=== PATIENT | female | born 1965 | race Caucasian/White ===

== ENCOUNTER → 2016-09-14 | Day surgery (SDC) | payer OTHER, MEDICAID ==
[~2016-09-14] MED LIST: IOPAMIDOL (ISOVUE-300) 100 ML BTL IV ONE
--- NOTE | 2016-09-14 23:42 | DX ---
Left Nephrostomy Tube Change INDICATION: Routine change. Informed Consent: Obtained from the patient. Risks and benefits were discussed. Cross Cutting Measure: Patient's current list of medications including all known prescriptions, over -the-counters, herbals, and vitamin/mineral/dietary supplements are reviewed. Medications' name, dos age, frequency, and route of administration are confirmed. Patient is a non-smoker. Prophylactic Antibiotic: Cefazolin was not ordered and administered for antimicrobial prophylaxis be cause it was not medically necessary. VTE Prophylaxis: There is not an order for VTE prophylaxis to be given within 24 hours of the proced ure end time. VTE prophylaxis was not given because it was not medically necessary. Technique: Patient is placed in prone position. A "timeout" procedure was performed to identify the correct patient and the correct procedure. 1% Xylocaine was used for local anesthetic. All elemen ts of maximal sterile barrier technique, including cap, mask, sterile gown, sterile gloves, large ella rile sheet, hand hygiene, and 2% chlorhexidine for cutaneous antisepsis, followed. Existing tube is cut and removed over an Amplatz wire. New nephrostomy tube is advanced and pigtaile d in the pelvis. The patient tolerated the procedure well. Fluoroscopy: 0.2 minutes, two images. Impression: Routine left percutaneous nephrostomy tube change, as above.
== END | disposition home or self-care (01) ==
LOC: FIMAGING 14:24
PROVIDERS: ATTEND Radiology Diagnostic Radiology
PROC: [UNRECOGNIZED PROCEDURE] (principal; 2016-09-14)
DX: Z43.6 Encounter for attention to other artificial openings of urinary tract (principal)
CPT/HCPCS: 50435; 76000; C1729; C1769; J1644; Q9967

== ENCOUNTER → 2016-11-02 | Day surgery (SDC) | payer OTHER, MEDICAID | END | disposition home or self-care (01) | LOC: FIMAGING 08:29 | PROVIDERS: ATTEND Urology | PROC: [UNRECOGNIZED PROCEDURE] (principal; 2016-11-02) | DX: Z43.6 Encounter for attention to other artificial openings of urinary tract (principal) | CPT/HCPCS: 50435; 75984; C1729; C1769; Q9967 ==

== ENCOUNTER → 2016-12-09 | Day surgery (SDC) | payer OTHER, MEDICAID | END | disposition home or self-care (01) | LOC: FIMAGING 08:51 | PROVIDERS: ATTEND Urology | PROC: 0T25X0Z Change Drainage Device in Kidney, External Approach (ICD-10-PCS; principal; 2016-12-09) | DX: Z43.6 Encounter for attention to other artificial openings of urinary tract (principal); R10.9 Unspecified abdominal pain | CPT/HCPCS: 50435; 75984; C1729; C1769; Q9967 ==

== ENCOUNTER → 2016-12-16 | Outpatient (CLI) | payer OTHER, MEDICAID | LOC: FIMAGING 09:50 | PROVIDERS: ATTEND Nurse Practitioner | DX: N20.0 Calculus of kidney (principal); N28.89 Other specified disorders of kidney and ureter; M41.86 Other forms of scoliosis, lumbar region; M12.88 Other specific arthropathies, not elsewhere classified, other specified site; Z93.6 Other artificial openings of urinary tract status ==

== ENCOUNTER → 2017-02-15 | Day surgery (SDC) | payer OTHER, MEDICAID | END | disposition home or self-care (01) | LOC: FIMAGING 14:55 | PROVIDERS: ATTEND Radiology Diagnostic Radiology | PROC: 0T25X0Z Change Drainage Device in Kidney, External Approach (ICD-10-PCS; principal; 2017-02-15) | DX: T83.092A Other mechanical complication of nephrostomy catheter, initial encounter (principal) | CPT/HCPCS: 50435; 75984; C1729; C1769 ==

== ENCOUNTER 2017-02-16 12:45 | Emergency (ER) | payer OTHER, MEDICAID ==
[2017-02-16 12:58] VITALS: RESP 20
[2017-02-16] MEDS ORDERED: ACETAMINOPHEN 325 MG TAB PO ONE (13:23)
--- NOTE | 2017-02-16 13:25 | EDPHY ---
H & P Time Seen by Provider: 02/16/17 13:16 HPI/ROS: CHIEF COMPLAINT: Fever HISTORY OF PRESENT ILLNESS: 51-year-old female HIV positive, with ESRD on dialysis presents with a fever of 102. She has a history of multiple episodes of pyelonephritis, related to kidney stones and nephrostomy tube. She took the Zyvox for the past 2 days because of low-grade fever. Yesterday she had her nephrostomy replaced and subsequently developed hematuria. In dialysis today, her fever was 102, she states she felt slightly nauseous, but otherwise fine. She is followed by the [facility]. REVIEW OF SYSTEMS: Constitutional: Fever, no chills Eyes: No visual changes ENT: No sore throat Respiratory: No cough, no shortness of breath Cardiac: No chest pain Gastrointestinal: Nausea, no vomiting, no abdominal pain Genitourinary: Hematuria yesterday, no dysuria Musculoskeletal: No leg pain or swelling Skin: No rash Neurological: No headache, no numbness, no weakness Psychiatric: No depression Past Medical/Surgical History: ESRD with dialysis, Neurogenic bladder, Jillian Dumont, HIV+, Hydronephrosis, Nephrostomy tube, Uterine ablation. Social History: Single. Lives in [place]. Smoking Status: Never smoked Physical Exam: General Appearance: Alert, pleasant Eyes: Pupils equal and round, no conjunctival pallor or injection ENT, Mouth: Mucous membranes moist Neck: Normal inspection Respiratory: Lungs are clear to auscultation Cardiovascular: Regular rate and rhythm Gastrointestinal: Abdomen is soft and non-tender, left nephrostomy tube Neurological: A&O, nonfocal, normal gait Skin: Warm and dry, no rash Extremities: Nontender, no pedal edema Psychiatric: Mood and affect normal Constitutional: Initial Vital Signs Temperature (C) 38 C 02/16/17 12:45 Heart Rate 110 H 02/16/17 12:45 Respiratory Rate 20 02/16/17 12:45 Blood Pressure 95/61 L 02/16/17 12:45 O2 Sat (%) 90 L 02/16/17 12:45 O2 Delivery Mode Room Air Allergies/Adverse Reactions: cephalexin monohydrate [From Keflex] Allergy (Intermediate, Verified 02/16/17 12 :55) Swelling/neck,face,throat ertapenem sodium [From Invanz] Allergy (Intermediate, Verified 02/16/17 12:55) Rash, neck and throat swelling Penicillins Allergy (Intermediate, Verified 02/16/17 12:55) Swelling/neck,face,throat Sulfa (Sulfonamide Antibiotics) Allergy (Intermediate, Verified 02/16/17 12:55) Swelling/neck,face,throat vancomycin [Vancomycin] Allergy (Intermediate, Verified 02/16/17 12:55) Swelling/neck,face,throat doxycycline Allergy (Verified 02/16/17 12:55) hydroxyzine HCl [From Atarax] Allergy (Verified 02/16/17 12:55) keflin Allergy (Uncoded 02/16/17 12:55) keftab Allergy (Uncoded 02/16/17 12:55) FLU SHOTS Adverse Reaction (Uncoded 02/16/17 12:55) RT POOR KIDNEY FUNCTION AVOIDS Home Medications: Medication Instructions Recorded Abacavir Sulfate [Ziagen] 600 mg PO DAILY 02/23/13 Darunavir Ethanolate [PREZISTA] 800 mg PO DAILY 02/23/13 Escitalopram Oxalate [Lexapro] 20 mg PO DAILY 07/29/15 Ritonavir [Norvir] 100 mg PO DAILY 07/29/15 Sevelamer Carbonate [Renvela] 800 mg PO TIDMEAL 07/30/15 Dolutegravir Sodium [Tivicay] 50 mg PO DAILY 04/28/16 Herbals/Supplements -Info Only 1 tab PO DAILY 05/17/16 Scopolamine Hydrobromide 1.5 mg TD Q72H 06/17/16 [Transderm-Scop] Levothyroxine [Synthroid 88 mcg 88 mcg PO DAILY06 02/16/17 (*)] Linezolid [Zyvox 600 mg (*)] 600 mg PO DAILY PRN 02/16/17 levOFLOXACIN [Levaquin] 250 mg PO EVERY OTHER DAY #0 tablet 02/17/17 Medical Decision Making ED Course/Re-evaluation: The patient does not want to be admitted at this time. She is electing to skip dialysis today so she can see her family tomorrow. Plan to check UA and lab work. Potassium 6.2. I discussed this result with the patient and she continues to refuse admission and to refuse dialysis today. She is capable of making this decision and clearly understands the risk of elevated potassium, including dysrhythmia or . She accepts the risks and still wishes to go home. UA is positive for leukocyte esterase. Patient received 1 time dose of Rocephin. She will take Levaquin and Zyvox for UTI. Urine cx sent. Differential Diagnosis: Differential diagnosis includes pyelonephritis, cholecystitis, influenza, cellulitis, pneumonia, abscess, meningitis. - Data Points Laboratory Results: Laboratory Results 02/16/17 12:50 02/16/17 12:50 Microbiology Results: MICROBIOLOGY 02/16/17 13:48 Urine,Clean Catch Urine Culture - Preliminary Gram Neg Fly Nonlactose Ferm. Gram Neg Fly Lactose [employer] Consultant Medications Given: Discontinued Medications Acetaminophen (Tylenol) 650 mg PO EDNOW ONE Stop: 02/16/17 13:24 Last Admin: 02/16/17 13:55 Dose: 650 mg Levofloxacin (Levaquin) 750 mg PO EDNOW ONE PRN Reason: Protocol Stop: 02/16/17 14:57 Last Admin: 02/16/17 15:15 Dose: 750 mg Departure - Departure Disposition: Home, Routine, Self-Care Clinical Impression: Hyperkalemia UTI (urinary tract infection) Qualifiers: Urinary tract infection type: catheter-associated UTI Indwelling urinary catheter type: nephrostomy catheter Encounter type: initial encounter Qualified Code(s): T83.512A - Infection and inflammatory reaction due to nephrostomy catheter, initial encounter; N39.0 - Urinary tract infection, site not specified Condition: Fair Instructions: Fever in Adults (ED) Additional Instructions: I think you should be admitted to the hospital today to receive dialysis. Please call your [facility] today to arrange prompt dialysis for tomorrow. Continue taking Zyvox and Levaquin as prescribed. Referrals: Brandon Ho MD [Medical Doctor] - As per Instructions Report Scribed for: Dilia Zuniga Report Scribed by: Shruti Diaz Date of Report: 02/16/17 Time of Report: 14:56 Physician Review and Approval Statement: 02/16/17 14:56 Portions of this note were transcribed by a senior medical writer. I personally performed the history, physical exam, and medical decision-making; and confirmed the accuracy of the information in the transcribed note.
[2017-02-16 13:37] LABS: % IMMATURE GRANULYOCYTES 0.3 % (0.0-1.1); ABSOLUTE IMMATURE GRANULOCYTES 0.02 10^3/uL (0.00-0.10); ADD DIFF? NO; ADD MORPH? NO; ADD SCAN? NO; ATYPICAL LYMPHOCYTE FLAG 0 (0-99); FRAGMENT RBC FLAG 0 (0-99); HEMOGLOBIN 11.6 g/dL (12.6-16.3); LEFT SHIFT FLG 20 (0-99); LIPEMIA HEMOLYSIS FLAG 80 (0-99); MEAN CELL HEMOGLOBIN 29.9 pg (27.9-34.1); MEAN CELL HEMOGLOBIN CONCENTR. 31.4 g/dL (32.4-36.7); MEAN CELL VOLUME 95.4 fL (81.5-99.8); MEAN PLATELET VOLUME 9.7 fL (8.7-11.7); PLATELET CLUMPS FLAG 0 (0-99); PLATELET COUNT 146 10^3/uL (150-400); RED BLOOD CELL COUNT 3.88 10^6/uL (4.18-5.33); RED CELL DISTRIBUTION WIDTH 15.3 % (11.5-15.2)
[2017-02-16 13:42] LABS: ANION GAP 15 mEq/L (8-16); BILIRUBIN,TOTAL 0.8 mg/dL (0.1-1.4); CALCIUM 10.3 mg/dL (8.5-10.4); CARBON DIOXIDE 20 mEq/l (22-31); CHLORIDE 100 mEq/L (97-110); CREATININE 5.8 mg/dL (0.6-1.0); GLOMERULAR FILTRATION RATE 8; GLUCOSE 101 mg/dL (70-100); POTASSIUM 6.2 mEq/L (3.5-5.2); SODIUM 135 mEq/L (134-144)
[2017-02-16 13:49] LABS: INR 1.11 (0.83-1.16); PROTIME(PATIENT) 14.2 SEC (12.0-15.0)
[2017-02-16 13:50] LABS: APTT 30.9 SEC (23.0-38.0)
[2017-02-16 14:48] LABS: COLOR YELLOW; LEUKOCYTE ESTERASE,URINE 3+ (NEGATIVE); NITRITE,URINE NEGATIVE (NEGATIVE)
[2017-02-16 14:53] LABS: BACTERIA TRACE /hpf (NONE SEEN); MUCUS TRACE /lpf (NONE-1+); RBC,URINE 50-182 /hpf (0-3); WBC,URINE 50-182 /hpf (0-3)
[2017-02-16 15:20] VITALS: BP 93/64; PULSE 106; TEMP 99.1; O2SAT 95
== END 2017-02-16 17:11 | disposition home or self-care (01) ==
LOC: EDUNIT#
DX: T83.512A Infection and inflammatory reaction due to nephrostomy catheter, initial encounter (principal); E87.5 Hyperkalemia; B96.5 Pseudomonas (aeruginosa) (mallei) (pseudomallei) as the cause of diseases classified elsewhere; Y73.2 Prosthetic and other implants, materials and accessory gastroenterology and urology devices associated with adverse incidents

== ENCOUNTER 2017-02-16 19:18 | Inpatient (IN) | payer OTHER, MEDICAID ==
--- NOTE | 2017-02-16 19:58 | EDPHY ---
H & P Stated Complaint: fever, nausea; seen earlier today Time Seen by Provider: 02/16/17 19:32 HPI/ROS: Chief Complaint: Fever, nausea HPI: 51-year-old woman with past medical history of end-stage renal disease, HIV positive, nephrostomy who had a recent nephrostomy tube changed yesterday. Patient was seen earlier today and noted to have urinary tract infection. Patient also was hyperkalemic and needed dialysis. Patient did not want to stay in the hospital she has family coming to visit and left the hospital AMA. Her caregiver noted that the patient was feeling increasingly unwell with nausea and rigors. They called Dr. Burton, infectious Disease who recommended return to the hospital for admission and dialysis and further care. The patient was given Levaquin in the emergency department earlier today. No chest pain or shortness of breath. No abdominal pain. Has not had any pain at the nephrostomy tube site ROS: 10 point Review of Systems is negative except as noted in the HPI. PMH: End-stage renal disease on dialysis, neurogenic bladder, HIV-positive, Guillain-Bancroft, hydronephrosis, nephrostomy tube, uterine ablation Social History: No smoking, no alcohol, no recreational drug use Family History: non-contributory Physical Exam: Gen: Awake, Alert, uncomfortable appearing, frail HEENT: Nose: no rhinorrhea Eyes: PERRLA, EOMI Mouth: Moist mucosa Neck: Supple, no JVD Chest: nontender, lungs clear to auscultation Heart: S1, S2 normal, no murmur Abd: Soft, non-tender, no guarding Back: no CVA tenderness, no midline tenderness some dried serosanguineous discharge at the nephrostomy tube site. No purulence. No erythema Ext: no edema, non-tender Skin: no rash Neuro: CN II-XII intact, Sensation grossly intact, Strength 5/5 in bilateral upper and lower extremities - Personal History LMP (Females 10-55): Over 28 Days Ago Tetanus Vaccine Date: 2010 - Medical/Surgical History Hx Asthma: No Hx Chronic Respiratory Disease: No Hx Diabetes: No Hx Cardiac Disease: No Hx Renal Disease: Yes Hx Cirrhosis: No Hx Alcoholism: No Hx HIV/AIDS: Yes Hx Splenectomy or Spleen Trauma: No Other PMH: pmh- neurogenic bladder, Guillian Bancroft, anemia, ESRD w/ dialysis, hyperparathyroidism, HIV+, sacral decub 08/05 until 06/06., hydronephrosis, L nephrostomy tube. psh- tonsillectomy, teeth pulled, cholecystectomy, LFA fistula, left hip replacement; uterine ablation - Social History Smoking Status: Never smoked Constitutional: Initial Vital Signs Temperature (C) 39.5 C H 02/16/17 19:20 Heart Rate 127 H 02/16/17 19:20 Respiratory Rate 17 02/16/17 19:20 Blood Pressure 92/56 L 02/16/17 19:20 O2 Sat (%) 90 L 02/16/17 19:20 O2 Delivery Mode Room Air Allergies/Adverse Reactions: cephalexin monohydrate [From Keflex] Allergy (Intermediate, Verified 02/16/17 12 :55) Swelling/neck,face,throat ertapenem sodium [From Invanz] Allergy (Intermediate, Verified 02/16/17 12:55) Rash, neck and throat swelling Penicillins Allergy (Intermediate, Verified 02/16/17 12:55) Swelling/neck,face,throat Sulfa (Sulfonamide Antibiotics) Allergy (Intermediate, Verified 02/16/17 12:55) Swelling/neck,face,throat vancomycin [Vancomycin] Allergy (Intermediate, Verified 02/16/17 12:55) Swelling/neck,face,throat doxycycline Allergy (Verified 02/16/17 12:55) hydroxyzine HCl [From Atarax] Allergy (Verified 02/16/17 12:55) keflin Allergy (Uncoded 02/16/17 12:55) keftab Allergy (Uncoded 02/16/17 12:55) FLU SHOTS Adverse Reaction (Uncoded 02/16/17 12:55) RT POOR KIDNEY FUNCTION AVOIDS Home Medications: Medication Instructions Recorded Abacavir Sulfate [Ziagen] 600 mg PO DAILY@1800 02/23/13 Darunavir Ethanolate [PREZISTA] 800 mg PO DAILY@1800 02/23/13 Escitalopram Oxalate [Lexapro] 20 mg PO DAILY 07/29/15 Levothyroxine [Synthroid 75 mcg 75 mcg PO DAILY06 07/29/15 (*)] Ritonavir [Norvir] 100 mg PO DAILY@1800 07/29/15 Sevelamer Carbonate [Renvela] 800 mg PO TIDMEAL 07/30/15 Midodrine HCl [Proamatine/Midodrin] 10 mg PO MWF@1000 10/02/15 Dolutegravir Sodium [Tivicay] 50 mg PO DAILY@1800 04/28/16 Herbals/Supplements -Info Only 1 tab PO DAILY 05/17/16 Multivitamins [Multivitamin (*)] 1 tab PO DAILY 05/17/16 Omeprazole [Prilosec 20 mg] 20 mg PO BID 06/17/16 Scopolamine Hydrobromide 1.5 mg TD Q72H 06/17/16 [Transderm-Scop] Medical Decision Making ED Course/Re-evaluation: I have reviewed the patient's emergency department your visit from earlier today. It is noted that time that her potassium was 6.2, creatinine 5.8. She had a white count of 6.03. Lactate was 1.3. She had 3+ leuk esterase in her urine. She was given Levaquin p.o.. Patient has noted now to be febrile. She is nontoxic appearing. I have discussed with Dr. Kartik Burger, hospitalist. He will admit to his service for further care. Departure - Departure Disposition: [facility] Inpatient Acute Clinical Impression: Fever, UTI (urinary tract infection), End stage renal disease, Hyperkalemia Condition: Fair Referrals: Adam Villalobos MD [Primary Care Provider] - As per Instructions
[2017-02-16] MEDS ORDERED: ACETAMINOPHEN 325 MG TAB PO PRN (21:34)
[2017-02-16] MEDS ORDERED: LINEZOLID 600 MG TAB PO PRN (21:37)
[2017-02-16] MEDS ORDERED: SCOPOLAMINE HYDROBROMIDE 1.5 MG PATCH TD SCH (21:45)
--- NOTE | 2017-02-16 21:56 | CPEKG ---
Heart Rate: 103 RR Interval: 583 P-R Interval: 144 QRSD Interval: 70 QT Interval: 324 QTC Interval: 424 P [place]: 67 QRS [place]: -53 T Wave [place]: 53 EKG Severity - ABNORMAL ECG - EKG Impression: SINUS TACHYCARDIA EKG Impression: PROBABLE LEFT ATRIAL ABNORMALITY EKG Impression: PROBABLE INFERIOR INFARCT, OLD EKG Impression: LATERAL INFARCT, OLD EKG Impression: CONSIDER ANTERIOR INFARCT EKG Impression: QUERY LEAD REVERSAL TO PRECORDIAL LEADS VERSUS NEW LATERAL INFARCT IN EKG Impression: COMPARISON TO PRIOR (17-JUN-16) Electronically Signed By: Gael Ellis 17-Feb-2017 09:43:17
[2017-02-16] MEDS: HEPARIN 5,000 UNIT/0.5 ML SYR SC SCH (22:25)
[2017-02-16] MEDS: ONDANSETRON 4 MG/2 ML VIAL IVP PRN (22:28)
--- NOTE | 2017-02-16 22:57 | GHP ---
[f rep st] HISTORY AND PHYSICAL DATE OF ADMISSION: 02/16/2017 HISTORY OF PRESENT ILLNESS: The patient is a 51-year-old female with history of endstage renal dise ase, HIV, and recurrent UTI. She presented to the emergency department earlier today with fever of 102. At that point in time, she was diagnosed with a UTI on the basis of a UA showing 50-180 red ce lls, 50-180 white cells, and 3+ leukocyte esterase. This is not an uncommon finding since she has a nephrostomy tube and history of nephrolithiasis and pyelonephritis. She received a dose of ceftria xone and admission was recommended on the basis of a potassium of 6.2. She declined and was dischar ged home. It sounds like she went to dialysis and did not look particularly well and was therefore sent back in here. The patient is somewhat unclear about whether or not she has urinary symptoms, s tating that she has a UTI. A lot of her urine drains out through a leg bag from a nephrostomy. She has a sore neck secondary to degenerative disk disease, but no bob myalgias. She is allergic to flu shots. I suspect she did not get a flu shot this year. She has no cough, shortness of breath, abdominal pain or diarrhea. Her fistula looks good. She has no other indwelling access. She is wheelchair-bound secondary to unsteady gait. REVIEW OF SYSTEMS: Complete 10-point review of systems conducted and negative except as noted in th e HPI. PAST MEDICAL HISTORY: 1. HIV without AIDS. 2. 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 3. Nephrolithiasis. 4. Recurrent UTIs. Prior cultures were Acinetobacter, Klebsiella, Enterobacter, Enterococcus. 5. Pelvic fracture. 6. Neurogenic bladder. 7. Guillain-[place]. 8. Hypothyroidism. 9. Depression. 10. Hyperlipidemia. 11. Hyperparathyroidism. 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 13. Left nephrostomy tube. 14. Ureteral stenosis. 15. Left total hip arthroplasty. 16. Left knee surgery. 17. Cholecystectomy. 18. Bilateral feet surgery. 19. Hysterectomy. 20. Tonsillectomy. 21. Tubal ligation. SOCIAL HISTORY: Wheelchair-bound secondary to Guillain-[place]. Lives with mother in [place]. Mara issa is active in her care. No alcohol, no tobacco. FAMILY HISTORY: Negative for CAD. ALLERGIES: Keflex, ertapenem, penicillins, vancomycin, doxycycline, hydroxyzine, Ceftin, Keftab, fl u shots. MEDICATIONS: Herbals, p.r.n. Linezolid, sevelamer, levothyroxine, scopolamine, hydrobromide, ritona vir, escitalopram, darunavir, dolutegravir. PHYSICAL EXAMINATION: VITAL SIGNS: Temp 39.5, now 37.5, blood pressure 92/56, now 107/54. She was tachycardic at 127 when febrile, but now 99, pulse 70, breathing 17 times a minute, 90% on room air . GENERAL: No acute distress. Sclerae anicteric. Oropharynx clear. Mucous membranes moist. NEC K: Supple without lymphadenopathy or JVD. LUNGS: Clear to auscultation bilaterally. HEART: S1, S2. ABDOMEN: Soft, nontender, nondistended. There is clear urine in her leg bag. Her fistula is clean, dry, and intact. LABS: White count 6, hematocrit 37, platelets 146,000, all baseline. INR 1.1. Venous lactate 1.3. Sodium 135, potassium 6.2, chloride 100, bicarb 20, BUN 45, creatinine 5.8, glucose 101, calcium 1 0.3. UA is 50-180 white cells, 50-180 red cells, is commonly found for her although she sometimes h as less red cells. Chest x-ray earlier today, interpreted by me, shows no acute cardiopulmonary dis ease. I discussed the case with Dr. Ronnie Negro, Dr. Tom Burton, Dr. Dwaine Ford. ASSESSMENT/PLAN: Complex 51-year-old female, here with hyperkalemia and fever. 1. Fever. It maybe from a urinary tract infection, although her urinalysis and history are not enti rely convincing given that she always has a chronic urinalysis and is a challenging historian. I wi ll cover her with ceftriaxone, which she received earlier today, start again tomorrow, and check inf luenza. There are no other localizing symptoms we will follow. Blood cultures were drawn in the em ergency department earlier and urine culture were sent. 2. End-stage renal disease. EKG is pending. However, so far on telemetry this level of potassium for her at 5.8 is high, but did have higher values, as high as 9. She will get dialysis either toda y or tomorrow. Again, she is on telemetry. 3. Human immunodeficiency virus. Continue her medications. 4. Prophylaxis. Subcutaneous heparin t.i.d. DISPOSITION: Inpatient status. /[id number]/MODL
[2017-02-16] MEDS ORDERED: LINEZOLID 600 MG TAB PO ONE (23:45)
[2017-02-16] MEDS ORDERED: levOFLOXACIN 500 MG/DEXTROSE 100 ML IV ONE (23:48)
[2017-02-17] MEDS: ONDANSETRON DISINTEGRATING 4 MG TAB PO PRN ×2 (01:23→05:53)
[2017-02-17] MEDS: HEPARIN 5,000 UNIT/0.5 ML SYR SC SCH (05:53)
[2017-02-17] MEDS ORDERED: LEVOTHYROXINE 88 MCG TAB PO SCH (06:00)
[2017-02-17 06:45] LABS: HEMATOCRIT 37.6 % (38.0-47.0); HEMOGLOBIN 11.7 g/dL (12.6-16.3); MEAN CELL HEMOGLOBIN 29.8 pg (27.9-34.1); MEAN CELL HEMOGLOBIN CONCENTR. 31.1 g/dL (32.4-36.7); MEAN CELL VOLUME 95.7 fL (81.5-99.8); RED BLOOD CELL COUNT 3.93 10^6/uL (4.18-5.33); RED CELL DISTRIBUTION WIDTH 15.3 % (11.5-15.2)
[2017-02-17 07:04] LABS: ANION GAP 16 mEq/L (8-16); CALCIUM 10.3 mg/dL (8.5-10.4); CARBON DIOXIDE 19 mEq/l (22-31); CHLORIDE 98 mEq/L (97-110); CREATININE 6.9 mg/dL (0.6-1.0); GLOMERULAR FILTRATION RATE 6; GLUCOSE 95 mg/dL (70-100); POTASSIUM 6.1 mEq/L (3.5-5.2); SODIUM 133 mEq/L (134-144)
[2017-02-17] MEDS ORDERED: NON-FORMULARY NEW DRUG (Sevelamer Carbonate [Renvela] 800 MG) PO SCH (08:00)
[2017-02-17] MEDS ORDERED: NON-FORMULARY NEW DRUG (Escitalopram Oxalate [Lexapro] 20 MG) PO SCH (09:00)
[2017-02-17] MEDS ORDERED: Herbals/Supplements -Info Only PO SCH (09:00)
[2017-02-17] MEDS ORDERED: NON-FORMULARY NEW DRUG (Dolutegravir Sodium [Tivicay] 50 MG) PO SCH (09:00)
[2017-02-17] MEDS ORDERED: ABACAVIR SULFATE 600 MG PO SCH ×3 (09:00)
[2017-02-17] MEDS ORDERED: ESCITALOPRAM OXALATE 10 MG TAB PO SCH (09:00)
[2017-02-17] MEDS ORDERED: DARUNAVIR ETHANOLATE 800 MG PO SCH ×2 (09:00)
[2017-02-17] MEDS ORDERED: cefTRIAXone 1 GM in D5W 50 ML IV SCH (09:00)
[2017-02-17] MEDS ORDERED: RITONAVIR 100 MG PO SCH ×2 (09:00)
[2017-02-17] MEDS ORDERED: (Dolutegravir Sodium [Tivicay] 50 MG) PO SCH (09:00)
--- NOTE | 2017-02-17 09:40 | PDCONSULT ---
[facility] [employer] [facility] Note: Assessment/Plan: ESRD: on HD MWF, missed HD yesterday. - HD today. - HD again tomorrow per routine. Hyperkalemia: will modulate on HD. Metabolic acidosis: will modulate on HD. Anemia: Hgb at goal at 11.7, no need for epo, will monitor. Thank you for the interesting consult. Nephrology will continue to monitor, please call with any additional questions or concerns. H & P Stated Complaint: fever, nausea; seen earlier today Time Seen by Provider: 02/16/17 19:32 HPI/ROS: HPI: Ms. Castillo is a 51 yo F with ESRD on HD MWF at [facility] who was admitted yesterday for fever. Pt presented yesterday morning to ER, was noted to have a fever up to 102 and found to have a UTI, was given ceftriaxone. It was recommended she be admitted but she declined and left from ED. She went to dialysis unit but was still having fever, didn't look so great so was sent back to ED, was not dialyzed. Pt notes that overnight she has had no issues, no more fevers, feeling a bit better. She expresses no specific symptoms today. ROS: Positive per HPI, rest of 10-point ROS negative Source: Patient - Personal History LMP (Females 10-55): Over 28 Days Ago Tetanus Vaccine Date: 2010 - Medical/Surgical History Hx Asthma: No Hx Chronic Respiratory Disease: No Hx Diabetes: No Hx Cardiac Disease: No Hx Renal Disease: Yes Hx Cirrhosis: No Hx Alcoholism: No Hx HIV/AIDS: Yes Hx Splenectomy or Spleen Trauma: No Other PMH: pmh- neurogenic bladder, Guillian Umbarger, anemia, ESRD w/ dialysis, hyperparathyroidism, HIV+, sacral decub 08/05 until 06/06., hydronephrosis, L nephrostomy tube. psh- tonsillectomy, teeth pulled, cholecystectomy, LFA fistula, left hip replacement; uterine ablation - Family History Significant Family History: No pertinent family hx - Social History Smoking Status: Never smoked - Physical Exam Exam: General: alert and oriented, no acute distress Eyes; EOMI, PERRL OP: Clear, MMM Neck: supple, no thyromegaly CV: RRR, no peripheral edema Resp: CTA Bilat, nonlabored respirations Abd; Soft, NT/ND Neuro: CN II-XII grossly intact, no asterixis Psych: cooperative, appropriate mood and affect Access: LUE AVF cannulated Constitutional: Initial Vital Signs Temperature (C) 39.5 C H 02/16/17 19:20 Heart Rate 127 H 02/16/17 19:20 Respiratory Rate 17 02/16/17 19:20 Blood Pressure 92/56 L 02/16/17 19:20 O2 Sat (%) 90 L 02/16/17 19:20 O2 Delivery Mode Room Air Allergies/Adverse Reactions: cephalexin monohydrate [From Keflex] Allergy (Intermediate, Verified 02/16/17 12 :55) Swelling/neck,face,throat ertapenem sodium [From Invanz] Allergy (Intermediate, Verified 02/16/17 12:55) Rash, neck and throat swelling Penicillins Allergy (Intermediate, Verified 02/16/17 12:55) Swelling/neck,face,throat Sulfa (Sulfonamide Antibiotics) Allergy (Intermediate, Verified 02/16/17 12:55) Swelling/neck,face,throat vancomycin [Vancomycin] Allergy (Intermediate, Verified 02/16/17 12:55) Swelling/neck,face,throat doxycycline Allergy (Verified 02/16/17 12:55) hydroxyzine HCl [From Atarax] Allergy (Verified 02/16/17 12:55) keflin Allergy (Uncoded 02/16/17 12:55) keftab Allergy (Uncoded 02/16/17 12:55) FLU SHOTS Adverse Reaction (Uncoded 02/16/17 12:55) RT POOR KIDNEY FUNCTION AVOIDS Home Medications: Medication Instructions Recorded Abacavir Sulfate [Ziagen] 600 mg PO DAILY 02/23/13 Darunavir Ethanolate [PREZISTA] 800 mg PO DAILY 02/23/13 Escitalopram Oxalate [Lexapro] 20 mg PO DAILY 07/29/15 Ritonavir [Norvir] 100 mg PO DAILY 07/29/15 Sevelamer Carbonate [Renvela] 800 mg PO TIDMEAL 07/30/15 Dolutegravir Sodium [Tivicay] 50 mg PO DAILY 04/28/16 Herbals/Supplements -Info Only 1 tab PO DAILY 05/17/16 Scopolamine Hydrobromide 1.5 mg TD Q72H 06/17/16 [Transderm-Scop] Levothyroxine [Synthroid 88 mcg 88 mcg PO DAILY06 02/16/17 (*)] Linezolid [Zyvox 600 mg (*)] 600 mg PO DAILY PRN 02/16/17 Lab and Imaging 02/17/17 06:40 02/17/17 06:40 WBC 4.24 10^3/uL (3.80-9.50) 02/17/17 06:40 RBC 3.93 10^6/uL (4.18-5.33) L 02/17/17 06:40 Hgb 11.7 g/dL (12.6-16.3) L 02/17/17 06:40 Hct 37.6 % (38.0-47.0) L 02/17/17 06:40 MCV 95.7 fL (81.5-99.8) 02/17/17 06:40 MCH 29.8 pg (27.9-34.1) 02/17/17 06:40 MCHC 31.1 g/dL (32.4-36.7) L 02/17/17 06:40 RDW 15.3 % (11.5-15.2) H 02/17/17 06:40 Plt Count 133 10^3/uL (150-400) L 02/17/17 06:40 Sodium 133 mEq/L (134-144) L 02/17/17 06:40 Potassium 6.1 mEq/L (3.5-5.2) H 02/17/17 06:40 Chloride 98 mEq/L (97-110) 02/17/17 06:40 Carbon Dioxide 19 mEq/l (22-31) L 02/17/17 06:40 Anion Gap 16 mEq/L (8-16) 02/17/17 06:40 BUN 58 mg/dL (7-23) H 02/17/17 06:40 Creatinine 6.9 mg/dL (0.6-1.0) H 02/17/17 06:40 Estimated GFR 6 02/17/17 06:40 Glucose 95 mg/dL (70-100) 02/17/17 06:40 Calcium 10.3 mg/dL (8.5-10.4) 02/17/17 06:40 Influenza A & B (PCR) NEGATIVE FOR FLU (NEGATIVE) 02/16/17 22:00
[2017-02-17] MEDS ORDERED: LIDOCAINE 1% *Not for Epidural 20 ML MDV ONE (10:00)
[2017-02-17] MEDS: ONDANSETRON 4 MG/2 ML VIAL IVP PRN (10:55)
--- NOTE | 2017-02-17 11:15 | HOSPPROG ---
Hospitalist Progress Note Assessment/Plan: 51 yo female with ESRD, nephrostomy tubes, recurrent UTI, and HIV (no AIDS reported) admitted for fever of unclear etiology, possibly due to a UTI. She was initially seen on 02/17 a.m. and started on Levaquin and Zyvox. Admission was recommended but refused but was ultimately sent back by her HD team. It is unclear if a Urine culture was sent. A blood culture was not sent. No further fever today. -Fever of unclear etiology -Possibly Acute UTI in setting of nephrostomy tubes and recurrent UTI's -ESRD -Hyperkalemia, getting HD (extra treatment) today. chronically on M// schedule -HIV Plan: I will order both UCx and Bcx, but likely will not be informative she has a hx of polymicrobial UTI and I presume that this is the reason she was treated with both Levaquin and Zyvox. For now I will continue with Levaquin alone. If decompensates, may need to restart the Zyvox. HD today I will keep her overnight given her high risk status. Heparin TID for DVT proph Subjective: Feels better. Although still feels hot. Wants to go home. No CP or SOB. No cough. Objective: Vital Signs Temp Pulse Resp BP Pulse Ox 37.5 C 101 H 12 123/68 H 91 L 02/17/17 07:27 02/17/17 07:27 02/17/17 07:27 02/17/17 07:27 02/17/17 10:04 Laboratory Results 02/17/17 06:40 02/17/17 06:40 02/16/17 02/17/17 02/18/17 05:59 05:59 05:59 Intake Total 100 Output Total 200 Balance -100 - Time Spent With Patient Time Spent with Patient: greater than 35 minutes Time Spent with Patient: Greater than 35 minutes spent on this patients care, greater than 50% of time spent counseling, educating, and coordinating care regarding the above mentioned plan. - Physical Exam Constitutional: no apparent distress, appears nourished, not in pain, chronically ill appearing Eyes: PERRL, EOMI Ears, Nose, Mouth, Throat: moist mucous membranes Cardiovascular: regular rate and rhythym Respiratory: no respiratory distress Skin: warm Neurologic: AAOx3 Psychiatric: interacting appropriately, not anxious, not encephalopathic ICD10 Worksheet Patient Problems: Problems Problem Status Onset End stage renal disease Acute Fever Acute Hyperkalemia Acute UTI (urinary tract infection) Acute Chest pain Acute Generalized weakness Acute Hyperkalemia Acute Hypotension Acute Hypoxemia Acute MRSA (methicillin resistant Staphylococcus aureus) Acute 12/03/16 Pubic ramus fracture Acute UTI (urinary tract infection) Acute
[2017-02-17] MEDS: (Sevelamer Carbonate [Renvela] 800 MG) PO SCH ×2 (12:05→13:11)
--- NOTE | 2017-02-17 12:13 | PCMIDPN ---
Assessment/Plan: # Fever suspect urinary source as nephrostomy tube exchange preceded illness on 02/15. Will direct antibiotics based on past urinary isolates. Stenotrophomonas has never been covered therefore will leave coverage out of antibiotic cocktail. --Blood and Ucx ordered under different visit, do not need to repeat --levofloxacin 250mg qOD, next dose 02/19 --continue Zyvox 600mg BID, already has Rx --will follow up on cultures and adjust as an outpatient. --extensively reviewed the dangers of discharge from the hospital including . Patient and mother desire empiric antibiotic therapy in the form of Levaquin and Zyvox #Steno and MRSA colonization. In the past patient has never been treated for Stenotrophomonas # Multiple significant antibiotic allergies including significant rash to penicillins and cephalosporins, allergy to vancomycin and Bactrim ESRD: Levaquin 500 mg load then 250 every other day Microbiology 02/16 Urine,Clean Catch Urine Culture : Gram Neg Fly Nonlactose Ferm.; Gram Neg Fly Lactose Targeteer 02/16 blood cx (2) pending Meds levofloxacin 500mg IV qOD, s/p 2 doses 02/17, 02/16 Subjective: 51 year old woman well known to the ID service with HIV, end-stage renal disease , with chronic indwelling left-sided nephrostomy tube who underwent exchange on 02/15/2017. Prior to exchange she only took prophylactic Zyvox once daily. Typically urine culture is obtained and prophylactic antibiotics are directed towards urine culture to prevent febrile episodes. Initially patient presented to the emergency room yesterday with fever and refused admission but then returned later as the fever increased and patient had seizure-like activity. Today patient reports feeling well and strongly desires discharge due to family visiting. Reviewed past microbiology which included isolates such as MRSA, Stenotrophomonas, Enterobacter Objective: Vital Signs Temp Pulse Resp BP Pulse Ox 37.5 C 101 H 12 123/68 H 91 L 02/17/17 07:27 02/17/17 07:27 02/17/17 07:27 02/17/17 07:27 02/17/17 10:04 Laboratory Results 02/17/17 06:40 02/17/17 06:40 02/16/17 02/17/17 02/18/17 05:59 05:59 05:59 Intake Total 100 Output Total 200 Balance -100 - Physical Exam General Appearance: alert, no apparent distress EENT: No scleral icterus Respiratory: lungs clear Cardiac/Chest: regular rate, rhythm, systolic murmur Extremities: No pedal edema Abdomen: normal bowel sounds, non-tender, soft Pelvic Exam: other (Left-sided nephrostomy to with some brown drainage at insertion site (reportedly chronic), draining to Garcia bag with clear urine) Skin: No rash Neuro/Psych: alert, normal mood/affect, oriented x 3 - Time Spent With Patient Time Spent with Patient: greater than 35 minutes Time Spent with Patient: Greater than 35 minutes spent on this patients care, greater than 50% of time spent counseling, educating, and coordinating care regarding the above mentioned plan. ICD10 Worksheet Patient Problems: Problems Problem Status Onset End stage renal disease Acute Fever Acute Hyperkalemia Acute UTI (urinary tract infection) Acute Chest pain Acute Generalized weakness Acute Hyperkalemia Acute Hypotension Acute Hypoxemia Acute MRSA (methicillin resistant Staphylococcus aureus) Acute 12/03/16 Pubic ramus fracture Acute UTI (urinary tract infection) Acute
[2017-02-17 12:30] VITALS: PULSE 96; RESP 16; TEMP 98.7; O2SAT 96
[2017-02-17 12:48] VITALS: BP 119/96
--- NOTE | 2017-02-17 13:12 | PDDCSUM ---
Discharge Summary Discharge Summary: 51 yo female with ESRD, nephrostomy tubes, recurrent UTI, and HIV (no AIDS reported) admitted for fever of unclear etiology, possibly due to a UTI. She was initially seen on 02/17 a.m. and started on Levaquin and Zyvox. Admission was recommended but refused but was ultimately sent back by her HD team. On the day of discharge I saw her and felt that given her comorbidities and no clear follow up, that she was a too high of risk for discharge. She was then seen by Dr. Saez who is familiar with the patient and she has arranged follow up and recommends discharge as the patient has family in [facility]. The patient has Urine cultures and blood cultures that are pending. She will cont with Levaquin dosed 250mg every other day and Zyvox 600mg BID. The patient already has a prescription for Zyvox and Dr. Saez has sent the script for Levaquin. This case was also discussed with our pharmacy team. Discharge Diagnosis: -Fever of unclear etiology -Possibly Acute UTI in setting of nephrostomy tubes and recurrent UTI's -ESRD -Hyperkalemia, getting HD (extra treatment) today. chronically on M// schedule -HIV -Steno and MRSA colonization Microbiology 02/16 Urine,Clean Catch Urine Culture : Gram Neg Fly Nonlactose Ferm.; Gram Neg Fly Lactose Flat Breakdown Processor 02/16 blood cx (2) pending Discharge Exam: please see my previous progress note from today Discharge Med: other than abx above, no other changes Total time spent on discharge is 40 minutes.
[2017-02-18] MEDS ORDERED: levOFLOXACIN 500 MG/DEXTROSE 100 ML IV SCH (09:00)
[2017-02-18 12:33] LABS: HEPATITIS Bs Ab QUANT <5.0 mIU/mL
== END 2017-02-17 14:45 | disposition home or self-care (01) | DRG 698 ==
LOC: F2W 20:54
PROVIDERS: ADMIT Internal Medicine; ATTEND Family Medicine
PROC: 5A1D00Z (ICD-10-PCS; principal; 2017-02-17)
DX: T83.512A Infection and inflammatory reaction due to nephrostomy catheter, initial encounter (principal); N39.0 Urinary tract infection, site not specified; B96.89 Other specified bacterial agents as the cause of diseases classified elsewhere; B95.62 Methicillin resistant Staphylococcus aureus infection as the cause of diseases classified elsewhere; N18.6 End stage renal disease; E87.2 Acidosis; E87.5 Hyperkalemia; N31.9 Neuromuscular dysfunction of bladder, unspecified; E03.9 Hypothyroidism, unspecified; F32.9 Major depressive disorder, single episode, unspecified; E78.5 Hyperlipidemia, unspecified; E21.3 Hyperparathyroidism, unspecified; D64.9 Anemia, unspecified; R75 Inconclusive laboratory evidence of human immunodeficiency virus [HIV]; Z93.6 Other artificial openings of urinary tract status; Z99.2 Dependence on renal dialysis; Z87.442 Personal history of urinary calculi; Z99.3 Dependence on wheelchair; Z96.642 Presence of left artificial hip joint; Z88.0 Allergy status to penicillin; Z88.1 Allergy status to other antibiotic agents
CPT/HCPCS: 86704-90; C1729; C1769; J1956; J2405

== ENCOUNTER 2017-04-04 17:18 | Inpatient (IN) | payer OTHER, MEDICAID ==
--- NOTE | 2017-04-04 17:47 | EDPHY ---
H & P Time Seen by Provider: 04/04/17 17:28 HPI/ROS: CHIEF COMPLAINT: Swelling around nephrostomy tube site HISTORY OF PRESENT ILLNESS: 51-year-old female HIV positive, end-stage renal disease dialyzed today, and history of depression presents with swelling around her nephrostomy site. She had the nephrostomy changed 6 weeks ago. Onset of pain around the site immediately after the nephrostomy was changed. Gradually increasing pain since then. Now associated with 1 week history of swelling. 1 week ago she had an ultrasound of the nephrostomy site that was negative. For the past week the moderate pain and swelling around the site have increased. Today she had a repeat ultrasound which revealed an area of possible hematoma vs abnormal tissue formation. No evidence of abscess. She now feels ill and is now vomiting. Associated with excessive fatigue. Similar presentation to prior infections. She was sent to the emergency department for admission by Dr. Kearney. REVIEW OF SYSTEMS: Constitutional: No fever, no chills Eyes: No visual changes ENT: No sore throat Respiratory: No cough, no shortness of breath Cardiac: No chest pain Gastrointestinal: Nausea, vomiting. Genitourinary: No hematuria, no dysuria Musculoskeletal: No leg pain or swelling Skin: No rash Neurological: No headache, no numbness [Psychiatric: No depression Past Medical/Surgical History: HIV positive Depression End-stage renal disease Social History: Mother at bedside. Smoking Status: Never smoked Physical Exam: General Appearance: Alert, pale, appears fatigued Eyes: Pupils equal and round, no conjunctival pallor or injection ENT, Mouth: Mucous membranes moist Neck: Normal inspection Respiratory: Lungs are clear to auscultation Cardiovascular: Regular rate and rhythm Gastrointestinal: Abdomen is soft and non-tender Back: Tenderness and swelling around the left nephrostomy site. Neurological: A&O, nonfocal, normal gait Skin: Warm and dry, no rash Extremities: Nontender, no pedal edema Psychiatric: Mood and affect normal Constitutional: Initial Vital Signs Temperature (C) 36.5 C 04/04/17 17:40 Heart Rate 90 04/04/17 17:40 Respiratory Rate 18 04/04/17 17:40 Blood Pressure 154/95 H 04/04/17 17:40 O2 Sat (%) 94 04/04/17 17:40 O2 Delivery Mode Room Air Allergies/Adverse Reactions: ertapenem sodium [From Invanz] Allergy (Intermediate, Verified 04/04/17 17:39) Rash, neck and throat swelling vancomycin [Vancomycin] Allergy (Intermediate, Verified 04/04/17 17:39) Swelling/neck,face,throat doxycycline Allergy (Verified 04/04/17 17:39) hydroxyzine HCl [From Atarax] Allergy (Verified 04/04/17 17:39) keflin Allergy (Uncoded 02/16/17 12:55) FLU SHOTS Adverse Reaction (Uncoded 02/16/17 12:55) RT POOR KIDNEY FUNCTION AVOIDS Home Medications: Medication Instructions Recorded Abacavir Sulfate [Ziagen] 600 mg PO DAILY 02/23/13 Darunavir Ethanolate [PREZISTA] 800 mg PO DAILY 02/23/13 Escitalopram Oxalate [Lexapro] 20 mg PO DAILY 07/29/15 Ritonavir [Norvir] 100 mg PO DAILY 07/29/15 Sevelamer Carbonate [Renvela] 1,600 mg PO TIDMEAL 07/30/15 Dolutegravir Sodium [Tivicay] 50 mg PO DAILY 04/28/16 Herbals/Supplements -Info Only 1 tab PO DAILY 05/17/16 Scopolamine Hydrobromide 1.5 mg TD Q72H 06/17/16 [Transderm-Scop] Levothyroxine [Synthroid 88 mcg 88 mcg PO DAILY06 02/16/17 (*)] Medical Decision Making - Diagnostics EKG Interpretation: EKG interpreted by me reveals sinus rhythm. Right atrial abnormality. Prolonged QT interval. Interpretation: No change from EKG 02/16/17. Imaging Results: Imaging Impressions Abdomen Ultrasound 04/04/17 15:52 Impression: 1. A new area of palpable lump at 12 o'clock position over the drain since last tube exchange, correlating to area of tenderness on palpation. 2. This tissue corresponds to hyperemic, hypoechoic tissue on ultrasound that is solid. 3. There is no underlying abscess or fluid collection. 4. The above ultrasound finding is most consistent with hyperemic reactive tissue. Whether this tissue is infected is hard to say from ultrasound standpoint. Comment: The above are discussed with the patient and her mother. Patient also is having episodes of nausea and vomiting and does not feel very well. After extensive discussion with Dr. Soha Kearney, patient is sent to emergency room for possible hospital admission and workup at this time. Surgical consultation may be needed to render an opinion on what to do with this area of hyperemic tissue. If needed, the nephrostomy tube could potentially be moved to another site, although I suspect some anatomic challenge may need to be worked out. CT scan of the abdomen and pelvis with IV contrast may help to rule out any deep or underlying abnormalities. Total [id number] consultation with the patient and her mother today was 20 minutes. Crosscutting Measure: Patient's current list of medications including all known prescriptions, [id number], herbals, and vitamin/mineral/dietary supplements are reviewed. Medications' name, dosage, frequency, and route of administration are confirmed. Patient is a nonsmoker. Abdomen/Pelvis CT 04/04/17 17:27 Impression: 1. Left percutaneous nephrostomy pigtail catheter in good position, with mild hydroureter but no hydronephrosis noted. No ureterolithiasis. Hypodensities upper pole left kidney may represent focal atrophy or cystic necrosis, unchanged since the previous study. 2. Atrophic right kidney, without hydronephrosis or nephrolithiasis. 3. Left posterolateral nephrostomy site demonstrates deep muscular nonspecific soft tissue, measuring 4 x 2.5 cm, not involving the kidney but corresponding to the ultrasound findings possibly representing complex hematoma or phlegmon, without evidence of drainable abscess or drainable fluid collection. 4. Constipation. 5. Please see above findings. Attention: This CT examination is specifically designed to evaluate patients who are clinically suspected of having acute obstructive uropathy. This examination does not use radiographic contrast, and as such, provides only a limited evaluation of the abdomen, pelvis, and retroperitoneum. If there is further clinical suspicion for pathological conditions other than obstructive uropathy, a complete CT evaluation of the abdomen and pelvis utilizing intravenous, oral, and rectal contrast should be considered. Dr. Soha Kearney has been paged. Imaging: Discussed imaging studies w/ call person Radiologist ED Course/Re-evaluation: Lab work, cultures, and CT abdomen/pelvis ordered per request of Dr. Kearney. IV established, patient received 4mg Zofran and 1L normal saline. EKG shows no changes from previous 02/16/17. UA is positive, query colonization versus UTI. Urine culture sent. 1800: I spoke to the hospitalist, Dr. Burger, who accepts the patient for admission. 2020: Patient is complaining of worsening pain around her nephrostomy site. 6mg Morphine IV was ordered. d/w Dr. Yang, recheck chem7 at [place], if rising potassium, will plan for am dialysis. Differential Diagnosis: Differential diagnosis includes though is not limited to abscess, cellulitis, UTI, pyelonephritis. - Data Points Laboratory Results: 04/04/17 17:50 Urine Color YELLOW Urine Appearance MODERATELY TURBID Urine pH 8.0 H (5.0-7.5) Ur Specific [place] 1.009 (1.002-1.030) Urine Protein 3+ H (NEGATIVE) Urine Ketones 1+ H (NEGATIVE) Urine Blood 1+ H (NEGATIVE) Urine Nitrate NEGATIVE (NEGATIVE) Urine Bilirubin NEGATIVE (NEGATIVE) Urine Urobilinogen NEGATIVE EU EU (0.2-1.0) Ur Leukocyte Esterase 3+ H (NEGATIVE) Urine RBC 25-50 /hpf H /hpf (0-3) Urine WBC 25-50 /hpf H /hpf (0-3) Ur Epithelial Cells NONE SEEN /lpf /lpf (NONE-1+) Urine Bacteria 4+ /hpf H /hpf (NONE SEEN) Urine Glucose 2+ H (NEGATIVE) Medications Given: Discontinued Medications Sodium Chloride (Ns) 1,000 mls @ 0 mls/hr IV ONCE ONE PRN Reason: Wide Open Stop: 04/04/17 18:56 Last Admin: 04/04/17 18:56 Dose: 1,000 mls Morphine Sulfate (Morphine) 4 mg IVP EDNOW ONE Stop: 04/04/17 20:29 Last Admin: 04/04/17 20:33 Dose: Not Given Ondansetron HCl (Zofran) 4 mg IVP EDNOW ONE Stop: 04/04/17 18:55 Last Admin: 04/04/17 18:56 Dose: 4 mg Departure - Departure Disposition: [facility] Inpatient Acute Clinical Impression: Nephrostomy complication Condition: Fair Report Scribed for: Dilia Zuniga Report Scribed by: Shruti Diaz Date of Report: 04/04/17 Time of Report: 17:53 Physician Review and Approval Statement: 04/04/17 17:54 Portions of this note were transcribed by a medical biller coder. I personally performed the history, physical exam, and medical decision-making; and confirmed the accuracy of the information in the transcribed note.
[2017-04-04 18:15] LABS: COLOR YELLOW; LEUKOCYTE ESTERASE,URINE 3+ (NEGATIVE); NITRITE,URINE NEGATIVE (NEGATIVE)
[2017-04-04 18:21] LABS: BACTERIA 4+ /hpf (NONE SEEN); RBC,URINE 25-50 /hpf (0-3); WBC,URINE 25-50 /hpf (0-3)
[2017-04-04] MEDS ORDERED: ONDANSETRON 4 MG/2 ML VIAL IVP ONE (18:54)
[2017-04-04] MEDS ORDERED: NS 1,000 ML IV ONE (18:55)
--- NOTE | 2017-04-04 19:41 | CPEKG ---
Heart Rate: 81 RR Interval: 741 P-R Interval: 144 QRSD Interval: 74 QT Interval: 440 QTC Interval: 511 P [place]: 69 QRS [place]: 8 T Wave [place]: 51 EKG Severity - ABNORMAL ECG - EKG Impression: SINUS RHYTHM EKG Impression: RIGHT ATRIAL ABNORMALITY EKG Impression: CONSIDER ANTERIOR INFARCT EKG Impression: PROLONGED QT INTERVAL Electronically Signed By: Dilia Zuniga 04-Apr-2017 21:40:37
[2017-04-04 20:45] LABS: % IMMATURE GRANULYOCYTES 0.3 % (0.0-1.1); ABSOLUTE IMMATURE GRANULOCYTES 0.01 10^3/uL (0.00-0.10); ADD DIFF? NO; ADD MORPH? NO; ADD SCAN? NO; ATYPICAL LYMPHOCYTE FLAG 0 (0-99); FRAGMENT RBC FLAG 0 (0-99); HEMATOCRIT 41.1 % (38.0-47.0); HEMOGLOBIN 12.9 g/dL (12.6-16.3); LEFT SHIFT FLG 0 (0-99); LIPEMIA HEMOLYSIS FLAG 80 (0-99); MEAN CELL HEMOGLOBIN 29.7 pg (27.9-34.1); MEAN CELL HEMOGLOBIN CONCENTR. 31.4 g/dL (32.4-36.7); MEAN CELL VOLUME 94.7 fL (81.5-99.8); MEAN PLATELET VOLUME 9.4 fL (8.7-11.7); PLATELET CLUMPS FLAG 20 (0-99); PLATELET COUNT 185 10^3/uL (150-400); RED BLOOD CELL COUNT 4.34 10^6/uL (4.18-5.33); RED CELL DISTRIBUTION WIDTH 14.7 % (11.5-15.2)
[2017-04-04 20:51] LABS: ANION GAP 9 mEq/L (8-16); CALCIUM 9.3 mg/dL (8.5-10.4); CARBON DIOXIDE 27 mEq/l (22-31); CHLORIDE 94 mEq/L (97-110); CREATININE 2.7 mg/dL (0.6-1.0); GLOMERULAR FILTRATION RATE 18; GLUCOSE 96 mg/dL (70-100); SODIUM 130 mEq/L (134-144)
[2017-04-04 20:56] LABS: SPECIMEN HEMOLYSIS 222
[2017-04-04 20:59] LABS: POTASSIUM 6.5 mEq/L (3.5-5.2)
[2017-04-04] MEDS ORDERED: NS 300 ML IV ONE (21:05)
[2017-04-04] MEDS ORDERED: SODIUM POLY SULF 15 GM/60 ML BOTTLE PO ONE (21:05)
[2017-04-04] MEDS ORDERED: CALCIUM GLUC 10% 1 GM/10 ML VIAL IVP ONE (21:06)
[2017-04-04] MEDS ORDERED: INSULIN REGULAR HUMAN 100 UNIT/ML IVP ONE (21:06)
[2017-04-04] MEDS ORDERED: D50W 25 GM/50 ML SYR IVP ONE (21:07)
[2017-04-04] MEDS ORDERED: ACETAMINOPHEN 325 MG TAB PO PRN (21:16)
[2017-04-04] MEDS ORDERED: ONDANSETRON 4 MG/2 ML VIAL IVP PRN (21:16)
[2017-04-04] MEDS ORDERED: ONDANSETRON DISINTEGRATING 4 MG TAB PO PRN (21:16)
[2017-04-04] MEDS ORDERED: SCOPOLAMINE HYDROBROMIDE 1.5 MG PATCH TD SCH (21:30)
[2017-04-04] MEDS ORDERED: D10W 250 ML PRN HYPOGLYCEMIA IV (22:00)
--- NOTE | 2017-04-04 22:32 | GHP ---
[f rep st] HISTORY AND PHYSICAL DATE OF ADMISSION: 04/04/2017 CHIEF COMPLAINT: This is a 51-year-old female history of well-controlled HIV, end-stage renal disea se, nephrolithiasis and indwelling left nephrostomy tube, who presents with pain and nausea and vomi ting after dialysis. Her last nephrostomy tube placement was about 6 weeks ago. This is about how often they get changed. After dialysis, she felt nauseated and had some vomiting. These are common symptoms for her of having an infection or other infectious process. Upon presentation to the ER, she was noted to have a firm, soft tissue mass at about 12 o'clock over her nephrostomy tube. In speaking with her mother, the mother notes occasional brown purulent drainage coming out of this that has not increased. This has been going on for a long period of time. She has had increasing p ain over the last week. She also notes increased fatigue. Dr. Haddad was appraised of these symptoms and advised her to come to the ER. REVIEW OF SYSTEMS: A complete 10-point review of systems conducted and negative except as noted in the HPI. PAST MEDICAL HISTORY: 1. HIV without AIDS. 2. End-stage renal disease, secondary to reflux nephropathy. 3. Nephrolithiasis. 4. Recurring UTIs. 5. Prior cultures with Acinetobacter, Klebsiella, Enterobacter, Enterococcus. 6. Pelvic fracture. 7. Neurogenic bladder. 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 9. Hypothyroidism. 10. Depression. 11. Hyperlipidemia. 12. Hyperparathyroidism. 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 14. Left nephrostomy tube. 15. Ureteral stenosis. 16. Left total hip arthroplasty. 17. Left knee surgery. 18. Cholecystectomy. 19. Bilateral feet surgery. 20. Hysterectomy. 21. Tonsillectomy. 22. Tubal ligation. SOCIAL HISTORY: She is wheelchair bound, secondary to Guillain[place]. Lives with her mother in [facility]. Her mother is active in her care. No alcohol, no tobacco. FAMILY HISTORY: Negative for CAD. ALLERGIES: Keflex, ertapenem, penicillin, vancomycin, doxycycline, hydroxyzine, Ceftin, Keftab, flu shots. MEDICATIONS: Home medications are abacavir, darunavir, dolutegravir, escitalopram, levothyroxine, r itonavir, scopolamine patch, sevelamer. PHYSICAL EXAM: VITAL SIGNS: Presenting vitals: Temp 36.5, blood pressure 154/95, pulse 90, breath ing 18 times a minute, 94% on room air. GENERAL: In no acute distress. HEENT: Sclerae anicteric. Oropharynx clear. Mucous membranes are moist. NECK: Supple without lymphadenopathy or JVD. REANNA GS: Clear to auscultation bilaterally. HEART: S1, S2. ABDOMEN: Soft, nontender, nondistended. LOWER EXTREMITIES: Without edema. Calves are nontender. SKIN: Without rash on her back. : Claudia johnson has a nephrostomy tube that has no fluctuance. No erythema. There is a 4 x 2.5 cm rounded soft t issue mass at about 12 o'clock to her nephrostomy tube. It is not fluctuant. It is relatively nont helen when I press on it. There is no drainage or foul smell coming from her nephrostomy tube at th is point in time. LABORATORY DATA: White count 2.9, which is a little lower than her baseline. Hematocrit 41, platel ets are 185,000. Sodium 130, potassium 6.5, chloride 94, bicarb 27, BUN 23, creatinine 2.7, glucose 96. UA shows mildly turbid 25 to 50 red cells, 25 to 50 white cells. For comparison's sake, at the end of January, she had a UTI that was treated and she had 50 to 180 red cells and white cells. Last CD4 c ount was 166 on February 28. Abdominal pelvis CT shows left percutaneous nephrostomy tube and catheter in good positio n with mild hydroureter, but no hydronephrosis. She has a left posterior lateral nephrostomy site that demonstrates deep muscular nonspecific tissue measuring 4 x 2.5 cm, not involving the kidney but corresponding to ultrasound findings, without ev idence of abscess. It looks mostly like soft tissue. I have reviewed the images in depth with the radiologist, Dr. Munguia. The abdominal ultrasound showed a palpable lump that correlates to area on palpation. No abscess or fluid collection. EKG, interpreted by me, shows sinus at 81, with normal axis and intervals. No ST or T-wave changes. I discussed the case with Dr. Nikolai Munguia and Dr. Danielle Zuniga. ASSESSMENT/PLAN: A complex history of a 51-year-old female, here with pain, nausea and vomiting. 1. Pain: I think the patient has some scar tissue. It is not clearly infected. She may have colo nization of her tract which leads to the drainage, but imaging does not demonstrate evidence of absc ess and physical exam shows secondary evidence of infection, such as warmth or erythema. For now, izaiah johnson will hold antibiotics. Infectious Disease will see her in the morning. 2. Nephrostomy tube with a patient on dialysis. It is not clear to me that the ongoing utility of salvaging this kidney, if the patient is in fact already on dialysis, particularly when salvaging of this kidney is, in fact, leading to medical morbidities, such as admissions to the hospital. I thi nk it is worth a discussion between Nephrology and infectious Disease about possibly removing this n ephrostomy tube and allowing her to continue on dialysis. Notably, she is not on a transplant list. 3. HIV. Continue her medications. 4. Hyperkalemia. This is after dialysis. I will repeat it at midnight. The ER spoke with Misa perry, who will see her in the morning and dialyze, if it remains elevated. DISPOSITION: Observation status. PROPHYLAXIS: Subcutaneous heparin t.i.d. /[id number]/MODL
[2017-04-05 00:40] LABS: ANION GAP 14 mEq/L (8-16); CALCIUM 9.7 mg/dL (8.5-10.4); CARBON DIOXIDE 25 mEq/l (22-31); CHLORIDE 96 mEq/L (97-110); CREATININE 2.9 mg/dL (0.6-1.0); GLOMERULAR FILTRATION RATE 17; GLUCOSE 74 mg/dL (70-100); POTASSIUM 4.9 mEq/L (3.5-5.2); SODIUM 135 mEq/L (134-144)
[2017-04-05] MEDS: LEVOTHYROXINE 88 MCG TAB PO SCH (06:30)
[2017-04-05] MEDS ORDERED: SEVELAMER CARBONATE 1600 MG PO SCH (08:00)
[2017-04-05] MEDS ORDERED: Dolutegravir Sodium [Tivicay] 50 MG PO SCH (09:00)
[2017-04-05] MEDS ORDERED: Herbals/Supplements -Info Only PO SCH (09:00)
[2017-04-05] MEDS ORDERED: ABACAVIR SULFATE 600 MG PO SCH (09:00)
[2017-04-05] MEDS ORDERED: Ritonavir [Norvir] 100 MG PO SCH (09:00)
--- NOTE | 2017-04-05 09:13 | PCMIDPN ---
Assessment/Plan: 1. Nephrostomy tube dysfunction/ ? scar tissue formation in patient with end- stage renal disease on hemodialysis: The mass does not appear to be infectious, radiographically or clinically. Had long conversation with the patient's mother, as well as , the patient' s urologist and Dr. Ho, the patient's fiber glass worker. We all agree that the best option moving forward is to have the kidney removed either laparoscopically or via an open procedure. We feel that the patient should be evaluated at [facility] for this. The nephrostomy tube is no longer a viable option moving forward. The patient expressed understanding and would like to move forward with a surgical evaluation. Dr. Stanley Diaz will see the patient today from Nephrology, and [address] Larry's partners will see the patient as well. Had conversation with patient's mother on the telephone, who expressed understanding, but has multiple questions for the urologist. 2. HIV: Continue antiretrovirals. Viral load undetectable in February. Over 35 mins spent with pt and calling other MD's. 7 Subjective: Patient well known to me. I referred the patient to the emergency room last evening, after speaking with Dr. Richardson in Interventional Radiology, where the patient had an ultrasound performed. Patient had nausea and vomiting after dialysis; she was found to have hyperkalemia (? Pseudo hyperkalemia). She states she feels much better today. Had long conversation with her regarding possible nephrectomy moving forward, and the fact that a nephrostomy tube is likely no longer a viable option. Please see discussion below. Objective: Afebrile No antibiotics Vital Signs Temp Pulse Resp BP Pulse Ox 36.7 C 84 18 131/79 H 96 04/05/17 08:26 04/05/17 08:26 04/05/17 08:26 04/05/17 08:26 04/05/17 08:26 Laboratory Results 04/04/17 20:25 04/05/17 00:01 04/04/17 04/05/17 04/06/17 05:59 05:59 05:59 Intake Total 280 Balance 280 Urine culture pending - Physical Exam General Appearance: alert, no apparent distress EENT: No thrush Respiratory: lungs clear Cardiac/Chest: systolic murmur Abdomen: non-tender, soft Back: other (Nephrostomy tube in place on the left side, with clear urine in the bag. Superior to the tube insertion site, there is a palpable nodular mass that is slightly tender. No skin discoloration. At the tube insertion site itself, there is a brownish excrescence.) ICD10 Worksheet Patient Problems: Problems Problem Status Onset End stage renal disease Acute Nephrostomy complication Acute Chest pain Acute Fever Acute Generalized weakness Acute Hyperkalemia Acute Hyperkalemia Acute Hypotension Acute Hypoxemia Acute MRSA (methicillin resistant Staphylococcus aureus) Acute 12/03/16 Pubic ramus fracture Acute UTI (urinary tract infection) Acute UTI (urinary tract infection) Acute
[2017-04-05 09:42] LABS: ANION GAP 12 mEq/L (8-16); CALCIUM 9.9 mg/dL (8.5-10.4); CARBON DIOXIDE 25 mEq/l (22-31); CHLORIDE 97 mEq/L (97-110); CREATININE 3.6 mg/dL (0.6-1.0); GLOMERULAR FILTRATION RATE 13; GLUCOSE 86 mg/dL (70-100); POTASSIUM 5.4 mEq/L (3.5-5.2); SODIUM 134 mEq/L (134-144)
[2017-04-05] MEDS: ESCITALOPRAM OXALATE 10 MG TAB PO SCH (09:46)
[2017-04-05] MEDS: HEPARIN 5,000 UNIT/0.5 ML SYR SC SCH ×3 (09:46→22:22)
--- NOTE | 2017-04-05 10:06 | HOSPPROG ---
Hospitalist Progress Note Assessment/Plan: ESRD - Dialyzed yesterday, renal consulting. Hyperkalemia - Rebound K elevated after dialysis. Further HD per renal. HIV - Undetectable viral load in February. Cont outpt HAART regimen. Nephrolithiasis with left nephrostomy tube and associated soft tissue mass - No e/o infection. Reviewed with ID, nephrology and plan is to proceed with [facility] evaluation for nephrectomy as salvaging the kidney is leading to recurring hospitalizations and she is already on dialysis. No e/o infection at this time. -Urology to see today -If nephrectomy evaluation is planned as outpt at [facility], may need nephrostomy tube replaced as she is due for this Full code Dispo - cont inpt Subjective: Pt feels okay. No N/V/D. Taking po. No fevers/chills or flank pain. Objective: Vital Signs Temp Pulse Resp BP Pulse Ox 36.7 C 84 18 131/79 H 96 04/05/17 08:26 04/05/17 08:26 04/05/17 08:26 04/05/17 08:26 04/05/17 08:26 Laboratory Results 04/04/17 20:25 04/05/17 09:14 04/04/17 04/05/17 04/06/17 05:59 05:59 05:59 Intake Total 280 Balance 280 - Physical Exam Constitutional: no apparent distress Eyes: PERRL Ears, Nose, Mouth, Throat: moist mucous membranes Cardiovascular: regular rate and rhythym Respiratory: no respiratory distress, clear to auscultation Gastrointestinal: normoactive bowel sounds, soft, non-tender abdomen Genitourinary: other (sub-cutaneous tissue swelling adjacent to left nephrostomy tube, no erythema or warmth) Skin: warm Musculoskeletal: full muscle strength Neurologic: AAOx3 Psychiatric: interacting appropriately ICD10 Worksheet Patient Problems: Problems Problem Status Onset End stage renal disease Acute Nephrostomy complication Acute Chest pain Acute Fever Acute Generalized weakness Acute Hyperkalemia Acute Hyperkalemia Acute Hypotension Acute Hypoxemia Acute MRSA (methicillin resistant Staphylococcus aureus) Acute 12/03/16 Pubic ramus fracture Acute UTI (urinary tract infection) Acute UTI (urinary tract infection) Acute
--- NOTE | 2017-04-05 10:28 | GCON ---
[f rep st] CONSULTATION NEPHROLOGY CONSULTATION DATE OF CONSULTATION: 04/05/2017 REASON FOR ADMISSION: Pain and swelling at left nephrostomy site. REASON FOR CONSULTATION: 1. End-stage renal disease, in need of dialysis. 2. Hyperkalemia. ASSESSMENT: 1. End-stage renal disease. 2. Hyperkalemia, likely pseudohyperkalemia. 3. Pain and swelling at left nephrostomy site. PLAN: 1. Routine dialysis tomorrow. 2. Urology consult regarding possible role of nephrectomy to manage issues surrounding the patient' s left kidney. HISTORY: The patient is a 51-year-old female, I have been asked to consult on by luis manuel Merchant egarding her end-stage renal disease and hyperkalemia. She presented to the emergency room last nig ht, and was seen by Dr. Zuniga. The patient had pain and swelling around her left nephrostomy tube. Ultrasound reveals an area of hypoechoic, hyperemic tissue, that measured 3.4 x 3 x 2.3 cm. There is no underlying abscess or flu id collection. CT scan was performed to further characterize this area. That demonstrated a left p ercutaneous nephrostomy tube in place, with mild hydroureter, without hydronephrosis, and no uretero lithiasis. Her right kidney is atrophic, without hydronephrosis or nephrolithiasis. The area noted on ultrasound was felt to either represent complex hematoma or phlegmon, without evidence of draina ble abscess or fluid collection. Constipation was also noted. The patient was admitted for further evaluation and treatment. Incidentally, the patient was found to be hyperkalemic. Her initial potassium was elevated at 8.3. A repeat specimen was performed, wh ich was hemolyzed, which revealed a potassium of 6.5. The patient was treated with calcium, insulin and D50. She evidently declined use of Kayexalate. Repeat potassium this morning was 4.9. Glucos e and acid-base status noted on these exams were relatively unremarkable. The patient relates that she ran her full dialysis yesterday and has not been missing treatments. PAST MEDICAL HISTORY: Her past medical history is complex. She had Guillain-Marsland syndrome back in 1981. She has neurogenic bladder and is wheelchair bound. She was diagnosed with HIV in 1994, and has been on medication for that. She has end-stage renal disease, related to her atrophic right ki dney and recurrent obstruction with UTI. She has been on dialysis since January of 2015. She dialyzes Tuesday, Tuesday, Tuesday at the [facility] unit, under the care of Dr. Ho. Other past medical history includes hypertension, hyperlipidemia, hyperparathyroidism, anemia and th rombocytopenia. She has depression and migraines. Other medical problems include history of cholecystitis, nephrolithiasis, urinary tract infection, a nd urinary tract obstruction. She has had sacral decubiti in the past and a foot ulcer as well. She had a foot ulcer back in 1998 . She also has history of pancreatitis. SURGICAL HISTORY: Endometrial ablation, tonsillectomy, tracheostomy, tubal ligation, left arm AV fi stula, ankle surgery, left knee arthroscopy, cholecystectomy and left total hip replacement. ALLERGIES: Allergies are multiple and include: Ertapenem, vancomycin, doxycycline, hydroxyzine, __ , influenza vaccine. OUTPATIENT MEDICATIONS: Have included darunavir 800 mg daily, abacavir 600 mg daily, escitalopram 2 0 mg daily, ritonavir 100 mg daily, Renagel 800 mg taking 2 with each meal, dolutegravir 50 mg daily, herbal supplements, scopolamine 1.5 mg every 72 hours transdermal patch, a nd levothyroxine 88 mcg daily. FAMILY AND SOCIAL HISTORY: Noncontributory. REVIEW OF SYSTEMS: She has had headache, nausea, vomiting, flank pain. She denies fevers, chills, sweats. She denies chest pain, chest pressure. She denies any cough or shortness of breath. She h as had no problems with drainage from her nephrostomy. She has an old suprapubic catheter site that is essentially healed. She has had the GI symptoms as described. She denies edema. She denies an y problems with dietary indiscretion. LABS: Show a creatinine of 2.9, potassium 4.9, electrolytes otherwise are unremarkable. Blood coun t: Hematocrit 41, platelet count 185, white count of 2.93. PHYSICAL EXAMINATION: VITAL SIGNS: Temp 36.7, pulse 84, respirations 18, blood pressure 131/79, sa turating 96% on 2 L nasal cannula. APPEARANCE: No apparent distress. NEUROLOGICAL: Grossly intac t. HEENT: Unremarkable, nontraumatic, normocephalic. NECK: Unremarkable, without lymphadenopathy , thyromegaly or masses. HEART: Regular with a 2 to 3/6 systolic murmur. LUNGS: Clear to auscult ation of the bases. ABDOMINAL: Soft, nontender. No rebound or guarding. No obvious organomegaly or masses. Left flank with nephrostomy tube, with tenderness near the catheter site. EXTREMITIES: Free of edema. ASSESSMENT: End-stage renal disease, in need of dialysis. PLAN: Will need for her to have her regular dialysis tomorrow. Her volume status is okay. Her pot assium is normalized. I do not see any indications for emergency dialysis today. Her hyperkalemia has resolved. She had a potassium in the 6s. That specimen was hemolyzed. The pr ior sample was greater than 8. I suspect those 2 drugs all represent pseudohyperkalemia. Given phoebe t she is normalized simply with drugs that shift potassium and do not actually eliminate it, I think this is the most likely diagnosis for those readings. She has ongoing pain related to her nephrostomy, with her end-stage renal disease, maintaining the n ephrostomy simply provides an ongoing area of decreased resistance for infection. She has had renal stones with obstruction. I suspect the easiest way to manage her long-term would be simply for her to have kidney removed. It has been a source of infection in the past with drug resistant organism s. As her urine output decreases with more time on dialysis, it is likely to become more problemati c than it even is now. We will have urology see this patient, as she will likely need to have surgi delmis consultation through the [facility], I would imagine given her complex medical histor y. We will see what Dr. Morris feels about her urologic situation. Copy requested to: [facility] /[id number]/MODL
[2017-04-05] MEDS: ABACAVIR SULFATE 600 MG PO SCH (10:35)
[2017-04-05] MEDS: Ritonavir [Norvir] 100 MG PO SCH (10:35)
[2017-04-05] MEDS: Dolutegravir Sodium [Tivicay] 50 MG PO SCH (10:35)
[2017-04-05] MEDS: Darunavir Ethanolate [Prezista] 800 MG PO SCH (10:36)
[2017-04-05] MEDS: SEVELAMER CARBONATE 1600 MG PO SCH ×2 (12:20→18:37)
--- NOTE | 2017-04-05 14:59 | WOCRNPDOC ---
WOCRN Advanced Assessment Note - Skin Integrity Problem, Advanced Assess Lower Abdomen Exudate Amount: None Exudate Characteristic(s): None Integumentary Issue Intervention: Barrier Cream Applied (patient's own Desitin cream) Wound Bed Color: Red Site Odor: None Skin Integrity Problem Comment: Raw, denuded skin noted across lower abdomen. Patient reports that this has improved significantly in the past few days. She also reports that she believes she is having a skin reaction to the stock dimethicone cream supplied to her by the hospital. Her mother has brought in patient's own Desitin cream, which was applied to skin. Wound care does not need to follow this issue ongoing, and nursing should re-consult PRN. Generalized Buttock Dressing Type: Open to Air Exudate Amount: None Exudate Characteristic(s): None Integumentary Issue Intervention: Barrier Cream Applied (patient's own Desitin) Elizabeth Wound Tissue: Blanching, Intact, Scarred Elizabeth Wound Swelling: None Site Odor: None Skin Integrity Problem Comment: Wound care consulted r/t patient's history of a stage 4 pressure injury. Upon assessment, there is scar tissue noted to the R of patient's coccyx where previous injury was. That site is healed and blanching throughout. Surrounding skin is currently intact w/ no breakdown evident. Due to patient's history, pressure-relieving precautions have been implemented, including P500 low air loss bed, TAPS systems, and turns q2. Patient is using her own off-loading cushion from her WC in her recliner. electric arc furnace operatorARIEL Schuler present and assisting.
[2017-04-05] MEDS ORDERED: LIDOCAINE 1% *Not for Epidural 20 ML MDV ONE (20:21)
[2017-04-06] MEDS: LEVOTHYROXINE 88 MCG TAB PO SCH (04:43)
[2017-04-06 04:59] LABS: % IMMATURE GRANULYOCYTES 0.6 % (0.0-1.1); ABSOLUTE IMMATURE GRANULOCYTES 0.02 10^3/uL (0.00-0.10); ADD DIFF? NO; ADD MORPH? NO; ADD SCAN? NO; ATYPICAL LYMPHOCYTE FLAG 40 (0-99); FRAGMENT RBC FLAG 0 (0-99); HEMATOCRIT 36.6 % (38.0-47.0); HEMOGLOBIN 11.3 g/dL (12.6-16.3); LEFT SHIFT FLG 0 (0-99); LIPEMIA HEMOLYSIS FLAG 80 (0-99); MEAN CELL HEMOGLOBIN 29.5 pg (27.9-34.1); MEAN CELL HEMOGLOBIN CONCENTR. 30.9 g/dL (32.4-36.7); MEAN CELL VOLUME 95.6 fL (81.5-99.8); MEAN PLATELET VOLUME 9.4 fL (8.7-11.7); PLATELET CLUMPS FLAG 0 (0-99); PLATELET COUNT 194 10^3/uL (150-400); RED BLOOD CELL COUNT 3.83 10^6/uL (4.18-5.33); RED CELL DISTRIBUTION WIDTH 14.6 % (11.5-15.2)
[2017-04-06] MEDS: HEPARIN 5,000 UNIT/0.5 ML SYR SC SCH ×3 (05:00→22:13)
[2017-04-06 05:16] LABS: ALBUMIN 3.2 g/dL (3.5-5.0); ANION GAP 11 mEq/L (8-16); CALCIUM 10.1 mg/dL (8.5-10.4); CARBON DIOXIDE 29 mEq/l (22-31); CHLORIDE 95 mEq/L (97-110); CREATININE 3.6 mg/dL (0.6-1.0); GLOMERULAR FILTRATION RATE 13; GLUCOSE 80 mg/dL (70-100); POTASSIUM 4.8 mEq/L (3.5-5.2); SODIUM 135 mEq/L (134-144)
--- NOTE | 2017-04-06 08:37 | SOAPPROG ---
SOAP Progress Note Assessment/Plan: Assessment: Chronic indwelling left nephrostomy tube with tract site pain. Plan: After chart review and discussions w/ MYNOR Castillo recommendation would be to proceed with left nephrectomy at [facility] (due to patient's high complexity) . I will discuss at further length w/ pt. later today when she is in her room. 04/06/17 08:37 Subjective: Currently not in her room -- undergoing dialysis. Objective: Vital Signs Temp Pulse Resp BP Pulse Ox 37.1 C 74 17 123/70 H 98 04/06/17 04:00 04/06/17 04:00 04/06/17 04:00 04/06/17 04:00 04/06/17 04:00 Laboratory Results 04/06/17 04:14 04/06/17 04:14 04/05/17 04/06/17 04/07/17 05:59 05:59 05:59 Intake Total 280 1070 Output Total 750 Balance 280 320 ICD10 Worksheet Patient Problems: Problems Problem Status Onset End stage renal disease Acute Nephrostomy complication Acute Chest pain Acute Fever Acute Generalized weakness Acute Hyperkalemia Acute Hyperkalemia Acute Hypotension Acute Hypoxemia Acute MRSA (methicillin resistant Staphylococcus aureus) Acute 12/03/16 Pubic ramus fracture Acute UTI (urinary tract infection) Acute UTI (urinary tract infection) Acute
[2017-04-06] MEDS ORDERED: Dolutegravir Sodium [Tivicay] 50 MG PO SCH (09:00)
[2017-04-06] MEDS ORDERED: ABACAVIR SULFATE 600 MG PO SCH (09:00)
[2017-04-06] MEDS ORDERED: SCOPOLAMINE HYDROBROMIDE 1.5 MG PATCH TD SCH ×2 (09:00→15:45)
[2017-04-06] MEDS: ABACAVIR SULFATE 600 MG PO SCH (12:00)
[2017-04-06] MEDS: Dolutegravir Sodium [Tivicay] 50 MG PO SCH (12:00)
[2017-04-06] MEDS: Ritonavir [Norvir] 100 MG PO SCH (12:02)
[2017-04-06] MEDS: SEVELAMER CARBONATE 1600 MG PO SCH ×3 (12:02→18:07)
[2017-04-06] MEDS: Darunavir Ethanolate [Prezista] 800 MG PO SCH (12:02)
[2017-04-06] MEDS: ESCITALOPRAM OXALATE 10 MG TAB PO SCH (12:10)
--- NOTE | 2017-04-06 12:44 | SOAPPROG ---
SOGEORGE Progress Note Assessment/Plan: Assessment: 1. esrd: hd today on typical [facility] schedule. 2. pain/uti: possible txfer to [facility] for nephrectomy 3. hyperK: resolved with hd Plan: 04/06/17 12:44 Subjective: Uneventful hd earlier today. Pain unchanged. Objective: Vital Signs Temp Pulse Resp BP Pulse Ox 37.1 C 82 16 90/65 L 93 04/06/17 04:00 04/06/17 12:00 04/06/17 12:00 04/06/17 12:00 04/06/17 12:00 Laboratory Results 04/06/17 04:14 04/06/17 04:14 04/05/17 04/06/17 04/07/17 05:59 05:59 05:59 Intake Total 280 1070 Output Total 750 Balance 280 320 Physical Exam - Physical Exam General Appearance: no apparent distress Extremities: pedal edema (none), other (+patent LUE avf) ICD10 Worksheet Patient Problems: Problems Problem Status Onset End stage renal disease Acute Nephrostomy complication Acute Chest pain Acute Fever Acute Generalized weakness Acute Hyperkalemia Acute Hyperkalemia Acute Hypotension Acute Hypoxemia Acute MRSA (methicillin resistant Staphylococcus aureus) Acute 12/03/16 Pubic ramus fracture Acute UTI (urinary tract infection) Acute UTI (urinary tract infection) Acute
--- NOTE | 2017-04-06 14:11 | GDS ---
[f rep st] DISCHARGE SUMMARY DATE OF ADMISSION: 04/04/2017 DATE OF DISCHARGE: 04/06/2017 DISCHARGE DIAGNOSES: 1. 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 Ho. 2. Hyperkalemia resolved with dialysis. 3. Nephrolithiasis with left nephrostomy tube. 4. Recurrent pyelonephritis and urinary tract infections. Prior cultures with acinetobacter, klebsiella, enterobacter, enterococcus, Staphylococcus aureus and stenotrophomonas. 5. Human immunodeficiency virus with an undetectable viral load February 2017 on highly active anti-retroviral therapy. 6. Neurogenic bladder. 7. Hypothyroidism. CONSULTANTS: 1. Dr. Soha Kearney, infectious disease. 2. Dr. Stanley Diaz, nephrology. 3. Dr. Neeru Alicea, urology. IMAGING STUDIES: 1. Abdomen and pelvis CT performed April 04, 2017, showed left percutaneous nephrostomy pigtail catheter in good position with mild hydroureter but no hydronephrosis, no ureterolithiasis. Hypodensities in the upper pole of the left kidney possibly jewelry sales representative of focal atrophy or cystic necrosis which is unchanged from her prior study. Atrophic right kidney without hydronephrosis or nephrolithiasis. In addition, the left posterior lateral nephrostomy site demonstrates a deep muscular nonspecific soft tissue measuring 4 x 2.5 cm not involving the kidney but corresponding to the ultrasound findings , possibly representing a complex hematoma or phlegmon without evidence of an abscess or drainable fluid collection. 2. Retroperitoneal ultrasound showed a new area of palpable lump at the 12 o' clock position over the percutaneous nephrostomy drain, correlating to the area of tenderness on exam. The tissue corresponds to hyperemic hypoechoic tissue on ultrasound that is solid. No evidence of abscess or fluid collection. Possibly secondary to hyperemic reactive tissue. HISTORY: For details, please see dictated history and physical dated March. In brief, the patient is a 51-year-old female with history of HIV and end-stage renal disease secondary to reflux nephropathy who has a left percutaneous nephrostomy tube due to history of nephrolithiasis and recurrent UTIs who presents to the hospital with left flank pain. She was admitted to the hospital for further evaluation. HOSPITAL COURSE: Patient was admitted to the cardiac telemetry unit. She presented with a potassium of 8.3. Nephrology was consulted. She underwent hemodialysis and her potassium is normalized at the time of discharge. Her presenting complaint was left flank pain. She had no fevers. Her flank pain seemed to correlate with a palpable area of mass versus inflammation. Imaging was not consistent with an abscess or fluid collection. In addition, she had a normal white blood cell count. The case was reviewed with Infectious Disease, who consulted and felt this was not an infectious process radiographically or clinically. After further consultation with Urology, Dr. Alicea, nephrology, Dr. Diaz, and infectious disease, Dr. Kearney, the care team agrees that the best option for her moving forward is to undergo a left nephrectomy. There is really no point in trying to salvage her left kidney given that she is already on dialysis and she continues to have recurring problems related to her nephrostomy tube. It is thought that this palpable painful mass in her left flank near the nephrostomy tube may be secondary to reactive hyperemia versus scar tissue and inflammation. It is painful. Again there was no evidence of an infectious process. Antibiotics have not been started. Blood cultures are negative to date. Urine culture drawn from her nephrostomy bag grew Staph aureus and stenotrophomonas. I discussed this with Infectious Disease. Given that she has no symptoms or fevers, we have deferred antibiotics at this time. Her nephrostomy tube was last changed 02/15/2017 and has been changed q 6 weeks. If she is able to undergo nephrectomy within the next 7 days, we can defer changing the tube. However, if her surgery date is prolonged, she may need to undergo another nephrostomy tube exchange. Regarding armen-operative antibiotic management, ID recommendations are as follows: Due to multiple allergies, use Daptomycin/Levofloxacin. These antibiotics will cover her urinary pathogens with the exception of stenotrophomonas, which has not been targeted. Please feel free to call Dr. Kearney at [phone] or Anitra Solano NP, with any questions. Would strongly encourage ID consult. Her HIV is stable and she was continued on her anti-retroviral therapy. She had an undetectable viral load in February of 2017. The patient was dialyzed on April 06 in the morning. At the time of discharge, her potassium is 4.8, creatinine 3.6. Her vital signs are stable. The patient and her family are in agreement. They wish to pursue [facility]. DISPOSITION: Patient is transferred to the [facility] for further evaluation by the urology team for nephrectomy. DISCHARGE MEDICATIONS: Please see [facility] for complete updated outpatient medication list. Current medications on discharge include darunavir 800 mg p.o. daily, Abacavir 600 mg p.o. daily, escitalopram 20 mg p.o. daily, ritonavir 100 mg p.o. daily, Renvela 1600 mg p.o. t.i.d., dolutegravir 50 mg p.o. daily, multivitamin, scopolamine patch 1.5 mg transdermal q.72 hours, levothyroxine 88 mcg p.o. daily. FOLLOWUP: The patient will have appropriate followup as needed upon hospital discharge from the [facility] with: 1. Brandon Ho MD, nephrology. 2. Dr. Morris, urology. 3. oSha Kearney MD, infectious disease. 4. Dr. Adam Villalobos, primary care. /[id number]/MODL MTDD
--- NOTE | 2017-04-06 14:32 | PCMIDPN ---
Assessment/Plan: 1. Nephrostomy tube dysfunction/ ? scar tissue formation in patient with end- stage renal disease on hemodialysis: Sincerely appreciate [facility]'s willingness to accept patient for nephrectomy. Please note that this patient has multiple antibiotic allergies, and for armen-operative prophylaxis, would use Daptomycin/Levofloxacin, as these antibiotics will cover her urinary pathogens with the exception of Stenotrophomonas, which we have not been targeting. Please feel free to call me , Dr. Soha Kearney , or our nurse practitioner, Anitra Ulrich for any assistance regarding this complex patient. Would also strongly encourage INFECTIOUS DISEASE consult once patient is at your facility, so they can follow along. 2. HIV: She should continue antiretrovirals. Viral load undetectable in February. 04/06/17 14:33 Subjective: Pt to be transferred to [facility] later today. Objective: Vital Signs Temp Pulse Resp BP Pulse Ox 37.1 C 82 16 90/65 L 93 04/06/17 04:00 04/06/17 12:00 04/06/17 12:00 04/06/17 12:00 04/06/17 12:00 Laboratory Results 04/06/17 04:14 04/06/17 04:14 04/05/17 04/06/17 04/07/17 05:59 05:59 05:59 Intake Total 280 1070 Output Total 750 Balance 280 320 ICD10 Worksheet Patient Problems: Problems Problem Status Onset End stage renal disease Acute Nephrostomy complication Acute Chest pain Acute Fever Acute Generalized weakness Acute Hyperkalemia Acute Hyperkalemia Acute Hypotension Acute Hypoxemia Acute MRSA (methicillin resistant Staphylococcus aureus) Acute 12/03/16 Pubic ramus fracture Acute UTI (urinary tract infection) Acute UTI (urinary tract infection) Acute
[2017-04-06] MEDS ORDERED: LIDOCAINE 1% *Not for Epidural 20 ML MDV ONE (19:49)
[2017-04-06] MEDS ORDERED: HEPARIN 10,000 UNIT/10 ML MDV ONE (19:49)
[2017-04-07] MEDS: LEVOTHYROXINE 88 MCG TAB PO SCH (05:58)
[2017-04-07] MEDS: HEPARIN 5,000 UNIT/0.5 ML SYR SC SCH ×2 (05:58→14:49)
[2017-04-07] MEDS: ESCITALOPRAM OXALATE 10 MG TAB PO SCH (08:57)
[2017-04-07] MEDS: Darunavir Ethanolate [Prezista] 800 MG PO SCH (08:58)
[2017-04-07] MEDS: SEVELAMER CARBONATE 1600 MG PO SCH ×2 (08:59→11:52)
[2017-04-07] MEDS: ABACAVIR SULFATE 600 MG PO SCH (08:59)
[2017-04-07] MEDS: Dolutegravir Sodium [Tivicay] 50 MG PO SCH (08:59)
[2017-04-07] MEDS: Ritonavir [Norvir] 100 MG PO SCH (08:59)
--- NOTE | 2017-04-07 09:42 | SOAPPROG ---
KARLA Progress Note Assessment/Plan: Assessment/Plan: ESRD: Pt on HD MWF normally at [facility] under Dr. Ho. Pt is next due for HD on Tuesday per routine. Will not order an UF as she does not tolerate. Hyperkalemia: resolved with HD, will continue to modulate with HD. Anemia: Hgb 11.3, no need for epo, will continue to monitor. Subjective: No acute events overnight. Pt had HD yesterday, tried to remove fluid and her BP dropped, did not tolerate that too well. She feels fine today, is awaiting transfer to [facility]. Objective: Vital Signs Temp Pulse Resp BP Pulse Ox 37.1 C 108 H 19 113/65 96 04/07/17 08:52 04/07/17 08:52 04/07/17 08:52 04/07/17 08:52 04/07/17 08:52 Laboratory Results 04/06/17 04:14 04/06/17 04:14 04/06/17 04/07/17 04/08/17 05:59 05:59 05:59 Intake Total 1070 80 Output Total 750 480 300 Balance 320 -400 -300 General: alert and oriented, no acute distress Eyes; EOMI, PERRL OP: Clear CV: RRR Resp: nonlabored respirations Abd; SOft, ND Ext: no edema BLE Neuro: CN II-XII grossly intact, no asterixis ICD10 Worksheet Patient Problems: Problems Problem Status Onset End stage renal disease Acute Nephrostomy complication Acute Chest pain Acute Fever Acute Generalized weakness Acute Hyperkalemia Acute Hyperkalemia Acute Hypotension Acute Hypoxemia Acute MRSA (methicillin resistant Staphylococcus aureus) Acute 12/03/16 Pubic ramus fracture Acute UTI (urinary tract infection) Acute UTI (urinary tract infection) Acute
[2017-04-07 13:03] VITALS: BP 113/64; PULSE 112; RESP 17; TEMP 98.4; O2SAT 94
[2017-04-07 13:22] LABS: HEPATITIS Bs Ab QUANT <5.0 mIU/mL
--- NOTE | 2017-04-07 14:55 | PCMIDPN ---
Assessment/Plan: 51 yo woman well known to the ID service with well controlled HIV who I am asked to see this afternoon prior to transfer for evaluation of new tachycardia. She also has End-stage renal disease, with chronic left nephrostomy tube due to distal left ureteral stenosis with inability to place stent since 2011 now with L nephrostomy tube dysfunction that can only be resolved with nephrectomy. # possible left nephrostomy site cellulitis, would empirically start renally dosed levofloxacin and daptomycin. Antibiotic selection fairly limited due to multiple antibiotic allergies. --blood cx prior to antibiotics # HIV/AIDS: Abacavir/Darunavir/r/dolutegravir, VL suppressed, CD4 =166 # Past h/o cx positive MRSA, steno, FQ sensitive PsA Subjective: patient reports some pain around nephrostomy tube, possibly slight more than baseline Objective: Vital Signs Temp Pulse Resp BP Pulse Ox 36.9 C 112 H 17 113/64 94 04/07/17 13:00 04/07/17 13:00 04/07/17 13:00 04/07/17 13:00 04/07/17 13:00 Laboratory Results 04/06/17 04:14 04/06/17 04:14 04/06/17 04/07/17 04/08/17 05:59 05:59 05:59 Intake Total 1070 80 Output Total 750 480 450 Balance 320 -400 -450 - Physical Exam General Appearance: alert, no apparent distress Respiratory: No accessory muscle use Cardiac/Chest: tachycardia Extremities: No pedal edema Pelvic Exam: other (Left nephrostomy site with purulent discharge, induration and mild erythema from 4 to 9 oclock) ICD10 Worksheet Patient Problems: Problems Problem Status Onset Chest pain Acute End stage renal disease Acute Fever Acute Generalized weakness Acute Hyperkalemia Acute Hyperkalemia Acute Hypotension Acute Hypoxemia Acute MRSA (methicillin resistant Staphylococcus aureus) Acute 04/04/17 Nephrostomy complication Acute Pubic ramus fracture Acute UTI (urinary tract infection) Acute UTI (urinary tract infection) Acute
--- NOTE | 2017-04-07 14:58 | CPEKG ---
Heart Rate: 103 RR Interval: 583 P-R Interval: 132 QRSD Interval: 72 QT Interval: 344 QTC Interval: 451 P Dixon: 83 QRS Dixon: 22 T Wave Dixon: 43 EKG Severity - ABNORMAL ECG - EKG Impression: SINUS TACHYCARDIA EKG Impression: BIATRIAL ABNORMALITIES EKG Impression: CONSIDER ANTERIOR INFARCT Electronically Signed By: Gael Ellis 07-Apr-2017 22:59:37
[2017-04-07] MEDS ORDERED: DAPTOmycin 300 MG in NS 100 ML IV SCH (15:00)
[2017-04-07 15:49] LABS: % IMMATURE GRANULYOCYTES 0.4 % (0.0-1.1); ABSOLUTE IMMATURE GRANULOCYTES 0.02 10^3/uL (0.00-0.10); ADD DIFF? NO; ADD MORPH? NO; ADD SCAN? NO; ATYPICAL LYMPHOCYTE FLAG 0 (0-99); FRAGMENT RBC FLAG 0 (0-99); HEMATOCRIT 35.9 % (38.0-47.0); HEMOGLOBIN 11.5 g/dL (12.6-16.3); LEFT SHIFT FLG 0 (0-99); LIPEMIA HEMOLYSIS FLAG 80 (0-99); MEAN CELL HEMOGLOBIN 30.2 pg (27.9-34.1); MEAN CELL VOLUME 94.2 fL (81.5-99.8); MEAN PLATELET VOLUME 9.5 fL (8.7-11.7); PLATELET CLUMPS FLAG 0 (0-99); PLATELET COUNT 209 10^3/uL (150-400); RED BLOOD CELL COUNT 3.81 10^6/uL (4.18-5.33); RED CELL DISTRIBUTION WIDTH 14.4 % (11.5-15.2)
[2017-04-07 16:12] LABS: ALBUMIN 3.7 g/dL (3.5-5.0); ANION GAP 15 mEq/L (8-16); CALCIUM 10.2 mg/dL (8.5-10.4); CARBON DIOXIDE 28 mEq/l (22-31); CHLORIDE 92 mEq/L (97-110); CREATININE 3.8 mg/dL (0.6-1.0); GLOMERULAR FILTRATION RATE 12; GLUCOSE 84 mg/dL (70-100); POTASSIUM 4.3 mEq/L (3.5-5.2); SODIUM 135 mEq/L (134-144)
--- NOTE | 2017-04-07 21:34 | GDS ---
[f rep st] DISCHARGE SUMMARY Please see a complete dictated discharge summary with an addendum dated April 06, 2017. The patien margarita was transferred to the [facility], and was accepted for transfer on ; however, there was no bed available until April 07. As per my dictated addendum on e discharge summary from April 06, patient did have a change in her clinical condition since nelly gonsalez accepted for transfer while awaiting a bed. She developed mild tachycardia, and it is noted on ex am today that her skin around the left nephrostomy tube site has become more indurated, slightly jim thematous with some purulent drainage. Blood cultures were sent. A wound culture was also obtained . She was started on IV daptomycin and oral Levaquin just prior to transport. Labs were drawn and she continues to have a normal white blood cell count. Lactic acid was 1.02. H er chemistry panel showed normal potassium, slightly low serum chloride, with a creatinine of 3.8, i n this end-stage renal disease patient who is due for dialysis tomorrow. Again, a full comprehensive dictated discharge summary is on the chart, dated April 06. She has been accepted to [facility] and is transported via EMS this afternoon. /[id number]/MODL
== END 2017-04-07 15:55 | disposition short-term general hospital (02) | DRG 698 ==
LOC: F2W 23:20
PROVIDERS: ADMIT Internal Medicine; ATTEND Internal Medicine
PROC: 5A1D60Z (ICD-10-PCS; principal; 2017-04-05)
DX: N99.528 Other complication of incontinent external stoma of urinary tract (principal); N18.6 End stage renal disease; G61.0 Guillain-Barre syndrome; N13.729 Vesicoureteral-reflux with reflux nephropathy without hydroureter, unspecified; N20.0 Calculus of kidney; E87.5 Hyperkalemia; Z87.440 Personal history of urinary (tract) infections; Z21 Asymptomatic human immunodeficiency virus [HIV] infection status; N31.9 Neuromuscular dysfunction of bladder, unspecified; E03.9 Hypothyroidism, unspecified; E78.5 Hyperlipidemia, unspecified; E21.3 Hyperparathyroidism, unspecified; K59.00 Constipation, unspecified; Z99.2 Dependence on renal dialysis; Z87.442 Personal history of urinary calculi; Z99.3 Dependence on wheelchair; Z96.642 Presence of left artificial hip joint; Z88.0 Allergy status to penicillin
CPT/HCPCS: 82947-QW; 86704-90; J0610; J0878; J1644; J1815

== ENCOUNTER → 2017-04-29 | Outpatient (CLI) | payer OTHER, MEDICAID | LOC: FIMAGING 07:54 | PROVIDERS: ATTEND Urology | DX: N26.1 Atrophy of kidney (terminal) (principal); N32.89 Other specified disorders of bladder; Z90.89 Acquired absence of other organs; Z90.5 Acquired absence of kidney ==

== ENCOUNTER → 2017-05-03 | Outpatient (CLI) | payer OTHER, MEDICAID ==
[~2017-05-03] MED LIST changes: +IOPAMIDOL (ISOVUE 370) 100 ML BTL IV ONE; -IOPAMIDOL (ISOVUE-300) 100 ML BTL IV ONE
== END ==
LOC: FIMAGING 10:58
PROVIDERS: ATTEND Internal Medicine
DX: S69.91XA Unspecified injury of right wrist, hand and finger(s), initial encounter (principal)
CPT/HCPCS: Q9967

== ENCOUNTER 2017-05-06 09:27 | Inpatient (IN) | payer OTHER, MEDICAID ==
[2017-05-06 10:08] LABS: % IMMATURE GRANULYOCYTES 0.3 % (0.0-1.1); ABSOLUTE IMMATURE GRANULOCYTES 0.02 10^3/uL (0.00-0.10); ADD DIFF? NO; ADD MORPH? NO; ADD SCAN? NO; ATYPICAL LYMPHOCYTE FLAG 10 (0-99); FRAGMENT RBC FLAG 0 (0-99); HEMATOCRIT 33.2 % (38.0-47.0); HEMOGLOBIN 9.9 g/dL (12.6-16.3); LEFT SHIFT FLG 0 (0-99); LIPEMIA HEMOLYSIS FLAG 70 (0-99); MEAN CELL HEMOGLOBIN 29.4 pg (27.9-34.1); MEAN CELL HEMOGLOBIN CONCENTR. 29.8 g/dL (32.4-36.7); MEAN CELL VOLUME 98.5 fL (81.5-99.8); MEAN PLATELET VOLUME 8.9 fL (8.7-11.7); PLATELET CLUMPS FLAG 0 (0-99); PLATELET COUNT 270 10^3/uL (150-400); RED BLOOD CELL COUNT 3.37 10^6/uL (4.18-5.33)
--- NOTE | 2017-05-06 10:12 | EDPHY ---
H & P Time Seen by Provider: 05/06/17 09:47 HPI/ROS: CHIEF COMPLAINT: Fever and abdominal pain HISTORY OF PRESENT ILLNESS: This 51-year-old woman presents with fever and worsening left lower quadrant abdominal pain which has been increasing every day this week. Pain is worse, had a nephrectomy 3 weeks ago at [facility] in [place] on that side. Not associated with vomiting or diarrhea. Temperature to 100.7 at home. Symptoms moderate in nature. Does not radiate. REVIEW OF SYSTEMS: Eye: no change in vision ENT: no sore throat Cardiac: no chest pain or syncope Pulmonary: Cough today with no production or sputum Abdomen: HPI Musculoskeletal: no back pain Skin: Chronic abdominal rash from nephrostomy tube drainage which is unchanged. Neuro: no headache Constitutional: HPI : no urinary symptoms A comprehensive 10 point review of systems is otherwise negative aside from elements mentioned in the history of present illness. PAST MEDICAL HISTORY: History and physical dated 04/04/2017 personally reviewed. 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 Neurogenic bladder. Guillain Lanagan, wheelchair using. Hypothyroid, depression, hyperlipidemia, hyperparathyroidism. Left total hip arthroplasty and left knee surgery. Cholecystectomy. Hysterectomy. Tubal ligation. Currently on dialysis Tuesday. Social history: Here with her mother General Appearance: Alert and conversant, cooperative. Eyes: No scleral icterus. ENT, Mouth: Normal mucous membranes. Respiratory: Normal respiratory effort, breath sounds equal, lungs are clear to auscultation. No consolidation heard. Cardiovascular: Regular rate and rhythm. Gastrointestinal: No rebound or guarding. The patient has a firm mass in the left mid abdomen, mildly tender to palpation. Neurological: Alert and oriented x3. Normally conversant. Wheelchair-bound decreased lower extremity strength. Skin: Patient has red slightly scaling rash in her lower anterior abdomen area. Does not appear like cellulitis. Musculoskeletal: No peripheral edema and no joint swelling. Psychiatric: Not agitated. Emergency Department course/MDM: Oxygen saturation noted to be low 72%. Plan for CT chest abdomen and pelvis to evaluate for hypoxemia and left lower quadrant abdominal pain. IV contrast discussed and consented, patient is dialysis dependent Tuesday already. 1140: CT scans reviewed by Dr. Kearney with the radiologist. No pulmonary embolism, intra-abdominal fluid collection appears to be slightly bigger. 1157: Plan for admission per Dr. Kearney, who plans to treat the patient with IV daptomycin and levofloxacin. She will inform Nephrology, Dr. Vazquez will be aware and will get the patient dialyzed today. 1201: discussed CT with Jaswant, results as above. Unclear why patient has such low oxygen saturations by finger another, she is speaking full sentences on nasal cannula oxygen with numbers in the 90s, and does not actually feel that short of breath. Smoking Status: Never smoked Constitutional: Initial Vital Signs Temperature (C) 37.3 C 05/06/17 09:34 Heart Rate 113 H 05/06/17 09:34 Respiratory Rate 16 05/06/17 09:34 Blood Pressure 108/63 05/06/17 09:34 O2 Sat (%) 70 L 05/06/17 09:34 O2 Delivery Mode Nasal Cannula O2 (L/minute) 2 Allergies/Adverse Reactions: ertapenem sodium [From Invanz] Allergy (Intermediate, Verified 05/06/17 09:34) Rash, neck and throat swelling vancomycin [Vancomycin] Allergy (Intermediate, Verified 05/06/17 09:34) Swelling/neck,face,throat doxycycline Allergy (Verified 05/06/17 09:34) hydroxyzine HCl [From Atarax] Allergy (Verified 05/06/17 09:34) keflin Allergy (Uncoded 05/06/17 09:34) FLU SHOTS Adverse Reaction (Uncoded 05/06/17 09:34) RT POOR KIDNEY FUNCTION AVOIDS Home Medications: Medication Instructions Recorded Abacavir Sulfate [Ziagen] 600 mg PO DAILY 02/23/13 Darunavir Ethanolate [PREZISTA] 800 mg PO DAILY 02/23/13 Escitalopram Oxalate [Lexapro] 20 mg PO DAILY 07/29/15 Ritonavir [Norvir] 100 mg PO DAILY 07/29/15 Sevelamer Carbonate [Renvela] 1,600 mg PO TIDMEAL 07/30/15 Dolutegravir Sodium [Tivicay] 50 mg PO DAILY 04/28/16 Herbals/Supplements -Info Only 1 tab PO DAILY 05/17/16 Scopolamine Hydrobromide 1.5 mg TD Q72H PRN 06/17/16 [Transderm-Scop] Levothyroxine [Synthroid 88 mcg 88 mcg PO DAILY06 02/16/17 (*)] Medical Decision Making - Diagnostics Imaging Results: Imaging Impressions Abdomen CT 05/06/17 10:03 Impression: 1. Small left retroperitoneal fluid collection in the nephrectomy bed, which could represent a phlegmon, hematoma, seroma, or abscess. 2. Minimal increase in size of a simple-appearing fluid collection in the left retroperitoneum at the inferior aspect of the resection site, possibly representing seroma. 3. Slight increase in mild/moderate ascites. 4. No visible pulmonary embolus. 5. Indeterminate enhancing versus high attenuation material dependently in the pelvis, which could be related to blood products but is nonspecific. Attention is recommended on follow up. 6. Linear enhancement in the posterior left retroperitoneum, possibly related to postoperative inflammation. Attention is recommended on follow up. 7. Mild colonic thickening, which could be related to colitis, ascites, inflammation, or other etiology. 8. Additional findings as above. Findings discussed with Soha Kearney at the time of the study. Findings discussed with Manny Cornejo 05/06/2017 at 1201 hours. Chest/Thorax CTA 05/06/17 10:03 Impression: 1. Small left retroperitoneal fluid collection in the nephrectomy bed, which could represent a phlegmon, hematoma, seroma, or abscess. 2. Minimal increase in size of a simple-appearing fluid collection in the left retroperitoneum at the inferior aspect of the resection site, possibly representing seroma. 3. Slight increase in mild/moderate ascites. 4. No visible pulmonary embolus. 5. Indeterminate enhancing versus high attenuation material dependently in the pelvis, which could be related to blood products but is nonspecific. Attention is recommended on follow up. 6. Linear enhancement in the posterior left retroperitoneum, possibly related to postoperative inflammation. Attention is recommended on follow up. 7. Mild colonic thickening, which could be related to colitis, ascites, inflammation, or other etiology. 8. Additional findings as above. Findings discussed with Soha Kearney at the time of the study. Findings discussed with Manny Cornejo 05/06/2017 at 1201 hours. Differential Diagnosis: Differential for left abdominal pain considered include but not limited to intra -abdominal abscess, peritonitis or intestinal perforation, SBO, diverticulitis. Consult/Admit Bed Type: Caio in ED with pt 1035, Randi for Karan 1200 - Data Points Laboratory Results: Laboratory Results 05/06/17 09:53 05/06/17 09:53 05/06/17 05/06/17 05/06/17 10:53 09:53 09:53 WBC RBC Hgb POC Hgb Hct POC Hct MCV MCH MCHC RDW Plt Count MPV Neut % (Auto) Lymph % (Auto) Young % (Auto) Eos % (Auto) Baso % (Auto) Nucleat RBC Rel Count Absolute Neuts (auto) Absolute Lymphs (auto) Absolute Monos (auto) Absolute Eos (auto) Absolute Basos (auto) Absolute Nucleated RBC Immature Gran % Seg Neutrophils % Band Neutrophils % Lymphocytes % Monocytes % Eosinophils % Basophils % Immature Gran # Absolute Seg Neuts Absolute Band Neuts Absolute Lymphocytes Absolute Monocytes Absolute Eosinophils Absolute Basophils Platelet Estimate Polychromasia Hypochromasia Microcytic Cells PT INR APTT VBG Lactic Acid 0.9 mmol/L mmol/L (0.7-2.1) POC Sodium Sodium 140 mEq/L mEq/L (134-144) POC Potassium Potassium 5.5 mEq/L H mEq/L (3.5-5.2) POC Chloride Chloride 97 mEq/L mEq/L (97-110) Carbon Dioxide 28 mEq/l mEq/l (22-31) Anion Gap 15 mEq/L mEq/L (8-16) POC BUN BUN 42 mg/dL H mg/dL (7-23) Creatinine 6.0 mg/dL H mg/dL (0.6-1.0) POC Creatinine Estimated GFR 7 Glucose 94 mg/dL mg/dL (70-100) POC Glucose Calcium 10.2 mg/dL mg/dL (8.5-10.4) Total Bilirubin 0.6 mg/dL mg/dL (0.1-1.4) Conjugated Bilirubin 0.6 mg/dL H mg/dL (0.0-0.5) Unconjugated Bilirubin 0.0 mg/dL mg/dL (0.0-1.1) AST 17 IU/L IU/L (14-46) ALT 27 IU/L IU/L (9-52) Alkaline Phosphatase 223 IU/L H IU/L (38-126) Creatine Kinase 23 IU/L IU/L (0-156) Total Protein 6.8 g/dL g/dL (6.3-8.2) Albumin 3.4 g/dL L g/dL (3.5-5.0) Lipase 125 IU/L IU/L (23-300) 05/06/17 05/06/17 05/06/17 09:53 09:53 09:50 WBC 6.07 10^3/uL 10^3/uL (3.80-9.50) RBC 3.37 10^6/uL L 10^6/uL (4.18-5.33) Hgb 9.9 g/dL L g/dL (12.6-16.3) POC Hgb 11.6 gm/dL L gm/dL (12.6-16.3) Hct 33.2 % L % (38.0-47.0) POC Hct 34 % L % (38-47) MCV 98.5 fL fL (81.5-99.8) MCH 29.4 pg pg (27.9-34.1) MCHC 29.8 g/dL L g/dL (32.4-36.7) RDW 15.0 % % (11.5-15.2) Plt Count 270 10^3/uL 10^3/uL (150-400) MPV 8.9 fL fL (8.7-11.7) Neut % (Auto) 77.3 % H % (39.3-74.2) Lymph % (Auto) 12.5 % L % (15.0-45.0) Young % (Auto) 7.6 % % (4.5-13.0) Eos % (Auto) 1.8 % % (0.6-7.6) Baso % (Auto) 0.5 % % (0.3-1.7) Nucleat RBC Rel Count 0.0 % % (0.0-0.2) Absolute Neuts (auto) 4.69 10^3/uL 10^3/uL (1.70-6.50) Absolute Lymphs (auto) 0.76 10^3/uL L 10^3/uL (1.00-3.00) Absolute Monos (auto) 0.46 10^3/uL 10^3/uL (0.30-0.80) Absolute Eos (auto) 0.11 10^3/uL 10^3/uL (0.03-0.40) Absolute Basos (auto) 0.03 10^3/uL 10^3/uL (0.02-0.10) Absolute Nucleated RBC 0.00 10^3/uL 10^3/uL (0-0.01) Immature Gran % 0.3 % % (0.0-1.1) Seg Neutrophils % 69 % % Band Neutrophils % 9 % % Lymphocytes % 12 % % Monocytes % 7 % % Eosinophils % 2 % % Basophils % 1 % % Immature Gran # 0.02 10^3/uL 10^3/uL (0.00-0.10) Absolute Seg Neuts 4.19 10^/uL 10^/uL (1.70-6.50) Absolute Band Neuts 0.55 10^3/uL 10^3/uL (0.00-0.70) Absolute Lymphocytes 0.73 10^3/uL L 10^3/uL (1.00-3.00) Absolute Monocytes 0.42 10^3/uL 10^3/uL (0.30-0.80) Absolute Eosinophils 0.12 10^3/uL 10^3/uL (0.03-0.40) Absolute Basophils 0.06 10^3/uL 10^3/uL (0.02-0.10) Platelet Estimate ADEQUATE (ADEQ) Polychromasia 1+ H Hypochromasia 2+ H Microcytic Cells 1+ H PT 14.0 SEC SEC (12.0-15.0) INR 1.09 (0.83-1.16) APTT 30.5 SEC SEC (23.0-38.0) VBG Lactic Acid POC Sodium 139 mEq/L mEq/L (134-144) Sodium POC Potassium 5.2 mEq/L H mEq/L (3.3-5.0) Potassium POC Chloride 101 mEq/L mEq/L (97-110) Chloride Carbon Dioxide Anion Gap POC BUN 37 mg/dL H mg/dL (7-23) BUN Creatinine POC Creatinine 5.9 mg/dL H mg/dL (0.6-1.0) Estimated GFR Glucose POC Glucose 97 mg/dL mg/dL (70-100) Calcium Total Bilirubin Conjugated Bilirubin Unconjugated Bilirubin AST ALT Alkaline Phosphatase Creatine Kinase Total Protein Albumin Lipase Point of Care Test Results: 05/06/17 09:50 POC Sodium 139 POC Potassium 5.2 H POC Chloride 101 POC BUN 37 H POC Creatinine 5.9 H POC Glucose 97 Departure - Departure Disposition: [facility]patient Acute Clinical Impression: Hypoxia, End stage renal disease Abdominal pain Qualifiers: Abdominal location: left lower quadrant Qualified Code(s): R10.32 - Left lower quadrant pain Condition: Fair
[2017-05-06 10:18] LABS: INR 1.09 (0.83-1.16)
[2017-05-06 10:19] LABS: APTT 30.5 SEC (23.0-38.0)
[2017-05-06 10:22] LABS: ALANINE AMINOTRANSFERASE 27 IU/L (9-52); ALBUMIN 3.4 g/dL (3.5-5.0); ALKALINE PHOSPHATASE 223 IU/L (38-126); ANION GAP 15 mEq/L (8-16); ASPARTATE AMINOTRANSFERASE 17 IU/L (14-46); BILIRUBIN,TOTAL 0.6 mg/dL (0.1-1.4); BILIRUBIN-CONJUGATED 0.6 mg/dL (0.0-0.5); CALCIUM 10.2 mg/dL (8.5-10.4); CARBON DIOXIDE 28 mEq/l (22-31); CHLORIDE 97 mEq/L (97-110); GLOMERULAR FILTRATION RATE 7; GLUCOSE 94 mg/dL (70-100); POTASSIUM 5.5 mEq/L (3.5-5.2); SODIUM 140 mEq/L (134-144); TOTAL PROTEIN 6.8 g/dL (6.3-8.2)
[2017-05-06 11:59] LABS: HYPOCHROMIA 2+; MICROCYTES 1+; PLATELET ESTIMATE ADEQUATE (ADEQ); POLYCHROMASIA 1+
--- NOTE | 2017-05-06 12:26 | PCMIDPN ---
Assessment/Plan: 1. Possible postoperative abscess, along with postoperative seroma: I spoke with the patient's urologist, Dr. Loaiza at the [facility]. For now, our plan is to treat with intravenous daptomycin (300 mg 3 times per week after hemodialysis) and oral levofloxacin (750 mg p.o. after dialysis 3 times per week) for perhaps 2-3 weeks and repeat the CT scan of the abdomen and pelvis in 7-10 days. I spoke with Dr. Michaud, who felt that the small collection is too small to be accessed percutaneously, and strongly felt that the larger collection represented a seroma. The patient will be admitted presently for hemodialysis, and to sort out will logistics of antibiotics after hemodialysis. I spoke with Dr. Vazquez, the box coverer hand cardiology clinical consultant over the weekend , who will also try and help sort out the intravenous daptomycin at [facility] as well. The social workers have also been informed. She will need to stay in house until this is sorted out. Will order CK in the setting of daptomycin therapy. 2. Hypoxia: Etiology unclear. No obvious abnormality on CT scan. No new medications. Query secondary to hypoventilation from abdominal discomfort. Continue oxygen for now. 3. HIV: Continue antiretrovirals in the form of darunavir 800 mg daily, ritonavir 100 mg daily, abacavir 600 mg daily, and Dolutegravir 50 mg daily. 4. Intertriginous candidiasis: Will order topical Lotrimin, which will cover both Yani and dermatophytes. Over 2 hours was spent with this patient in the emergency room, reviewing CT scans, speaking with the patient, and coordinating care with her other doctors/ caregivers. Subjective: Patient well known to me. She is status post a laparoscopic left-sided nephrectomy at the [facility] by Dr.Shaundra Loaiza on 04/15/2017. The procedure was uncomplicated, and the patient left the hospital on postop day 3. She was treated with perioperative daptomycin and levofloxacin. Since the surgery, the patient has had "leaking", that she feels is coming from her bladder. This has been puzzling to both myself, her box coverer hand, Dr. Ho , and her local urologist, Dr. Morris. Because of this, a CT scan of the abdomen and pelvis without contrast was performed on April 29. This revealed fluid collection in the postoperative bed, that looked more consistent with fluid, such as a postoperative seroma. Patient has had ongoing left flank pain, and this morning had a temperature of a 100.7degrees. She was asked to come into the emergency room for further evaluation and treatment. Talking to the patient today, she states "I feel lousy. "Continues to have intermittent sharp discomfort in her left flank. She denies diarrhea or constipation, and has been had regular and normal bowel movements. She denies a fever that she was aware of, or shaking chills. No cough, shortness of breath or other. She does feel she has intermittent leaking when she sits down to urinate. Interestingly in the emergency room, the patient was found to be hypoxic with an oxygen saturation of 72%. This quickly went up to 96% with 2 L of oxygen. I asked that blood cultures be obtained, and CT scans of the chest abdomen and pelvis performed, but this time with contrast intravenously given that she is on hemodialysis. Chest CT was completely unremarkable without evidence of pulmonary embolus. CT of the abdomen and post revealed a small ring enhancing collection that was felt to be possibly an abscess or a bland collection. He was felt too small to be accessed by interventional Radiology. She had a larger collection inferiorly that was noted on the previous CT, and had grown in size by 1 cm in each direction in the past week. She also had evidence of new ascites (mild). Please see impression and plan. Objective: T-max 37.3degrees Vital Signs Temp Pulse Resp BP Pulse Ox 36.9 C 97 18 145/75 H 97 05/06/17 11:47 05/06/17 11:17 05/06/17 11:17 05/06/17 11:17 05/06/17 11:17 Blood cultures pending - Physical Exam General Appearance: other (Looks older than stated age, nontoxic appearing.) EENT: other (False teeth in place.), No thrush Respiratory: lungs clear Cardiac/Chest: regular rate, rhythm, No diastolic murmur, No systolic murmur Extremities: other (Patient has a fistula in her left forearm.) Abdomen: other (Patient has an anterior abdominal incision that has well healed. She does have some armen-incisional erythema but this appears mild. There is no drainage from the incision. She also had trocar incisions that are healed nicely. There is discomfort in the left lower abdomen. Please note I was unable to have the patient lie down for this exam. She was sitting in her wheelchair.) Back: other (Previous left-sided percutaneous nephrostomy tube has completely closed up.) Skin: other (Erythema beneath her left breast and erythema with skin maceration in satellite lesions consistent with intertriginous candidiasis in her inguinal region and suprapubic region.) ICD10 Worksheet Patient Problems: Problems Problem Status Onset Abdominal pain Acute End stage renal disease Acute Hypoxia Acute Chest pain Acute Fever Acute Generalized weakness Acute Hyperkalemia Acute Hyperkalemia Acute Hypotension Acute Hypoxemia Acute MRSA (methicillin resistant Staphylococcus aureus) Acute 04/04/17 Nephrostomy complication Acute Pubic ramus fracture Acute UTI (urinary tract infection) Acute UTI (urinary tract infection) Acute
--- NOTE | 2017-05-06 13:36 | SOAPPROG ---
SOAP Progress Note Assessment/Plan: Assessment: Retroperitoneal fluid collection Acute agree with ID plans of antibx and following. no surgical intervention at this time Plan: as per ID 05/06/17 13:34 Subjective: admitted per ID Objective: Vital Signs Temp Pulse Resp BP Pulse Ox 37.2 C 101 H 14 103/68 78 L 05/06/17 13:27 05/06/17 13:27 05/06/17 13:27 05/06/17 13:27 05/06/17 13:27 PT 14.0 SEC (12.0-15.0) 05/06/17 09:53 INR 1.09 (0.83-1.16) 05/06/17 09:53 reviewed CAT scan from 01/27 and 05/06 and not much interval change from the fluid collection post nephrectomy ICD10 Worksheet Patient Problems: Problems Problem Status Onset Retroperitoneal fluid collection Acute Hypoxia Acute Abdominal pain Acute UTI (urinary tract infection) Acute Hyperkalemia Acute Nephrostomy complication Acute Pubic ramus fracture Acute Hypoxemia Acute MRSA (methicillin resistant Staphylococcus aureus) Acute 04/04/17 Hypotension Acute Fever Acute Hyperkalemia Acute End stage renal disease Acute UTI (urinary tract infection) Acute Chest pain Acute Generalized weakness Acute
[2017-05-06] MEDS ORDERED: ONDANSETRON 4 MG/2 ML VIAL IVP PRN (13:42)
[2017-05-06] MEDS ORDERED: oxyCODONE IR 5 MG TAB PO PRN (13:42)
[2017-05-06] MEDS ORDERED: ONDANSETRON DISINTEGRATING 4 MG TAB PO PRN (13:42)
[2017-05-06] MEDS ORDERED: SCOPOLAMINE HYDROBROMIDE 1 MG/3 DAYS PATCH TD PRN (13:46)
--- NOTE | 2017-05-06 13:54 | ASMTCMCOM ---
CM Note CM Note Notes: Case Management: Prescription written per Dr. Cherry for Daptomycin 300 mg IV, 3 times per week after dialysys X 4 weeks upon D/C. Faxed to Echo at [facility] in [place] and confirmed . CM to send D/C summary to [facility] as well upon D/C Date Signed: 05/06/2017 01:53 PM Electronically Signed By:Diandra Lozano RN
--- NOTE | 2017-05-06 15:19 | PDGENHP ---
History and Physical - Chief Complaint Acute fever - History of Present Illness primary server engineer: Dr. Ho Primary urology surgery: Dr. Loaiza at [facility]: 51-year-old female presenting with acute fever characterized as a temperature of 100.7 F with associated chills, abdominal pain located in the left lower quadrant, characterized as moderate in severity. Onset of the abdominal pain was approximately 2 weeks ago and duration has been intermittent thereafter. Pain is exacerbated by certain positional changes. Patient reports that she was pain free for approximately 1 week after her nephrectomy, and then the after mentioned symptoms began. On the day of this presentation, the patient experienced acute fever and she sought medical attention. She otherwise denies any cough, diarrhea, skin changes at AV fistula site History Information - Allergies/Home Medication List Allergies/Adverse Reactions: ertapenem sodium [From Invanz] Allergy (Intermediate, Verified 05/06/17 09:34) Rash, neck and throat swelling vancomycin [Vancomycin] Allergy (Intermediate, Verified 05/06/17 09:34) Swelling/neck,face,throat doxycycline Allergy (Verified 05/06/17 09:34) hydroxyzine HCl [From Atarax] Allergy (Verified 05/06/17 09:34) keflin Allergy (Uncoded 05/06/17 09:34) FLU SHOTS Adverse Reaction (Uncoded 05/06/17 09:34) RT POOR KIDNEY FUNCTION AVOIDS Home Medications: Abacavir Sulfate [Ziagen] 600 mg PO DAILY 02/23/13 [Last Taken 05/05/17] Darunavir Ethanolate [PREZISTA] 800 mg PO DAILY 02/23/13 [Last Taken 05/05/17] Escitalopram Oxalate [Lexapro] 20 mg PO DAILY 07/29/15 [Last Taken 05/06/17] Ritonavir [Norvir] 100 mg PO DAILY 07/29/15 [Last Taken 05/05/17] Sevelamer Carbonate [Renvela] 1,600 mg PO TIDMEAL 07/30/15 [Last Taken 05/05/17 18:00] Dolutegravir Sodium [Tivicay] 50 mg PO DAILY 04/28/16 [Last Taken 05/05/17] Herbals/Supplements -Info Only 1 tab PO DAILY 05/17/16 [Last Taken 04/03/17] Scopolamine Hydrobromide [Transderm-Scop] 1.5 mg TD Q72H PRN 06/17/16 [Last Taken 04/03/17] Levothyroxine [Synthroid 88 mcg (*)] 88 mcg PO DAILY06 02/16/17 [Last Taken ] I have personally reviewed and updated: family history, medical history, social history, surgical history - Past Medical History Additional medical history: HIV on anti-retroviral therapy. Guillain-Memphis syndrome with neurogenic bladder. Hypothyroidism. Depression. Nephrolithiasis with frequent urinary tract infections. Stage II pressure injury on the sacrum. Anemia of chronic kidney disease. End-stage renal disease on Tuesday hemodialysis. Hypertension and hyperlipidemia - Surgical History Additional surgical history: left-sided nephrectomy 3 weeks ago. Cholecystectomy. Left hip surgery. Suprapubic catheter. Hysterectomy. Tubal ligation. Bilateral foot surgery. Left knee surgery. Left upper extremity AV fistula - Family History Additional family history: no coronary artery disease - Social History Smoking Status: Never smoked Alcohol Use: None Drug Use: None Additional social history: lives independently in an apartment in [place] Review of Systems Review of Systems: ROS: 10pt was reviewed & negative except for what was stated in HPI & below Constitutional: Reports: fever Gastrointestinal: Reports: abdominal pain Physical Exam Physical Exam: Temp Pulse Resp BP Pulse Ox 37.3 C 97 18 113/66 92 05/06/17 15:06 05/06/17 15:06 05/06/17 15:06 05/06/17 15:06 05/06/17 15:06 O2 (L/minute) 2 Constitutional: no apparent distress, not in pain, chronically ill appearing, No uncomfortable Eyes: PERRL, anicteric sclera, EOMI Ears, Nose, Mouth, Throat: moist mucous membranes, hearing normal, ears appear normal, no oral mucosal ulcers Cardiovascular: systolic murmur ( 1/6 at the sternum and apex), No irregularly irregular, No tachycardia, No edema Respiratory: no respiratory distress, no rales or rhonchi, clear to auscultation Gastrointestinal: normoactive bowel sounds, tenderness ( left CVA and left upper quadrant), No guarding, No distension Skin: other ( well healing nephrectomy site along left back, with very mild surrounding ecchymoses, no surrounding erythema) Neurologic: AAOx3, sensation intact bilaterally, No facial droop Psychiatric: interacting appropriately, not anxious, not encephalopathic, thought process linear Lab Data & Imaging Review 05/06/17 09:53 05/06/17 09:53 WBC 6.07 10^3/uL (3.80-9.50) 05/06/17 09:53 RBC 3.37 10^6/uL (4.18-5.33) L 05/06/17 09:53 Hgb 9.9 g/dL (12.6-16.3) L 05/06/17 09:53 POC Hgb 11.6 gm/dL (12.6-16.3) L 05/06/17 09:50 Hct 33.2 % (38.0-47.0) L 05/06/17 09:53 POC Hct 34 % (38-47) L 05/06/17 09:50 MCV 98.5 fL (81.5-99.8) 05/06/17 09:53 MCH 29.4 pg (27.9-34.1) 05/06/17 09:53 MCHC 29.8 g/dL (32.4-36.7) L 05/06/17 09:53 RDW 15.0 % (11.5-15.2) 05/06/17 09:53 Plt Count 270 10^3/uL (150-400) 05/06/17 09:53 MPV 8.9 fL (8.7-11.7) 05/06/17 09:53 Neut % (Auto) 77.3 % (39.3-74.2) H 05/06/17 09:53 Lymph % (Auto) 12.5 % (15.0-45.0) L 05/06/17 09:53 [place] % (Auto) 7.6 % (4.5-13.0) 05/06/17 09:53 Eos % (Auto) 1.8 % (0.6-7.6) 05/06/17 09:53 Baso % (Auto) 0.5 % (0.3-1.7) 05/06/17 09:53 Nucleat RBC Rel Count 0.0 % (0.0-0.2) 05/06/17 09:53 Absolute Neuts (auto) 4.69 10^3/uL (1.70-6.50) 05/06/17 09:53 Absolute Lymphs (auto) 0.76 10^3/uL (1.00-3.00) L 05/06/17 09:53 Absolute Monos (auto) 0.46 10^3/uL (0.30-0.80) 05/06/17 09:53 Absolute Eos (auto) 0.11 10^3/uL (0.03-0.40) 05/06/17 09:53 Absolute Basos (auto) 0.03 10^3/uL (0.02-0.10) 05/06/17 09:53 Absolute Nucleated RBC 0.00 10^3/uL (0-0.01) 05/06/17 09:53 Immature Gran % 0.3 % (0.0-1.1) 05/06/17 09:53 Seg Neutrophils % Cancelled 05/06/17 Unknown Band Neutrophils % Cancelled 05/06/17 Unknown Lymphocytes % Cancelled 05/06/17 Unknown Monocytes % Cancelled 05/06/17 Unknown Eosinophils % Cancelled 05/06/17 Unknown Basophils % Cancelled 05/06/17 Unknown Metamyelocytes % Cancelled 05/06/17 Unknown Myelocytes % Cancelled 05/06/17 Unknown Promyelocytes % Cancelled 05/06/17 Unknown Blast Cells % Cancelled 05/06/17 Unknown Megakaryocytes % Cancelled 05/06/17 Unknown Immature Gran # 0.02 10^3/uL (0.00-0.10) 05/06/17 09:53 Absolute Seg Neuts Cancelled 05/06/17 Unknown Absolute Band Neuts Cancelled 05/06/17 Unknown Absolute Lymphocytes Cancelled 05/06/17 Unknown Absolute Monocytes Cancelled 05/06/17 Unknown Absolute Eosinophils Cancelled 05/06/17 Unknown Absolute Basophils Cancelled 05/06/17 Unknown Absolute Metamyelocyte Cancelled 05/06/17 Unknown Absolute Myelocytes Cancelled 05/06/17 Unknown Absolute Promyelocytes Cancelled 05/06/17 Unknown Absolute Plasma Cells Cancelled 05/06/17 Unknown Nucleated RBCs Cancelled 05/06/17 Unknown Differential Comment Cancelled 05/06/17 Unknown RBC/WBC/PLT Morphology Cancelled 05/06/17 Unknown Hypersegmented Neuts Cancelled 05/06/17 Unknown Atypical Lymphocytes Cancelled 05/06/17 Unknown Absolute Blast Cells Cancelled 05/06/17 Unknown Plasma Cells % Cancelled 05/06/17 Unknown Smudge Cells Cancelled 05/06/17 Unknown Toxic Granulation Cancelled 05/06/17 Unknown Toxic Vacuolation Cancelled 05/06/17 Unknown Dohle Bodies Cancelled 05/06/17 Unknown Carlo Rods Cancelled 05/06/17 Unknown Platelet Estimate Cancelled 05/06/17 Unknown Clumped Platelets Cancelled 05/06/17 Unknown Large Platelets Cancelled 05/06/17 Unknown Giant Platelets Cancelled 05/06/17 Unknown Bizarre Platelets Cancelled 05/06/17 Unknown Polychromasia Cancelled 05/06/17 Unknown Hypochromasia Cancelled 05/06/17 Unknown Basophilic Stippling Cancelled 05/06/17 Unknown Microcytic Cells Cancelled 05/06/17 Unknown Spherocytes Cancelled 05/06/17 Unknown Pappenheimer Bodies Cancelled 05/06/17 Unknown Sickle Cells Cancelled 05/06/17 Unknown Target Cells Cancelled 05/06/17 Unknown Tear Drop Cells Cancelled 05/06/17 Unknown Oval Macrocytes Cancelled 05/06/17 Unknown Stomatocytes Cancelled 05/06/17 Unknown Holden-Falkner Bodies Cancelled 05/06/17 Unknown Echinocytes Cancelled 05/06/17 Unknown Elliptocytes Cancelled 05/06/17 Unknown Acanthocytes (Spur) Cancelled 05/06/17 Unknown Rouleaux Cancelled 05/06/17 Unknown Keratocytes Cancelled 05/06/17 Unknown Schistocytes Cancelled 05/06/17 Unknown PT 14.0 SEC (12.0-15.0) 05/06/17 09:53 INR 1.09 (0.83-1.16) 05/06/17 09:53 APTT 30.5 SEC (23.0-38.0) 05/06/17 09:53 VBG Lactic Acid 0.9 mmol/L (0.7-2.1) 05/06/17 09:53 POC Sodium 139 mEq/L (134-144) 05/06/17 09:50 Sodium 140 mEq/L (134-144) 05/06/17 09:53 POC Potassium 5.2 mEq/L (3.3-5.0) H 05/06/17 09:50 Potassium 5.5 mEq/L (3.5-5.2) H 05/06/17 09:53 POC Chloride 101 mEq/L (97-110) 05/06/17 09:50 Chloride 97 mEq/L (97-110) 05/06/17 09:53 Carbon Dioxide 28 mEq/l (22-31) 05/06/17 09:53 Anion Gap 15 mEq/L (8-16) 05/06/17 09:53 POC BUN 37 mg/dL (7-23) H 05/06/17 09:50 BUN 42 mg/dL (7-23) H 05/06/17 09:53 Creatinine 6.0 mg/dL (0.6-1.0) H 05/06/17 09:53 POC Creatinine 5.9 mg/dL (0.6-1.0) H 05/06/17 09:50 Estimated GFR 7 05/06/17 09:53 Glucose 94 mg/dL (70-100) 05/06/17 09:53 POC Glucose 97 mg/dL (70-100) 05/06/17 09:50 Calcium 10.2 mg/dL (8.5-10.4) 05/06/17 09:53 Total Bilirubin 0.6 mg/dL (0.1-1.4) 05/06/17 09:53 Conjugated Bilirubin 0.6 mg/dL (0.0-0.5) H 05/06/17 09:53 Unconjugated Bilirubin 0.0 mg/dL (0.0-1.1) 05/06/17 09:53 AST 17 IU/L (14-46) 05/06/17 09:53 ALT 27 IU/L (9-52) 05/06/17 09:53 Alkaline Phosphatase 223 IU/L (38-126) H 05/06/17 09:53 Creatine Kinase 23 IU/L (0-156) 05/06/17 10:53 Total Protein 6.8 g/dL (6.3-8.2) 05/06/17 09:53 Albumin 3.4 g/dL (3.5-5.0) L 05/06/17 09:53 Lipase 125 IU/L (23-300) 05/06/17 09:53 Cold Agglutinins Cancelled 05/06/17 Unknown Visualized and Interpreted imaging results: Yes Interpretation: CT of the chest demonstrating no focal airspace disease, no pulmonary embolism, left retroperitoneal small fluid collection, left-sided surgical site seroma, ascites Assessment & Plan Assessment: 51-year-old female presents with acute postsurgical abscess and seroma Plan: 1. Abscess. Acute, new problem this provider, further workup indicated. Located at the postsurgical site, there is too small to drain on imaging, most likely related to her most recent nephrectomy -patient is high risk for drug-resistant organisms as she has a history of MRSA as well as Pseudomonas -per Infectious Disease, consultation appreciated, patient should receive daptomycin 300 mg 3 times weekly following dialysis as well as levofloxacin 750 mg 3 times weekly following dialysis for 2-3 weeks, with surveillance CT of her abdomen in 7-10 days to ensure that the fluid collection is not further organizing and surgically drainable at that time -appreciate Neurology consultation -blood cultures have been sent, monitor results -repeat CBC in a.m. to monitor white blood cell count 2. Pressure injury. The patient has pressure injury over the sacrum, get wound care consultation, reviewed outside records including 04/20/[address] [facility], reporting stage II ulcer over the sacrum, SilvaSorb and Aleve and dressing recommended 3. End-stage renal disease. Per Nephrology, patient will be dialyzed later this afternoon monitor electrolytes 4. Acute hyperkalemia. Secondary to end-stage renal disease, repeat serum chemistry in a.m. following dialysis 5. HIV. Chronic, continue patient's antiretrovirals today on her home dosing schedule 6. Guillan-Memphis syndrome. Chronic, continue assistance with care 7. Seroma. Post-surgical, has experienced some acute blood loss anemia ( baseline hgb 11.5), now 9.9, possible seroma bleed -monitor H/H Diet. Regular, patient to choose renal options Prophylaxis. High risk patient, holding on pharm given possible bleed, SCDs Code. Full code Disposition. Anticipated discharge is 05/07, pending further workup and ability to arrange outpatient IV antibiotic therapy Discussed with Smiley Cool, hospitalist provider, she has signed this patient out to me for evaluation.
--- NOTE | 2017-05-06 15:33 | PDCONSULT ---
Agricultural Engineering Technicians Note: Assessment/Plan: ESRD: on HD MWF. - Will do HD today per routine. Hyperkalemia: will modulate on HD today. L flank abscess: pt is s/p nephrectomy done last month, now with large seroma and small abscess-appearing collection on CT. - I have discussed with ID, she will need daptomycin 300mg IV post dialysis 3x/ week for 3 weeks total. She will need to have this ordered and shipped to her home and bring it with her to dialysis. - I have already informed her dialysis unit about the antibiotics. Thank you for the interesting consult. Nephrology will continue to follow, please call if you have any additional questions or concerns. H & P Stated Complaint: Lower quad pain. Post- op kidney removal. Time Seen by Provider: 05/06/17 09:47 HPI/ROS: HPI: Ms. Castillo is a 51 yo F with h/o ESRD on HD MWF at [facility] under Dr. Ho. She recently had a L sided nephrectomy done in 03/2017 for infection and has been doing better since. However, she has had a few days of worsening L flank pain and can feel a fullness on that side. CT shows a small abscess that is too small to drain and a large seroma. ROS: Positive per HPI and for low grade temps, rest of 10-point ROS negative - Personal History LMP (Females 10-55): Unknown Current Tetanus/Diphtheria Vaccine: Unsure Current Tetanus Diphtheria and Acellular Pertussis (TDAP): Unsure Tetanus Vaccine Date: 2010 - Medical/Surgical History Hx Asthma: No Hx Chronic Respiratory Disease: No Hx Diabetes: No Hx Cardiac Disease: No Hx Renal Disease: Yes Hx Cirrhosis: No Hx Alcoholism: No Hx HIV/AIDS: Yes Hx Splenectomy or Spleen Trauma: No Other PMH: pmh- neurogenic bladder, Guillian [place], anemia, ESRD w/ dialysis, hyperparathyroidism, HIV+, sacral decub 08/05 until 06/06., hydronephrosis, L nephrostomy tube. psh- tonsillectomy, teeth pulled, cholecystectomy, LFA fistula, left hip replacement; uterine ablation, L nephrectomy 04/14/[address] [facility] [place] [place] - Family History Significant Family History: No pertinent family hx - Social History Smoking Status: Never smoked - Physical Exam Exam: General: alert and oriented, no acute distress Eyes: EOMI, PERRL OP: clear, MMM Neck: supple, no thyromegaly CV: RRR, +2/4 radial and dorsalis pedis pulses, no edema Resp: CTA bilat, nonlabored respirations Abd; Soft, TTP on L flank Neuro: CN II-XII grossly intact, no asterixis Psych: cooperative, appropriate mood and affect Access: LUE AVF with thrill and bruit appreciated Skin: C/D/I, no rash Constitutional: Initial Vital Signs Temperature (C) 37.3 C 05/06/17 09:34 Heart Rate 113 H 05/06/17 09:34 Respiratory Rate 16 05/06/17 09:34 Blood Pressure 108/63 05/06/17 09:34 O2 Sat (%) 70 L 05/06/17 09:34 O2 Delivery Mode Nasal Cannula O2 (L/minute) 2 Allergies/Adverse Reactions: ertapenem sodium [From Invanz] Allergy (Intermediate, Verified 05/06/17 09:34) Rash, neck and throat swelling vancomycin [Vancomycin] Allergy (Intermediate, Verified 05/06/17 09:34) Swelling/neck,face,throat doxycycline Allergy (Verified 05/06/17 09:34) hydroxyzine HCl [From Atarax] Allergy (Verified 05/06/17 09:34) keflin Allergy (Uncoded 05/06/17 09:34) FLU SHOTS Adverse Reaction (Uncoded 05/06/17 09:34) RT POOR KIDNEY FUNCTION AVOIDS Home Medications: Medication Instructions Recorded Abacavir Sulfate [Ziagen] 600 mg PO DAILY 02/23/13 Darunavir Ethanolate [PREZISTA] 800 mg PO DAILY 02/23/13 Escitalopram Oxalate [Lexapro] 20 mg PO DAILY 07/29/15 Ritonavir [Norvir] 100 mg PO DAILY 07/29/15 Sevelamer Carbonate [Renvela] 1,600 mg PO TIDMEAL 07/30/15 Dolutegravir Sodium [Tivicay] 50 mg PO DAILY 04/28/16 Herbals/Supplements -Info Only 1 tab PO DAILY 05/17/16 Scopolamine Hydrobromide 1.5 mg TD Q72H PRN 06/17/16 [Transderm-Scop] Levothyroxine [Synthroid 88 mcg 88 mcg PO DAILY06 02/16/17 (*)] Lab and Imaging 05/06/17 09:53 05/06/17 09:53 WBC 6.07 10^3/uL (3.80-9.50) 05/06/17 09:53 RBC 3.37 10^6/uL (4.18-5.33) L 05/06/17 09:53 Hgb 9.9 g/dL (12.6-16.3) L 05/06/17 09:53 POC Hgb 11.6 gm/dL (12.6-16.3) L 05/06/17 09:50 Hct 33.2 % (38.0-47.0) L 05/06/17 09:53 POC Hct 34 % (38-47) L 05/06/17 09:50 MCV 98.5 fL (81.5-99.8) 05/06/17 09:53 MCH 29.4 pg (27.9-34.1) 05/06/17 09:53 MCHC 29.8 g/dL (32.4-36.7) L 05/06/17 09:53 RDW 15.0 % (11.5-15.2) 05/06/17 09:53 Plt Count 270 10^3/uL (150-400) 05/06/17 09:53 MPV 8.9 fL (8.7-11.7) 05/06/17 09:53 Neut % (Auto) 77.3 % (39.3-74.2) H 05/06/17 09:53 Lymph % (Auto) 12.5 % (15.0-45.0) L 05/06/17 09:53 [place] % (Auto) 7.6 % (4.5-13.0) 05/06/17 09:53 Eos % (Auto) 1.8 % (0.6-7.6) 05/06/17 09:53 Baso % (Auto) 0.5 % (0.3-1.7) 05/06/17 09:53 Nucleat RBC Rel Count 0.0 % (0.0-0.2) 05/06/17 09:53 Absolute Neuts (auto) 4.69 10^3/uL (1.70-6.50) 05/06/17 09:53 Absolute Lymphs (auto) 0.76 10^3/uL (1.00-3.00) L 05/06/17 09:53 Absolute Monos (auto) 0.46 10^3/uL (0.30-0.80) 05/06/17 09:53 Absolute Eos (auto) 0.11 10^3/uL (0.03-0.40) 05/06/17 09:53 Absolute Basos (auto) 0.03 10^3/uL (0.02-0.10) 05/06/17 09:53 Absolute Nucleated RBC 0.00 10^3/uL (0-0.01) 05/06/17 09:53 Immature Gran % 0.3 % (0.0-1.1) 05/06/17 09:53 Seg Neutrophils % Cancelled 05/06/17 Unknown Band Neutrophils % Cancelled 05/06/17 Unknown Lymphocytes % Cancelled 05/06/17 Unknown Monocytes % Cancelled 05/06/17 Unknown Eosinophils % Cancelled 05/06/17 Unknown Basophils % Cancelled 05/06/17 Unknown Metamyelocytes % Cancelled 05/06/17 Unknown Myelocytes % Cancelled 05/06/17 Unknown Promyelocytes % Cancelled 05/06/17 Unknown Blast Cells % Cancelled 05/06/17 Unknown Megakaryocytes % Cancelled 05/06/17 Unknown Immature Gran # 0.02 10^3/uL (0.00-0.10) 05/06/17 09:53 Absolute Seg Neuts Cancelled 05/06/17 Unknown Absolute Band Neuts Cancelled 05/06/17 Unknown Absolute Lymphocytes Cancelled 05/06/17 Unknown Absolute Monocytes Cancelled 05/06/17 Unknown Absolute Eosinophils Cancelled 05/06/17 Unknown Absolute Basophils Cancelled 05/06/17 Unknown Absolute Metamyelocyte Cancelled 05/06/17 Unknown Absolute Myelocytes Cancelled 05/06/17 Unknown Absolute Promyelocytes Cancelled 05/06/17 Unknown Absolute Plasma Cells Cancelled 05/06/17 Unknown Nucleated RBCs Cancelled 05/06/17 Unknown Differential Comment Cancelled 05/06/17 Unknown RBC/WBC/PLT Morphology Cancelled 05/06/17 Unknown Hypersegmented Neuts Cancelled 05/06/17 Unknown Atypical Lymphocytes Cancelled 05/06/17 Unknown Absolute Blast Cells Cancelled 05/06/17 Unknown Plasma Cells % Cancelled 05/06/17 Unknown Smudge Cells Cancelled 05/06/17 Unknown Toxic Granulation Cancelled 05/06/17 Unknown Toxic Vacuolation Cancelled 05/06/17 Unknown Dohle Bodies Cancelled 05/06/17 Unknown Carlo Rods Cancelled 05/06/17 Unknown Platelet Estimate Cancelled 05/06/17 Unknown Clumped Platelets Cancelled 05/06/17 Unknown Large Platelets Cancelled 05/06/17 Unknown Giant Platelets Cancelled 05/06/17 Unknown Bizarre Platelets Cancelled 05/06/17 Unknown Polychromasia Cancelled 05/06/17 Unknown Hypochromasia Cancelled 05/06/17 Unknown Basophilic Stippling Cancelled 05/06/17 Unknown Microcytic Cells Cancelled 05/06/17 Unknown Spherocytes Cancelled 05/06/17 Unknown Pappenheimer Bodies Cancelled 05/06/17 Unknown Sickle Cells Cancelled 05/06/17 Unknown Target Cells Cancelled 05/06/17 Unknown Tear Drop Cells Cancelled 05/06/17 Unknown Oval Macrocytes Cancelled 05/06/17 Unknown Stomatocytes Cancelled 05/06/17 Unknown Holden-Hilger Bodies Cancelled 05/06/17 Unknown Echinocytes Cancelled 05/06/17 Unknown Elliptocytes Cancelled 05/06/17 Unknown Acanthocytes (Spur) Cancelled 05/06/17 Unknown Rouleaux Cancelled 05/06/17 Unknown Keratocytes Cancelled 05/06/17 Unknown Schistocytes Cancelled 05/06/17 Unknown PT 14.0 SEC (12.0-15.0) 05/06/17 09:53 INR 1.09 (0.83-1.16) 05/06/17 09:53 APTT 30.5 SEC (23.0-38.0) 05/06/17 09:53 VBG Lactic Acid 0.9 mmol/L (0.7-2.1) 05/06/17 09:53 POC Sodium 139 mEq/L (134-144) 05/06/17 09:50 Sodium 140 mEq/L (134-144) 05/06/17 09:53 POC Potassium 5.2 mEq/L (3.3-5.0) H 05/06/17 09:50 Potassium 5.5 mEq/L (3.5-5.2) H 05/06/17 09:53 POC Chloride 101 mEq/L (97-110) 05/06/17 09:50 Chloride 97 mEq/L (97-110) 05/06/17 09:53 Carbon Dioxide 28 mEq/l (22-31) 05/06/17 09:53 Anion Gap 15 mEq/L (8-16) 05/06/17 09:53 POC BUN 37 mg/dL (7-23) H 05/06/17 09:50 BUN 42 mg/dL (7-23) H 05/06/17 09:53 Creatinine 6.0 mg/dL (0.6-1.0) H 05/06/17 09:53 POC Creatinine 5.9 mg/dL (0.6-1.0) H 05/06/17 09:50 Estimated GFR 7 05/06/17 09:53 Glucose 94 mg/dL (70-100) 05/06/17 09:53 POC Glucose 97 mg/dL (70-100) 05/06/17 09:50 Calcium 10.2 mg/dL (8.5-10.4) 05/06/17 09:53 Total Bilirubin 0.6 mg/dL (0.1-1.4) 05/06/17 09:53 Conjugated Bilirubin 0.6 mg/dL (0.0-0.5) H 05/06/17 09:53 Unconjugated Bilirubin 0.0 mg/dL (0.0-1.1) 05/06/17 09:53 AST 17 IU/L (14-46) 05/06/17 09:53 ALT 27 IU/L (9-52) 05/06/17 09:53 Alkaline Phosphatase 223 IU/L (38-126) H 05/06/17 09:53 Creatine Kinase 23 IU/L (0-156) 05/06/17 10:53 Total Protein 6.8 g/dL (6.3-8.2) 05/06/17 09:53 Albumin 3.4 g/dL (3.5-5.0) L 05/06/17 09:53 Lipase 125 IU/L (23-300) 05/06/17 09:53 Cold Agglutinins Cancelled 05/06/17 Unknown
[2017-05-06] MEDS: ACETAMINOPHEN 325 MG TAB PO PRN ×2 (16:37→22:29)
--- NOTE | 2017-05-06 17:30 | ASMTCMCOM ---
CM Note CM Note Notes: 05/06/2017 Case Management note: Spoke izaiah/ Josey from [facility] requesting case management call [phone] for auth for Dapto. Submit preauth through [employer] [facility] ref # [id number]. Approval or denial to be faxed to [facility] [phone] in 24 hours. Case Management to follow. Date Signed: 05/06/2017 05:29 PM Electronically Signed By:Brittany Haynes RN
[2017-05-06] MEDS ORDERED: NON-FORMULARY NEW DRUG (Sevelamer Carbonate [Renvela] 1,600 MG) PO SCH (18:00)
[2017-05-06] MEDS: DAPTOmycin 300 MG in NS 100 ML IV SCH (19:54)
[2017-05-06] MEDS: Ritonavir [Norvir] 100 MG PO SCH (19:56)
[2017-05-06] MEDS: SEVELAMER CARBONATE 1600 MG PO SCH (19:56)
[2017-05-06] MEDS: Dolutegravir Sodium [Tivicay] 50 MG PO SCH (19:56)
[2017-05-06] MEDS: ABACAVIR SULFATE PO SCH (19:57)
[2017-05-06] MEDS: Darunavir Ethanolate [Prezista] 800 MG PO SCH (19:57)
[2017-05-06] MEDS: CLOTRIMAZOLE 1% 15 GM CRTUBE TP SCH ×2 (20:24)
[2017-05-06] MEDS ORDERED: LIDOCAINE 1% *Not for Epidural 20 ML MDV ONE (23:00)
[2017-05-07] MEDS: LEVOTHYROXINE 88 MCG TAB PO SCH (05:00)
[2017-05-07 06:09] LABS: % IMMATURE GRANULYOCYTES 0.2 % (0.0-1.1); ABSOLUTE IMMATURE GRANULOCYTES 0.01 10^3/uL (0.00-0.10); ADD DIFF? NO; ADD MORPH? NO; ADD SCAN? NO; ATYPICAL LYMPHOCYTE FLAG 20 (0-99); FRAGMENT RBC FLAG 0 (0-99); HEMATOCRIT 23.9 % (38.0-47.0); HEMOGLOBIN 7.2 g/dL (12.6-16.3); LEFT SHIFT FLG 10 (0-99); LIPEMIA HEMOLYSIS FLAG 80 (0-99); MEAN CELL HEMOGLOBIN 29.3 pg (27.9-34.1); MEAN CELL HEMOGLOBIN CONCENTR. 30.1 g/dL (32.4-36.7); MEAN CELL VOLUME 97.2 fL (81.5-99.8); MEAN PLATELET VOLUME 9.3 fL (8.7-11.7); PLATELET CLUMPS FLAG 0 (0-99); PLATELET COUNT 205 10^3/uL (150-400); RED BLOOD CELL COUNT 2.46 10^6/uL (4.18-5.33); RED CELL DISTRIBUTION WIDTH 15.3 % (11.5-15.2)
[2017-05-07] MEDS: ACETAMINOPHEN 325 MG TAB PO PRN (06:23)
[2017-05-07 06:33] LABS: ANION GAP 12 mEq/L (8-16); CARBON DIOXIDE 26 mEq/l (22-31); CHLORIDE 100 mEq/L (97-110); CREATININE 4.3 mg/dL (0.6-1.0); GLOMERULAR FILTRATION RATE 11; GLUCOSE 88 mg/dL (70-100); POTASSIUM 4.7 mEq/L (3.5-5.2); SODIUM 138 mEq/L (134-144)
[2017-05-07] MEDS: Dolutegravir Sodium [Tivicay] 50 MG PO SCH (07:59)
[2017-05-07] MEDS: ABACAVIR SULFATE PO SCH (08:01)
[2017-05-07] MEDS: Ritonavir [Norvir] 100 MG PO SCH (08:01)
[2017-05-07] MEDS: Darunavir Ethanolate [Prezista] 800 MG PO SCH (08:01)
[2017-05-07] MEDS: CLOTRIMAZOLE 1% 15 GM CRTUBE TP SCH (08:02)
[2017-05-07] MEDS: ESCITALOPRAM OXALATE 10 MG TAB PO SCH (08:02)
[2017-05-07] MEDS: SEVELAMER CARBONATE 1600 MG PO SCH ×3 (08:02→17:54)
[2017-05-07] MEDS ORDERED: DARUNAVIR ETHANOLATE 800 MG PO SCH (09:00)
[2017-05-07] MEDS ORDERED: Herbals/Supplements -Info Only PO SCH (09:00)
[2017-05-07] MEDS ORDERED: NON-FORMULARY NEW DRUG (Escitalopram Oxalate [Lexapro] 20 MG) PO SCH (09:00)
[2017-05-07] MEDS ORDERED: ABACAVIR SULFATE 600 MG PO SCH (09:00)
[2017-05-07] MEDS ORDERED: NON-FORMULARY NEW DRUG (Dolutegravir Sodium [Tivicay] 50 MG) PO SCH (09:00)
[2017-05-07] MEDS ORDERED: RITONAVIR 100 MG PO SCH (09:00)
[2017-05-07] MEDS ORDERED: traMADol 50 MG TAB PO PRN (11:08)
[2017-05-07] MEDS ORDERED: EPOETIN ALFA 10,000 UNIT/ML VIAL SC SCH (11:15)
--- NOTE | 2017-05-07 11:18 | SOAPPROG ---
SOAP Progress Note Assessment/Plan: Assessment: 1. ESRD Stable, but self shortened run yesterday. Next on Tuesday. 2. Anemia Start Epo. 3. LLQ pain Likely infected fluid collection. On antibx. Follow response, and determine need for aspiration. Plan: 05/07/17 11:16 Subjective: Doing better, still with pain though Objective: Vital Signs Temp Pulse Resp BP Pulse Ox 36.7 C 94 14 113/63 99 05/07/17 11:07 05/07/17 11:07 05/07/17 11:07 05/07/17 11:07 05/07/17 11:07 Laboratory Results 05/07/17 05:13 05/07/17 05:13 05/06/17 05/07/17 05/08/17 05:59 05:59 05:59 Intake Total 500 Output Total 125 Balance 375 PT 14.0 SEC (12.0-15.0) 05/06/17 09:53 INR 1.09 (0.83-1.16) 05/06/17 09:53 Physical Exam - Physical Exam General Appearance: no apparent distress Respiratory: lungs clear Cardiac/Chest: regular rate, rhythm Abdomen: other (LLQ pain on palpatioin) Extremities: pedal edema Neuro/Psych: oriented x 3 ICD10 Worksheet Patient Problems: Problems Problem Status Onset Abdominal pain Acute End stage renal disease Acute Hypoxia Acute Retroperitoneal fluid collection Acute Chest pain Acute Fever Acute Generalized weakness Acute Hyperkalemia Acute Hyperkalemia Acute Hypotension Acute Hypoxemia Acute MRSA (methicillin resistant Staphylococcus aureus) Acute 04/04/17 Nephrostomy complication Acute Pubic ramus fracture Acute UTI (urinary tract infection) Acute UTI (urinary tract infection) Acute
--- NOTE | 2017-05-07 13:51 | PCMIDPN ---
Assessment/Plan: # Possible post op infection following laparoscopic left-sided nephrectomy at the [facility] 04/15/2017, presented with left flank pain, and this morning had a temperature of a 100.7degrees, malaise. Feels better today. CT showed larger seroma and smaller, ring enhancing area 0.9x2.2cm that is not reachable by IR - but some concern this could reflect a small abscess in the surgical bed --empiric daptomycin, levofloxacin based on prior cultures: MRSA, steno, FQ sensitive PsA --plan 3-4 weeks of antibiotics, awaiting insurance clearance for daptomycin # Last Pneumovax 2009, may be due for booster dose, will clarify with primary care # HIV, since 1995: Abacavir/Darunavir/r/dolutegravir, VL suppressed, CD4 =166 # Past h/o cx positive MRSA, steno, FQ sensitive PsA # ESRD on HD Medications Generic Name Dose Route Start Last Admin Trade Name Freq PRN Reason Stop Dose Admin Levofloxacin 750 mg 05/06/17 18:00 05/06/17 19:54 Levaquin PO 06/05/17 17:59 750 mg MoWeFr@1800 DEYSI Daptomycin 300 mg/ Sodium 106 mls @ 212 mls/hr 05/06/17 18:00 05/06/17 19:54 Chloride IV 06/05/17 17:59 106 mls MoWeFr@1800 DEYSI Subjective: feeling better no specific c/o, L flank pain better Objective: Vital Signs Temp Pulse Resp BP Pulse Ox 36.7 C 94 14 113/63 99 05/07/17 11:07 05/07/17 11:07 05/07/17 11:07 05/07/17 11:07 05/07/17 11:07 Laboratory Results 05/07/17 05:13 05/07/17 05:13 05/06/17 05/07/17 05/08/17 05:59 05:59 05:59 Intake Total 500 Output Total 125 Balance 375 - Physical Exam General Appearance: alert, no apparent distress Respiratory: lungs clear, No accessory muscle use Neck: supple Cardiac/Chest: regular rate, rhythm, systolic murmur Extremities: No pedal edema Abdomen: non-tender, soft, other (incision sites healing well on anterior abdomen; left flank prior nephrotomy sites hyperpigmented but no inflammation or drainge) Skin: pallor, No rash Neuro/Psych: alert, normal mood/affect, oriented x 3 ICD10 Worksheet Patient Problems: Problems Problem Status Onset Abdominal pain Acute End stage renal disease Acute Hypoxia Acute Retroperitoneal fluid collection Acute Chest pain Acute Fever Acute Generalized weakness Acute Hyperkalemia Acute Hyperkalemia Acute Hypotension Acute Hypoxemia Acute MRSA (methicillin resistant Staphylococcus aureus) Acute 04/04/17 Nephrostomy complication Acute Pubic ramus fracture Acute UTI (urinary tract infection) Acute UTI (urinary tract infection) Acute
--- NOTE | 2017-05-07 14:00 | HOSPPROG ---
Hospitalist Progress Note Assessment/Plan: # abscess in surgical bed - not amenable to percutaneous access - plan dapto/levaquin per ID - unable to arrange as outpatient currently d/t insurance #seroma, post-operative # ESRD - received HD yesterday, next Tuesday # anemia of chronic kidney disease, post-op anemia - lower today, recheck tomorrow # HIV - on anti-virals # [place] # sacral pressure injury - wound care consult Subjective: no acute overnight events Objective: Vital Signs Temp Pulse Resp BP Pulse Ox 36.7 C 94 14 113/63 99 05/07/17 11:07 05/07/17 11:07 05/07/17 11:07 05/07/17 11:07 05/07/17 11:07 Laboratory Results 05/07/17 05:13 05/07/17 05:13 05/06/17 05/07/17 05/08/17 05:59 05:59 05:59 Intake Total 500 Output Total 125 Balance 375 PT 14.0 SEC (12.0-15.0) 05/06/17 09:53 INR 1.09 (0.83-1.16) 05/06/17 09:53 CT reviewed discussed with Dr Saez - Physical Exam Constitutional: no apparent distress Cardiovascular: regular rate and rhythym, no murmur, rub, or gallop Respiratory: no respiratory distress, no rales or rhonchi, clear to auscultation Gastrointestinal: normoactive bowel sounds, soft, non-tender abdomen, no palpable masses ICD10 Worksheet Patient Problems: Problems Problem Status Onset Retroperitoneal fluid collection Acute Hypoxia Acute Abdominal pain Acute UTI (urinary tract infection) Acute Hyperkalemia Acute Nephrostomy complication Acute Pubic ramus fracture Acute Hypoxemia Acute MRSA (methicillin resistant Staphylococcus aureus) Acute 04/04/17 Hypotension Acute Fever Acute Hyperkalemia Acute End stage renal disease Acute UTI (urinary tract infection) Acute Chest pain Acute Generalized weakness Acute
[2017-05-08] MEDS: CLOTRIMAZOLE 1% 15 GM CRTUBE TP SCH ×3 (00:01→21:36)
[2017-05-08 04:29] LABS: % IMMATURE GRANULYOCYTES 0.4 % (0.0-1.1); ABSOLUTE IMMATURE GRANULOCYTES 0.02 10^3/uL (0.00-0.10); ABSOLUTE NRBC COUNT 0.02 10^3/uL (0-0.01); ADD DIFF? NO; ADD MORPH? NO; ADD SCAN? NO; ATYPICAL LYMPHOCYTE FLAG 0 (0-99); FRAGMENT RBC FLAG 0 (0-99); HEMATOCRIT 25.5 % (38.0-47.0); HEMOGLOBIN 7.7 g/dL (12.6-16.3); LEFT SHIFT FLG 0 (0-99); LIPEMIA HEMOLYSIS FLAG 80 (0-99); MEAN CELL HEMOGLOBIN 29.1 pg (27.9-34.1); MEAN CELL HEMOGLOBIN CONCENTR. 30.2 g/dL (32.4-36.7); MEAN CELL VOLUME 96.2 fL (81.5-99.8); MEAN PLATELET VOLUME 9.4 fL (8.7-11.7); NRBC-AUTO% 0.4 % (0.0-0.2); PLATELET CLUMPS FLAG 0 (0-99); PLATELET COUNT 247 10^3/uL (150-400); RED BLOOD CELL COUNT 2.65 10^6/uL (4.18-5.33); RED CELL DISTRIBUTION WIDTH 15.3 % (11.5-15.2)
[2017-05-08 04:39] LABS: ALBUMIN 2.6 g/dL (3.5-5.0); ANION GAP 13 mEq/L (8-16); CALCIUM 9.4 mg/dL (8.5-10.4); CARBON DIOXIDE 27 mEq/l (22-31); CHLORIDE 100 mEq/L (97-110); CREATININE 5.7 mg/dL (0.6-1.0); GLOMERULAR FILTRATION RATE 8; GLUCOSE 85 mg/dL (70-100); POTASSIUM 4.9 mEq/L (3.5-5.2); SODIUM 140 mEq/L (134-144)
[2017-05-08] MEDS: LEVOTHYROXINE 88 MCG TAB PO SCH (06:13)
[2017-05-08] MEDS: SEVELAMER CARBONATE 1600 MG PO SCH ×3 (08:23→17:12)
[2017-05-08] MEDS: ESCITALOPRAM OXALATE 10 MG TAB PO SCH (08:51)
[2017-05-08] MEDS: Ritonavir [Norvir] 100 MG PO SCH ×3 (08:51→13:04)
[2017-05-08] MEDS: Dolutegravir Sodium [Tivicay] 50 MG PO SCH ×3 (08:52→13:04)
[2017-05-08] MEDS: ABACAVIR SULFATE PO SCH ×3 (08:54→13:03)
[2017-05-08] MEDS: Darunavir Ethanolate [Prezista] 800 MG PO SCH ×3 (08:55→13:03)
--- NOTE | 2017-05-08 09:00 | HOSPPROG ---
Hospitalist Progress Note Assessment/Plan: # abscess in surgical bed s/p recent nephrectomy at - not amenable to percutaneous access - plan dapto/levaquin per ID - unable to arrange as outpatient currently d/t insurance # seroma, post-operative # ESRD - received HD yesterday, next Tuesday # anemia of chronic kidney disease, post-op anemia - stable on recheck # HIV - on anti-virals, follows with Dr Kearney # Guillan-[place] - uses w/c and walker # sacral pressure injury - wound care consult # dispo - hopefully tomorrow if outpatient abx setup Subjective: no overnight events; slept well; eating breakfast Objective: Vital Signs Temp Pulse Resp BP Pulse Ox 37.3 C 104 H 14 145/80 H 96 05/08/17 07:35 05/08/17 07:35 05/08/17 07:35 05/08/17 07:35 05/08/17 07:35 Laboratory Results 05/08/17 03:25 05/08/17 03:25 05/07/17 05/08/17 05/09/17 05:59 05:59 05:59 Intake Total 950 Balance 950 PT 14.0 SEC (12.0-15.0) 05/06/17 09:53 INR 1.09 (0.83-1.16) 05/06/17 09:53 - Physical Exam Constitutional: no apparent distress, appears nourished Cardiovascular: regular rate and rhythym, systolic murmur, No irregularly irregular, No tachycardia, No bradycardia Respiratory: no respiratory distress, no rales or rhonchi, clear to auscultation Gastrointestinal: normoactive bowel sounds, other (soft, mild LLQ pain), No guarding, No rebound ICD10 Worksheet Patient Problems: Problems Problem Status Onset Retroperitoneal fluid collection Acute Hypoxia Acute Abdominal pain Acute UTI (urinary tract infection) Acute Hyperkalemia Acute Nephrostomy complication Acute Pubic ramus fracture Acute Hypoxemia Acute MRSA (methicillin resistant Staphylococcus aureus) Acute 04/04/17 Hypotension Acute Fever Acute Hyperkalemia Acute End stage renal disease Acute UTI (urinary tract infection) Acute Chest pain Acute Generalized weakness Acute
--- NOTE | 2017-05-08 10:30 | SOAPPROG ---
SOAP Progress Note Assessment/Plan: Assessment: 1. ESRD Next HD Tuesday 2. Anemia Start Epo. 3. LLQ pain Abscess in surgical bed to be treated medically. ID following. 4. Start nutritional supplements Subjective: Doing pretty well Objective: Vital Signs Temp Pulse Resp BP Pulse Ox 37.3 C 104 H 14 145/80 H 96 05/08/17 07:35 05/08/17 07:35 05/08/17 07:35 05/08/17 07:35 05/08/17 07:35 Laboratory Results 05/08/17 03:25 05/08/17 03:25 05/07/17 05/08/17 05/09/17 05:59 05:59 05:59 Intake Total 950 Balance 950 PT 14.0 SEC (12.0-15.0) 05/06/17 09:53 INR 1.09 (0.83-1.16) 05/06/17 09:53 Physical Exam - Physical Exam General Appearance: no apparent distress Respiratory: lungs clear Cardiac/Chest: regular rate, rhythm Extremities: normal inspection Neuro/Psych: oriented x 3 ICD10 Worksheet Patient Problems: Problems Problem Status Onset Abdominal pain Acute End stage renal disease Acute Hypoxia Acute Retroperitoneal fluid collection Acute Chest pain Acute Fever Acute Generalized weakness Acute Hyperkalemia Acute Hyperkalemia Acute Hypotension Acute Hypoxemia Acute MRSA (methicillin resistant Staphylococcus aureus) Acute 04/04/17 Nephrostomy complication Acute Pubic ramus fracture Acute UTI (urinary tract infection) Acute UTI (urinary tract infection) Acute
--- NOTE | 2017-05-08 14:49 | PCMIDPN ---
Assessment/Plan: # Possible post op infection following laparoscopic left-sided nephrectomy at the [facility] 04/15/2017, presented with left flank pain, and this morning had a temperature of a 100.7degrees, malaise. Feels better today. CT showed larger seroma and smaller, ring enhancing area 0.9x2.2cm that is not reachable by IR - but some concern this could reflect a small abscess in the surgical bed --empiric daptomycin, levofloxacin based on prior cultures: MRSA, steno, FQ sensitive PsA --plan 3-4 weeks of antibiotics, awaiting insurance clearance for daptomycin, hopeful will be sorted out Tuesday # Last Pneumovax 2009, may be due for booster dose, will clarify with primary care # HIV, since 1995: Abacavir/Darunavir/r/dolutegravir, VL suppressed, CD4 =166 # Past h/o cx positive MRSA, steno, FQ sensitive PsA # ESRD on HD: HD Tuesday at [facility] Medications Generic Name Dose Route Start Last Admin Trade Name Freq PRN Reason Stop Dose Admin Levofloxacin 750 mg 05/06/17 18:00 05/06/17 19:54 Levaquin PO 06/05/17 17:59 750 mg MoWeFr@1800 DEYSI Daptomycin 300 mg/ Sodium 106 mls @ 212 mls/hr 05/06/17 18:00 05/06/17 19:54 Chloride IV 06/05/17 17:59 106 mls MoWeFr@1800 DEYSI Subjective: feeling better; no new c/o Objective: Vital Signs Temp Pulse Resp BP Pulse Ox 37.2 C 90 16 124/68 H 100 05/08/17 11:51 05/08/17 11:51 05/08/17 11:51 05/08/17 11:51 05/08/17 11:51 Laboratory Results 05/08/17 03:25 05/08/17 03:25 05/07/17 05/08/17 05/09/17 05:59 05:59 05:59 Intake Total 950 Balance 950 - Physical Exam General Appearance: alert, no apparent distress Respiratory: No accessory muscle use Abdomen: non-tender, soft, other (no flank pain) - Line/s PIV Lines: other (R forearm), No drainage, No erythema ICD10 Worksheet Patient Problems: Problems Problem Status Onset Abdominal pain Acute End stage renal disease Acute Hypoxia Acute Retroperitoneal fluid collection Acute Chest pain Acute Fever Acute Generalized weakness Acute Hyperkalemia Acute Hyperkalemia Acute Hypotension Acute Hypoxemia Acute MRSA (methicillin resistant Staphylococcus aureus) Acute 04/04/17 Nephrostomy complication Acute Pubic ramus fracture Acute UTI (urinary tract infection) Acute UTI (urinary tract infection) Acute
[2017-05-09 04:03] LABS: % IMMATURE GRANULYOCYTES 0.6 % (0.0-1.1); ABSOLUTE IMMATURE GRANULOCYTES 0.03 10^3/uL (0.00-0.10); ABSOLUTE NRBC COUNT 0.02 10^3/uL (0-0.01); ADD DIFF? NO; ADD MORPH? NO; ADD SCAN? NO; ATYPICAL LYMPHOCYTE FLAG 0 (0-99); FRAGMENT RBC FLAG 0 (0-99); HEMATOCRIT 25.7 % (38.0-47.0); HEMOGLOBIN 7.7 g/dL (12.6-16.3); LEFT SHIFT FLG 0 (0-99); LIPEMIA HEMOLYSIS FLAG 80 (0-99); MEAN CELL HEMOGLOBIN 28.7 pg (27.9-34.1); MEAN CELL VOLUME 95.9 fL (81.5-99.8); MEAN PLATELET VOLUME 9.1 fL (8.7-11.7); NRBC-AUTO% 0.4 % (0.0-0.2); PLATELET CLUMPS FLAG 0 (0-99); PLATELET COUNT 297 10^3/uL (150-400); RED BLOOD CELL COUNT 2.68 10^6/uL (4.18-5.33); RED CELL DISTRIBUTION WIDTH 15.3 % (11.5-15.2)
[2017-05-09 04:21] LABS: ALBUMIN 2.6 g/dL (3.5-5.0); ANION GAP 15 mEq/L (8-16); CALCIUM 9.8 mg/dL (8.5-10.4); CARBON DIOXIDE 25 mEq/l (22-31); CHLORIDE 102 mEq/L (97-110); CREATININE 6.9 mg/dL (0.6-1.0); GLOMERULAR FILTRATION RATE 6; GLUCOSE 91 mg/dL (70-100); POTASSIUM 5.5 mEq/L (3.5-5.2); SODIUM 142 mEq/L (134-144)
[2017-05-09] MEDS: LEVOTHYROXINE 88 MCG TAB PO SCH (05:40)
[2017-05-09 07:35] VITALS: O2SAT 100
[2017-05-09] MEDS ORDERED: LIDO/EPI 1% **Not for Epidural 20 ML MDV ONE (08:00)
[2017-05-09] MEDS ORDERED: HEPARIN 10,000 UNIT/10 ML MDV ONE (08:00)
[2017-05-09] MEDS: CLOTRIMAZOLE 1% 15 GM CRTUBE TP SCH (09:07)
[2017-05-09] MEDS: SEVELAMER CARBONATE 1600 MG PO SCH ×2 (09:07→12:58)
[2017-05-09] MEDS: ESCITALOPRAM OXALATE 10 MG TAB PO SCH (09:14)
--- NOTE | 2017-05-09 09:41 | SOAPPROG ---
SOAP Progress Note Assessment/Plan: Assessment/Plan: ESRD: on HD MWF. - Will do HD today per routine. Anemia: pt on epo weekly. Hyperkalemia: K 5.5, will modulate on HD. L flank abscess: pt is s/p L nephrectomy done last month, now with large seroma and small abscess-appearing collection that is not amenable to drainage on L side. - Per ID, plan is for daptomycin 300mg post-dialysis three times weekly for three weeks total, started on 05/06/17. - Dialysis unit is already aware of order. - Appreciate assistance from ID in helping arrange home abx. Subjective: No acute events overnight. Pt states that she is feeling better, not having any abdominal pain today. She is hoping to go home after HD today. Objective: Vital Signs Temp Pulse Resp BP Pulse Ox 36.8 C 80 16 146/79 H 100 05/09/17 07:26 05/09/17 07:26 05/09/17 07:26 05/09/17 07:26 05/09/17 07:26 Laboratory Results 05/09/17 03:16 05/09/17 03:16 05/08/17 05/09/17 05/10/17 05:59 05:59 05:59 Intake Total 950 650 Balance 950 650 PT 14.0 SEC (12.0-15.0) 05/06/17 09:53 INR 1.09 (0.83-1.16) 05/06/17 09:53 General: alert and oriented, no acute distress Eyes; EOMI, PERRL OP: Clear CV: RRR Resp: nonlabored respirations, CTAB Abd: Soft, ND Ext: no edema BLE Neuro: CN II-XII grossly intact, no asterixis Psych: cooperative, appropriate mood and affect ICD10 Worksheet Patient Problems: Problems Problem Status Onset Abdominal pain Acute End stage renal disease Acute Hypoxia Acute Retroperitoneal fluid collection Acute Chest pain Acute Fever Acute Generalized weakness Acute Hyperkalemia Acute Hyperkalemia Acute Hypotension Acute Hypoxemia Acute MRSA (methicillin resistant Staphylococcus aureus) Acute 04/04/17 Nephrostomy complication Acute Pubic ramus fracture Acute UTI (urinary tract infection) Acute UTI (urinary tract infection) Acute
--- NOTE | 2017-05-09 11:34 | PDIAF ---
- Diagnosis Diagnosis: Postoperative intra-abdominal abscess Code Status: Full Code - Medication Management Discharge Medications: Medications to Continue on Transfer Abacavir Sulfate [Ziagen] 600 mg PO DAILY 02/23/13 [Last Taken 05/05/17] Darunavir Ethanolate [PREZISTA] 800 mg PO DAILY 02/23/13 [Last Taken 05/05/17] Escitalopram Oxalate [Lexapro] 20 mg PO DAILY 07/29/15 [Last Taken 05/06/17] Ritonavir [Norvir] 100 mg PO DAILY 07/29/15 [Last Taken 05/05/17] Sevelamer Carbonate [Renvela] 1,600 mg PO TIDMEAL 07/30/15 [Last Taken 05/05/17 18:00] Dolutegravir Sodium [Tivicay] 50 mg PO DAILY 04/28/16 [Last Taken 05/05/17] Herbals/Supplements -Info Only 1 tab PO DAILY 05/17/16 [Last Taken 04/03/17] Scopolamine Hydrobromide [Transderm-Scop] 1.5 mg TD Q72H PRN 06/17/16 [Last Taken 04/03/17] Levothyroxine [Synthroid 88 mcg (*)] 88 mcg PO DAILY06 02/16/17 [Last Taken ] State Tested Nursing Assistant Antibiotics: Daptomycin 300 mg intravenously qMonday Tuesday after dialysis Shelter Antibiotic Stop Date: 06/03/17 Discharge Medications: Refer to the Discharge Home Medication list for PRN reason. PICC Care - Routine: N/A - Labs/Radiology CPK Date: 05/13/17 (Weekly thereafter. Fax to Dr. Kearney [phone]) - Follow Up Care Current Providers and Referrals: Adam Villalobos MD [Primary Care Provider] - As per Instructions
--- NOTE | 2017-05-09 12:54 | PDDCSUM ---
Discharge Summary Discharge Summary: Dates of service 05/06-05/09/17 Discharge dx: # post operative abscess # s/p nephrectomy # anemia of ckd # HIV # ESRD # sacral pressure injury Consultations: ID, renal, urology Procedures performed: HD, abd ct, chest/thorax cta Hospital course by problem 51 yo F with hx of HIV, ESRD on chronic HD s/p recent nephrectomy presenting with post operative abscess # post op abscess: not amenable to drainage, ID consulted. Plan to treat based on prior culture data which showed MRSA, steno, FQ sensitive PsA--treating with daptomycin/levaquin through 06/03. # s/p nephrectomy: performed at [facility], evaluated by urology here who agreed that no surgical intervention indicated # anemia of ckd: followed by renal and epo with HD PRN # HIV: continued on antiretrovirals and will continue to follow with ID # ESRD: renal following, continued on her usual HD schedule # sacral pressure injury: present on admission and followed by wound care clinic , continue usual care Dispo: dc home with home health f/u with ID, renal, urology <35 minutes required for dc
[2017-05-09 14:12] VITALS: BP 115/70; PULSE 106; RESP 18; TEMP 97.9
[2017-05-09] MEDS: DAPTOmycin 300 MG in NS 100 ML IV SCH (15:53)
[2017-05-09] MEDS: ABACAVIR SULFATE PO SCH (16:25)
[2017-05-09] MEDS: Darunavir Ethanolate [Prezista] 800 MG PO SCH (16:26)
[2017-05-09] MEDS: Dolutegravir Sodium [Tivicay] 50 MG PO SCH (16:26)
[2017-05-09] MEDS: Ritonavir [Norvir] 100 MG PO SCH (16:27)
--- NOTE | 2017-05-09 17:06 | ASMTCMCOM ---
CM Note CM Note Notes: Pt ready for DC today. Pt will have dialysis at [facility] in [place] M//. Pt will recieve dapto when she gets dialysis. [employer] will supply to [facility]. Date Signed: 05/09/2017 05:06 PM Electronically Signed By:Dimple Vaughan LCSW
== END 2017-05-09 16:45 | disposition home health service (06) | DRG 862 ==
LOC: INTOOBSV 12:01 → OBSVTOIN 12:01 → F2W 13:00 → OBSVTOIN 05-07 13:52
PROVIDERS: ADMIT Internal Medicine; ATTEND Student in an Organized Health Care Education/Training Program
PROC: 5A1D00Z (ICD-10-PCS; principal; 2017-05-07)
DX: T81.4XXA Infection following a procedure, initial encounter (principal); I12.0 Hypertensive chronic kidney disease with stage 5 chronic kidney disease or end stage renal disease; N18.6 End stage renal disease; E87.5 Hyperkalemia; R09.02 Hypoxemia; L89.152 Pressure ulcer of sacral region, stage 2; G61.0 Guillain-Barre syndrome; N31.9 Neuromuscular dysfunction of bladder, unspecified; B37.2 Candidiasis of skin and nail; D63.1 Anemia in chronic kidney disease; Z21 Asymptomatic human immunodeficiency virus [HIV] infection status; E03.9 Hypothyroidism, unspecified; Z96.642 Presence of left artificial hip joint; Z90.5 Acquired absence of kidney; Z86.14 Personal history of Methicillin resistant Staphylococcus aureus infection; Z87.442 Personal history of urinary calculi; Z87.440 Personal history of urinary (tract) infections
CPT/HCPCS: 82947-QW; 97161-GP; G0378; G8978-GP-CI; G8979-GP-CI; G8980-GP-CI; J0878; J0885; J1644

== ENCOUNTER 2017-05-16 22:21 | Emergency (ER) | payer OTHER, MEDICAID ==
--- NOTE | 2017-05-16 23:13 | EDPHY ---
H & P Stated Complaint: fever and abd swelling; has abcess post kidney removal Time Seen by Provider: 05/16/17 22:58 HPI/ROS: Chief Complaint: Abdominal pain, altered mental status HPI: 51-year-old woman past medical history end-stage renal disease on dialysis , HIV, status post recent nephrectomy with a postop abscess. Patient was admitted to the hospital discharge a week ago on daptomycin and Levaquin. CT scan with contrast showed a non drainable fluid collection in the retroperitoneal space on the left. Patient had her usual dialysis today. Family called and spoke with her noted her to be confused. Patient is also complaining of worsening left lower quadrant abdominal pain over her abscess site. They checked her temperature and she had a temperature of 99.2. They spoke with their renal physician, Dr. Ho and were instructed to come to the emergency depart for further evaluation. ROS: 10 point Review of Systems is negative except as noted in the HPI. PMH: HIV, end-stage renal disease on dialysis, status post nephrectomy with postoperative fluid collection, likely abscess Social History: No smoking, no alcohol, no recreational drug use Family History: non-contributory Physical Exam: Gen: Awake, Alert, frail-appearing HEENT: Nose: no rhinorrhea Eyes: PERRLA, EOMI Mouth: Moist mucosa Neck: Supple, no JVD Chest: nontender, lungs clear to auscultation Heart: S1, S2 normal, no murmur Abd: She has left lower quadrant tenderness to palpation with some voluntary guarding Back: no CVA tenderness, no midline tenderness Ext: no edema, non-tender Skin: no rash Neuro: CN II-XII intact, Sensation grossly intact, Strength 5/5 in bilateral upper and lower extremities - Personal History Current Tetanus/Diphtheria Vaccine: Yes Tetanus Vaccine Date: 2010 - Medical/Surgical History Hx Asthma: No Hx Chronic Respiratory Disease: No Hx Diabetes: No Hx Cardiac Disease: No Hx Renal Disease: Yes Hx Cirrhosis: No Hx Alcoholism: No Hx HIV/AIDS: Yes Hx Splenectomy or Spleen Trauma: No Other PMH: pmh- neurogenic bladder, Guillian [place], anemia, ESRD w/ dialysis, hyperparathyroidism, HIV+, sacral decub 08/05 until 06/06., hydronephrosis. psh - tonsillectomy, teeth pulled, cholecystectomy, LFA fistula, left hip replacement, uterine ablation, L nephrectomy 04/14/17 at [facility] , Steve nephrostomy tube - Social History Smoking Status: Never smoked Constitutional: Initial Vital Signs Temperature (C) 37.3 C 05/16/17 22:33 Heart Rate 101 H 05/16/17 22:33 Respiratory Rate 16 05/16/17 22:33 Blood Pressure 96/48 L 05/16/17 22:33 O2 Sat (%) 93 05/16/17 22:33 O2 Delivery Mode Room Air Allergies/Adverse Reactions: ertapenem sodium [From Invanz] Allergy (Intermediate, Verified 05/06/17 09:34) Rash, neck and throat swelling vancomycin [Vancomycin] Allergy (Intermediate, Verified 05/06/17 09:34) Swelling/neck,face,throat doxycycline Allergy (Verified 05/06/17 09:34) hydroxyzine HCl [From Atarax] Allergy (Verified 05/06/17 09:34) keflin Allergy (Uncoded 05/06/17 09:34) FLU SHOTS Adverse Reaction (Uncoded 05/06/17 09:34) RT POOR KIDNEY FUNCTION AVOIDS Home Medications: Medication Instructions Recorded Abacavir Sulfate [Ziagen] 600 mg PO DAILY 02/23/13 Darunavir Ethanolate [PREZISTA] 800 mg PO DAILY 02/23/13 Escitalopram Oxalate [Lexapro] 20 mg PO DAILY 07/29/15 Ritonavir [Norvir] 100 mg PO DAILY 07/29/15 Sevelamer Carbonate [Renvela] 1,600 mg PO TIDMEAL 07/30/15 Dolutegravir Sodium [Tivicay] 50 mg PO DAILY 04/28/16 Herbals/Supplements -Info Only 1 tab PO DAILY 05/17/16 Scopolamine Hydrobromide 1.5 mg TD Q72H PRN 06/17/16 [Transderm-Scop] Levothyroxine [Synthroid 88 mcg 88 mcg PO DAILY06 02/16/17 (*)] Acetaminophen [Tylenol 325mg (*)] 650 mg PO Q4HRS PRN tab 05/09/17 Clotrimazole 1% [Lotrimin 1%] 1 alexander TP BID cream 05/09/17 DAPTOmycin [Cubicin] 300 mg IV MoWeFr@1800 ml 05/09/17 levOFLOXACIN [levAQUIN (*)] 750 mg PO MoWeFr@1800 #11 tab 05/09/17 Medical Decision Making - Diagnostics Imaging Results: Imaging Impressions Chest X-Ray 05/16/17 22:58 Impression: Bibasilar atelectasis. CT scan results are noted. The small collection from the left nephrectomy slight is diminished. The ascites is unchanged. The pocket in the left retroperitoneal space is slightly diminished from prior. The possibly hematologic collection is stable. The bladder wall remains thickened but is unchanged. There is some mild descending colonic wall thickening. There are no acute changes in fact it appears improved from prior per Dr. Moran. ED Course/Re-evaluation: Case discussed with Dr. Garg, infectious Disease. He agrees that given the patient has had worsening abdominal pain that he would recommend repeat imaging to assess status of the abscess. I will discuss with renal, Dr. Ho, regarding recommendations for post IV contrast treatment. Case discussed with Dr. Ho, patient's steel loader. He agrees that the patient should have a CT scan with contrast. Patient should be admitted overnight and he will consult tomorrow regarding dialysis. CT scan results are noted. The small collection from the left nephrectomy slight is diminished. The ascites is unchanged. The pocket in the left retroperitoneal space is slightly diminished from prior. The possibly hematologic collection is stable. The bladder wall remains thickened but is unchanged. There is some mild descending colonic wall thickening. There are no acute changes in fact it appears improved from prior per Dr. Moran. I have discussed with Dr. Ho, renal. There is no evidence of acute infection at this time. Patient's mental status has cleared. It is noted that her hemoglobin dropped from 7.7 on the 6.8 today. He would like the patient transfused 1 unit packed red blood cells. She can then get her normal dialysis. Patient does not want a [facility] hospital. She does agree to transfusion here. Will transfuse [address] Ho request. She will then be discharged with a plan to follow up as an outpatient. Her abdominal pain has resolved. 0530 patient status post blood transfusion. She is feeling well. She is at her baseline. She does not want a [facility] hospital. She will discharge with follow-up with her renal and infectious disease physicians. - Data Points Laboratory Results: Laboratory Results 05/16/17 23:43 05/16/17 23:43 05/17/17 05/16/17 05/16/17 02:00 23:43 23:43 WBC 5.71 10^3/uL 10^3/uL (3.80-9.50) RBC 2.38 10^6/uL L 10^6/uL (4.18-5.33) Hgb 6.8 g/dL L g/dL (12.6-16.3) Hct 22.7 % L % (38.0-47.0) MCV 95.4 fL fL (81.5-99.8) MCH 28.6 pg pg (27.9-34.1) MCHC 30.0 g/dL L g/dL (32.4-36.7) RDW 15.9 % H % (11.5-15.2) Plt Count 253 10^3/uL 10^3/uL (150-400) MPV 9.1 fL fL (8.7-11.7) Neut % (Auto) 80.3 % H % (39.3-74.2) Lymph % (Auto) 10.0 % L % (15.0-45.0) [place] % (Auto) 6.3 % % (4.5-13.0) Eos % (Auto) 2.3 % % (0.6-7.6) Baso % (Auto) 0.4 % % (0.3-1.7) Nucleat RBC Rel Count 0.0 % % (0.0-0.2) Absolute Neuts (auto) 4.59 10^3/uL 10^3/uL (1.70-6.50) Absolute Lymphs (auto) 0.57 10^3/uL L 10^3/uL (1.00-3.00) Absolute Monos (auto) 0.36 10^3/uL 10^3/uL (0.30-0.80) Absolute Eos (auto) 0.13 10^3/uL 10^3/uL (0.03-0.40) Absolute Basos (auto) 0.02 10^3/uL 10^3/uL (0.02-0.10) Absolute Nucleated RBC 0.00 10^3/uL 10^3/uL (0-0.01) Immature Gran % 0.7 % % (0.0-1.1) Immature Gran # 0.04 10^3/uL 10^3/uL (0.00-0.10) Platelet Estimate ADEQUATE (ADEQ) Hypochromasia 1+ H Microcytic Cells 2+ H Oval Macrocytes 1+ H Smear Review By Pending Sodium 136 mEq/L mEq/L (134-144) Potassium 4.9 mEq/L mEq/L (3.5-5.2) Chloride 94 mEq/L L mEq/L (97-110) Carbon Dioxide 31 mEq/l mEq/l (22-31) Anion Gap 11 mEq/L mEq/L (8-16) BUN 30 mg/dL H mg/dL (7-23) Creatinine 3.6 mg/dL H mg/dL (0.6-1.0) Estimated GFR 13 Glucose 109 mg/dL H mg/dL (70-100) Calcium 9.6 mg/dL mg/dL (8.5-10.4) Total Bilirubin 0.3 mg/dL mg/dL (0.1-1.4) AST 11 IU/L L IU/L (14-46) ALT 20 IU/L IU/L (9-52) Alkaline Phosphatase 121 IU/L IU/L (38-126) Total Protein 5.8 g/dL L g/dL (6.3-8.2) Albumin 2.8 g/dL L g/dL (3.5-5.0) Patient ABO/Rh A NEGATIVE Antibody Screen NEGATIVE Crossmatch IS Only See Detail Departure - Departure Disposition: Home, Routine, Self-Care Clinical Impression: End stage renal disease, Abdominal pain, Anemia Condition: Good Instructions: Anemia (ED), End Stage Kidney Disease (ED) Additional Instructions: Follow up with Dr. Ho later today, touch base at least with a phone conversation. Please plan on attending your usual dialysis tomorrow. Follow up with infectious disease in 2-3 days. Return to the emergency depart for increasing confusion, abdominal pain, fevers , chills, or any other concerns. Referrals: Aadm Villalobos MD [Primary Care Provider] - As per Instructions Brandon Ho MD [Medical Doctor] - As per Instructions
[2017-05-16] MEDS ORDERED: IOPAMIDOL (ISOVUE-300) 100 ML BTL ONE (23:31)
[2017-05-16 23:53] LABS: % IMMATURE GRANULYOCYTES 0.7 % (0.0-1.1); ABSOLUTE IMMATURE GRANULOCYTES 0.04 10^3/uL (0.00-0.10); ADD DIFF? NO; ADD MORPH? YES; ADD SCAN? NO; ATYPICAL LYMPHOCYTE FLAG 0 (0-99); FRAGMENT RBC FLAG 0 (0-99); HEMATOCRIT 22.7 % (38.0-47.0); LEFT SHIFT FLG 0 (0-99); LIPEMIA HEMOLYSIS FLAG 80 (0-99); MEAN CELL HEMOGLOBIN 28.6 pg (27.9-34.1); MEAN CELL VOLUME 95.4 fL (81.5-99.8); MEAN PLATELET VOLUME 9.1 fL (8.7-11.7); PLATELET CLUMPS FLAG 10 (0-99); PLATELET COUNT 253 10^3/uL (150-400); RED BLOOD CELL COUNT 2.38 10^6/uL (4.18-5.33); RED CELL DISTRIBUTION WIDTH 15.9 % (11.5-15.2)
[2017-05-16 23:55] LABS: HEMOGLOBIN 6.8 g/dL (12.6-16.3)
[2017-05-17 00:06] LABS: ALANINE AMINOTRANSFERASE 20 IU/L (9-52); ALBUMIN 2.8 g/dL (3.5-5.0); ALKALINE PHOSPHATASE 121 IU/L (38-126); ANION GAP 11 mEq/L (8-16); ASPARTATE AMINOTRANSFERASE 11 IU/L (14-46); BILIRUBIN,TOTAL 0.3 mg/dL (0.1-1.4); CALCIUM 9.6 mg/dL (8.5-10.4); CARBON DIOXIDE 31 mEq/l (22-31); CHLORIDE 94 mEq/L (97-110); CREATININE 3.6 mg/dL (0.6-1.0); GLOMERULAR FILTRATION RATE 13; GLUCOSE 109 mg/dL (70-100); POTASSIUM 4.9 mEq/L (3.5-5.2); SODIUM 136 mEq/L (134-144); TOTAL PROTEIN 5.8 g/dL (6.3-8.2)
[2017-05-17 00:25] LABS: HYPOCHROMIA 1+; MACROCYTES 1+; MICROCYTES 2+; PLATELET ESTIMATE ADEQUATE (ADEQ)
[2017-05-17 03:32] VITALS: RESP 18
[2017-05-17 05:45] VITALS: BP 121/60; PULSE 93; TEMP 98.6; O2SAT 96
== END 2017-05-17 05:47 | disposition home or self-care (01) ==
PROC: 30233N1 Transfusion of Nonautologous Red Blood Cells into Peripheral Vein, Percutaneous Approach (ICD-10-PCS; principal; 2017-05-16)
DX: R10.32 Left lower quadrant pain (principal); N18.6 End stage renal disease; D64.9 Anemia, unspecified; Z99.2 Dependence on renal dialysis
CPT/HCPCS: 71020; 74177; 99285; P9016; Q9967

== ENCOUNTER → 2017-06-01 | Outpatient (CLI) | payer OTHER, MEDICAID | LOC: FIMAGING 08:11 | PROVIDERS: ATTEND Nurse Practitioner | DX: N99.89 Other postprocedural complications and disorders of genitourinary system (principal); Z90.5 Acquired absence of kidney ==

== ENCOUNTER 2017-06-20 09:13 | Emergency (ER) | payer OTHER, MEDICAID ==
--- NOTE | 2017-06-20 09:55 | EDPHY ---
General - History Smoking Status: Never smoked Narrative: CHIEF COMPLAINT: Chest pain, shortness of breath, cough HISTORY OF PRESENT ILLNESS: Patient is unable to provide a history. The mother provides it. She says that the patient has been coughing complaining of chest pain last night. She also complains of shortness of breath. Unable to quantify or qualify as the patient cannot provide any information. She describes it as a persistent cough. No vomiting. She has also been altered. The patient has been confused as to where and when she is. She has been like this since last night. She has a history of HIV and chronic kidney disease on dialysis. Dialysis is Tuesday at [facility]. She has not yet dialyzed today. She did dialyzed on Tuesday. No other associated complaints or modifying factors obtainable. REVIEW OF SYSTEMS: Ten systems reviewed and are negative unless otherwise noted in the HPI PCP: Dr. Villalobos SPECIALISTS: Dr. Ho, nephrology Dr. Kearney, infectious disease Dr. Loaiza, Urology at [facility] PAST MEDICAL HISTORY: Extensive. Significant for HIV, dialysis Tuesday with recent nephrectomy, infected abdominal seromas PAST SURGICAL HISTORY: Extensive. Reviewed. Significant for recent nephrectomy SOCIAL HISTORY: Lives with her mother FAMILY HISTORY: EXAMINATION General Appearance: Alert, no distress Head: normocephalic, atraumatic Eyes: Pupils equal and round, no conjunctival pallor or injection. No icterus. ENT, Mouth: Mucous membranes moist. Airway patent Neck: Normal inspection, supple, no rigidity. No meningismus Respiratory: Mild rhonchi. No diminishment or consolidation. No wheezing. Cardiovascular: Regular rate and rhythm. No murmur Gastrointestinal: Abdomen is soft and nontender Back: non-tender, no bony abnormalities Neurological: Alert to person. Disoriented to place and time. Moving all 4 extremities spontaneously but not following commands vigorously. Skin: Warm and dry, no rash. No petechiae or purpura Extremities: Nontender, no pedal edema Psychiatric: Mood and affect normal DIFFERENTIAL DIAGNOSES: Including but not limited to uremia, sepsis, encephalopathy, pneumonia, meningitis MDM: 9:45 a.m. Reports of cough, shortness of breath and chest pain from the mother bedside. The patient is encephalopathic and is unable to provide much history. She is not tachycardic or tachypneic, but she is hypertensive. She is scheduled to have dialysis this morning. Although she does not meet SIRS criteria, I have ordered sepsis workup medially as she does appear to be ill and has an extensive medical history. This includes CT scan of the head, blood cultures, lactic acid, ammonia, i-STAT. The i-STAT will use to determine her potassium, to see if she needs emergent dialysis. Laboratory studies are all pending. Chest x-ray is currently being obtained. EKG currently being obtained. Dr. Cornejo is aware the patient and will also see her. 10:10 a.m. Notified that the i-STAT reveals a potassium but only 5.7. EKG has been reviewed by Dr. Cornejo. 10:[address] Cornejo has discussed this case with infectious disease physician Dr. Burton. Recommend that we do not start antibiotics at this time. 10:40 a.m. Notified by radiologist Dr. Causey. CT scan of the head reveals no acute findings. Proceed with admission to the hospital for cephalopathy and dialysis. Urinalysis pending. 10:56 a.m. Case discussed with hospitalist Dr. Cool. We discussed her history, exam and findings as far. Patient has been admitted to a PCU telemetry bed for encephalopathy. Unable to obtain any urine from the straight cath at this time. CT scan unremarkable. Laboratory studies are consistent with her history. EKG is unremarkable. Chest x-ray does not show any definite pneumonia but there are infiltrates. I suspect the patient needs to be dialyzed that she may be uremic, but we have not yet obtain urine. She is admitted in stable condition. 11:15 a.m. Notified by RN that the patient had a seizure. Doctor Clemente was notified at time of seizure and is at bedside with the patient. 11:[address] Kearney has seen the patient. She is requesting that we discussed the case with Neurology for emergent consult. 12:10 p.m. Case discussed with Dr. Solano. Dr. Solano and Dr. Kearney have discussed the case. He will provide consultation on the patient. 12:20 p.m. At this time the patient has been evaluated by Infectious Disease. No further seizure 2:00 p.m. Patient did have 1 subsequent seizure after the initial 1. She was given Ativan and resolved. No status epilepticus. Multiple conversations were had between Dr. Cornejo and [facility]. Please see his chart for further details. Patient was monitored closely while here in the emergency department. She was evaluated frequently. She was ultimately transferred to the hospital for continuous EEG monitoring. Please see the note of Dr. Cornejo for further details. (Kamron Cardenas) Medical Decision Making: PHYSICIAN DOCUMENTATION: The patient was evaluated and managed by the Physician Window Systems Administrator and myself. I have reviewed the chart and agree with the findings and plan of care as documented. In addition, I examined the patient myself. History confirmed as altered mental status per her mother prior to arrival in the ED, patient had a tonic-clonic seizure in the emergency department at about 11:15 a.m. Physical findings as follows: On my examination at this time the patient is actively seizing, lasted approximately 2 minutes. She has right gaze preference. She was given 5 mg IV Valium. After seizure has stopped, she does not have stiff neck. Case at this time discussed with Dr. Soha Kearney from Infectious Disease who knows the patient well and is present in the room. 1154: Discussed with Dr. Kearney who thinks she should get LP as part of inpatient workup; the mother requests interventional radiology perform lumbar puncture. Discussed with Russ neurology by Caio; request transfer to [facility] for continuous EEG monitoring, 1223. Called [facility] transfer line at this time. Dr. Soha Kearney recommends no empiric antibiotics at this time, and the patient does not need spinal tap performed emergently prior to being transferred to [facility]. Database including chest x-ray reviewed with her. 1241: Second seizure, 2mg IV ativan. 1248: Discussed with Dr. Solano, recommends give Keppra 500mg IV. 1319: Discussed with [facility], Discussed with Joe. 1331: Discussed with accepting physician at [facility] Dr. Villalta. Reason for transfer is the continuous EEG monitoring not available at this facility, stable for transfer. Discussed with the mother and consented. Critical care transport for repeated seizure and advanced airway monitoring and intervention capability including ability to perform rapid sequence intubation while en route if needed. 12-lead EKG interpreted by me; official reading is in trace master. My interpretation is sinus rhythm rate 117, late anterior RS progression, QRS duration is 74. Critical care time spent by me, Dr. Cornejo, exclusively with the care of this patient was 45 minutes, exclusive of PA or LIBRARY CUSTOMER SERVICE CLERK time and exclusive of separate procedures. The organ system at risk was neurologic and I ordered IV Valium, IV Ativan, IV Keppra, discussion with accepting hospitalist at [facility], discussion with infectious disease physician , discussion with neurologist Dr. Solano, supplemental oxygen and multiple diagnostics and monitoring , additional history from the mother; to stabilize the patient and prevent worsening of the patient's condition. I am the secondary supervising physician. (Manny Cornejo) - Objective Vital Signs: Initial Vital Signs Temperature (C) 36 C 06/20/17 09:19 Heart Rate 84 06/20/17 09:19 Respiratory Rate 16 06/20/17 09:19 Blood Pressure 218/126 H 06/20/17 09:19 O2 Sat (%) 94 06/20/17 09:19 O2 Delivery Mode Oxymask O2 (L/minute) 3 Allergies/Adverse Reactions: ertapenem sodium [From Invanz] Allergy (Intermediate, Verified 05/06/17 09:34) Rash, neck and throat swelling vancomycin [Vancomycin] Allergy (Intermediate, Verified 05/06/17 09:34) Swelling/neck,face,throat doxycycline Allergy (Verified 05/06/17 09:34) hydroxyzine HCl [From Atarax] Allergy (Verified 05/06/17 09:34) keflin Allergy (Uncoded 05/06/17 09:34) FLU SHOTS Adverse Reaction (Uncoded 05/06/17 09:34) RT POOR KIDNEY FUNCTION AVOIDS Home Medications: Medication Instructions Recorded Abacavir Sulfate [Ziagen] 600 mg PO DAILY18 02/23/13 Darunavir Ethanolate [PREZISTA] 800 mg PO DAILY18 02/23/13 Escitalopram Oxalate [Lexapro] 20 mg PO DAILY 07/29/15 Ritonavir [Norvir] 100 mg PO DAILY18 07/29/15 Sevelamer Carbonate [Renvela] 1,600 mg PO TIDMEAL 07/30/15 Dolutegravir Sodium [Tivicay] 50 mg PO DAILY18 04/28/16 Herbals/Supplements -Info Only 1 tab PO DAILY 05/17/16 Scopolamine Hydrobromide 1.5 mg TD Q72H PRN 06/17/16 [Transderm-Scop] Levothyroxine [Synthroid 88 mcg 88 mcg PO DAILY06 02/16/17 (*)] Acetaminophen [Tylenol 325mg (*)] 650 mg PO Q4HRS PRN tab 05/09/17 guaiFENesin [Mucinex 600 MG (*)] 600 mg PO BID 06/20/17 Laboratory Results: Laboratory Results 06/20/17 09:50 06/20/17 13:00 Microbiology Results: MICROBIOLOGY 06/20/17 10:00 Nasal, Sinus - Swab Respiratory Panel (PCR) - Final No Organism Detected Medications Given: Discontinued Medications Levetiracetam 500 mg/ Sodium (Chloride) 105 mls @ 420 mls/hr IV EDNOW ONE Stop: 06/20/17 13:02 Last Admin: 06/20/17 13:32 Dose: 105 mls Departure - Departure Disposition: Acute Care Hospital Not [facility] Clinical Impression: Encephalopathy acute, Hypertensive CKD, ESRD on dialysis, Hypertension, Seizure Condition: Serious Referrals: Adam Villalobos MD [Primary Care Provider] - As per Instructions
--- NOTE | 2017-06-20 10:06 | CPEKG ---
Heart Rate: 118 RR Interval: 508 P-R Interval: 120 QRSD Interval: 72 QT Interval: 352 QTC Interval: 494 P [place]: 79 QRS [place]: -18 T Wave [place]: 58 EKG Severity - ABNORMAL ECG - EKG Impression: SINUS TACHYCARDIA EKG Impression: BORDERLINE LEFT AXIS DEVIATION EKG Impression: BORDERLINE R WAVE PROGRESSION, ANTERIOR LEADS EKG Impression: BORDERLINE PROLONGED QT INTERVAL Electronically Signed By: Manny Cornejo 20-Jun-2017 10:17:26
[2017-06-20 10:11] LABS: PLATELET COUNT 180 10^3/uL (150-400)
[2017-06-20 10:20] LABS: INR 0.98 (0.83-1.16); PROTIME(PATIENT) 12.9 SEC (12.0-15.0)
[2017-06-20] MEDS ORDERED: DIAZEPAM 10 MG/2 ML SYR ONE (11:15)
[2017-06-20 11:41] VITALS: RESP 18
[2017-06-20] MEDS ORDERED: LORazepam 2 MG/ML INJ ONE (12:37)
--- NOTE | 2017-06-20 12:38 | PCMIDPN ---
Assessment/Plan: 1. Encephalopathy with new onset seizure: Etiology unclear. Infectious differential diagnosis includes menigoencephalopathy associated with bacterial or viral processes. Fungal etiologies, or other opportunistic pathogens seem less likely in the setting of the patient's undetectable viral load. This time of year, West Nile is of concern, as is enterovirus. HSV and VZV are certainly also of concern. I spoke with Dr. Solano of Neurology, who feels that the patient necessitates continuous EEG monitoring which our hospital cannot do at this point in time. He recommended transfer to the [facility]. Patient will need a noncontrast MRI and lumbar puncture for further evaluation and treatment as outlined above. Low threshold to start antibiotics/antivirals in the form of high dose ceftriaxone and intravenous acyclovir. Please note that the patient gets hives from vancomycin, but is able to tolerate cephalosporins. She cannot tolerate ampicillin, either. 2. HIV: Patient's anti-retroviral therapy is on hold as she cannot take p.o. those. 06/20/17 12:42 Subjective: Patient's mother states that Velma has been doing reasonably well for the past 2 weeks, but has had an upper respiratory infection. She has had a post viral cough, but no complaints of headaches, or confusion. The patient's mother states that she went to pick her up this morning for her dialysis, and found the patient completely confused and not following commands. The patient was taken to [facility] Emergency Department. In the emergency but department, she was afebrile, but her blood pressure was extremely elevated at 2 20/140, and she was found to be tachycardic. Noncontrast head CT was unremarkable. Chest x-ray showed bronchitis with no obvious infiltrate. Laboratories notable for the elevated BNP, and creatinine of 7.4, otherwise her white blood cell count was not felt to be elevated. Patient has not received any recent vaccines. She had a injection of hylaluronic acid into her left knee last week which was unremarkable. Per the patient's mother, she has not had any fevers, shaking chills. Also of note, the patient's respiratory viral panel was negative. In the emergency department, the patient had a witnessed 2 minutes generalized seizure. She has never seized before. Objective: Vital Signs Temp Pulse Resp BP Pulse Ox 36 C 102 H 18 194/127 H 100 06/20/17 09:19 06/20/17 11:21 06/20/17 11:21 06/20/17 11:21 06/20/17 11:21 - Physical Exam General Appearance: other (Postictal. Unresponsive. Neck is supple.) EENT: PERRL/EOMI, other (Difficult to open patient's mouth.) Respiratory: lungs clear Cardiac/Chest: tachycardia, systolic murmur Abdomen: non-tender, soft Skin: other, No rash, No embolic lesions Neuro/Psych: other (Patient is postictal, snoring loudly. Unresponsive. Previously, was moving all 4 extremities.) ICD10 Worksheet Patient Problems: Problems Problem Status Onset Encephalopathy acute Acute Hypertension Acute Hypertensive CKD, ESRD on dialysis Acute Seizure Acute Abdominal pain Acute Chest pain Acute End stage renal disease Acute Fever Acute Generalized weakness Acute Hyperkalemia Acute Hyperkalemia Acute Hypotension Acute Hypoxemia Acute Hypoxia Acute MRSA (methicillin resistant Staphylococcus aureus) Acute 04/04/17 Nephrostomy complication Acute Pubic ramus fracture Acute Retroperitoneal fluid collection Acute UTI (urinary tract infection) Acute UTI (urinary tract infection) Acute
[2017-06-20] MEDS ORDERED: levETIRAcetam 500 MG in NS 100 ML IV ONE (12:48)
--- NOTE | 2017-06-20 13:00 | CPEKG ---
Heart Rate: 117 RR Interval: 513 P-R Interval: 152 QRSD Interval: 74 QT Interval: 304 QTC Interval: 424 P [place]: 72 QRS [place]: -29 T Wave [place]: 54 EKG Severity - ABNORMAL ECG - EKG Impression: SINUS TACHYCARDIA EKG Impression: PROBABLE LEFT ATRIAL ABNORMALITY EKG Impression: BORDERLINE LEFT AXIS DEVIATION EKG Impression: BORDERLINE R WAVE PROGRESSION, ANTERIOR LEADS Electronically Signed By: Manny Cornejo 20-Jun-2017 14:24:43
[2017-06-20 14:18] VITALS: BP 188/81; PULSE 114; TEMP 97.9; O2SAT 94
== END 2017-06-20 14:18 | disposition short-term general hospital (02) ==
LOC: UNDOADMIN 10:55
DX: G93.40 Encephalopathy, unspecified (principal); I12.0 Hypertensive chronic kidney disease with stage 5 chronic kidney disease or end stage renal disease; N18.6 End stage renal disease; B20 Human immunodeficiency virus [HIV] disease; R56.9 Unspecified convulsions; Z99.2 Dependence on renal dialysis
CPT/HCPCS: 82947-QW; 96365; J1953; J2060

== ENCOUNTER 2017-07-18 13:51 | Emergency (ER) | payer OTHER, MEDICAID ==
--- NOTE | 2017-07-18 14:31 | EDPHY ---
H & P Time Seen by Provider: 07/18/17 14:13 HPI/ROS: CHIEF COMPLAINT: Seizure HISTORY OF PRESENT ILLNESS: Patient recently had a prolonged hospitalization at [place] which was required for seizures which were recurrent in the emergency department. Today at dialysis she was reported to have another seizure was transported to the Emergency Department by EMS. Patient does not really remember the event. Apparently was a tonic-clonic seizure. REVIEW OF SYSTEMS: Eye: no change in vision ENT: no sore throat Cardiac: no chest pain or syncope Pulmonary: no cough or SOB Abdomen: no vomiting, diarrhea, abdominal pain Musculoskeletal: no back pain Skin: no rash Neuro: no headache Constitutional: no fever : no urinary symptoms A comprehensive 10 point review of systems is otherwise negative aside from elements mentioned in the history of present illness. 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 Social history: Primary care physician is Dr. Kearney from [place] General Appearance: Alert and conversant, cooperative. Eyes: No scleral icterus. ENT, Mouth: Normal mucous membranes. Respiratory: Normal respiratory effort, breath sounds equal, lungs are clear to auscultation. Cardiovascular: Regular rate and rhythm. Gastrointestinal: Abdomen is soft and non tender. Neurological: Alert and oriented x3. Normally conversant. Face symmetric, weaker in legs than in arms. Skin: Warm and dry, no rashes. Left forearm fistula. Musculoskeletal: Trace bilateral peripheral leg edema without calf tenderness. Psychiatric: Not agitated. Emergency Department course/MDM: Discussed with Caio at 1424. She requests transfer to [facility] for ongoing management by her neurology team and continuous EEG monitoring not available at [facility]. Discussed with the patient by both Dr. Kearney and myself and consented. 1425: Félix from [place] is accepting physician. Reason for transfer is continuity of care, primary care physician request, continuous EEG monitoring not available at [facility]. Reason for ALS required is monitoring with seizure history. Smoking Status: Never smoked Constitutional: Initial Vital Signs Temperature (C) 36.3 C 07/18/17 13:51 Heart Rate 80 07/18/17 13:51 Respiratory Rate 16 07/18/17 13:51 Blood Pressure 98/53 L 07/18/17 13:51 O2 Sat (%) 91 L 07/18/17 13:51 O2 Delivery Mode Room Air Allergies/Adverse Reactions: ertapenem sodium [From Invanz] Allergy (Intermediate, Verified 05/06/17 09:34) Rash, neck and throat swelling vancomycin [Vancomycin] Allergy (Intermediate, Verified 05/06/17 09:34) Swelling/neck,face,throat doxycycline Allergy (Verified 05/06/17 09:34) hydroxyzine HCl [From Atarax] Allergy (Verified 05/06/17 09:34) keflin Allergy (Uncoded 05/06/17 09:34) FLU SHOTS Adverse Reaction (Uncoded 05/06/17 09:34) RT POOR KIDNEY FUNCTION AVOIDS Home Medications: Medication Instructions Recorded Abacavir Sulfate [Ziagen] 600 mg PO DAILY18 02/23/13 Darunavir Ethanolate [PREZISTA] 800 mg PO DAILY18 02/23/13 Escitalopram Oxalate [Lexapro] 20 mg PO DAILY 07/29/15 Ritonavir [Norvir] 100 mg PO DAILY18 07/29/15 Sevelamer Carbonate [Renvela] 1,600 mg PO TIDMEAL 07/30/15 Dolutegravir Sodium [Tivicay] 50 mg PO DAILY18 04/28/16 Herbals/Supplements -Info Only 1 tab PO DAILY 05/17/16 Scopolamine Hydrobromide 1.5 mg TD Q72H PRN 06/17/16 [Transderm-Scop] Levothyroxine [Synthroid 88 mcg 88 mcg PO DAILY06 02/16/17 (*)] Acetaminophen [Tylenol 325mg (*)] 650 mg PO Q4HRS PRN tab 05/09/17 guaiFENesin [Mucinex 600 MG (*)] 600 mg PO BID 06/20/17 Medical Decision Making - Diagnostics EKG Interpretation: 12-lead EKG interpreted by me; official reading is in trace master. My interpretation is sinus rhythm rate 76, DEDE. Differential Diagnosis: Differential diagnosis considered for a seizure including but not limited to electrolyte abnormality, alcohol withdrawal, medication noncompliance, head injury, and breakthrough seizure. - Data Points Laboratory Results: Laboratory Results 07/18/17 14:10 07/18/17 14:10 07/18/17 07/18/17 14:10 14:10 WBC 2.51 10^3/uL L 10^3/uL (3.80-9.50) RBC 2.32 10^6/uL L 10^6/uL (4.18-5.33) Hgb 6.7 g/dL L g/dL (12.6-16.3) Hct 21.3 % L % (38.0-47.0) MCV 91.8 fL fL (81.5-99.8) MCH 28.9 pg pg (27.9-34.1) MCHC 31.5 g/dL L g/dL (32.4-36.7) RDW 17.9 % H % (11.5-15.2) Plt Count 160 10^3/uL 10^3/uL (150-400) MPV 9.0 fL fL (8.7-11.7) Neut % (Auto) 46.2 % % (39.3-74.2) Lymph % (Auto) 28.3 % % (15.0-45.0) [place] % (Auto) 13.9 % H % (4.5-13.0) Eos % (Auto) 10.4 % H % (0.6-7.6) Baso % (Auto) 0.8 % % (0.3-1.7) Nucleat RBC Rel Count 0.0 % % (0.0-0.2) Absolute Neuts (auto) 1.16 10^3/uL L 10^3/uL (1.70-6.50) Absolute Lymphs (auto) 0.71 10^3/uL L 10^3/uL (1.00-3.00) Absolute Monos (auto) 0.35 10^3/uL 10^3/uL (0.30-0.80) Absolute Eos (auto) 0.26 10^3/uL 10^3/uL (0.03-0.40) Absolute Basos (auto) 0.02 10^3/uL 10^3/uL (0.02-0.10) Absolute Nucleated RBC 0.00 10^3/uL 10^3/uL (0-0.01) Immature Gran % 0.4 % % (0.0-1.1) Immature Gran # 0.01 10^3/uL 10^3/uL (0.00-0.10) Platelet Estimate ADEQUATE (ADEQ) Oval Macrocytes 1+ H Smear Review By Leana FERRO MD Sodium 138 mEq/L mEq/L (134-144) Potassium 4.3 mEq/L mEq/L (3.5-5.2) Chloride 96 mEq/L L mEq/L (97-110) Carbon Dioxide 29 mEq/l mEq/l (22-31) Anion Gap 13 mEq/L mEq/L (8-16) BUN 26 mg/dL H mg/dL (7-23) Creatinine 2.5 mg/dL H mg/dL (0.6-1.0) Estimated GFR 20 Glucose 89 mg/dL mg/dL (70-100) Calcium 9.1 mg/dL mg/dL (8.5-10.4) Departure - Departure Disposition: Acute Care Hospital [facility] Clinical Impression: Seizure Condition: Good Referrals: Soha Kearney MD [Primary Care Provider] - As per Instructions
[2017-07-18 14:37] LABS: % IMMATURE GRANULYOCYTES 0.4 % (0.0-1.1); ABSOLUTE IMMATURE GRANULOCYTES 0.01 10^3/uL (0.00-0.10); ADD DIFF? NO; ADD MORPH? YES; ADD SCAN? NO; ATYPICAL LYMPHOCYTE FLAG 30 (0-99); FRAGMENT RBC FLAG 0 (0-99); HEMATOCRIT 21.3 % (38.0-47.0); LEFT SHIFT FLG 0 (0-99); LIPEMIA HEMOLYSIS FLAG 80 (0-99); MEAN CELL HEMOGLOBIN 28.9 pg (27.9-34.1); MEAN CELL HEMOGLOBIN CONCENTR. 31.5 g/dL (32.4-36.7); MEAN CELL VOLUME 91.8 fL (81.5-99.8); PLATELET CLUMPS FLAG 0 (0-99); PLATELET COUNT 160 10^3/uL (150-400); RED BLOOD CELL COUNT 2.32 10^6/uL (4.18-5.33); RED CELL DISTRIBUTION WIDTH 17.9 % (11.5-15.2)
[2017-07-18 14:39] LABS: HEMOGLOBIN 6.7 g/dL (12.6-16.3)
--- NOTE | 2017-07-18 14:48 | CPEKG ---
Heart Rate: 76 RR Interval: 789 P-R Interval: 164 QRSD Interval: 76 QT Interval: 424 QTC Interval: 477 P [place]: 66 QRS [place]: 26 T Wave [place]: 74 EKG Severity - BORDERLINE ECG - EKG Impression: SINUS RHYTHM EKG Impression: PROBABLE LEFT ATRIAL ABNORMALITY EKG Impression: CONSIDER ANTERIOR INFARCT Electronically Signed By: Manny Cornejo 18-Jul-2017 16:27:25
[2017-07-18 14:51] LABS: ANION GAP 13 mEq/L (8-16); CALCIUM 9.1 mg/dL (8.5-10.4); CARBON DIOXIDE 29 mEq/l (22-31); CHLORIDE 96 mEq/L (97-110); CREATININE 2.5 mg/dL (0.6-1.0); GLOMERULAR FILTRATION RATE 20; GLUCOSE 89 mg/dL (70-100); POTASSIUM 4.3 mEq/L (3.5-5.2); SODIUM 138 mEq/L (134-144)
[2017-07-18 15:15] LABS: MACROCYTES 1+; PLATELET ESTIMATE ADEQUATE (ADEQ)
[2017-07-18 16:07] VITALS: RESP 18
[2017-07-18 18:51] VITALS: BP 131/67; PULSE 80; TEMP 97.9; O2SAT 96
== END 2017-07-18 18:50 | disposition short-term general hospital (02) ==
LOC: EDUNIT#
DX: G40.909 Epilepsy, unspecified, not intractable, without status epilepticus (principal)

== ENCOUNTER 2017-07-25 10:03 | Inpatient (IN) | payer OTHER, MEDICAID ==
[2017-07-25] MEDS ORDERED: OXYCODONE/APAP 5/325 TAB ONE (11:10)
[2017-07-25] MEDS ORDERED: OXYCODONE/APAP 5/325 TAB PO ONE (11:11)
--- NOTE | 2017-07-25 11:44 | EDPHY ---
HPI/HX/ROS/PE/MDM Narrative: CHIEF COMPLAINT: Right jaw pain HISTORY OF PRESENT ILLNESS: The patient is a 52 y/o female arriving with her mother complaining of right jaw pain secondary to a fall last night. She has a medical history that includes HIV, seizures, kidney failure and nephrectomy requiring dialysis, and Guillain-Black Diamond requiring a wheelchair. Last night she fell as she was transferring from her recliner to her wheelchair because the wheelchair slid away. She struck her right jaw on the counter as she fell, but did not lose consciousness or develop nausea or vomiting. She was a little sore at the site, but felt okay directly after the fall. She denies any preceding chest pain, lightheadedness, or dyspnea. She also noticed increasing left leg swelling on Tuesday that did not improve after dialysis. No fever, chills, chest pain, shortness of breath, palpitations, nausea, vomiting, diarrhea, urinary complaints, lightheadedness. REVIEW OF SYSTEMS: Aside from elements discussed in the HPI, a comprehensive 10-point review of systems was reviewed and is negative. PAST MEDICAL HISTORY: 1. HIV - on antiretrovirals 2. Dialysis 3x per week - chronic kidney disease, anemia, and left nephrectomy 2.5 months ago 3. Seizure disorder 4. Hypothyroidism 5. 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 Spinal stenosis 8. Nephrolithiasis with frequent UTIs 9. Sacral pressure injury 10. Hypertension 11. Hyperlipidemia PAST SURGICAL HISTORY: 1. Left nephrectomy 2.5 months ago 2. Left hip replacement 3. Suprapubic catheter 4. Hysterectomy 5. Tubal ligation 6. Bilateral foot surgery 7. Left knee surgery 8. Left upper extremity AV fistula Prior medical records reviewed including admission 05/06/17 for fever and ED visit 07/18/17 for seizure. SOCIAL HISTORY: Mother at bedside involved in care. Lives independently at [address] PCP is Dr. Kearney from [place]. VITAL SIGNS: Reviewed by me GENERAL: Well-developed, well-nourished, resting comfortably in her wheelchair in no respiratory distress. HEENT:Ecchymosis and abrasion behind right mandible with normal occlusion and no swelling. Eyes: No icterus, no injection. Mouth: moist mucous membranes. No erythema or lesions. Neck: supple with no adenopathy. Lateral right neck tenderness. LUNGS: Clear to auscultation bilaterally, no wheezes, rhonchi or rales. CARDIAC: Irregular rate and rhythm, no rubs, no gallops, systolic and diastolic murmur. ABDOMEN: Soft, nontender, nondistended, bowel sounds normal. BACK: No CVA tenderness. Left upper trapezius tenderness. EXTREMITIES: No trauma. Pitting edema and erythema to both lower extremities, worse on left. Range of motion is normal throughout. NEURO: Alert and oriented, nonfocal, at baseline. SKIN: Warm and dry, no rash. PSYCHIATRIC: Normal mentation, no agitation. Portions of this note were transcribed by a medical records library professor. I personally performed a history, physical exam, medical decision making, and confirmed accuracy of information the transcribed note. ED Course: This is a 52 y/o female with multiple comorbidities including HIV, end-stage renal disease, and baseline weakness from Guillain-Black Diamond who presents for evaluation of a sore jaw secondary to a mechanical fall last night and increasing leg swelling for the last 3 days. Plan for IV, labs, UA, EKG, and extremity US. 1 tab Percocet administered for pain. Labs show anemia. US indicate left femoral and popliteal DVT. Spoke with hospitalist service. Dr. Zafar accepts admission. Consulted with school clerk, Dr. Vazquez. She requests administration of bicarb, calcium gluconate, insulin, and D50 for patient's hyperkalemia, as dialysis may be some what delayed. MDM: Differential diagnosis for the patient's primary complaint of leg swelling was considered including but not limited to cellulitis, hypoalbuminemia, congestive heart failure, cor pulmonale, chronic venous stasis and DVT. - Data Points Imaging Results: Imaging Impressions Extremity Venous Study 07/25/17 11:38 Impression: 1. Positive deep venous thrombosis in the left leg femoral vein and popliteal vein. 2. No deep venous thrombosis right leg. Findings and recommendations discussed with Emergency Department physician, Lilly Foster M.D., at 1310 hours, 07/25/2017. Final report concurs with initial preliminary interpretation. Imaging: Discussed imaging studies w/ harpoon engagement planning operator Radiologist Laboratory Results: Laboratory Results 07/25/17 12:08 07/25/17 12:08 07/25/17 07/25/17 07/25/17 12:08 12:08 12:08 WBC 3.15 10^3/uL L 10^3/uL (3.80-9.50) RBC 2.63 10^6/uL L 10^6/uL (4.18-5.33) Hgb 8.0 g/dL L g/dL (12.6-16.3) Hct 24.0 % L % (38.0-47.0) MCV 91.3 fL fL (81.5-99.8) MCH 30.4 pg pg (27.9-34.1) MCHC 33.3 g/dL g/dL (32.4-36.7) RDW 16.8 % H % (11.5-15.2) Plt Count 128 10^3/uL L 10^3/uL (150-400) MPV 8.4 fL L fL (8.7-11.7) Neut % (Auto) 60.1 % % (39.3-74.2) Lymph % (Auto) 23.5 % % (15.0-45.0) [place] % (Auto) 9.8 % % (4.5-13.0) Eos % (Auto) 5.7 % % (0.6-7.6) Baso % (Auto) 0.6 % % (0.3-1.7) Nucleat RBC Rel Count 0.0 % % (0.0-0.2) Absolute Neuts (auto) 1.89 10^3/uL 10^3/uL (1.70-6.50) Absolute Lymphs (auto) 0.74 10^3/uL L 10^3/uL (1.00-3.00) Absolute Monos (auto) 0.31 10^3/uL 10^3/uL (0.30-0.80) Absolute Eos (auto) 0.18 10^3/uL 10^3/uL (0.03-0.40) Absolute Basos (auto) 0.02 10^3/uL 10^3/uL (0.02-0.10) Absolute Nucleated RBC 0.00 10^3/uL 10^3/uL (0-0.01) Immature Gran % 0.3 % % (0.0-1.1) Immature Gran # 0.01 10^3/uL 10^3/uL (0.00-0.10) PT 12.5 SEC SEC (12.0-15.0) INR 0.91 (0.83-1.16) APTT 29.6 SEC SEC (23.0-38.0) Heparin Anti-Xa, Unfract < 0.10 IU/mL L IU/mL (0.32-0.67) Sodium 137 mEq/L mEq/L (134-144) Potassium 6.3 mEq/L H* mEq/L (3.5-5.2) Chloride 94 mEq/L L mEq/L (97-110) Carbon Dioxide 27 mEq/l mEq/l (22-31) Anion Gap 16 mEq/L mEq/L (8-16) BUN 63 mg/dL H mg/dL (7-23) Creatinine 5.8 mg/dL H mg/dL (0.6-1.0) Estimated GFR 8 Glucose 81 mg/dL mg/dL (70-100) Calcium 10.3 mg/dL mg/dL (8.5-10.4) Troponin I < 0.012 ng/mL ng/mL (0.000-0.034) Medications Given: Heparin Sodium (Porcine) (Heparin 50 Units/Ml (Premix)) 500 mls @ 0 mls/hr IV CONT DEYSI; Per Protocol PRN Reason: Protocol Stop: 01/21/18 14:29 Last Admin: 07/25/17 16:31 Dose: 500 mls Discontinued Medications Calcium Gluconate (Calcium Gluconate) 1 gm IVP EDNOW ONE Stop: 07/25/17 14:29 Last Admin: 07/25/17 15:04 Dose: 1 gm Dextrose (Dextrose 50% Syringe) 25 gm IVP EDNOW ONE Stop: 07/25/17 14:30 Last Admin: 07/25/17 15:04 Dose: 25 gm Heparin Sodium (Porcine) (Heparin Injection) 0 unit IVP ONCE ONE PRN Reason: Protocol Stop: 07/25/17 14:20 Last Admin: 07/25/17 16:31 Dose: 3,500 unit Sodium Bicarbonate 150 meq/ (Dextrose) 1,150 mls @ 0 mls/hr IV EDNOW ONE PRN Reason: As Directed Stop: 07/25/17 14:29 Last Admin: 07/25/17 15:22 Dose: 1,150 mls Insulin Human Regular (Humulin R) 10 unit IVP EDNOW ONE Stop: 07/25/17 14:30 Last Admin: 07/25/17 15:04 Dose: 10 units Oxycodone/Acetaminophen (Percocet 5/325) 1 tab PO EDNOW ONE Stop: 07/25/17 11:12 Last Admin: 07/25/17 11:13 Dose: 1 tab Sodium Polystyrene Sulfonate (Kayexalate) 30 gm PO ONCE ONE Stop: 07/25/17 13:49 Last Admin: 07/25/17 14:23 Dose: Not Given General Time Seen by Provider: 07/25/17 11:14 Initial Vital Signs: Initial Vital Signs Temperature (C) 36.3 C 07/25/17 10:05 Heart Rate 68 07/25/17 10:05 Respiratory Rate 18 07/25/17 10:05 Blood Pressure 117/59 L 07/25/17 10:05 O2 Sat (%) 92 07/25/17 10:05 O2 Delivery Mode Room Air Allergies/Adverse Reactions: ertapenem sodium [From Invanz] Allergy (Intermediate, Verified 07/25/17 10:05) Rash, neck and throat swelling vancomycin [Vancomycin] Allergy (Intermediate, Verified 07/25/17 10:05) Swelling/neck,face,throat doxycycline Allergy (Verified 07/25/17 10:05) hydroxyzine HCl [From Atarax] Allergy (Verified 07/25/17 10:05) keflin Allergy (Uncoded 05/06/17 09:34) FLU SHOTS Adverse Reaction (Uncoded 05/06/17 09:34) RT POOR KIDNEY FUNCTION AVOIDS Home Medications: Medication Instructions Recorded Abacavir Sulfate [Ziagen] 600 mg PO DAILY@02/23/13 Darunavir Ethanolate [PREZISTA] 800 mg PO DAILY@02/23/13 Escitalopram Oxalate [Lexapro] 20 mg PO DAILY 07/29/15 Ritonavir [Norvir] 100 mg PO DAILY@07/29/15 Sevelamer Carbonate [Renvela] 1,600 mg PO TIDMEAL 07/30/15 Dolutegravir Sodium [Tivicay] 50 mg PO DAILY@04/28/16 Acetaminophen [Tylenol 325mg (*)] 650 mg PO Q4HRS PRN tab 05/09/17 Folic Acid/Vitamin B Comp W-C 1 each PO DAILY 07/25/17 [Renavit Tablet] Herbals/Supplements -Info Only 1 ea PO DAILY 07/25/17 Lacosamide [Vimpat 50 mg (*)] 100 mg PO Q12 07/25/17 Levothyroxine [Synthroid 112 mcg 112 mcg PO DAILY06 07/25/17 (*)] amLODIPine BESYLATE [Norvasc 10 mg 10 mg PO SUTUTHSA@0800 07/25/17 (*)] Lacosamide [Vimpat 50 mg (*)] 100 mg PO MWF 07/26/17 Departure - Departure Disposition: Home, Routine, Self-Care Clinical Impression: Hyperkalemia, End stage renal disease Anemia Qualifiers: Anemia type: other cause Other causes of anemia: other cause, not classified Qualified Code(s): D64.89 - Other specified anemias Contusion of jaw Qualifiers: Encounter type: initial encounter Qualified Code(s): S00.83XA - Contusion of other part of head, initial encounter DVT (deep venous thrombosis) Qualifiers: DVT location: lower extremity Affected thrombotic vein of extremity: femoral Chronicity: acute Laterality: left Qualified Code(s): I82.412 - Acute embolism and thrombosis of left femoral vein Condition: Fair Report Scribed for: Lilly Foster Report Scribed by: Vianca Packer Date of Report: 07/25/17 Time of Report: 12:47
[2017-07-25 12:27] LABS: % IMMATURE GRANULYOCYTES 0.3 % (0.0-1.1); ABSOLUTE IMMATURE GRANULOCYTES 0.01 10^3/uL (0.00-0.10); ADD DIFF? NO; ADD MORPH? NO; ADD SCAN? NO; ATYPICAL LYMPHOCYTE FLAG 10 (0-99); FRAGMENT RBC FLAG 0 (0-99); LEFT SHIFT FLG 0 (0-99); LIPEMIA HEMOLYSIS FLAG 80 (0-99); MEAN CELL HEMOGLOBIN 30.4 pg (27.9-34.1); MEAN CELL HEMOGLOBIN CONCENTR. 33.3 g/dL (32.4-36.7); MEAN CELL VOLUME 91.3 fL (81.5-99.8); MEAN PLATELET VOLUME 8.4 fL (8.7-11.7); PLATELET CLUMPS FLAG 0 (0-99); PLATELET COUNT 128 10^3/uL (150-400); RED BLOOD CELL COUNT 2.63 10^6/uL (4.18-5.33); RED CELL DISTRIBUTION WIDTH 16.8 % (11.5-15.2)
[2017-07-25 12:38] LABS: ANION GAP 16 mEq/L (8-16); CALCIUM 10.3 mg/dL (8.5-10.4); CARBON DIOXIDE 27 mEq/l (22-31); CHLORIDE 94 mEq/L (97-110); CREATININE 5.8 mg/dL (0.6-1.0); GLOMERULAR FILTRATION RATE 8; GLUCOSE 81 mg/dL (70-100); SODIUM 137 mEq/L (134-144)
[2017-07-25 12:50] LABS: POTASSIUM 6.3 mEq/L (3.5-5.2); TROPONIN I < 0.012 ng/mL (0.000-0.034)
--- NOTE | 2017-07-25 13:36 | CPEKG ---
Heart Rate: 67 RR Interval: 896 P-R Interval: 172 QRSD Interval: 84 QT Interval: 388 QTC Interval: 410 P Sod: 69 QRS Sod: 6 T Wave Sod: 52 EKG Severity - ABNORMAL ECG - EKG Impression: SINUS RHYTHM EKG Impression: SUPRAVENTRICULAR BIGEMINY EKG Impression: CONSIDER ANTERIOR INFARCT Electronically Signed By: Lilly Foster 25-Jul-2017 17:56:40
[2017-07-25] MEDS ORDERED: SODIUM POLY SULF 15 GM/60 ML BOTTLE PO ONE (13:48)
[2017-07-25] MEDS ORDERED: HEPARIN 10,000 UNIT/10 ML MDV IVP ONE (14:19)
[2017-07-25] MEDS ORDERED: CALCIUM GLUC 10% 1 GM/10 ML VIAL IVP ONE (14:28)
[2017-07-25] MEDS ORDERED: SODIUM BICARBONATE 150 MEQ in D5W 1,000 ML IV ONE (14:28)
[2017-07-25] MEDS ORDERED: D50W 25 GM/50 ML SYR IVP ONE (14:29)
[2017-07-25] MEDS ORDERED: INSULIN REGULAR HUMAN 100 UNIT/ML IVP ONE (14:29)
[2017-07-25 14:35] LABS: INR 0.91 (0.83-1.16); PROTIME(PATIENT) 12.5 SEC (12.0-15.0)
[2017-07-25 14:36] LABS: APTT 29.6 SEC (23.0-38.0)
--- NOTE | 2017-07-25 15:01 | PCMIDPN ---
Assessment/Plan: 1. Left lower extremity DVT: Anticoagulation moving forward will be very problematic in this complicated patient with multiple medical and social issues. I am deeply concerned about the use of Coumadin moving forward, as her present antiretrovirals (which cannot be changed or altered) will make sustaining a therapeutic INR difficult. Also, the patient is at very high risk of falls moving forward and head bleeds with recurrent seizures. May need to broach at different living situation in the future, with increased assistance, although the patient has been very opposed to this in the past. I have asked the hospitalist to involve Hematology to get their opinion. Although a [place] filter is suboptimal overall, I wonder whether this would be the best/safest option for her in the long run. For now, will start intravenous heparin and await Hematology recommendations for anticoagulation in the setting of hemodialysis. 2. HIV: The patient will continue her antiretrovirals that her mother has brought from home. Subjective: Saw patient in the emergency room. Presented with left lower extremity edema and jaw pain after reaching for her wheelchair this morning. Her wheelchair was not locked and because of this, the wheelchair rolled and the patient fell. Her mother is at her side. Hospitalist also present. Objective: Vital Signs Temp Pulse Resp BP Pulse Ox 36.3 C 68 18 117/59 L 92 07/25/17 10:05 07/25/17 10:05 07/25/17 10:05 07/25/17 10:05 07/25/17 10:05 ICD10 Worksheet Patient Problems: Problems Problem Status Onset Anemia Acute Contusion of jaw Acute DVT (deep venous thrombosis) Acute End stage renal disease Acute Hyperkalemia Acute Abdominal pain Acute Chest pain Acute Fever Acute Generalized weakness Acute Hyperkalemia Acute Hypotension Acute Hypoxemia Acute Hypoxia Acute MRSA (methicillin resistant Staphylococcus aureus) Acute 04/04/17 Nephrostomy complication Acute Pubic ramus fracture Acute Retroperitoneal fluid collection Acute UTI (urinary tract infection) Acute UTI (urinary tract infection) Acute
--- NOTE | 2017-07-25 15:30 | PDCONSULT ---
Ethnic Studies Professor Note: Assessment/Plan: ESRD: Pt has HD MWF, last dialyzed on Tuesday. - Will do HD today per routine. Hyperkalemia: pt given kayexalate, calcium, insulin/D50 and bicarb in ER. Will further modulate with HD. Hypervolemia: pt noted to have DVT in L leg but has swelling in both, which is relatively different for her. - Will modulate on HD. HTN: would hold her amlodipine for now, will try to modulate with fluid removal on HD. DVT: agree with hematology consult in setting of ESRD as well as HIV medication to determine best course of treatment. Thank you for the interesting consult. Nephrology will continue to follow, please call if you have any additional questions or concerns. H & P Stated Complaint: Fell last night,hit R side of head behind ear,landed on butt; No LOC Time Seen by Provider: 07/25/17 11:14 HPI/ROS: HPI: Ms. Castillo is a 52 yo F with ESRD on HD MWF at [facility] also positive for HIV. She was last dialyzed on Tuesday per routine. Pt notes that in the past few weeks her legs have been more swollen, and her BP has not been as low as before, now off midodrine and takes amlodipine on non-dialysis days. On Tuesday she noted that her L leg seemed to be more swollen than R and did not improve after dialysis and got worse through the weekend, prompting her to come to ER today. She also had a fall on Tuesday because the wheelchair was not locked properly and slid out from under her, hit her jaw. She did not get her dialysis today. She had an US done that confirmed a L leg DVT. Her K is 6.3, was given bicarb, insulin/D50 and kayexalate in ER as well as calcium. ROS: Positive per HPI, rest of 10-point ROS negative Source: Patient, Family, Old records - Personal History LMP (Females 10-55): Post Menopausal Current Tetanus Diphtheria and Acellular Pertussis (TDAP): Yes Tetanus Vaccine Date: 2010 - Medical/Surgical History Hx Asthma: No Hx Chronic Respiratory Disease: No Hx Diabetes: No Hx Cardiac Disease: No Hx Renal Disease: Yes Hx Cirrhosis: No Hx Alcoholism: No Hx HIV/AIDS: No Hx Splenectomy or Spleen Trauma: No Other PMH: pmh- neurogenic bladder, Guillian [place], anemia, ESRD w/ dialysis, hyperparathyroidism, HIV+, sacral decub 08/05 until 06/06., hydronephrosis. psh - tonsillectomy, teeth pulled, cholecystectomy, LFA fistula, left hip replacement, uterine ablation, L nephrectomy 04/14/17 at [facility] , L nephrostomy tube - Family History Significant Family History: No: Cancer, Vascular disease - Social History Smoking Status: Never smoked - Physical Exam Exam: General: alert and oriented, no acute distress Eyes; EOMI, PERRL OP: Clear, MMM Neck: supple, no thyromegaly CV: RRR, +2/4 radial pulses, +2 edema BLE Resp: CTA bilat, nonlabored respirations Abd: Soft, NT/ND Neuro: CN II-XII grossly intact, no asterixis Psych: cooperative, blunted affect Skin: C/D/I, no rash Access; LUE AVF with thrill and bruit appreciated Constitutional: Initial Vital Signs Temperature (C) 36.3 C 07/25/17 10:05 Heart Rate 68 07/25/17 10:05 Respiratory Rate 18 07/25/17 10:05 Blood Pressure 117/59 L 07/25/17 10:05 O2 Sat (%) 92 07/25/17 10:05 O2 Delivery Mode Room Air Allergies/Adverse Reactions: ertapenem sodium [From Invanz] Allergy (Intermediate, Verified 07/25/17 10:05) Rash, neck and throat swelling vancomycin [Vancomycin] Allergy (Intermediate, Verified 07/25/17 10:05) Swelling/neck,face,throat doxycycline Allergy (Verified 07/25/17 10:05) hydroxyzine HCl [From Atarax] Allergy (Verified 07/25/17 10:05) keflin Allergy (Uncoded 05/06/17 09:34) FLU SHOTS Adverse Reaction (Uncoded 05/06/17 09:34) RT POOR KIDNEY FUNCTION AVOIDS Home Medications: Medication Instructions Recorded Abacavir Sulfate [Ziagen] 600 mg PO DAILY18 02/23/13 Darunavir Ethanolate [PREZISTA] 800 mg PO DAILY18 02/23/13 Escitalopram Oxalate [Lexapro] 20 mg PO DAILY 07/29/15 Ritonavir [Norvir] 100 mg PO DAILY18 07/29/15 Sevelamer Carbonate [Renvela] 1,600 mg PO TIDMEAL 07/30/15 Dolutegravir Sodium [Tivicay] 50 mg PO DAILY18 04/28/16 Levothyroxine [Synthroid 88 mcg 88 mcg PO DAILY06 02/16/17 (*)] Acetaminophen [Tylenol 325mg (*)] 650 mg PO Q4HRS PRN tab 05/09/17 Lacosamide [Vimpat 50 mg (*)] 07/25/17 amLODIPine BESYLATE [Norvasc 10 mg 10 mg PO 07/25/17 (*)] Lab and Imaging 07/25/17 12:08 07/25/17 12:08 WBC 3.15 10^3/uL (3.80-9.50) L 07/25/17 12:08 RBC 2.63 10^6/uL (4.18-5.33) L 07/25/17 12:08 Hgb 8.0 g/dL (12.6-16.3) L 07/25/17 12:08 Hct 24.0 % (38.0-47.0) L 07/25/17 12:08 MCV 91.3 fL (81.5-99.8) 07/25/17 12:08 MCH 30.4 pg (27.9-34.1) 07/25/17 12:08 MCHC 33.3 g/dL (32.4-36.7) 07/25/17 12:08 RDW 16.8 % (11.5-15.2) H 07/25/17 12:08 Plt Count 128 10^3/uL (150-400) L 07/25/17 12:08 MPV 8.4 fL (8.7-11.7) L 07/25/17 12:08 Neut % (Auto) 60.1 % (39.3-74.2) 07/25/17 12:08 Lymph % (Auto) 23.5 % (15.0-45.0) 07/25/17 12:08 [place] % (Auto) 9.8 % (4.5-13.0) 07/25/17 12:08 Eos % (Auto) 5.7 % (0.6-7.6) 07/25/17 12:08 Baso % (Auto) 0.6 % (0.3-1.7) 07/25/17 12:08 Nucleat RBC Rel Count 0.0 % (0.0-0.2) 07/25/17 12:08 Absolute Neuts (auto) 1.89 10^3/uL (1.70-6.50) 07/25/17 12:08 Absolute Lymphs (auto) 0.74 10^3/uL (1.00-3.00) L 07/25/17 12:08 Absolute Monos (auto) 0.31 10^3/uL (0.30-0.80) 07/25/17 12:08 Absolute Eos (auto) 0.18 10^3/uL (0.03-0.40) 07/25/17 12:08 Absolute Basos (auto) 0.02 10^3/uL (0.02-0.10) 07/25/17 12:08 Absolute Nucleated RBC 0.00 10^3/uL (0-0.01) 07/25/17 12:08 Immature Gran % 0.3 % (0.0-1.1) 07/25/17 12:08 Immature Gran # 0.01 10^3/uL (0.00-0.10) 07/25/17 12:08 PT 12.5 SEC (12.0-15.0) 07/25/17 12:08 INR 0.91 (0.83-1.16) 07/25/17 12:08 APTT 29.6 SEC (23.0-38.0) 07/25/17 12:08 Heparin Anti-Xa, Unfract < 0.10 IU/mL (0.32-0.67) L 07/25/17 12:08 Sodium 137 mEq/L (134-144) 07/25/17 12:08 Potassium 6.3 mEq/L (3.5-5.2) H* 07/25/17 12:08 Chloride 94 mEq/L (97-110) L 07/25/17 12:08 Carbon Dioxide 27 mEq/l (22-31) 07/25/17 12:08 Anion Gap 16 mEq/L (8-16) 07/25/17 12:08 BUN 63 mg/dL (7-23) H 07/25/17 12:08 Creatinine 5.8 mg/dL (0.6-1.0) H 07/25/17 12:08 Estimated GFR 8 07/25/17 12:08 Glucose 81 mg/dL (70-100) 07/25/17 12:08 Calcium 10.3 mg/dL (8.5-10.4) 07/25/17 12:08 Troponin I < 0.012 ng/mL (0.000-0.034) 07/25/17 12:08
[2017-07-25] MEDS: HEPARIN/DEXTROSE 500 ML IV SCH (16:31)
--- NOTE | 2017-07-25 16:36 | WOCRNPDOC ---
WOCRN Advanced Assessment Note - Skin Integrity Problem, Advanced Assess Sacrum Pressure Injury Dressing Type: Open to Air Exudate Amount: None Wound Bed Constitution: Healed Pressure Injury Stage: Stage 4 Pressure Injury Present on Admit: Yes Skin Integrity Problem Comment: Wound had reopened a few weeks ago and has now healed again. Currently intact. Patient has had a Stage 4 pressure injury here that was closed at [facility] approx 1-1.5 years ago. ARIEL Mccormick alerted. Wound care will sign off.
[2017-07-25] MEDS ORDERED: ACETAMINOPHEN 325 MG TAB PO PRN (16:37)
[2017-07-25] MEDS ORDERED: ONDANSETRON 4 MG/2 ML VIAL IVP PRN (16:37)
[2017-07-25] MEDS ORDERED: HYDROmorphONE/DILAUDID 1 MG/ML INJ IVP PRN (16:37)
--- NOTE | 2017-07-25 17:02 | GHP ---
[f rep st] HISTORY AND PHYSICAL DATE OF ADMISSION: 07/25/2017 CHIEF COMPLAINT: Fall and leg edema. 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 She has HIV. S he recently underwent a nephrectomy at [facility] because she was having recurrent pyeloneph ritis due to nephrolithiasis and had a nephrostomy tube and given her end-stage renal disease status, it was felt the kidney was best to just be resected since it was causing so much trouble. She recen tly developed a seizure disorder and has had recurrent admissions for that. The patient now presents to the hospital after falling from her wheelchair last night. She was trans ferring from her recliner to the wheelchair and the break on the wheelchair was not on properly and i t went out from under her and she struck her right jaw and right shoulder on the counter. Initially last night she thought she was just mildly bruised, but pain continued severely through today so she decided to come in for evaluation to the emergency room. She has also had increasing leg swelling on the left greater than the right for the last 4 days. She missed her hemodialysis this morning. She did get dialysis on Tuesday and was perplexed by the lack of improvement in the left leg swelling after dialysis. Since her nephrectomy her dialysis has been difficult and she has had a hard time finding a new dialysis regimen. It appears that the left sara mills did have some residual renal function and now that that has been lost, it is noticeable to the mel ent. PAST MEDICAL HISTORY: 1. 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 3. HIV positive. 4. Sacral decubitus ulcer present on admission. 5. Developmental delay. 6. Recurrent pyelonephritis and nephrolithiasis status post nephrectomy. 7. Neurogenic bladder status post suprapubic catheter. 8. Seizure disorder. PAST SURGICAL HISTORY: Cholecystectomy, hysterectomy, knee, hip and foot surgery. MEDICATIONS: Please see computer record full detailed list. ALLERGIES: To ertapenem, vancomycin, doxycycline. SOCIAL HISTORY: No smoking. No alcohol. She lives alone, but she has a very supportive mother at [facility] who is at her home 2-3 hours per day assisting her. REVIEW OF SYSTEMS: Complete review of systems obtained. Review of systems negative on constitutiona l, HEENT, GI, pulmonary, cardiovascular, , hematology, skin, muscular, endocrine, psych except for positives and negatives as noted in HPI. FAMILY HISTORY: Reviewed and noncontributory to presenting complaint. PHYSICAL EXAMINATION: GENERAL: Well-developed, well-nourished female, in no acute distress. VITAL SIGNS: Temperature is 36.3, pulse 68, blood pressure 117/57, saturating 92% on room. EYE: Normal c onjunctivae. Pupils react to light. ENT: Normal ears and nose. Hearing intact. Normal teeth. Or opharynx moist. NECK: Trachea midline. No thyromegaly. CHEST: Normal effort. LUNGS: Clear to a uscultation bilaterally. CARDIOVASCULAR: Regular rhythm. No murmur. 2+ lower extremity edema, lef t greater than right. ABDOMEN: Soft, nontender. No hepatosplenomegaly. SKIN: Warm, dry, intact. No rash. MUSCULOSKELETAL: No cyanosis or clubbing. Strength 5/5 upper and lower extremities. SAMIRA ROLOGIC: Cranial nerves intact. Normal sensation to light touch. PSYCH: Alert and oriented x3. N ormal affect. Normal judgment and insight. Normal memory. LABORATORY DATA: White count 3.15, hematocrit 24.0, platelets 128. Sodium 137, potassium 6.3, chlor myranda 94, bicarb 27, BUN 63, creatinine 5.8, glucose 81. Troponins negative. TEST DATA: EKG viewed by me. My personal interpretation is normal sinus rhythm. No ST-T wave mcgee es. Ultrasound of the left leg shows a DVT in the femoral and popliteal veins. ASSESSMENT/PLAN: 1. Left lower extremity deep vein thrombosis. She is currently on intravenous heparin; unfortunatel y, her end-stage renal disease makes anticoagulation more difficult as we cannot use Lovenox or a nov el oral agent. I spoke with Dr. Kearney and she has very grave concerns regarding starting this patien t on Coumadin. She thinks this will be difficult to regulate due to interactions with her anti-retro viral medications. She also reports that this patient falls very frequently at home and would be jillian y high risk for an intracranial bleed. Dr. Kearney recommends a hematology consultation to discuss opt ions, and I have spoken with Dr. Nelson and he will see her in the morning. 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 2. Human immunodeficiency virus positive. Continue her anti-retroviral medications. Dr. Kearney will be following. 3. End-stage renal disease. I have spoken with Dr. Vazquez. She missed her hemodialysis today and has hyperkalemia. Hemodialysis will be initiated this evening as an inpatient. She is hypervolemic on presentation. According to the patient and her mother the last renal function due to her recent neph rectomy is noticeable and they have yet to find her new dry weight and dialysis needs. 4. Guillain-[place] syndrome. She is wheelchair bound at baseline. 5. Sacral decubitus ulcer. Will consult Wound Care and request an air mattress. 6. Left shoulder pain post fall. Will check an x-ray. 7. Neurogenic bladder with suprapubic catheter. This is stable. 8. Seizure disorder. Will continue her usual Vimpat. CODE STATUS: Full. ADMISSION STATUS: Will admit to inpatient as she is medically complex. Anticipate greater than 2 mi dnights for stabilization. DVT PROPHYLAXIS: She will be low risk on full anticoagulation with IV heparin. /[id number]/MODL
[2017-07-25] MEDS: oxyCODONE IR 5 MG TAB PO PRN (18:36)
[2017-07-25] MEDS ORDERED: LIDOCAINE 1% *Not for Epidural 20 ML MDV ONE (23:09)
[2017-07-26] MEDS: HEPARIN 10,000 UNIT/10 ML MDV IVP PRN ×3 (01:20→21:12)
[2017-07-26] MEDS: oxyCODONE IR 5 MG TAB PO PRN ×2 (09:40→21:09)
[2017-07-26] MEDS ORDERED: NON-FORMULARY NEW DRUG (Escitalopram Oxalate [Lexapro] 20 MG) PO SCH (09:45)
[2017-07-26 10:18] LABS: % IMMATURE GRANULYOCYTES 0.4 % (0.0-1.1); ABSOLUTE IMMATURE GRANULOCYTES 0.01 10^3/uL (0.00-0.10); ADD DIFF? NO; ADD MORPH? NO; ADD SCAN? NO; ATYPICAL LYMPHOCYTE FLAG 20 (0-99); FRAGMENT RBC FLAG 0 (0-99); HEMATOCRIT 23.1 % (38.0-47.0); HEMOGLOBIN 7.7 g/dL (12.6-16.3); LEFT SHIFT FLG 0 (0-99); LIPEMIA HEMOLYSIS FLAG 80 (0-99); MEAN CELL HEMOGLOBIN 30.4 pg (27.9-34.1); MEAN CELL HEMOGLOBIN CONCENTR. 33.3 g/dL (32.4-36.7); MEAN CELL VOLUME 91.3 fL (81.5-99.8); PLATELET CLUMPS FLAG 10 (0-99); PLATELET COUNT 144 10^3/uL (150-400); RED BLOOD CELL COUNT 2.53 10^6/uL (4.18-5.33); RED CELL DISTRIBUTION WIDTH 16.8 % (11.5-15.2)
[2017-07-26] MEDS ORDERED: HYDROmorphone HCL/NS/PF 0.4 MG/2 ML SYR IVP PRN (10:30)
[2017-07-26 10:31] LABS: INR 0.91 (0.83-1.16); PROTIME(PATIENT) 12.5 SEC (12.0-15.0)
[2017-07-26] MEDS: LACOSAMIDE 50 MG TAB PO SCH ×2 (10:32→21:08)
--- NOTE | 2017-07-26 10:53 | HOSPPROG ---
Hospitalist Progress Note Assessment/Plan: 52-year-old with a history of HIV disease, end-stage renal disease and disability due to Guillain-[place] as is admitted with a DVT. # DVT: Currently on IV heparin, difficult situation given her end-stage renal disease and frequent falls will need to discuss with Hematology regarding appropriate anticoagulation for her * Continue IV heparin * Consider Coumadin versus newer agents which will need dose adjustment with her renal disease # HIV disease, resume her usual medications # end-stage renal disease, set up for dialysis today. # neck pain with a history of stenosis status post fall. No radicular symptoms currently no numbness noted. * Check noncontrast CT of cervical spine # shoulder pain: After fall will continue occupational therapy, x-ray shows no fracture # history of Guillain-[place] syndrome, currently wheelchair bound will provide supportive care while she is here. # sacral decubital ulcer, wound care # seizure disorder # developmental delay. Dispo: Pt currently independent and lives alone. Has had multiple falls, in fact had one prior to admission. High risk for bleed with anticoagulation. discussed with Dr. Nelson. He recommends IVC filter and no anticoagulation, he will discuss with Dr. Kearney and make formal recommendation. In the mean time she will stay on IV heparin. DC home depending on recommendations with PT and anticoag recs. Subjective: Patient new to me and chart reviewed. Has swelling in her lower extremities. Complains of neck pain and feels like when she fell yesterday from her wheelchair she had side of her head and neck and continues to have pain there no numbness tingling, has a suprapubic cath no fecal incontinence Objective: Vital Signs Temp Pulse Resp BP Pulse Ox 36.8 C 82 16 125/69 H 91 L 07/26/17 08:00 07/26/17 08:00 07/26/17 08:00 07/26/17 08:00 07/26/17 08:00 Laboratory Results 07/26/17 10:13 07/25/17 07/26/17 07/27/17 05:59 05:59 05:59 Intake Total 3714 Output Total 202 25 Balance 3512 -25 PT 12.5 SEC (12.0-15.0) 07/26/17 07:20 INR 0.91 (0.83-1.16) 07/26/17 07:20 - Physical Exam Constitutional: chronically ill appearing, uncomfortable Eyes: PERRL, anicteric sclera, EOMI Ears, Nose, Mouth, Throat: moist mucous membranes Cardiovascular: regular rate and rhythym, systolic murmur, edema (Right greater than left) Respiratory: no respiratory distress, clear to auscultation Gastrointestinal: soft, non-tender abdomen Genitourinary: other (Suprapubic catheter) Skin: warm Psychiatric: interacting appropriately, not anxious ICD10 Worksheet Patient Problems: Problems Problem Status Onset Anemia Acute Contusion of jaw Acute DVT (deep venous thrombosis) Acute Retroperitoneal fluid collection Acute Hypoxia Acute Abdominal pain Acute UTI (urinary tract infection) Acute Hyperkalemia Acute Nephrostomy complication Acute Pubic ramus fracture Acute Hypoxemia Acute MRSA (methicillin resistant Staphylococcus aureus) Acute 04/04/17 Hypotension Acute Fever Acute Hyperkalemia Acute End stage renal disease Acute UTI (urinary tract infection) Acute Chest pain Acute Generalized weakness Acute
--- NOTE | 2017-07-26 10:57 | PDMN ---
Medical Necessity Medical necessity: Pt meets IP criteria per MD; est los >2 mn for eval/tx of LLE DVT, sacral decub, hypervolemia & hyperkalemia; admit for further monitoring , IV heparin, hematology consult, hemodialysis, wound care consult & therapies; comorbid HIV, ESRD on hemodialysis, recurrent pyelonephritis & nephrolithiasis s /p nephrectomy, Guillain-[place], wheelchair bound w/frequent falls, neurogenic bladder w/suprapubic catheter, seizure disorder & developmental delay; per H&P & order 07/26/17
[2017-07-26 11:02] LABS: ANION GAP 16 mEq/L (8-16); CALCIUM 10.1 mg/dL (8.5-10.4); CARBON DIOXIDE 25 mEq/l (22-31); CHLORIDE 97 mEq/L (97-110); CREATININE 4.9 mg/dL (0.6-1.0); GLOMERULAR FILTRATION RATE 9; GLUCOSE 137 mg/dL (70-100); POTASSIUM 5.5 mEq/L (3.5-5.2); SODIUM 138 mEq/L (134-144)
[2017-07-26] MEDS: NEPHROVITE FOLIC ACID/VIT B&C 1 TAB PO SCH (11:04)
[2017-07-26] MEDS: LEVOTHYROXINE 112 MCG TAB PO SCH (11:04)
[2017-07-26] MEDS: ESCITALOPRAM OXALATE 10 MG TAB PO SCH (11:04)
--- NOTE | 2017-07-26 11:33 | SOAPPROG ---
SOAP Progress Note Assessment/Plan: Assessment: Velma is well known to me. She has many active and chronic issues 1. Fall She had a fall over the weekend, striking herself in her R post auricular area. She is getting a CT today. 2. New LLE DVT On heparin, will require warfarin. Heme to see. May be related to recent nephrectomy. 3. Recent HTN and seizures. This may potentially be related to ARCHANA induced HTN. She was getting 10,000 units per treatment. Her ARCHANA was held, and her BP is now better. Question need for seizure meds, if this was the etio. 4. Anemia Starting back on lower dose ARCHANA. 5. Volume overload HD today and tomorrow. UF as tolerated. 6. Living situation Will review with mother. With anticoagulation, I am not sure she can live independently. Plan: 07/26/17 11:28 Subjective: Looks pretty good today Objective: Vital Signs Temp Pulse Resp BP Pulse Ox 36.8 C 82 16 125/69 H 91 L 07/26/17 08:00 07/26/17 08:00 07/26/17 08:00 07/26/17 08:00 07/26/17 08:00 Laboratory Results 07/26/17 10:13 07/26/17 10:13 07/25/17 07/26/17 07/27/17 05:59 05:59 05:59 Intake Total 3714 Output Total 202 25 Balance 3512 -25 PT 12.5 SEC (12.0-15.0) 07/26/17 07:20 INR 0.91 (0.83-1.16) 07/26/17 07:20 Physical Exam - Physical Exam General Appearance: no apparent distress Respiratory: normal breath sounds Cardiac/Chest: regular rate, rhythm Extremities: pedal edema Neuro/Psych: oriented x 3 ICD10 Worksheet Patient Problems: Problems Problem Status Onset Anemia Acute Contusion of jaw Acute DVT (deep venous thrombosis) Acute End stage renal disease Acute Hyperkalemia Acute Abdominal pain Acute Chest pain Acute Fever Acute Generalized weakness Acute Hyperkalemia Acute Hypotension Acute Hypoxemia Acute Hypoxia Acute MRSA (methicillin resistant Staphylococcus aureus) Acute 04/04/17 Nephrostomy complication Acute Pubic ramus fracture Acute Retroperitoneal fluid collection Acute UTI (urinary tract infection) Acute UTI (urinary tract infection) Acute
[2017-07-26] MEDS ORDERED: EPOETIN ALFA 2,000 UNIT/ML VIAL SC SCH (11:45)
[2017-07-26] MEDS ORDERED: NON-FORMULARY NEW DRUG (Sevelamer Carbonate [Renvela] 1,600 MG) PO SCH (12:00)
[2017-07-26] MEDS ORDERED: SEVELAMER HCL 800 MG TAB PO SCH (12:00)
[2017-07-26] MEDS: Sevelamer Carbonate [Renvela] 800 MG PO SCH ×2 (13:33→18:05)
[2017-07-26] MEDS: Dolutegravir Sodium [Tivicay] 50 MG PO SCH (13:35)
[2017-07-26] MEDS: Ritonavir [Norvir] 100 MG PO SCH (13:35)
[2017-07-26] MEDS: Darunavir Ethanolate [Prezista] 800 MG PO SCH (13:36)
[2017-07-26] MEDS: ABACAVIR SULFATE 300 MG PO SCH (13:37)
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
[2017-07-26] MEDS ORDERED: RITONAVIR 100 MG PO SCH (18:00)
[2017-07-26] MEDS ORDERED: NON-FORMULARY NEW DRUG (Dolutegravir Sodium [Tivicay] 50 MG) PO SCH (18:00)
[2017-07-26] MEDS ORDERED: ABACAVIR SULFATE 600 MG PO SCH (18:00)
[2017-07-26] MEDS ORDERED: DARUNAVIR ETHANOLATE 800 MG PO SCH (18:00)
[2017-07-26] MEDS: HEPARIN/DEXTROSE 500 ML IV SCH (18:01)
[2017-07-26] MEDS ORDERED: LIDOCAINE 1% *Not for Epidural 20 ML MDV ONE (18:48)
[2017-07-27 04:53] LABS: HEMATOCRIT 21.5 % (38.0-47.0); MEAN CELL HEMOGLOBIN 30.3 pg (27.9-34.1); MEAN CELL HEMOGLOBIN CONCENTR. 32.6 g/dL (32.4-36.7); MEAN CELL VOLUME 93.1 fL (81.5-99.8); RED BLOOD CELL COUNT 2.31 10^6/uL (4.18-5.33); RED CELL DISTRIBUTION WIDTH 16.5 % (11.5-15.2)
[2017-07-27 05:28] LABS: ANION GAP 13 mEq/L (8-16); CALCIUM 9.6 mg/dL (8.5-10.4); CARBON DIOXIDE 27 mEq/l (22-31); CHLORIDE 98 mEq/L (97-110); CREATININE 3.4 mg/dL (0.6-1.0); GLOMERULAR FILTRATION RATE 14; GLUCOSE 93 mg/dL (70-100); POTASSIUM 4.8 mEq/L (3.5-5.2); SODIUM 138 mEq/L (134-144)
[2017-07-27] MEDS: LEVOTHYROXINE 112 MCG TAB PO SCH (06:27)
[2017-07-27] MEDS: HEPARIN 10,000 UNIT/10 ML MDV IVP PRN (06:31)
[2017-07-27] MEDS ORDERED: LACOSAMIDE 50 MG TAB PO SCH (08:00)
[2017-07-27] MEDS: ESCITALOPRAM OXALATE 10 MG TAB PO SCH (09:20)
[2017-07-27] MEDS: NEPHROVITE FOLIC ACID/VIT B&C 1 TAB PO SCH (09:20)
[2017-07-27] MEDS: LACOSAMIDE 50 MG TAB PO SCH ×2 (09:46→20:55)
[2017-07-27] MEDS: Sevelamer Carbonate [Renvela] 800 MG PO SCH ×2 (09:47→16:17)
--- NOTE | 2017-07-27 11:14 | HOSPPROG ---
Hospitalist Progress Note Assessment/Plan: #LLE DVT: complicated AC management with falls, comorbidities. Agree with Dr. Franco and Dr. Jang that IVC filter would be best option at this time. Patient and mother agree to procedure. Heparin gtt until after procedure #ESRD: HD per renal #Anemia of renal disease: H/H down. May be dilutional with overload. Repeat H/H , transfuse if Hb <7 #HIV: cont HAART #Seizures:Vimpat #Sacral decubitus: wound care. Present at admission #Neck pain: due to fall. CT with stable fusion C5-6, disck bulge C4-5. No radiculopathy #Developmental delay: will have neurologic at [facility] in August per mother #h/o Guillain barre #Diet: renal #DVt ppx: heparin gtt #Disp: warrants inpt admission for IV heparin, IVC filter placement Subjective: c/o neck pain. No numbess in arms/hands. Denies any bleeding Objective: Vital Signs Temp Pulse Resp BP Pulse Ox 36.7 C 90 16 109/59 L 98 07/27/17 07:53 07/27/17 07:53 07/27/17 07:53 07/27/17 07:53 07/27/17 07:53 Laboratory Results 07/27/17 04:09 07/27/17 04:09 07/26/17 07/27/17 07/28/17 05:59 05:59 05:59 Intake Total 3714 2255 Output Total 202 527 100 Balance 3512 1728 -100 PT 12.5 SEC (12.0-15.0) 07/26/17 07:20 INR 0.91 (0.83-1.16) 07/26/17 07:20 - Physical Exam Constitutional: no apparent distress Eyes: PERRL Ears, Nose, Mouth, Throat: moist mucous membranes Cardiovascular: regular rate and rhythym, systolic murmur, edema (+3 LE edema) Respiratory: no respiratory distress, no rales or rhonchi Gastrointestinal: normoactive bowel sounds, soft, non-tender abdomen Genitourinary: no bladder fullness Skin: warm Musculoskeletal: full muscle strength Neurologic: AAOx3, CN II-XII Intact Psychiatric: interacting appropriately ICD10 Worksheet Patient Problems: Problems Problem Status Onset Anemia Acute Contusion of jaw Acute DVT (deep venous thrombosis) Acute End stage renal disease Acute Hyperkalemia Acute Abdominal pain Acute Chest pain Acute Fever Acute Generalized weakness Acute Hyperkalemia Acute Hypotension Acute Hypoxemia Acute Hypoxia Acute MRSA (methicillin resistant Staphylococcus aureus) Acute 04/04/17 Nephrostomy complication Acute Pubic ramus fracture Acute Retroperitoneal fluid collection Acute UTI (urinary tract infection) Acute UTI (urinary tract infection) Acute
--- NOTE | 2017-07-27 12:30 | SOAPPROG ---
SOAP Progress Note Assessment/Plan: Assessment: ESRD, seen on HD DVT Plan: HD today Heme folowing 07/27/17 12:27 Subjective: Feels well today denies cp sob nausea vomiting no anorexia energy good Spirits good Objective: Vital Signs Temp Pulse Resp BP Pulse Ox 36.7 C 90 16 109/59 L 98 07/27/17 07:53 07/27/17 07:53 07/27/17 07:53 07/27/17 07:53 07/27/17 07:53 Laboratory Results 07/27/17 04:09 07/27/17 04:09 07/26/17 07/27/17 07/28/17 05:59 05:59 05:59 Intake Total 3714 2255 Output Total 202 527 100 Balance 3512 1728 -100 PT 12.5 SEC (12.0-15.0) 07/26/17 07:20 INR 0.91 (0.83-1.16) 07/26/17 07:20 Physical Exam - Physical Exam General Appearance: alert, thin Respiratory: No rhonchi, No wheezing Cardiac/Chest: regular rate, rhythm, edema, No friction rub Abdomen: normal bowel sounds, soft Extremities: swelling Neuro/Psych: alert, normal mood/affect, oriented x 3 ICD10 Worksheet Patient Problems: Problems Problem Status Onset Anemia Acute Contusion of jaw Acute DVT (deep venous thrombosis) Acute End stage renal disease Acute Hyperkalemia Acute Abdominal pain Acute Chest pain Acute Fever Acute Generalized weakness Acute Hyperkalemia Acute Hypotension Acute Hypoxemia Acute Hypoxia Acute MRSA (methicillin resistant Staphylococcus aureus) Acute 04/04/17 Nephrostomy complication Acute Pubic ramus fracture Acute Retroperitoneal fluid collection Acute UTI (urinary tract infection) Acute UTI (urinary tract infection) Acute
[2017-07-27 12:48] LABS: HEMATOCRIT 19.8 % (38.0-47.0)
[2017-07-27] MEDS: LACOSAMIDE 50 MG TAB PO PRN ×2 (12:53→20:51)
[2017-07-27 12:54] LABS: HEMOGLOBIN 6.6 g/dL (12.6-16.3)
--- NOTE | 2017-07-27 13:08 | SOAPPROG ---
SOAP Progress Note Assessment/Plan: Assessment: 1.) New onset LLE DVT- currently on adjusted dose Heparin Gtt, adjusted for Factor Xa levels. As per note from yesterday, I advise IVC filter placement and as D/W Dr. Kearney. As of today, the patient appears stable. 2.) Multifactorial anemia- transfuse as per Nephrology guidelines 3.) Fall risk 4.) Guillan-[place] Synd, 1982 creating neurologic debility. Plan: 1.) See prior recommendations in discussion , 07/26/17. 2.) Will recheck while in hospital. 3.) Following IVC filter placement, d/c heparin and consider discharge when stable. 07/27/17 13:02 Subjective: No new sx. LLE feels the same. Hemodialysis went well. No sx. of PE Objective: VSS, Afebrile as noted here. HEENT- pale, anicteric, no oral lesions Neck- w/o JVD Chest clear , w/o friction rub CVS- RR, no S3, S4 EXT- LLE looks much the same. Slightly warm, erythematous, and tender. Skin intact. Labs noted here Hgb 6.6 today PLT 110's Vital Signs Temp Pulse Resp BP Pulse Ox 36.6 C 95 18 127/70 H 93 07/27/17 12:00 07/27/17 12:00 07/27/17 12:00 07/27/17 12:00 07/27/17 12:00 Laboratory Results 07/27/17 12:40 07/27/17 04:09 07/26/17 07/27/17 07/28/17 05:59 05:59 05:59 Intake Total 3714 2255 Output Total 202 527 100 Balance 3512 1728 -100 PT 12.5 SEC (12.0-15.0) 07/26/17 07:20 INR 0.91 (0.83-1.16) 07/26/17 07:20 ICD10 Worksheet Patient Problems: Problems Problem Status Onset Anemia Acute Contusion of jaw Acute DVT (deep venous thrombosis) Acute End stage renal disease Acute Hyperkalemia Acute Abdominal pain Acute Chest pain Acute Fever Acute Generalized weakness Acute Hyperkalemia Acute Hypotension Acute Hypoxemia Acute Hypoxia Acute MRSA (methicillin resistant Staphylococcus aureus) Acute 04/04/17 Nephrostomy complication Acute Pubic ramus fracture Acute Retroperitoneal fluid collection Acute UTI (urinary tract infection) Acute UTI (urinary tract infection) Acute
[2017-07-27] MEDS: HEPARIN/DEXTROSE 500 ML IV SCH (13:26)
[2017-07-27] MEDS: oxyCODONE IR 5 MG TAB PO PRN (15:41)
--- NOTE | 2017-07-27 16:03 | ASMTCMCOM ---
CM Note CM Note Notes: Pt is in dialysis this AM. CM met w/ pt for dispo planning. Pt has been accepted to her first choice SNF, [facility]. CM informed pt of her acceptance. CM called [place], Mom and informed her as well. CM to follow. Plan: SNF; [facility] Date Signed: 07/27/2017 04:02 PM Electronically Signed By:ASHLEY Lawrence
[2017-07-27] MEDS: Dolutegravir Sodium [Tivicay] 50 MG PO SCH (16:17)
[2017-07-27] MEDS ORDERED: FLUMAZENIL 0.5 MG/5 ML MDV IVP PRN (16:19)
[2017-07-27] MEDS ORDERED: NALOXONE HCL 0.4 MG/ML INJ IVP PRN (16:19)
[2017-07-27] MEDS: ABACAVIR SULFATE 300 MG PO SCH (16:19)
[2017-07-27] MEDS ORDERED: fentaNYL 100 MCG/2 ML INJ IVP PRN (16:19)
[2017-07-27] MEDS ORDERED: MIDAZOLAM 2 MG/2 ML VIAL IVP PRN (16:19)
[2017-07-27] MEDS: Darunavir Ethanolate [Prezista] 800 MG PO SCH (16:19)
[2017-07-27] MEDS: Ritonavir [Norvir] 100 MG PO SCH (16:22)
[2017-07-27] MEDS ORDERED: NS 1,000 ML IV SCH (16:30)
--- NOTE | 2017-07-27 17:58 | PDRADPN ---
Radiology Procedure Note Date of Procedure: 07/27/17 Radiologist: Ej Neal Anesthesia: Other (Specify) (fentanyl 25 mg) Pre-op Diagnosis: DVT Post-op Diagnosis: same Indication: contraindication to anticoagulation Procedure: IVC filter Finding(s): Patent IVC. Retrievable filter in good position. Inf/Abcess present in the surg proc area at time of surgery?: No EBL: Minimal Complications: 0
[2017-07-27] MEDS ORDERED: IOPAMIDOL (ISOVUE-300) 100 ML BTL ONE (18:40)
[2017-07-27] MEDS ORDERED: LIDOCAINE 1% *Not for Epidural 20 ML MDV ONE (18:54)
[2017-07-28] MEDS: Sevelamer Carbonate [Renvela] 800 MG PO SCH ×4 (02:53→17:43)
[2017-07-28 05:19] LABS: HEMOGLOBIN 7.8 g/dL (12.6-16.3); MEAN CELL HEMOGLOBIN 29.3 pg (27.9-34.1); MEAN CELL HEMOGLOBIN CONCENTR. 32.5 g/dL (32.4-36.7); MEAN CELL VOLUME 90.2 fL (81.5-99.8); RED BLOOD CELL COUNT 2.66 10^6/uL (4.18-5.33); RED CELL DISTRIBUTION WIDTH 18.9 % (11.5-15.2)
[2017-07-28 05:28] LABS: ALBUMIN 3.2 g/dL (3.5-5.0); ANION GAP 13 mEq/L (8-16); CALCIUM 10.2 mg/dL (8.5-10.4); CARBON DIOXIDE 27 mEq/l (22-31); CHLORIDE 102 mEq/L (97-110); CREATININE 2.8 mg/dL (0.6-1.0); GLOMERULAR FILTRATION RATE 18; GLUCOSE 85 mg/dL (70-100); POTASSIUM 5.1 mEq/L (3.5-5.2); SODIUM 142 mEq/L (134-144)
[2017-07-28] MEDS: LEVOTHYROXINE 112 MCG TAB PO SCH (05:54)
[2017-07-28] MEDS: LACOSAMIDE 50 MG TAB PO SCH ×2 (05:54→22:16)
[2017-07-28] MEDS: ESCITALOPRAM OXALATE 10 MG TAB PO SCH (08:30)
[2017-07-28] MEDS: NEPHROVITE FOLIC ACID/VIT B&C 1 TAB PO SCH (08:30)
--- NOTE | 2017-07-28 08:52 | HOSPPROG ---
Hospitalist Progress Note Assessment/Plan: #LLE DVT: complicated AC management with falls, comorbidities. Agree with Dr. Franco and Dr. Jang that IVC filter would be best option at this time. IVC filter placed 07/27, heparin stopped #ESRD: HD tomorrow #Anemia of renal disease: H/H improved after 1 unit #HIV: cont HAART #Seizures: Vimpat #Sacral decubitus: wound care. Present at admission #Neck pain: due to fall. CT with stable fusion C5-6, disk bulge C4-5. No radiculopathy #Developmental delay: will have neurologic at [facility] in August per mother #h/o Guillain barre #Diet: renal #DVt ppx: heparin gtt #Disp: warrants inpt admission for HD, PT Subjective: no dizziness. no dysuria Objective: Vital Signs Temp Pulse Resp BP Pulse Ox 36.8 C 94 16 149/85 H 92 07/28/17 04:00 07/28/17 04:00 07/28/17 04:00 07/28/17 04:00 07/28/17 04:00 Laboratory Results 07/28/17 04:14 07/28/17 04:14 07/27/17 07/28/17 07/29/17 05:59 05:59 05:59 Intake Total 2255 650 Output Total 527 120 Balance 1728 530 PT 12.5 SEC (12.0-15.0) 07/26/17 07:20 INR 0.91 (0.83-1.16) 07/26/17 07:20 - Physical Exam Constitutional: no apparent distress Eyes: PERRL Ears, Nose, Mouth, Throat: moist mucous membranes Cardiovascular: regular rate and rhythym, systolic murmur Respiratory: no respiratory distress Gastrointestinal: normoactive bowel sounds, soft, non-tender abdomen Genitourinary: no bladder fullness Skin: warm Musculoskeletal: full muscle strength Neurologic: AAOx3 ICD10 Worksheet Patient Problems: Problems Problem Status Onset Anemia Acute Contusion of jaw Acute DVT (deep venous thrombosis) Acute End stage renal disease Acute Hyperkalemia Acute Abdominal pain Acute Chest pain Acute Fever Acute Generalized weakness Acute Hyperkalemia Acute Hypotension Acute Hypoxemia Acute Hypoxia Acute MRSA (methicillin resistant Staphylococcus aureus) Acute 04/04/17 Nephrostomy complication Acute Pubic ramus fracture Acute Retroperitoneal fluid collection Acute UTI (urinary tract infection) Acute UTI (urinary tract infection) Acute
[2017-07-28] MEDS: Dolutegravir Sodium [Tivicay] 50 MG PO SCH (12:42)
[2017-07-28] MEDS: Darunavir Ethanolate [Prezista] 800 MG PO SCH (12:42)
[2017-07-28] MEDS: ABACAVIR SULFATE 300 MG PO SCH (12:43)
[2017-07-28] MEDS: Ritonavir [Norvir] 100 MG PO SCH (12:44)
--- NOTE | 2017-07-28 14:16 | SOAPPROG ---
SOAP Progress Note Assessment/Plan: Assessment: ESRD, seen on HD DVT anemia, feels better after transfusion Plan: HD today Heme following HD tomorrow to [facility] Tuesday needs to have outpatient HD arranged at the [facility] 07/27/17 12:27 07/28/17 14:13 Subjective: feeling better after transfusion denies CP SOB nausea or vomiting spirits good, appetite better very spunky today mom at bedside all questions answered Objective: Vital Signs Temp Pulse Resp BP Pulse Ox 36.4 C 123 H 18 122/62 H 92 07/28/17 12:00 07/28/17 12:00 07/28/17 12:00 07/28/17 12:00 07/28/17 12:00 Laboratory Results 07/28/17 04:14 07/28/17 04:14 07/27/17 07/28/17 07/29/17 05:59 05:59 05:59 Intake Total 2255 650 200 Output Total 527 120 100 Balance 1728 530 100 PT 12.5 SEC (12.0-15.0) 07/26/17 07:20 INR 0.91 (0.83-1.16) 07/26/17 07:20 Physical Exam - Physical Exam General Appearance: alert, thin Respiratory: rales, No rhonchi, No wheezing Cardiac/Chest: regular rate, rhythm, edema, No friction rub Abdomen: normal bowel sounds, non-tender, soft Extremities: swelling Neuro/Psych: alert, normal mood/affect, oriented x 3 ICD10 Worksheet Patient Problems: Problems Problem Status Onset Anemia Acute Contusion of jaw Acute DVT (deep venous thrombosis) Acute End stage renal disease Acute Hyperkalemia Acute Abdominal pain Acute Chest pain Acute Fever Acute Generalized weakness Acute Hyperkalemia Acute Hypotension Acute Hypoxemia Acute Hypoxia Acute MRSA (methicillin resistant Staphylococcus aureus) Acute 04/04/17 Nephrostomy complication Acute Pubic ramus fracture Acute Retroperitoneal fluid collection Acute UTI (urinary tract infection) Acute UTI (urinary tract infection) Acute
--- NOTE | 2017-07-28 14:40 | ASMTCMCOM ---
CM Note CM Note Notes: AUDREY spoke w/ Dr. Hernández and ARIEL Hummel regarding d/c POC. The plan is to have pt discharge after dialysis tomorrow to [facility]. CM called [facility] and provided updates. CM made a referral to the [facility]. The plan is for her to get dailysis while she is at [facility]. Pt is on a MWF dialysis schedule. CM called Mom and left a msg requesting a call back. CM to follow. Plan: [facility] Date Signed: 07/28/2017 02:39 PM Electronically Signed By:ASHLEY Lawrence
--- NOTE | 2017-07-28 14:46 | SOAPPROG ---
SOAP Progress Note Assessment/Plan: Assessment: 1.) New onset LLE DVT- currently on adjusted dose Heparin Gtt, adjusted for Factor Xa levels. Now S/P IVC filter placement on 07/27/17, without incident. As of today, the patient appears stable. 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 4.) Discharge planning- likely discharged on 07/30. 5.) ESRD- continues on HD managment. Plan: 1.) See above items. No usp anticoagulation recommended. 2.) Discharge when stable. 07/28/17 14:44 Subjective: Velma is feeling well, and tolerated IVC filter placement without difficulty Objective: VSS Afebrile as noted here. She is in an Occupational Therapy at the time of this evaluation. Pt. looks comfortable, in NAD Not examined. Labs as noted here: BUN/CR 16/2.8 Hgb 7.8 PLT 133 WBC 3.30 Imaging report - IVC filter placement noted. Vital Signs Temp Pulse Resp BP Pulse Ox 36.4 C 123 H 18 122/62 H 92 07/28/17 12:00 07/28/17 12:00 07/28/17 12:00 07/28/17 12:00 07/28/17 12:00 Laboratory Results 07/28/17 04:14 07/28/17 04:14 07/27/17 07/28/17 07/29/17 05:59 05:59 05:59 Intake Total 2255 650 200 Output Total 527 120 100 Balance 1728 530 100 PT 12.5 SEC (12.0-15.0) 07/26/17 07:20 INR 0.91 (0.83-1.16) 07/26/17 07:20 ICD10 Worksheet Patient Problems: Problems Problem Status Onset Anemia Acute Contusion of jaw Acute DVT (deep venous thrombosis) Acute End stage renal disease Acute Hyperkalemia Acute Abdominal pain Acute Chest pain Acute Fever Acute Generalized weakness Acute Hyperkalemia Acute Hypotension Acute Hypoxemia Acute Hypoxia Acute MRSA (methicillin resistant Staphylococcus aureus) Acute 04/04/17 Nephrostomy complication Acute Pubic ramus fracture Acute Retroperitoneal fluid collection Acute UTI (urinary tract infection) Acute UTI (urinary tract infection) Acute
[2017-07-28] MEDS: LACOSAMIDE 50 MG TAB PO PRN (20:29)
[2017-07-29 04:29] LABS: HEMATOCRIT 24.8 % (38.0-47.0); MEAN CELL HEMOGLOBIN 29.1 pg (27.9-34.1); MEAN CELL HEMOGLOBIN CONCENTR. 32.3 g/dL (32.4-36.7); MEAN CELL VOLUME 90.2 fL (81.5-99.8); RED BLOOD CELL COUNT 2.75 10^6/uL (4.18-5.33); RED CELL DISTRIBUTION WIDTH 18.5 % (11.5-15.2)
[2017-07-29 04:43] LABS: ALBUMIN 3.2 g/dL (3.5-5.0); ANION GAP 12 mEq/L (8-16); CALCIUM 9.9 mg/dL (8.5-10.4); CARBON DIOXIDE 28 mEq/l (22-31); CHLORIDE 101 mEq/L (97-110); CREATININE 4.3 mg/dL (0.6-1.0); GLOMERULAR FILTRATION RATE 11; GLUCOSE 94 mg/dL (70-100); POTASSIUM 5.5 mEq/L (3.5-5.2); SODIUM 141 mEq/L (134-144)
[2017-07-29] MEDS: LEVOTHYROXINE 112 MCG TAB PO SCH (05:41)
[2017-07-29] MEDS: LACOSAMIDE 50 MG TAB PO SCH (05:41)
[2017-07-29 07:40] VITALS: BP 142/74; PULSE 88; RESP 17; TEMP 98.2; O2SAT 90
--- NOTE | 2017-07-29 07:56 | HOSPPROG ---
Hospitalist Progress Note Assessment/Plan: #LLE DVT: complicated AC management with falls, comorbidities. Agree with Dr. Franco and Dr. Jang that IVC filter would be best option at this time. IVC filter placed 07/27, heparin stopped #ESRD: HD today #Anemia of renal disease: H/H improved after 1 unit #HIV: cont HAART #Seizures: Vimpat #Sacral decubitus: wound care. Present at admission #Neck pain: due to fall. CT with stable fusion C5-6, disk bulge C4-5. No radiculopathy #Developmental delay: will have neurologic at [facility] in August per mother #h/o Guillain barre #Diet: renal #DVt ppx: heparin gtt DC today to [facility] Subjective: neck pain minimal today. Objective: Vital Signs Temp Pulse Resp BP Pulse Ox 36.8 C 88 17 142/74 H 90 L 07/29/17 07:39 07/29/17 07:39 07/29/17 07:39 07/29/17 07:39 07/29/17 07:39 Laboratory Results 07/29/17 04:03 07/29/17 04:03 07/28/17 07/29/17 07/30/17 05:59 05:59 05:59 Intake Total 650 1675 Output Total 120 735 Balance 530 940 PT 12.5 SEC (12.0-15.0) 07/26/17 07:20 INR 0.91 (0.83-1.16) 07/26/17 07:20 - Physical Exam Constitutional: no apparent distress Eyes: PERRL Ears, Nose, Mouth, Throat: moist mucous membranes Cardiovascular: regular rate and rhythym, systolic murmur, edema Respiratory: no respiratory distress Gastrointestinal: normoactive bowel sounds, soft, non-tender abdomen Genitourinary: no bladder fullness Skin: warm Musculoskeletal: full muscle strength Neurologic: AAOx3, CN II-XII Intact ICD10 Worksheet Patient Problems: Problems Problem Status Onset Abdominal pain Acute Anemia Acute Chest pain Acute Contusion of jaw Acute DVT (deep venous thrombosis) Acute End stage renal disease Acute Fever Acute Generalized weakness Acute Hyperkalemia Acute Hyperkalemia Acute Hypotension Acute Hypoxemia Acute Hypoxia Acute MRSA (methicillin resistant Staphylococcus aureus) Acute 04/04/17 Nephrostomy complication Acute Pubic ramus fracture Acute Retroperitoneal fluid collection Acute UTI (urinary tract infection) Acute UTI (urinary tract infection) Acute
[2017-07-29] MEDS: Sevelamer Carbonate [Renvela] 800 MG PO SCH ×2 (09:02→12:34)
--- NOTE | 2017-07-29 10:15 | SOAPPROG ---
SOGEORGE Progress Note Assessment/Plan: Assessment/Plan: ESRD: on HD MWF at [facility]. - Pt will need HD arranged at [facility] for MWF while she is at [facility]. - Pt seen on HD today with no issues. - Next HD due on Tuesday. Anemia: pt s/p PRBCs transfused this hospitalization, also gets epo. HTN: continue current meds. Hypervolemia: improving with HD. Hyperkalemia: will modulate with HD. Subjective: No acute events overnight. Pt states that she still has some swelling in her R leg. She is on HD this morning and tolerating well. Objective: Vital Signs Temp Pulse Resp BP Pulse Ox 36.8 C 88 17 142/74 H 90 L 07/29/17 07:39 07/29/17 07:39 07/29/17 07:39 07/29/17 07:39 07/29/17 07:39 Laboratory Results 07/29/17 04:03 07/29/17 04:03 07/28/17 07/29/17 07/30/17 05:59 05:59 05:59 Intake Total 650 1675 Output Total 120 735 Balance 530 940 PT 12.5 SEC (12.0-15.0) 07/26/17 07:20 INR 0.91 (0.83-1.16) 07/26/17 07:20 General: alert and oriented, no acute distress Eyes; EOMI, PERRL OP: Clear CV: RRR Resp: nonlabored respirations on NC Abd: Soft, NT Ext: +1 edema RLE, trace edema LLE Psych: cooperative Neuro: CN II-XII grossly intact Access: LUE AVF cannulated ICD10 Worksheet Patient Problems: Problems Problem Status Onset Anemia Acute Contusion of jaw Acute DVT (deep venous thrombosis) Acute End stage renal disease Acute Hyperkalemia Acute Abdominal pain Acute Chest pain Acute Fever Acute Generalized weakness Acute Hyperkalemia Acute Hypotension Acute Hypoxemia Acute Hypoxia Acute MRSA (methicillin resistant Staphylococcus aureus) Acute 04/04/17 Nephrostomy complication Acute Pubic ramus fracture Acute Retroperitoneal fluid collection Acute UTI (urinary tract infection) Acute UTI (urinary tract infection) Acute
--- NOTE | 2017-07-29 12:01 | PDIAF ---
- Diagnosis Diagnosis: Anemia, PE Code Status: Full Code - Medication Management Discharge Medications: Medications to Continue on Transfer Abacavir Sulfate [Ziagen] 600 mg PO DAILY@02/23/13 [Last Taken 06/19/17] Darunavir Ethanolate [PREZISTA] 800 mg PO DAILY@12 02/23/13 [Last Taken 06/19/17 ] Escitalopram Oxalate [Lexapro] 20 mg PO DAILY 07/29/15 [Last Taken 06/19/17] Ritonavir [Norvir] 100 mg PO DAILY@12 07/29/15 [Last Taken 06/19/17] Sevelamer Carbonate [Renvela] 1,600 mg PO TIDMEAL 07/30/15 [Last Taken 06/19/17 18:00] Dolutegravir Sodium [Tivicay] 50 mg PO DAILY@12 04/28/16 [Last Taken 06/19/17] Acetaminophen [Tylenol 325mg (*)] 650 mg PO Q4HRS PRN tab 05/09/17 [Last Taken Unknown] Folic Acid/Vitamin B Comp W-C [Renavit Tablet] 1 each PO DAILY 07/25/17 [Last Taken Unknown] Herbals/Supplements -Info Only 1 ea PO DAILY 07/25/17 [Last Taken Unknown] Lacosamide [Vimpat 50 mg (*)] 100 mg PO Q12 07/25/17 [Last Taken Unknown] Levothyroxine [Synthroid 112 mcg (*)] 112 mcg PO DAILY06 07/25/17 [Last Taken Unknown] amLODIPine BESYLATE [Norvasc 10 mg (*)] 10 mg PO SUTUTHSA@0800 07/25/17 [Last Taken Unknown] Lacosamide [Vimpat 50 mg (*)] 100 mg PO MWF 07/26/17 [Last Taken Unknown] Discharge Medications: Refer to the Discharge Home Medication list for PRN reason. - Orders Services needed: Registered Nurse, Certified Retail Store Associate, Physical Therapy Isolation Type: Contact Isolation Diet Recommendation: sodium restricted Diet Texture: Regular Texture Diet - Labs/Radiology BMP Date: 08/01/17 CBC w/diff Date: 08/01/17 - Follow Up Care Current Providers and Referrals: Adam Villalobos MD [Primary Care Provider] - As per Instructions
--- NOTE | 2017-07-29 12:29 | ASMTCMCOM ---
CM Note CM Note Notes: CM left a msg for Teri at [facility] and provided updates regarding d/c POC. Pt is confirmed to start dialysis on Tuesday at [facility]. CM available for changes. Date Signed: 07/29/2017 12:29 PM Electronically Signed By:ASHLEY Lawrence
[2017-07-29] MEDS: Darunavir Ethanolate [Prezista] 800 MG PO SCH (12:33)
[2017-07-29] MEDS: Dolutegravir Sodium [Tivicay] 50 MG PO SCH (12:33)
[2017-07-29] MEDS: ABACAVIR SULFATE 300 MG PO SCH (12:33)
[2017-07-29] MEDS: NEPHROVITE FOLIC ACID/VIT B&C 1 TAB PO SCH (12:34)
[2017-07-29] MEDS: Ritonavir [Norvir] 100 MG PO SCH (12:34)
[2017-07-29] MEDS: ESCITALOPRAM OXALATE 10 MG TAB PO SCH (12:35)
[2017-07-29] MEDS: LACOSAMIDE 50 MG TAB PO PRN (12:41)
--- NOTE | 2017-07-29 13:33 | GDS ---
[f rep st] DISCHARGE SUMMARY DISCHARGE DIAGNOSES: 1. Acute pulmonary embolism, status post inferior vena cava filter. 2. Human immunodeficiency virus. 3. End-stage renal disease, on dialysis. 4. Anemia of renal disease. 5. Seizures. 6. Sacral decubitus ulcer, present on admission. 7. Neck pain. 8. History of falls. 9. Developmental delay. 10. History of Guillian-Alexandria. 11. Recurrent pyelonephritis and nephrolithiasis, status post nephrectomy. 12. Neurogenic bladder, status post suprapubic catheter. 13. Left femoral and popliteal vein deep venous thrombosis. 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 She was transferring from her recliner to wheelchair, and it was not braked appropriately, and she struck her right jaw and shoulder on the counter. The pain progressed, so she came to the ER for further evaluation. She also noted increased swelling in the left leg, and had missed dialysis that morning. HOSPITAL COURSE BY PROBLEM: 1. Acute PE and left lower extremity DVT: Likely secondary to immobility since wheelchair-bound. The patient has a history of multiple falls and would be at high risk for bleeding with chronic anticoagulation. She was evaluated by Oncology, who agreed that IVC filter without anticoagulation would be the best option. This was placed without issue. 2. End-stage renal disease: Continued HD here per Renal. 3. HIV: Continue HAART therapy. 4. Neck pain secondary to fall: CT neck showed no acute fracture. Stable fusion of C5-C6 with a mild disc bulge at C4-5. Denies any radicular symptoms. 5. Anemia of renal disease: Was transfused 1 unit RBCs with good response. 6. Seizures: Vimpat. 7. Sacral decubitus ulcer: This was present on admission. Was followed by Wound Care. 8. History of Guillain-Alexandria syndrome, is wheelchair bound. 9. History of recurrent UTIs and kidney stones: Status post nephrectomy. 10. Neurogenic bladder: Status post suprapubic catheter. DISPOSITION: Patient is stable for discharge to [facility]. FOLLOWUP: 1. Routine dialysis Tuesday, Tuesday, Tuesday in [place]. 2. Neurology at [facility]. 3. Nephrology. 4. Infectious Disease. MEDICATIONS: No new medications. Time spent on DC >35 min coordinating medications, DC plan and discussing FU plan with mother. /[id number]/MODL AIDEE
[2017-07-29] MEDS ORDERED: LIDOCAINE 1% *Not for Epidural 20 ML MDV ONE (14:00)
--- NOTE | 2017-07-29 16:53 | ASDISCHSUM ---
Discharge Information Plan Status:SNF Medically Cleared to Leave: Discharge Date:07/29/2017 02:00 PM CM D/C Disposition:Half-Way Facility ADT D/C Disposition:Half-Way Facility Projected Discharge Date:08/01/2017 11:00 AM Transportation at D/C:Wheelchair Van Discharge Delay Reason: Follow-Up Date:08/01/2017 11:00 AM Discharge Slot: Final Diagnosis: Placement Information Referral Type:*Long Term/SNF Referral ID:[id number] Provider Name:[facility] Address 1:[address] Address 2: City:[place] Selection Factors: State:[place] Referral Type:Dialysis Center Referral ID:[id number] Provider Name:[facility] Address 1:[address] Phone Number: Address 2: Fax Number: [facility]:[place] Selection Factors: State:[place] Patient Contact Information Contact Name:CONSTANZADRUMM Relationship:Mother Address:[address] [place], [place] [address]GE City:[place] Alternate Phone: State/Zip Code:[place] [address] Email: Financial Information Financial Class: Primary Plan Desc:MEDICARE INPATIENT Primary Plan Number:[id number] Secondary Plan Desc:MEDICA[place] Secondary Plan Number:[id number] Assessment Information [facility] CM Progress Note CM Note CM Note Notes: 07/26/2017 Case Management Note Met w/pt and Mother Anuja ([phone]) to discuss MD recommendation for SNF placement. Pt in agreement, Mom expressed disappointment but is also in agreement and is hopeful that pt will return home by [place]. Pt requested [facility] as first choice and [facility] as second. Faxed referrals to both. Contacted Teri Reed, social sciences chair, at the [facility] [phone] ext [phone]. Left VM. Pt lives alone with significant support for her Mom for daily cares. Participates in the [facility] when able. Case Management d/c poc: to SNF rehab pending acceptance. Case Management to follow. Date Signed: 07/26/2017 02:32 PM Electronically Signed By:Brittany Haynes RN [facility] AUDREY Progress Note AUDREY Note AUDREY Note Notes: Pt is in dialysis this AM. CM met w/ pt for dispo planning. Pt has been accepted to her first choice SNF, [facility]. CM informed pt of her acceptance. CM called Cm Licea and informed her as well. CM to follow. Plan: [facility]; [facility] Date Signed: 07/27/2017 04:02 PM Electronically Signed By:ASHLEY Lawrence [facility] AUDREY Progress Note AUDREY Note AUDREY Note Notes: AUDREY spoke w/ Dr. Hernández and ARIEL Hummel regarding d/c POC. The plan is to have pt discharge after dialysis tomorrow to [facility]. CM called [facility] and provided updates. CM made a referral to the [facility] [place]. The plan is for her to get dailysis while she is at [facility]. Pt is on a [facility] dialysis schedule. CM called Mom and left a msg requesting a call back. CM to follow. Plan: [facility] Date Signed: 07/28/2017 02:39 PM Electronically Signed By:ASHLEY Lawrence Case Management Discharge Plan Note Case Management Discharge Discharge Order Complete? Answers: Yes Patient to Obtain Answers: via Family Medications Transportation Arranged Answers: Family/Friends Transport will Pick (Date 07/29/2017 12:00 AM & Time) EMTALA Complete Answers: No Case Management Transport Answers: Yes Form Complete Faxed Final Orders Answers: Yes Agency/Facility Transfer Answers: Yes Report Printed & Faxed to Receiving Agency Family Notified Answers: Yes Discharge Comments Notes: Pt is being discharged to [facility] today. CM spoke w/ Mom regarding d/c POC. Mom will transport pt. CM provided ARIEL Robledo w/ phone number to give report to [facility]. CM sent d/c orders. Non triggering PASRR completed and in allscripts. CM available for changes. Plan: [facility] Date Signed: 07/29/2017 12:27 PM Electronically Signed By:ASHLEY Lawrence [facility] Progress Note CM Note CM Note Notes: CM left a msg for Teri at [facility] and provided updates regarding d/c POC. Pt is confirmed to start dialysis on Tuesday at [facility]. AUDREY available for changes. Date Signed: 07/29/2017 12:29 PM Electronically Signed By:ASHLEY Lawrence Intervention Information Intervention Type:*Incorrect Registration Date of Service:07/26/2017 10:59 AM Patient Type:Observation Staff Member:ARIEL Burger Courtney Hours: Discipline: Severity: Comment:
[2017-07-30] MEDS ORDERED: SODIUM POLYSTYRENE SULF 454 GM POWDER PO SCH (08:00)
== END 2017-07-29 14:00 | DRG 252 ==
LOC: OBSVTOIN 14:28 → F2W 15:43
PROVIDERS: ADMIT Internal Medicine; ATTEND Internal Medicine
PROC: 5A1D70Z Performance of Urinary Filtration, Intermittent, Less than 6 Hours Per Day (ICD-10-PCS; 2017-07-25)
PROC: 06H03DZ Insertion of Intraluminal Device into Inferior Vena Cava, Percutaneous Approach (ICD-10-PCS; principal; 2017-07-27)
PROC: 30233N1 Transfusion of Nonautologous Red Blood Cells into Peripheral Vein, Percutaneous Approach (ICD-10-PCS; 2017-07-27)
DX: I82.412 Acute embolism and thrombosis of left femoral vein (principal); I82.432 Acute embolism and thrombosis of left popliteal vein; N18.6 End stage renal disease; E87.79 Other fluid overload; E87.5 Hyperkalemia; S00.83XA Contusion of other part of head, initial encounter; W05.0XXA Fall from non-moving wheelchair, initial encounter; Y92.019 Unspecified place in single-family (private) house as the place of occurrence of the external cause; Y99.8 Other external cause status; B20 Human immunodeficiency virus [HIV] disease; Z90.5 Acquired absence of kidney; R41.841 Cognitive communication deficit; M62.81 Muscle weakness (generalized); B94.8 Sequelae of other specified infectious and parasitic diseases; Z99.3 Dependence on wheelchair; N31.9 Neuromuscular dysfunction of bladder, unspecified; Z93.59 Other cystostomy status; D63.1 Anemia in chronic kidney disease; G40.909 Epilepsy, unspecified, not intractable, without status epilepticus; I15.8 Other secondary hypertension; E03.9 Hypothyroidism, unspecified; E78.5 Hyperlipidemia, unspecified; Z87.2 Personal history of diseases of the skin and subcutaneous tissue; Z98.1 Arthrodesis status
CPT/HCPCS: 85520-90; 97162-GP; 97165-GO; 97530-GP; 97535-GO; C1769; G8978-GP-CJ; G8979-GP-CI; G8987-GO-CI; G8988-GO-CI; J0610; J0885; J1644; J3010; P9016; Q9967

== ENCOUNTER → 2017-08-16 | Outpatient (CLI) | payer OTHER, MEDICAID | LOC: FIMAGING 15:42 | PROVIDERS: ATTEND Internal Medicine Nephrology | DX: I82.412 Acute embolism and thrombosis of left femoral vein (principal); N18.4 Chronic kidney disease, stage 4 (severe) ==

== ENCOUNTER 2017-08-17 14:28 | Inpatient (IN) | payer OTHER, MEDICAID ==
[2017-08-17] MEDS ORDERED: OXYCODONE/APAP 5/325 TAB PO ONE (16:41)
--- NOTE | 2017-08-17 16:43 | EDPHY ---
H & P Time Seen by Provider: 08/17/17 15:59 HPI/ROS: Chief complaint. Fall HPI. 52-year-old female presents emergency department after fall on 07/25. She was seen in the emergency department. It appears that she has a pubic ramus fracture on the left. She then developed a DVT. She had an ultrasound yesterday showing persistent DVT comparing with with July 25. The patient has HIV and renal failure and so apparently cannot receive anticoagulation. She had a filter placed in her inferior vena cava several weeks ago. She is not able to be ambulatory secondary to her pubic ramus fracture. She has left hip pain which shows some cortical irregularity of the left hip arthroplasty probably post trauma. Today she had a chest x-ray at her physician's office which shows a right lower lobe infiltrate with new right pleural effusion. She has had cough for 1 week but no fever. She received dialysis today ROS Constitutional. no fever/chills, no weakness Eyes. no problems with vision ENT. no sore throat, no nasal drainage Cardiovascular. no chest pain Respiratory. Shortness of breath and cough Abdominal. no abdominal pain, no nausea/vomiting, no diarrhea . no problems urinating MS. Left leg swelling and left hip pain Skin. no rash Lymph. no swollen glands Neuro. no headache, no dizziness, unable to walk Past Medical/Surgical History: Past medical history neurogenic bladder, again RA, anemia, end-stage renal disease with dialysis, hyperparathyroidism, HIV positive Social History: Single, nonsmoker, no alcohol Smoking Status: Never smoked Physical Exam: General Appearance: Alert well-developed female mild distress vital signs are stable Eyes: Pupils equal and round no pallor or injection. ENT, Mouth: Mucous membranes are moist. Respiratory: No retractions but decreased breath sounds and rales right lower lobe Cardiovascular: Regular rate and rhythm. Gastrointestinal: Abdomen is soft and nontender, no masses, bowel sounds normal. Neurological: Awake and alert, sensory and motor exams grossly normal. Skin: Warm and dry, no rashes. Musculoskeletal: Neck is supple nontender. Extremities painful range of motion left hip Psychiatric: Patient is oriented X 3, there is no agitation. Constitutional: Initial Vital Signs Temperature (C) 36.4 C 08/17/17 14:39 Heart Rate 68 08/17/17 14:39 Respiratory Rate 16 08/17/17 14:39 Blood Pressure 100/52 L 08/17/17 14:39 O2 Sat (%) 93 08/17/17 14:39 O2 Delivery Mode Room Air Allergies/Adverse Reactions: ertapenem sodium [From Invanz] Allergy (Intermediate, Verified 07/25/17 10:05) Rash, neck and throat swelling vancomycin [Vancomycin] Allergy (Intermediate, Verified 07/25/17 10:05) Swelling/neck,face,throat doxycycline Allergy (Verified 07/25/17 10:05) hydroxyzine HCl [From Atarax] Allergy (Verified 07/25/17 10:05) keflin Allergy (Uncoded 05/06/17 09:34) FLU SHOTS Adverse Reaction (Uncoded 05/06/17 09:34) RT POOR KIDNEY FUNCTION AVOIDS Home Medications: Medication Instructions Recorded Abacavir Sulfate [Ziagen] 600 mg PO DAILY@12 02/23/13 Darunavir Ethanolate [PREZISTA] 800 mg PO DAILY@12 02/23/13 Escitalopram Oxalate [Lexapro] 20 mg PO DAILY 07/29/15 Ritonavir [Norvir] 100 mg PO DAILY@12 07/29/15 Sevelamer Carbonate [Renvela] 1,600 mg PO TIDMEAL 07/30/15 Dolutegravir Sodium [Tivicay] 50 mg PO DAILY@12 04/28/16 Acetaminophen [Tylenol 325mg (*)] 650 mg PO Q4HRS PRN tab 05/09/17 Folic Acid/Vitamin B Comp W-C 1 each PO DAILY 07/25/17 [Renavit Tablet] Herbals/Supplements -Info Only 1 ea PO DAILY 07/25/17 Lacosamide [Vimpat 50 mg (*)] 100 mg PO Q12 07/25/17 Levothyroxine [Synthroid 112 mcg 112 mcg PO DAILY06 07/25/17 (*)] Chlorzoxazone 500 mg PO TID PRN 08/17/17 guaiFENesin [Mucinex 600 MG (*)] 1,200 mg PO BID 08/17/17 oxyCODONE IR [Oxycodone Ir (*)] 5 mg PO BID PRN 08/17/17 Medical Decision Making - Diagnostics EKG Interpretation: EKG interpreted by me shows normal sinus rhythm normal interval and axis. QRS is normal there is no significant ST elevation or depression. 1 Pac. Rate 70 Imaging Results: X-rays reviewed by me include ultrasound from 08/16 showing persistent DVT, chest x-ray from 08/17 showing right lower lobe infiltrate with new right pleural effusion, pelvis x-ray from 08/17 showing healing inferior pubic ramus fracture and the cortical irregularity of the left hip arthroplasty Procedures: IV normal saline, Percocet ED Course/Re-evaluation: I consulted and discussed case with Dr. Fraser, hospitalist, who agrees to the admission Following blood cultures patient is given Rocephin IV for community-acquired pneumonia. Patient and I discussed imaging and lab results. We discussed treatment plan including criteria for return importance of follow-up further evaluation. She expresses understanding and agreement Differential Diagnosis: Patient is HIV positive and has a DVT. Apparently cannot receive anticoagulation and so had a filter placed. She continues to have the DVT. She also has a pubic ramus fracture from a fall is unable to ambulate. She has a new right lower lobe infiltrate and pleural effusion consistent possibly with infarction or pneumonia. Plan is admission - Data Points Medications Given: Discontinued Medications Hydromorphone/Sodium Chloride (Hydromorphone) 0.4 mg IVP ONCE ONE Stop: 08/17/17 20:31 Last Admin: 08/17/17 20:27 Dose: 0.4 mg Ceftriaxone Sodium/Dextrose (Rocephin 1 Gm (Premix)) 50 mls @ 100 mls/hr IV EDNOW ONE PRN Reason: Protocol Stop: 08/17/17 17:23 Last Admin: 08/17/17 17:32 Dose: 50 mls Oxycodone/Acetaminophen (Percocet 5/325) 1 tab PO EDNOW ONE Stop: 08/17/17 16:42 Last Admin: 08/17/17 16:58 Dose: 1 tab Departure - Departure Disposition: [facility] Inpatient Acute Clinical Impression: End stage renal disease Pneumonia Qualifiers: Pneumonia type: due to unspecified organism Laterality: right Lung location: lower lobe of lung Qualified Code(s): J18.1 - Lobar pneumonia, unspecified organism Pubic ramus fracture Qualifiers: Encounter type: subsequent encounter Fracture type: closed Laterality: left Fracture healing: with delayed healing Qualified Code(s): S32.592G - Other specified fracture of left pubis, subsequent encounter for fracture with delayed healing DVT (deep venous thrombosis) Qualifiers: DVT location: lower extremity Affected thrombotic vein of extremity: unspecified lower extremity proximal vein Condition: Fair
[2017-08-17 17:25] LABS: PLATELET COUNT 98 10^3/uL (150-400)
--- NOTE | 2017-08-17 17:32 | CPEKG ---
Heart Rate: 70 RR Interval: 857 P-R Interval: 180 QRSD Interval: 94 QT Interval: 436 QTC Interval: 471 P [place]: 74 QRS [place]: 5 T Wave [place]: 47 EKG Severity - OTHERWISE NORMAL ECG - EKG Impression: SINUS RHYTHM EKG Impression: ATRIAL PREMATURE COMPLEX Electronically Signed By: Filiberto Xie 17-Aug-2017 21:51:29
[2017-08-17 17:37] LABS: INR 0.87 (0.83-1.16)
[2017-08-17] MEDS ORDERED: HYDROmorphone HCL/NS/PF 0.4 MG/2 ML SYR IVP ONE (20:30)
[2017-08-17] MEDS ORDERED: ONDANSETRON DISINTEGRATING 4 MG TAB PO PRN (21:02)
[2017-08-17] MEDS ORDERED: LORazepam 2 MG/ML INJ IVP PRN (21:02)
[2017-08-17] MEDS ORDERED: HYDROCODONE/APAP 5/325 TAB PO PRN (21:02)
[2017-08-17] MEDS ORDERED: ZOLPIDEM TARTRATE 5 MG TAB PO PRN (21:02)
[2017-08-17] MEDS ORDERED: LORazepam 0.5 MG TAB PO PRN (21:02)
[2017-08-17] MEDS ORDERED: oxyCODONE IR 5 MG TAB PO PRN (21:07)
[2017-08-17] MEDS ORDERED: CHLORZOXAZONE 500 MG PO PRN (21:07)
--- NOTE | 2017-08-17 22:00 | GHP ---
[f rep st] HISTORY AND PHYSICAL DATE OF ADMISSION: 08/17/2017 CHIEF COMPLAINT: Left hip pain and fever and shortness of breath. HISTORY OF PRESENT ILLNESS: This is a 52-year-old female, who reports a 5-7 day history of feeling weak, tired, and some shortness of breath. This has occurred with a cough that has been nonproductive. Her most recent history reports that she had a left nephrectomy in 04/2017. She then was admitted having had, she reports, a seizure on 06/20/2017, and then sustained a fall on 07/25/2017. At that time, she was evaluated and noted to have a pubic ramus fracture on the left. She was subsequently treated for this and discharged to the [facility] in [place]. She remained there for approximately 12 days and went home on 08/12. Then 7 days ENDOSCOPY REGISTERED NURSE, she began to have weakness, fever , and noted increasing pain in her left hip. She reports she had also had a fall at the [facility] on 07/31, but does not report having much pain in her left hip. Here, she was evaluated and noted to have a right lower lobe infiltrate with an effusion, consistent with a pneumonia. X-rays in the emergency department, along with a CT scan revealed that she continues to have the left ramus fracture, which is now healing but is noted to have an abnormality around the left hip arthroplasty, which was done several years ago. It is possible the pain she is having in her left hip is secondary to the fall she had on 07/31, which has now developed into an abnormality regarding her left hip and its arthroplasty. Thus, the patient is being admitted for pneumonia and left hip pain, and evaluation of her left hip arthroplasty. PAST MEDICAL HISTORY: 1. 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 2. Hypothyroidism. 3. Depression. 4. She has had frequent nephrolithiasis with frequent urinary tract infections and is status post a left kidney removal for recurrent infections. 5. States she suffered from pressure ulcerations of the sacrum in the past and is status post healing of a stage II pressure ulceration. 6. She is known to HIV and is on anti-retroviral therapy. 7. She has anemia of chronic kidney disease. 8. End-stage renal disease, for which she dialyzes on Tuesday, Tuesday, Tuesday. 9. Hypertension and hyperlipidemia. PAST SURGICAL HISTORY: Left nephrectomy in 04/2017, status post a cholecystectomy, left hip arthroplasty, hysterectomy, tubal ligation, bilateral foot surgery, left knee surgery, along with left upper extremity AV fistula, from which she dialyzes. FAMILY HISTORY: Negative for coronary artery disease. REVIEW OF SYSTEMS: She has had fever without shaking chills or sweating. She has felt short of breath but has not had chest pain, nausea, vomiting, orthopnea , or PND. She denies abdominal pain. She has been dialyzing on a regular basis. SOCIAL HISTORY: Tobacco: Never. Alcohol: None. Drugs: None. Patient lives independently here in an apartment in [place]. She is cared for when needed by her mother. Her PCPs are Dr. Villalobos, Dr. Ho, and Dr. Lynne Augustin did an orthopedic evaluation but did not do the left hip surgery. She has requested to be seen by someone in that group. REVIEW OF SYSTEMS: 10-point review of systems is otherwise negative except as noted above. PHYSICAL EXAMINATION: GENERAL: This is a middle aged female, who appears older than her stated age. The patient appears mildly overweight and chronically-ill in nature. VITAL SIGNS: Initial vital signs are normal with a heart rate of 68. Her oxygen saturation has varied between 91 and 93 on room air, but she has been placed on supplemental oxygen. HEENT: Posterior oropharynx is normal, without inflammation. Tongue and buccal mucosa are normal. CHEST WALL: Nontender to palpation. LUNGS: Distant breath sounds overall and no rales or wheezing can be appreciated, although her deep breaths are small. CARDIAC: She has a normal S1 and a physiologically split S2. There is a systolic ejection murmur heard along the LSB, a grade 2/6 JVP could not be evaluated. ABDOMEN: Obese. Normoactive bowel sounds. No masses, tenderness, organomegaly. EXTREMITIES: She has an AV shunt in her left upper extremity. She has 1 to 2+ peripheral edema at this time. She has a negative Homans sign. NEUROLOGIC: Symmetric and normal. LABORATORY: WBC is normal at 3000, hemoglobin low at 8.1. INR normal. ABG showed a venous lactate 1.0, and a chemistry panel shows findings of chronic renal disease, with an elevated anion gap at 17, normal potassium at 5.0, and a BNP of with a normal troponin. Chest x-ray, to my reading, shows a right lower lobe infiltrate, cardiac enlargement, and enlarged right infrarenal lymph nodes. A hip x-ray also performed, to my reading, and reviewed with Dr. Filiberto Xie in Radiology shows left hip arthroplasty with interval development of cortical irregularity of the medial wall of the left acetabulum, with lucency surrounding the acetabular component of the prosthesis. This potentially represents loosening of the prosthesis or may represent a fracture. Also noted is healing of the inferior ramus fracture on the left. Electrocardiogram shows a sinus rhythm at approximately 71 and premature atrial complex, no acute changes. ASSESSMENT: 1. Acute right lower lobe pneumonia. It seems that in the interval in the last 7 days, she has developed a pneumonia, and the clinical findings are consistent with her complaints of fever, aching. There has been a slight cough during the same time, although it is nonproductive. This likely represents a community-acquired pneumonia. Though she is noted to have an allergy to her ertapenem, we have given her Rocephin in the emergency department successfully without complications. She will also be given Zithromax and placed on pulmonary care bronchodilators. 2. Left hip arthroplasty abnormality, with possible fracture or erosion of the arthroplasty into the acetabulum. This should be evaluated by Orthopedics and an orthopedic consultation will be obtained. 3. End-stage renal disease. Patient has completed dialysis today and normally dialyzes on Tuesday/Tuesday/Tuesday. A renal consultation may be necessary, and Dr. Yosi Ho is her PCP regarding this matter. 4. The left pubic ramus fracture appears to be healing well. Orthopedics can also consult on and note on this matter when they consult on her left hip arthroplasty abnormality. 5. S/p DVT and PE with placement of IVC filter. Patient is not a candidate for full dose anticoag due to fall risk 6. Multiple sclerosis at baseline with lower extremity weakness; patient is wheelchair bound chronically 7. Patient is reported to have numerous problems of skin breakdown and treats this with triamcinolone cream, along with other ointments. Skin care precautions should be taken. 8. Code status is full code. Patient's power of real estate attorney is her mother, Anuja Garcia. 9. PCPs are Dr. Villalobos, Dr. Ho, and Dr. Lynne Augustin. Note that her medications have been reviewed and will be reconciled in the EMR. Patient will be admitted to inpatient status as it will require greater than 2 midnights for her multiple medical problems. /[id number]/MODL MTDD
[2017-08-17] MEDS: oxyCODONE IR 5 MG TAB PO PRN (22:13)
[2017-08-17] MEDS: ACETAMINOPHEN 325 MG TAB PO PRN (22:13)
[2017-08-18] MEDS: ACETAMINOPHEN 325 MG TAB PO PRN (04:13)
[2017-08-18 04:41] LABS: PLATELET COUNT 84 10^3/uL (150-400)
[2017-08-18] MEDS: LEVOTHYROXINE 112 MCG TAB PO SCH (06:16)
[2017-08-18] MEDS: IPRATROPIUM/ALBUTEROL 3 ML DEYVIAL IH SCH ×3 (06:46→15:23)
[2017-08-18] MEDS: LACOSAMIDE 50 MG TAB PO SCH ×2 (08:57→19:54)
[2017-08-18] MEDS: NEPHROVITE FOLIC ACID/VIT B&C 1 TAB PO SCH (08:58)
[2017-08-18] MEDS: guaiFENesin 600 MG TAB.ER PO SCH ×2 (08:58→19:54)
[2017-08-18] MEDS: NON-FORMULARY NEW DRUG (Sevelamer Carbonate [Renvela] 1,600 MG) PO SCH ×3 (09:00→18:10)
[2017-08-18] MEDS ORDERED: levOFLOXACIN 500 MG/DEXTROSE 100 ML IV ONE (09:00)
[2017-08-18] MEDS: NON-FORMULARY NEW DRUG (Escitalopram Oxalate [Lexapro] 20 MG) PO SCH (09:01)
--- NOTE | 2017-08-18 09:48 | WOCRNPDOC ---
WOCRN Advanced Assessment Note - Skin Integrity Problem, Advanced Assess Coccyx Pressure Injury Wound Bed Constitution: Healed Pressure Injury Stage: Stage 4 Pressure Injury Present on Admit: Yes Skin Integrity Problem Comment: Patient with history of stage 4 pressure injury with mulitple re opening events on sacrum/coccyx area. No open area at this time per ARIEL Hughes. Wound care did not visualize wound area. Cover with Allevyn life sacrum. Need to clarify with ortho regarding ability to turn patient side to side or is staff restricted to turning right side then back only. Asked ARIEL Hughes to clarify this. Left message for Dr. Lowery regarding turning and whether patient can be turned on left side or if she has to be turned right side/back. Awaiting reply. Specialty bed ordered: P500. Patient declined Clinitron.
[2017-08-18] MEDS: oxyCODONE IR 5 MG TAB PO PRN ×4 (09:53→20:55)
--- NOTE | 2017-08-18 10:09 | PDMN ---
Medical Necessity Medical necessity: Pt meets IP criteria per MD; est los >2 mn for eval/tx of acute RLL pneumonia, L hip abnormality w/possible fx or erosion & sacral decub; admit for further workup/monitoring, IV abx, blood cxs, Wound Care/Ortho consult & therapy; hx recent PE & DVT, L pubic ramus fx, ESRD on hemodialysis, HIV, recurrent pyelonephritis & nephrolithiasis s/p nephrectomy, Guillain-[place] , wheelchair-bound w/frequent falls, neurogenic bladder w/suprapubic catheter, seizure disorder & developmental delay; per H&P & order 08/17/17
[2017-08-18] MEDS: ABACAVIR SULFATE 600 MG PO SCH (11:30)
[2017-08-18] MEDS: DARUNAVIR ETHANOLATE 800 MG PO SCH (11:31)
[2017-08-18] MEDS: NON-FORMULARY NEW DRUG (Dolutegravir Sodium [Tivicay] 50 MG) PO SCH (11:33)
[2017-08-18] MEDS: RITONAVIR 100 MG PO SCH (11:39)
--- NOTE | 2017-08-18 12:47 | ASMTCMCOM ---
CM Note CM Note Notes: Pt has complex medical hx (refer to H&P), here w/PNA and has had recent pubic remus fx for which she did rehab at [facility] in [facility] and was dc'd from there 08/12 to home. Pt Mother, Anuja, very involved. DC needs not clear yet but will likely need CM involvement. Pt will have ortho consult. CM will follow. Date Signed: 08/18/2017 12:47 PM Electronically Signed By:Agatha Melendez RN
--- NOTE | 2017-08-18 13:53 | GCON ---
[f rep st] CONSULTATION DATE OF CONSULTATION: 08/18/2017 REASON FOR CONSULTATION: Consultation opinion regarding end-stage kidney failure. HISTORY OF PRESENT ILLNESS: The patient is a very pleasant 52-year-old female with end-stage kidney failure on [id number] dialysis. The patient was admitted in early July for a fall at home with a fractured pubic ramus. She also ended up developing a deep vein thrombosis, but was not started on warfarin therapy due to her HIV medications; an IVC filter was placed instead. After her pelvic fracture, she was discharged to [facility] and was there until 08/12/2017. While at the [facility], she did sustain a fall as well. The patient began feeling poorly several days ago with initially a dry cough, but subsequently with some sputum production. No hemoptysis, hematemesis, epistaxis, abdominal pain, melena, hematochezia, gross hematuria, dysuria, rash, or arthralgias. She did have some pain in her left hip. It was thought that perhaps she had increased her venous thrombosis load. Ultrasound was negative for worsening DVT. The patient had x-rays of her hip done, which showed her hip prosthesis to be loosening. The patient completed her dialysis treatment yesterday and presented to the emergency department with the aforementioned complaints. The patient was admitted after chest x-ray showed infiltrate. The patient was initiated on Rocephin and Levaquin therapy and admitted to the hospital. PAST MEDICAL HISTORY: Extensive and includes: 1. End-stage kidney failure. 2. History of Guillain-[place] syndrome. 3. History of neurogenic bladder. 4. HIV. 5. Hypothyroidism. 6. Recurrent urinary tract infections. 7. History of nephrolithiasis. 8. Anemia of chronic kidney disease. 9. Depression. 10. Hypertension. 11. Hyperlipidemia. 12. Status post left nephrectomy in April 2017. 13. Left upper extremity arteriovenous fistula placement. 14. Recent deep vein thrombosis with IVC filter placement. ALLERGIES: Ertapenem, vancomycin, doxycycline, hydroxyzine, Keflin, and flu shots. CURRENT MEDICATIONS: Include: 1. Duo nebs. 2. Rocephin 1 g daily. 3. Lacosamide 100 mg every 12 hours. 4. Levaquin 500 mg x1, then 250 mg every 48 hours. 5. Synthroid 112 mcg daily. 6. Ativan as needed. 7. Renvela 1.6 g 3 times daily with meals. 8. Zofran. 9. Chlorzoxazone 500 mg 3 times daily. 10. Lexapro 20 mg a day. 11. Oxycodone p.r.n. 12. Folic acid with multiple vitamin once daily. 13. Mucinex 1200 mg twice daily. 14. Ziagen 600 mg a day. 15. Darunavir 800 mg daily. 16. Norvir 100 mg daily. 17. Tivicay 50 mg daily. FAMILY HISTORY: Negative for renal disease and coronary disease. SOCIAL HISTORY: She lives independently, but her mother does help her fairly frequently. She does not use tobacco, alcohol, or IV or recreational drugs. REVIEW OF SYSTEMS: A complete 12-point review of systems was performed with pertinent positives and negatives as per the previous sections. PHYSICAL EXAMINATION: VITAL SIGNS: Temperature is 36.8, blood pressure 98/61, pulse 82, respirations 16. GENERAL: Ill-appearing and cachectic, but alert and cooperative. HEENT: Pupils are reactive to light. Extraocular movements are intact. Mucous membranes are moist. NECK: Mild JVD. No lymphadenopathy or thyromegaly. HEART: Regular. Grade 2/6 systolic murmur. No rub. No S3. LUNGS: Rales, rhonchi, and wheezes bilaterally, right greater than left. ABDOMEN: Bowel sounds are positive. Soft, nontender, nondistended. EXTREMITIES: Right lower extremity has edema greater than her left, which is unchanged. NEUROLOGIC: No asterixis. SKIN: She has a small puncture wound in her right calf that is without erythema; it does have some eschar on the surface. LYMPH: No palpable lymphadenopathy. MUSCULOSKELETAL: Tenderness over her left hip replacement. IMPRESSION: 1. End-stage kidney failure on [id number] dialysis. 2. Pneumonia, community acquired. 3. Pubic ramus fracture after a fall. 4. Loosening of her left total hip arthroplasty after a fall. 5. Human immunosuppressive virus, on medications. 6. Anemia of chronic kidney disease. RECOMMENDATIONS: 1. Plan on doing dialysis tomorrow. 2. Continue her antibiotics. 3. Pain control. 4. Physical therapy. 5. We need to make sure that she gets enough activity to prevent sacral wounds ; she has had some in the past and are difficult to treat. Thank you for allowing me to participate in the care of your patient. If there are any questions, please do not hesitate to contact us. We will be following along with you. /[id number]/MODL MTDD
--- NOTE | 2017-08-18 16:30 | HOSPPROG ---
Hospitalist Progress Note Assessment/Plan: 52-year-old female admitted yesterday with pneumonia. She has continued to have significant left-sided hip pain shortness of breath and an inability to be moved secondary to the pain. New problems today are her persistent pain, a need for dialysis on her regular schedule, and in inability to move the patient. - Pneumonia currently under treatment with duo nebs and antibiotics. Her oxygen saturation is at a baseline perhaps. We are encouraging cough and deep breathing and I will add Mucinex to her care. She is afebrile with a normal white count. An influenza PCR will be added - end-stage renal disease: Nephrology consult been obtained dialysis is planned for tomorrow - left hip probable fracture with a known left pubic ramus fracture. This is the cause of her significant pain Orthopedics and Dr. Kera Lowery will see her today in consultation. X-rays are reviewed reviewed by myself on the PAC system. - DVT in the right lower extremity with an IVC filter placed. She also had a PE at the time of presentation. because of her risk of falling full anti coagulation was not considered. We will continue with the IVC filter. Her oxygenation seems stable and the hypoxemia is most likely secondary to her pneumonitis. - HIV infection currently under treatment with HAART - chronic medical problems: 1. 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 The patient was subsequently wheelchair bound resulting in decubitus ulcerations. Due to the neurogenic bladder the patient has suffered recurrent bladder infections resulting in renal infections and a subsequent left nephrectomy due to recurrent infections On 04/2017 2. depression, hypertension, hyperlipidemia, anemia secondary to renal disease. - Current wrists are decubitus ulceration and we are encouraging movement and ambulation as soon as we have clearance from Orthopedics as the solution of her left hip pain. time: 50 minutes involved in bedside care review of records, discussions with Nephrology and with Orthopedics. Subjective: Reports her pain is improved although worse when she is moved and she does not want to move denies worsening shortness of breath or chest pain. Objective: Vital Signs Temp Pulse Resp BP Pulse Ox 36.6 C 83 16 104/59 L 89 L 08/18/17 16:00 08/18/17 16:00 08/18/17 16:00 08/18/17 12:00 08/18/17 16:00 Laboratory Results 08/18/17 04:15 08/18/17 04:15 PT 12.0 SEC (12.0-15.0) 08/17/17 17:16 INR 0.87 (0.83-1.16) 08/17/17 17:16 - Time Spent With Patient Time Spent with Patient: greater than 35 minutes Time Spent with Patient: Greater than 35 minutes spent on this patients care, greater than 50% of time spent counseling, educating, and coordinating care regarding the above mentioned plan. - Pending Discharge Pending Discharge Within 24 Hours: No Pending Discharge Within 48 Hours: No - Physical Exam Constitutional: no apparent distress, chronically ill appearing Eyes: PERRL, anicteric sclera Ears, Nose, Mouth, Throat: moist mucous membranes, hearing normal Cardiovascular: regular rate and rhythym, no murmur, rub, or gallop Respiratory: reduced air movement, inspiratory crackles, bronchial breath sounds , rhonchi Gastrointestinal: normoactive bowel sounds, soft, non-tender abdomen Genitourinary: no bladder fullness Skin: warm Musculoskeletal: generalized weakness, other ( Right lower extremity tenderness and some redness) Neurologic: AAOx3, CN II-XII Intact Psychiatric: interacting appropriately ICD10 Worksheet Patient Problems: Problems Problem Status Onset DVT (deep venous thrombosis) Acute End stage renal disease Acute Pneumonia Acute Pubic ramus fracture Acute Abdominal pain Acute Anemia Acute Chest pain Acute Contusion of jaw Acute Fever Acute Generalized weakness Acute Hyperkalemia Acute Hyperkalemia Acute Hypotension Acute Hypoxemia Acute Hypoxia Acute MRSA (methicillin resistant Staphylococcus aureus) Acute 04/04/17 Nephrostomy complication Acute Retroperitoneal fluid collection Acute UTI (urinary tract infection) Acute UTI (urinary tract infection) Acute
--- NOTE | 2017-08-18 19:48 | SOAPPROG ---
SOAP Progress Note Assessment/Plan: Assessment: Plan: 08/18/17 19:47 will be TDWB for now and will need repeat films over the next several weeks it is safe for her to roll onto her left side Objective: Vital Signs Temp Pulse Resp BP Pulse Ox 36.6 C 83 16 104/59 L 89 L 08/18/17 16:00 08/18/17 16:00 08/18/17 16:00 08/18/17 12:00 08/18/17 16:00 Laboratory Results 08/18/17 04:15 08/18/17 04:15 08/17/17 08/18/17 08/19/17 05:59 05:59 05:59 Intake Total 850 Output Total 50 Balance 800 PT 12.0 SEC (12.0-15.0) 08/17/17 17:16 INR 0.87 (0.83-1.16) 08/17/17 17:16 ICD10 Worksheet Patient Problems: Problems Problem Status Onset DVT (deep venous thrombosis) Acute End stage renal disease Acute Pneumonia Acute Pubic ramus fracture Acute Abdominal pain Acute Anemia Acute Chest pain Acute Contusion of jaw Acute Fever Acute Generalized weakness Acute Hyperkalemia Acute Hyperkalemia Acute Hypotension Acute Hypoxemia Acute Hypoxia Acute MRSA (methicillin resistant Staphylococcus aureus) Acute 04/04/17 Nephrostomy complication Acute Retroperitoneal fluid collection Acute UTI (urinary tract infection) Acute UTI (urinary tract infection) Acute
[2017-08-18] MEDS: CALCIUM CARBONATE 500 MG CHEWABLE TAB PO SCH (23:06)
[2017-08-19] MEDS: IPRATROPIUM/ALBUTEROL 3 ML DEYVIAL IH SCH ×5 (01:40→20:46)
[2017-08-19 05:09] LABS: PLATELET COUNT 90 10^3/uL (150-400)
--- NOTE | 2017-08-19 05:41 | GCON ---
[f rep st] CONSULTATION INPATIENT CONSULT REPORT. DATE OF CONSULTATION: 08/18/2017 CURRENT COMPLAINT: Left hip pain. HISTORY OF PRESENT ILLNESS: The patient is a 52-year-old female who apparently has had multiple fall s over the last several weeks. She has been complaining of left hip pain that has changed in nature. She had been previously diagnosed with a left pubic ramus fracture, but as the quality of the pain has changed repeat x-rays revealed the possibility of a fracture around the left total hip arthroplas ty. I was asked to see the patient for further evaluation. PHYSICAL EXAMINATION: The patient remains grossly neurologically intact to the dorsal, lateral, and plantar portions of the foot. She has no pain to a log roll through the leg, but further stresses to the hip were not attempted. IMAGING: X-ray exam reveals well placed hardware, with no evidence of lysis around the actual acetab ular cup itself. The x-rays are not true AP and tend to be more oblique, making further evaluation m ore difficult. Therefore, a CT scan was ordered. On the CT scan, comparison was made to a pelvic CT scan done back in May of this year, and noted that the medial wall does not appear to be changed from her previous films in May. However, she does have lucency on the posterior portion of the acetabulum, suggestive of a new onset of fracture in the area. The screw associated with the acetabu lar shell has not shifted in position, suggesting that the cup still remains in a normal position, an d when comparing the 2 different films it does not appear as if her cup has shifted. ASSESSMENT AND PLAN: Patient is status post left acetabular fracture. She is to be kept touchdown w eightbearing only on the left lower extremity. She was ordered to have an increase in calcium in ord er to facilitate bony healing. She will need repeated x-rays as well as a repeat CT scan to see if t here has been progression of any migration of the acetabulum. If she has migration of the acetabular cup, she will need a revision in order to hold it steadily in place. The patient understands the co urse of action, and I also spoke with the patient's mother regarding further action. I have also con tacted the wound care nurses, stating that it is safe for her to roll onto her left side as long as i t is reasonably comfortable, as well as rolling onto her right side in order to do wound care across her back, sacrum, and buttocks. /[id number]/MODL
[2017-08-19] MEDS: LEVOTHYROXINE 112 MCG TAB PO SCH (05:49)
[2017-08-19] MEDS: ACETAMINOPHEN 325 MG TAB PO PRN (05:56)
[2017-08-19] MEDS: oxyCODONE IR 5 MG TAB PO PRN (06:41)
[2017-08-19] MEDS ORDERED: ENOXAPARIN 40 MG/0.4 ML SYR SC SCH (09:00)
[2017-08-19] MEDS ORDERED: HEPARIN 5,000 UNIT/0.5 ML SYR SC SCH (09:45)
[2017-08-19] MEDS: NON-FORMULARY NEW DRUG (Sevelamer Carbonate [Renvela] 1,600 MG) PO SCH ×4 (10:44→16:38)
[2017-08-19] MEDS: LACOSAMIDE 50 MG TAB PO SCH ×4 (10:45→22:28)
[2017-08-19] MEDS: NEPHROVITE FOLIC ACID/VIT B&C 1 TAB PO SCH ×2 (10:45→13:01)
[2017-08-19] MEDS: CALCIUM CARBONATE 500 MG CHEWABLE TAB PO SCH ×5 (10:46→23:35)
[2017-08-19] MEDS: guaiFENesin 600 MG TAB.ER PO SCH ×3 (10:46→20:12)
[2017-08-19] MEDS: NON-FORMULARY NEW DRUG (Escitalopram Oxalate [Lexapro] 20 MG) PO SCH ×2 (10:47→13:01)
[2017-08-19] MEDS ORDERED: HEPARIN 10,000 UNIT/10 ML MDV IVP ONE (12:25)
[2017-08-19] MEDS ORDERED: HEPARIN/DEXTROSE 500 ML IV SCH (12:30)
--- NOTE | 2017-08-19 12:57 | SOAPPROG ---
SOAP Progress Note Assessment/Plan: Assessment/Plan: The patient is a 52 y/o F with multiple medical issues who presented on 08/17 with hip pain and fever found to have PNA. ESRD on HD MWF -dialysis today tolerated ok -will UF as tolerated -L TDC Altered mental status -avoid benzodiazepines -stat ABG -agree with transfer to higher level of care HTN/vol -as above, issues with hypertension and hypotension in the past -holding home amlodipine -may use hydralazine prn SBP>160 Fever w/ PNA -on broad spectrum abx -flu swab pending -management per primary team appreciated Hip pain -possible fx s/p NASEEM -ortho consult -pain control renally dosed HIV -on HAART therapy DVT s/p IVC filter -unable to anticoagulate -US on Tue with LE resolving Anemia -persistently low Hb -unable to tolerate EPO which may have caused PRES with seizures earlier this month -continue to monitor and transfuse for <7g/dL 08/19/17 12:50 08/19/17 14:00 Subjective: Patient altered with some agonal breathing. Received ativan and oxycodone this am for anxiety. Mother present at bedside. Objective: Vital Signs Temp Pulse Resp BP Pulse Ox 36.9 C 83 16 132/68 H 94 08/19/17 12:00 08/19/17 12:00 08/19/17 12:00 08/19/17 12:00 08/19/17 12:00 Laboratory Results 08/19/17 04:20 08/19/17 04:20 08/18/17 08/19/17 08/20/17 05:59 05:59 05:59 Intake Total 1550 Output Total 50 Balance 1500 PT 12.0 SEC (12.0-15.0) 08/17/17 17:16 INR 0.87 (0.83-1.16) 08/17/17 17:16 Physical Exam - Physical Exam General Appearance: mild distress, thin, other (altered) EENT: PERRL/EOMI, normal ENT inspection Neck: non-tender, other (limited range of motion) Respiratory: chest non-tender, decreased breath sounds Cardiac/Chest: regular rate, rhythm Abdomen: normal bowel sounds, non-tender, soft Skin: normal color, warm/dry Extremities: normal range of motion, non-tender Neuro/Psych: no motor/sensory deficits, disoriented to person, disoriented to place, other (not following commands) ICD10 Worksheet Patient Problems: Problems Problem Status Onset DVT (deep venous thrombosis) Acute End stage renal disease Acute Pneumonia Acute Pubic ramus fracture Acute Abdominal pain Acute Anemia Acute Chest pain Acute Contusion of jaw Acute Fever Acute Generalized weakness Acute Hyperkalemia Acute Hyperkalemia Acute Hypotension Acute Hypoxemia Acute Hypoxia Acute MRSA (methicillin resistant Staphylococcus aureus) Acute 04/04/17 Nephrostomy complication Acute Retroperitoneal fluid collection Acute UTI (urinary tract infection) Acute UTI (urinary tract infection) Acute
[2017-08-19] MEDS: RITONAVIR 100 MG PO SCH (13:02)
[2017-08-19] MEDS: DARUNAVIR ETHANOLATE 800 MG PO SCH (13:02)
[2017-08-19] MEDS: NON-FORMULARY NEW DRUG (Dolutegravir Sodium [Tivicay] 50 MG) PO SCH (13:02)
[2017-08-19] MEDS: ABACAVIR SULFATE 600 MG PO SCH (13:02)
[2017-08-19 14:22] LABS: PLATELET COUNT 88 10^3/uL (150-400)
[2017-08-19] MEDS ORDERED: NALOXONE HCL 0.4 MG/ML INJ ONE (14:23)
[2017-08-19 14:31] LABS: INR 0.99 (0.83-1.16); PROTIME(PATIENT) 13.3 SEC (12.0-15.0)
--- NOTE | 2017-08-19 14:31 | HOSPPROG ---
Hospitalist Progress Note Assessment/Plan: Asked by nursing staff to quickly evaluate the patient. She is here admitted with pneumonia and has renal failure. Gets dialysis 3 times a week. In evaluating the patient she was minimally responsive. Was unable to keep her eyes open. Was given a dose of Narcan with good results. Now patient is in pain. It will be difficult to manage her pain, treat her pneumonia and manage her airway status safely. Will transfer her to the intensive care unit for closer monitoring. Will update the rounding hospitalist. Patient's mom is at the bedside and updated her on the plan of care. Objective: Vital Signs Temp Pulse Resp BP Pulse Ox 36.9 C 83 16 132/68 H 94 08/19/17 12:00 08/19/17 12:00 08/19/17 12:00 08/19/17 12:00 08/19/17 12:00 Laboratory Results 08/19/17 14:10 08/19/17 04:20 08/18/17 08/19/17 08/20/17 05:59 05:59 05:59 Intake Total 1550 Output Total 50 Balance 1500 PT 12.0 SEC (12.0-15.0) 08/17/17 17:16 INR 0.87 (0.83-1.16) 08/17/17 17:16 ICD10 Worksheet Patient Problems: Problems Problem Status Onset DVT (deep venous thrombosis) Acute End stage renal disease Acute Pneumonia Acute Pubic ramus fracture Acute Abdominal pain Acute Anemia Acute Chest pain Acute Contusion of jaw Acute Fever Acute Generalized weakness Acute Hyperkalemia Acute Hyperkalemia Acute Hypotension Acute Hypoxemia Acute Hypoxia Acute MRSA (methicillin resistant Staphylococcus aureus) Acute 04/04/17 Nephrostomy complication Acute Retroperitoneal fluid collection Acute UTI (urinary tract infection) Acute UTI (urinary tract infection) Acute
[2017-08-19] MEDS ORDERED: NALOXONE HCL 0.4 MG/ML INJ IVP ONE (14:33)
--- NOTE | 2017-08-19 14:39 | ASMTCMCOM ---
CM Note CM Note Notes: Pt had change in medical status and moved to ICU. CM to follow. Date Signed: 08/19/2017 02:39 PM Electronically Signed By:EVERTON Zamora
[2017-08-19] MEDS ORDERED: oxyCODONE IR 5 MG TAB PO PRN (15:00)
[2017-08-19] MEDS ORDERED: HYDROCODONE/APAP 5/325 TAB PO PRN (15:00)
--- NOTE | 2017-08-19 15:15 | HOSPPROG ---
Hospitalist Progress Note Assessment/Plan: 52-year-old female admitted yesterday with pneumonia. She has continued to have significant left-sided hip pain shortness of breath and an inability to be moved secondary to the pain. New problem today is acute respiratory failure 2 /2 narcotic excess. Patient transferred to ICU for Bipap -acute respiratory failure 2/2 narcotic excess, recovered with narcan. Now in ICU, CXR pending -Pneumonia currently under treatment with duo nebs and antibiotics. Her oxygen saturation is at a baseline perhaps. - end-stage renal disease: Nephrology consult been obtained dialysis is planned for tomorrow - left hip probable fracture with a known left pubic ramus fracture. This is the cause of her significant pain Orthopedics and Dr. Kera Lowery will see her today in consultation. X-rays are reviewed reviewed by myself on the PAC system. - DVT in the right lower extremity with an IVC filter placed. She also had a PE at the time of presentation. because of her risk of falling full anti coagulation was not considered. We will continue with the IVC filter. Her oxygenation seems stable and the hypoxemia is most likely secondary to her pneumonitis. 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 The patient was subsequently wheelchair bound resulting in decubitus ulcerations. Due to the neurogenic bladder the patient has suffered recurrent bladder infections resulting in renal infections and a subsequent left nephrectomy due to recurrent infections On 04/2017 2. depression, hypertension, hyperlipidemia, anemia secondary to renal disease. - Current wrists are decubitus ulceration and we are encouraging movement and ambulation as soon as we have clearance from Orthopedics as the solution of her left hip pain. time: PATent seen and examined at bedside in ICU; discussed with critical care ; 65 minutes Subjective: minimal response, required narcan Objective: Vital Signs Temp Pulse Resp BP Pulse Ox 36.9 C 83 16 132/68 H 94 08/19/17 12:00 08/19/17 12:00 08/19/17 12:00 08/19/17 12:00 08/19/17 12:00 Laboratory Results 08/19/17 14:10 08/19/17 04:20 08/18/17 08/19/17 08/20/17 05:59 05:59 05:59 Intake Total 1550 Output Total 50 Balance 1500 PT 13.3 SEC (12.0-15.0) 08/19/17 14:10 INR 0.99 (0.83-1.16) 08/19/17 14:10 - Time Spent With Patient Time Spent with Patient: greater than 35 minutes Time Spent with Patient: Greater than 35 minutes spent on this patients care, greater than 50% of time spent counseling, educating, and coordinating care regarding the above mentioned plan. - Pending Discharge Pending Discharge Within 24 Hours: No Pending Discharge Within 48 Hours: No - Physical Exam Constitutional: other (acute ill; respiratory failure) Eyes: PERRL, anicteric sclera Ears, Nose, Mouth, Throat: moist mucous membranes Cardiovascular: regular rate and rhythym, JVD, other Respiratory: reduced air movement, other (respiatory failure) Gastrointestinal: normoactive bowel sounds, soft, non-tender abdomen, no palpable masses Genitourinary: no bladder fullness Musculoskeletal: generalized weakness Neurologic: other (excess sedation) ICD10 Worksheet Patient Problems: Problems Problem Status Onset Anemia Acute Contusion of jaw Acute DVT (deep venous thrombosis) Acute Pneumonia Acute Retroperitoneal fluid collection Acute Hypoxia Acute Abdominal pain Acute UTI (urinary tract infection) Acute Hyperkalemia Acute Nephrostomy complication Acute Pubic ramus fracture Acute Hypoxemia Acute MRSA (methicillin resistant Staphylococcus aureus) Acute 04/04/17 Hypotension Acute Fever Acute Hyperkalemia Acute End stage renal disease Acute UTI (urinary tract infection) Acute Chest pain Acute Generalized weakness Acute
[2017-08-19] MEDS ORDERED: ALTEPLASE 2 MG VIAL IVP PRN (15:18)
[2017-08-19] MEDS ORDERED: NS 1,000 ML IV SCH (19:00)
[2017-08-19] MEDS: HEPARIN 10,000 UNIT/10 ML MDV IVP PRN (20:10)
[2017-08-20] MEDS: HYDROmorphone HCL/NS/PF 0.4 MG/2 ML SYR IVP PRN ×2 (00:48→08:38)
[2017-08-20] MEDS: LEVOTHYROXINE 112 MCG TAB PO SCH (02:15)
[2017-08-20] MEDS: HEPARIN 10,000 UNIT/10 ML MDV IVP PRN ×3 (03:52→18:19)
[2017-08-20 05:30] LABS: PLATELET COUNT 95 10^3/uL (150-400)
[2017-08-20] MEDS: ORAL BALANCE GEL TUBE PO PRN ×2 (05:30→11:29)
[2017-08-20] MEDS: IPRATROPIUM/ALBUTEROL 3 ML DEYVIAL IH SCH ×2 (05:36→11:43)
[2017-08-20] MEDS ORDERED: levOFLOXACIN 250 MG/DEXTROSE 50 ML IV SCH (09:00)
[2017-08-20] MEDS ORDERED: HYDROmorphone HCL/NS/PF 0.4 MG/2 ML SYR IVP PRN (09:14)
[2017-08-20] MEDS ORDERED: levETIRAcetam 500 MG in NS 100 ML IV SCH (09:30)
[2017-08-20] MEDS: NON-FORMULARY NEW DRUG (Sevelamer Carbonate [Renvela] 1,600 MG) PO SCH ×3 (11:00→17:25)
[2017-08-20] MEDS: LACOSAMIDE 50 MG TAB PO SCH (11:00)
[2017-08-20] MEDS: guaiFENesin 600 MG TAB.ER PO SCH ×3 (11:00→22:49)
[2017-08-20] MEDS: NEPHROVITE FOLIC ACID/VIT B&C 1 TAB PO SCH (11:00)
[2017-08-20] MEDS: NON-FORMULARY NEW DRUG (Escitalopram Oxalate [Lexapro] 20 MG) PO SCH (11:00)
[2017-08-20] MEDS: CALCIUM CARBONATE 500 MG CHEWABLE TAB PO SCH ×3 (11:00→17:25)
[2017-08-20] MEDS: NON-FORMULARY NEW DRUG (Dolutegravir Sodium [Tivicay] 50 MG) PO SCH (11:31)
[2017-08-20] MEDS: ABACAVIR SULFATE 600 MG PO SCH (11:31)
[2017-08-20] MEDS: DARUNAVIR ETHANOLATE 800 MG PO SCH (11:31)
[2017-08-20] MEDS: RITONAVIR 100 MG PO SCH (11:31)
[2017-08-20] MEDS: LACOSAMIDE 100 MG in NS 50 ML IV SCH ×2 (13:24→21:22)
[2017-08-20] MEDS: HEPARIN/DEXTROSE 500 ML IV SCH (13:24)
--- NOTE | 2017-08-20 13:48 | SOAPPROG ---
SOAP Progress Note Assessment/Plan: Assessment/Plan: The patient is a 52 y/o F with multiple medical issues who presented on 08/17 with hip pain and fever found to have PNA. ESRD on HD MWF -dialysis planned for Tuesday -will UF as tolerated -L TDC Altered mental status and hypercarbic respiratory failure -avoid benzodiazepines, s/p narcan -ABG improving -continue BiPAP as tolerated HTN/vol -as above, issues with hypertension and hypotension in the past -holding home amlodipine -may use hydralazine prn SBP>160 Fever w/ PNA -on broad spectrum abx -flu swab negative -management per primary team appreciated Hip pain -possible fx s/p NASEEM -ortho consult -pain control renally dosed HIV -on HAART therapy DVT s/p IVC filter -unable to anticoagulate -US on Tue with LE resolving Anemia -persistently low Hb, s/p transfusion and stable -unable to tolerate EPO which may have caused PRES with seizures earlier this month -continue to monitor 08/20/17 13:47 08/20/17 14:17 Subjective: Patient moved to ICU with RF and retaining CO2 now on bipap. Mother present at bedside. Resting. Objective: Vital Signs Temp Pulse Resp BP Pulse Ox 36.9 C 94 100 H 146/61 H 98 08/20/17 05:00 08/20/17 11:00 08/20/17 10:00 08/20/17 10:00 08/20/17 11:00 Laboratory Results 08/20/17 05:25 08/20/17 05:25 08/19/17 08/20/17 08/21/17 05:59 05:59 05:59 Intake Total 1550 1638.0 Output Total 50 Balance 1500 1638.0 PT 13.3 SEC (12.0-15.0) 08/19/17 14:10 INR 0.99 (0.83-1.16) 08/19/17 14:10 Physical Exam - Physical Exam General Appearance: thin, other (sleeping on BiPAP) EENT: PERRL/EOMI Neck: non-tender, supple Respiratory: decreased breath sounds Cardiac/Chest: regular rate, rhythm Abdomen: normal bowel sounds, non-tender, soft Skin: normal color, warm/dry Extremities: normal range of motion, non-tender Neuro/Psych: other (Non-focal, unable to follow commands) ICD10 Worksheet Patient Problems: Problems Problem Status Onset DVT (deep venous thrombosis) Acute End stage renal disease Acute Pneumonia Acute Pubic ramus fracture Acute Abdominal pain Acute Anemia Acute Chest pain Acute Contusion of jaw Acute Fever Acute Generalized weakness Acute Hyperkalemia Acute Hyperkalemia Acute Hypotension Acute Hypoxemia Acute Hypoxia Acute MRSA (methicillin resistant Staphylococcus aureus) Acute 04/04/17 Nephrostomy complication Acute Retroperitoneal fluid collection Acute UTI (urinary tract infection) Acute UTI (urinary tract infection) Acute
[2017-08-20] MEDS ORDERED: ACETAMINOPHEN 500 MG TAB PO PRN (15:56)
--- NOTE | 2017-08-20 16:02 | GCON ---
[f rep st] CONSULTATION DATE OF CONSULTATION: 08/20/2017 HISTORY OF PRESENT ILLNESS: This patient is a 52-year-old female with a very complex medical history , who was admitted on 08/17/2017 with complaints of weakness, shortness of breath, and nonproductive cough without fever or white count. She was thought however to have pneumonia, was given some antibi otics. In addition, she had been having pain in her hip, and she was found to have an abnormal aceta bulum on hip x-rays, and a CT scan revealed a subacute fracture in the acetabular region. She was ev aluated by Dr. Lowery from Orthopedics, and was allowed to have toe touching exercises. However, in an effort to alleviate pain issues, she was given narcotics, and on 08/19 was unresponsive and had a CO 2 of 89 with a low pH. She subsequently was given Narcan and responded quite well, but because of th is was transferred to the intensive care unit, where she was placed on BiPAP overnight. She was plac ed on oxygen earlier today, and seemed to be doing fairly well until about 11:45 when she was intermi ttently somnolent, and her blood gas showed a pH of 7.21, with a CO2 of 65, PO2 of 79, bicarb 27, and saturation of 94%. She was subsequently returned to BiPAP, and a repeat blood gas is pending at the time of this dictation. 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 She also has a neurogenic bl adder as a result of this, and had nephrostomy tubes and multiple urinary tract and bladder infection s in the past, and eventually underwent a nephrectomy in April of 2017 for this reason. She has been quite unstable, and has had multiple falls from her wheelchair, usually from transferring as far as I can tell, and has had multiple subacute fractures including bilateral pubic rami fractures in t he past. One such fall occurred on 07/25/2017. While she had no acute fractures at that time, she w as found to have a left femoral vein and popliteal vein deep vein thrombosis, but no pulmonary emboli sm. She was thought to be a very high risk for anticoagulation, so an IVC filter was placed under e guidance of Oncology at the time, and has been stable from that perspective since that time. REVIEW OF SYSTEMS: Largely negative, except as that reported in the HPI. 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 2. Hypothyroidism. 3. Depression. 4. Recurrent urinary tract infections. 5. Kidney stones. 6. Nonhealing wounds and sacral decubitus. 7. HIV, of which she is on HAART therapy. 8. Anemia of chronic disease. 9. End-stage renal disease requiring hemodialysis on Tuesday, Tuesday, Tuesday. 10. Hypertension. 11. Hyperlipidemia. 12. Seizure disorder. This was diagnosed in 06/2017 when she presented with hypertension and new se izure. 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 She has been treated with a variety o f anticonvulsants since then. Of note, valproic acid caused a rash, and she is on Vimpat now with no further seizure activity that anybody is aware of. 13. Cervical spine stenosis. 14. Pancreatitis in the past. 15. Hyperparathyroidism. 16. Thrombocytopenia of uncertain etiology. 17. Respiratory failure requiring mechanical ventilation in 06/2017 due to underlying seizures. PAST SURGICAL HISTORY: 1. Left nephrectomy. 2. Cholecystectomy. 3. Left total hip arthroplasty. 4. Hysterectomy. 5. Tubal ligation. 6. Remote foot surgery. 7. Knee surgery and a left upper extremity AV fistula. 8. Wound debridements in the past. SOCIAL HISTORY: She is a lifelong nonsmoker. No alcohol or IV drug use. FAMILY HISTORY: Noncontributory at this time. CURRENT MEDICATIONS: Tylenol p.r.n., [place] p.r.n., DuoNeb q.i.d. times daily scheduled, Tums, Mucine x, unfractionated heparin, Dilaudid, Vimpat, lacosamide, Levaquin, levothyroxine, her anti-retroviral regimen, Zofran, normal saline, vitamin B complex. PHYSICAL EXAMINATION: VITAL SIGNS: She has been afebrile throughout her admission. Her heart rate is 90, respiratory rate has been about 15, oxygen saturation 100%, now on BiPAP, blood pressure 146/6 1. At the time of my evaluation was pre BiPAP. GENERAL: She was somnolent and barely answering que stions, though she did open her eyes. HEENT: Her pupils were equally round and reactive to light. Nonicteric and noninjected. Mucous membranes moist without erythema or exudate. NECK: Supple witho ut adenopathy or jugular vein distention. Breath sounds were clear to auscultation bilaterally witho ut wheezes, rubs or rales. HEART: Regular rate and rhythm without murmurs, rubs, gallops. ABDOMEN: Soft, nontender, nondistended without hepatosplenomegaly. EXTREMITIES: No clubbing, cyanosis, or edema. NEUROLOGICAL: Significant for substantial somnolence, but cranial nerves appeared to be inta ct. SKIN: Warm and dry without evidence of rash. LABORATORY DATA: White count of 5.0, hematocrit 30.7, platelets of 95. Her most recent blood gas wa s at 11:45. This afternoon pH was 7.21, pCO2 65, PO2 is 79, bicarb 27, oxygen saturation 94%. Sodiu m is 143, potassium 5.3, chloride 107, bicarb 17, BUN 25, creatinine 4.5, calcium 9.8. A chest x-ray shows minor atelectasis, but no obvious pneumonia. EKG is unremarkable. She also had a CT of her pelvis in May that showed no fractures. However, a CT in 07/2015 did show left pubic ramus fracture that was age-indeterminate. Of note, on 05/06/[address] angiogram of her [address] showing no pulmonary embolism. There was no CT angiogram of her chest or V/Q scan since that time . There was a V/Q scan in 2014 that was also negative at that time. Lower extremity ultrasound on 08/16/2017 shows persistent deep vein thrombosis involving the left fem oral vein that may be slightly improved from previous film. ASSESSMENT AND PLAN: 1. Hypercapnic respiratory failure. This is probably related to her underlying narcotics including [place], as well as Dilaudid. The issues that she has seem disproportionate to the amount of pain medi cation she is receiving at this time. I would discontinue her [place], as well as her Dilaudid. Sched ule her Tylenol 4 times a day at 1,000 mg. since she has already developed end-stage renal disease a nd dialysis dependent, a nonsteroidal anti-inflammatory such as ibuprofen or potentially even Toradol could be useful, as long as the renal consult would agree with that. Ultram would be another nonnar cotic pain medication that should help with this. Physical therapy I suspect will also be useful, an d it does not sound like immediate surgical intervention is required at this time. I see no other ca use for her underlying CO2 retention, which is more than likely acute and not likely chronic. In the meantime, she is on BiPAP support, and new blood gas is pending at this time. 2. Possible pneumonia. I think it is unlikely looking at her chest x-ray and the lack of white coun t and fevers. I am not sure that the scheduled albuterol is adding much at this time, can probably b e changed to p.r.n. Levaquin has already been started and may have some limited value. If it has pr oblems associated with it, we could always look at a procalcitonin and discontinue the Levaquin if th e procalcitonin level is low. However, her renal function may make that test subject to debate. 3. Venous thromboembolic disease. After a fairly thorough review of her records including [facility], I found no evidence of pulmonary embolism, and only evidence to rule out pulmonary emboli sm. She does have a deep vein thrombosis and an inferior vena cava filter was placed around 07/27/20 17. She was apparently seen by Oncology at that time, who were taking care of her then, felt that an ticoagulating her was too high a risk because of her multiple falls and difficulty particularly using Coumadin with her anti-retroviral therapy. In an effort to preserve this intent, I think that an IV C filter long-term is likely to be a reasonable alternative for her, recognizing that in the absence of anticoagulation this will actually increase her risk for DVT at 2 years. In the meantime, while s he is hospitalized, I think that unfractionated heparin would be the best way to deal with this and m ay provide some benefit in terms of resolution of clot. This would allow easy reversal, and as far a s I know, no drug interactions with her anti-retroviral therapy. 4. Seizure disorder. This was established in June. The underlying cause was thought to be rela karen to PRES syndrome related to hypertension. She is on anticonvulsive therapy now, which is availab le both as an oral and IV, and I think that the IV formulation would be perfectly fine, and she shoul d continue with anticonvulsive therapy in the meantime. 5. Sacral decubitus ulcer. She is going to be seen by wound care today and hopefully should be able to manage those for us in the short term. 6. End-stage renal disease. She should continue with dialysis as directed by Renal. 7. Immobility. After discussing this with her mother and reading multiple notes, this is due to rem ote Guillain-[place] syndrome, and is not related to multiple sclerosis. PT and OT should work with he r once we can stabilize her from a respiratory perspective. A total of about 75 minutes of critical care time was involved in the evaluation and management as safia nged above with the patient with a very complex history of multiorgan involvement. /[id number]/MODL
[2017-08-20] MEDS: levOFLOXACIN 500 MG/DEXTROSE 100 ML IV SCH (16:29)
[2017-08-20] MEDS: IBUPROFEN 600 MG TAB PO PRN (17:24)
--- NOTE | 2017-08-20 17:40 | HOSPPROG ---
Hospitalist Progress Note Assessment/Plan: 52-year-old female admitted yesterday with pneumonia. Patient currently in the ICU on BiPAP support. Case has been discussed with intensive care medicine. Narcotic pain medication has been stopped and will use anti- inflammatories and Ultram only. Will continue to use unfractionated heparin regarding her DVT. She continues to require BiPAP support. Will continue the Levaquin for full course of the chest x-ray questionably shows a right lower lobe infiltrate. -acute respiratory failure 2/2 narcotic excess, now in the ICU on BiPAP support -Pneumonia currently under treatment with duo nebs and antibiotics. Her oxygen saturation is at a baseline perhaps. - end-stage renal disease: Nephrology is consulting and planning dialysis. - left hip probable fracture with a known left pubic ramus fracture. This is the cause of her significant pain Orthopedics and Dr. Kera Lowery will see her today in consultation. X-rays are reviewed reviewed by myself on the PAC system. - DVT in the right lower extremity with an IVC filter placed. because of her risk of falling full anti coagulation was not considered. We will continue with the IVC filter. Her oxygenation seems stable and the hypoxemia is most likely secondary to her pneumonitis. - HIV infection currently under treatment with HAART - chronic medical problems: 1. Guillain-[place] syndrome remotely resulting in weakness and a neurogenic bladder. The patient was subsequently wheelchair bound resulting in decubitus ulcerations. Due to the neurogenic bladder the patient has suffered recurrent bladder infections resulting in renal infections and a subsequent left nephrectomy due to recurrent infections On 04/2017 2. depression, hypertension, hyperlipidemia, anemia secondary to renal disease. - Current wrists are decubitus ulceration and we are encouraging movement and ambulation as soon as we have clearance from Orthopedics as the solution of her left hip pain. time: PATent seen and examined at bedside in ICU; discussed with critical care ; 65 minutes Subjective: Continues on BiPAP support without complaints. She seems to have good pain control with rolling now even though we have not given Dilaudid. Objective: Vital Signs Temp Pulse Resp BP Pulse Ox 36.6 C 99 20 118/76 99 08/20/17 12:00 08/20/17 17:14 08/20/17 17:14 08/20/17 15:00 08/20/17 17:14 Laboratory Results 08/20/17 05:25 08/20/17 05:25 08/19/17 08/20/17 08/21/17 05:59 05:59 05:59 Intake Total 1550 1638.0 1001 Output Total 50 Balance 1500 1638.0 1001 PT 13.3 SEC (12.0-15.0) 08/19/17 14:10 INR 0.99 (0.83-1.16) 08/19/17 14:10 - Time Spent With Patient Time Spent with Patient: greater than 35 minutes Time Spent with Patient: Greater than 35 minutes spent on this patients care, greater than 50% of time spent counseling, educating, and coordinating care regarding the above mentioned plan. - Pending Discharge Pending Discharge Within 24 Hours: No Pending Discharge Within 48 Hours: No - Physical Exam Constitutional: chronically ill appearing Eyes: PERRL, anicteric sclera Ears, Nose, Mouth, Throat: moist mucous membranes Cardiovascular: regular rate and rhythym, no murmur, rub, or gallop Respiratory: no respiratory distress, no rales or rhonchi, reduced air movement , inspiratory crackles, rhonchi Gastrointestinal: normoactive bowel sounds Genitourinary: no bladder fullness Skin: warm Musculoskeletal: generalized weakness ICD10 Worksheet Patient Problems: Problems Problem Status Onset Anemia Acute Contusion of jaw Acute DVT (deep venous thrombosis) Acute Pneumonia Acute Retroperitoneal fluid collection Acute Hypoxia Acute Abdominal pain Acute UTI (urinary tract infection) Acute Hyperkalemia Acute Nephrostomy complication Acute Pubic ramus fracture Acute Hypoxemia Acute MRSA (methicillin resistant Staphylococcus aureus) Acute 04/04/17 Hypotension Acute Fever Acute Hyperkalemia Acute End stage renal disease Acute UTI (urinary tract infection) Acute Chest pain Acute Generalized weakness Acute
[2017-08-21] MEDS: LEVOTHYROXINE 112 MCG TAB PO SCH ×2 (03:12→06:05)
[2017-08-21] MEDS: IBUPROFEN 600 MG TAB PO PRN ×3 (06:05→22:20)
[2017-08-21 06:09] LABS: PLATELET COUNT 94 10^3/uL (150-400)
[2017-08-21] MEDS: NON-FORMULARY NEW DRUG (Escitalopram Oxalate [Lexapro] 20 MG) PO SCH (08:14)
[2017-08-21] MEDS: NEPHROVITE FOLIC ACID/VIT B&C 1 TAB PO SCH (08:15)
[2017-08-21] MEDS: guaiFENesin 600 MG TAB.ER PO SCH ×2 (08:15→20:40)
--- NOTE | 2017-08-21 10:34 | SOAPPROG ---
SOAP Progress Note Assessment/Plan: Assessment/Plan: The patient is a 52 y/o F with multiple medical issues who presented on 08/17 with hip pain and fever found to have PNA. ESRD on HD MWF -dialysis planned for Tuesday -will UF as tolerated -L TDC Altered mental status and hypercarbic respiratory failure -avoid benzodiazepines, s/p narcan -ABG improving -continue BiPAP at night HTN/vol -as above, issues with hypertension and hypotension in the past -holding home amlodipine -may use hydralazine prn SBP>160 Fever w/ PNA -on broad spectrum abx -flu swab negative -management per primary team appreciated Hip pain -possible fx s/p NASEEM -ortho consult -pain control renally dosed HIV -on HAART therapy DVT s/p IVC filter -unable to anticoagulate -US on Tue with LE resolving Anemia -persistently low Hb, s/p transfusion and stable -unable to tolerate EPO which may have caused PRES with seizures earlier this month -continue to monitor 08/21/17 11:41 Subjective: Sitting up to chair. Still groggy. Off bipap. Mother present. Objective: Vital Signs Temp Pulse Resp BP Pulse Ox 36.5 C 82 15 137/63 H 98 08/21/17 05:53 08/21/17 05:53 08/21/17 05:53 08/21/17 05:53 08/21/17 05:53 Laboratory Results 08/21/17 06:00 08/21/17 06:00 08/20/17 08/21/17 08/22/17 05:59 05:59 05:59 Intake Total 1638.0 1374 Output Total 0 Balance 1638.0 1374 PT 13.3 SEC (12.0-15.0) 08/19/17 14:10 INR 0.99 (0.83-1.16) 08/19/17 14:10 Physical Exam - Physical Exam General Appearance: thin, other (eating) EENT: PERRL/EOMI, normal ENT inspection Neck: supple, other (limited range of motion) Respiratory: chest non-tender, decreased breath sounds Cardiac/Chest: normal peripheral pulses, regular rate, rhythm Abdomen: normal bowel sounds, non-tender, soft Skin: normal color, warm/dry, cyanosis Extremities: normal range of motion, non-tender Neuro/Psych: no motor/sensory deficits, depressed affect ICD10 Worksheet Patient Problems: Problems Problem Status Onset DVT (deep venous thrombosis) Acute End stage renal disease Acute Pneumonia Acute Pubic ramus fracture Acute Abdominal pain Acute Anemia Acute Chest pain Acute Contusion of jaw Acute Fever Acute Generalized weakness Acute Hyperkalemia Acute Hyperkalemia Acute Hypotension Acute Hypoxemia Acute Hypoxia Acute MRSA (methicillin resistant Staphylococcus aureus) Acute 04/04/17 Nephrostomy complication Acute Retroperitoneal fluid collection Acute UTI (urinary tract infection) Acute UTI (urinary tract infection) Acute
[2017-08-21] MEDS: NON-FORMULARY NEW DRUG (Sevelamer Carbonate [Renvela] 1,600 MG) PO SCH ×3 (11:17→18:31)
[2017-08-21] MEDS: CALCIUM CARBONATE 500 MG CHEWABLE TAB PO SCH ×3 (11:17→18:30)
[2017-08-21] MEDS ORDERED: MAGNESIUM HYDROXIDE 30 ML UDCUP PO PRN (13:55)
[2017-08-21] MEDS ORDERED: LACTULOSE 20 GM/30 ML UDCUP PO PRN (13:55)
[2017-08-21] MEDS: LACOSAMIDE 100 MG in NS 50 ML IV SCH (13:59)
[2017-08-21] MEDS: ABACAVIR SULFATE 600 MG PO SCH (14:06)
[2017-08-21] MEDS: NON-FORMULARY NEW DRUG (Dolutegravir Sodium [Tivicay] 50 MG) PO SCH (14:08)
[2017-08-21] MEDS: DARUNAVIR ETHANOLATE 800 MG PO SCH (14:08)
[2017-08-21] MEDS: RITONAVIR 100 MG PO SCH (14:09)
[2017-08-21] MEDS: BISACODYL 10 MG SUPP PR PRN (14:10)
--- NOTE | 2017-08-21 14:44 | PDINTPN ---
[employer] Progress Note Assessment/Plan: Assessment/plan Complicated 52 F with chronic wheelchair dependence from remote history of guillan barre, and multiple falls including a recent fall resulting in non- displaced acetabular fracture at previous NASEEM. She had considerable pain which was treated with marcotics, but developed acute hypercapnic respiratory failure and required transfer to ICU for Bipap. Her narctoics were held and her mental status returned to baseline. Complicating her issues has been a LLE DVT diagnosed recently and treated with an IVC filter since she was thought to be too high a fall risk, and warfarin has multiple interactions with her chronic HAART therapy for her previously diagnosed HIV. She was also thought to have PNA on this admission and has been treated with Levaquin, though evidence to support the diagnosis has been scant. * Acute respiratory failure with hypercapnia- most consistent with narcotics and resolved once held. She was on bipap twice in 24 hours because of this. No history or evidence of chronic lung disease. * Pain control- she has responded well to scheduled tylenol and prn ibuprofen. She has ESRD on HD, so renal risk is moot. * DVT- she has an IVC filter in place and can be removed at 6 months per IR. Since she is hospitalized and monitored, I favor UFH over filter alone while she is here, but this will likely dc on discharge home. * Acetabular fracture- non-operative management per ortho. * Sacral decubitus ulcerations- managed by wound care/IM. * ESRD- getting HD without difficulty MWF * PNA?- complete 5-7 days of oral levaquin and dc. Check procalcitonin level if necessary. * Seizure- relatively new diagnosis and controlled on Vimpat- I would continue this for now ad defer to neurology clinic for further management * Discussed in detail with patient, mother, RN, and Dr. Fraser Subjective: Much improved mental status today after dc narcotics. remained on bipap overnight as a precaution, but dc'd this am without difficulty. Pain within reasonable control according to patient Objective: Vital Signs Temp Pulse Resp BP Pulse Ox 36.6 C 81 17 99/70 L 100 08/21/17 10:00 08/21/17 11:00 08/21/17 11:00 08/21/17 10:00 08/21/17 11:00 Laboratory Results 08/21/17 06:00 08/21/17 06:00 08/20/17 08/21/17 08/22/17 05:59 05:59 05:59 Intake Total 1638.0 1374 Output Total 0 Balance 1638.0 1374 PT 13.3 SEC (12.0-15.0) 08/19/17 14:10 INR 0.99 (0.83-1.16) 08/19/17 14:10 Physical Exam - Physical Exam General Appearance: alert, no apparent distress, thin EENT: PERRL/EOMI Neck: supple Respiratory: lungs clear, normal breath sounds, No respiratory distress, No accessory muscle use Cardiac/Chest: regular rate, rhythm, No edema Abdomen: normal bowel sounds, non-tender, soft, No distended Skin: normal color, warm/dry, No cyanosis Lymphatic: no adenopathy Extremities: No pedal edema Neuro/Psych: alert, normal mood/affect ICD10 Worksheet Patient Problems: Problems Problem Status Onset DVT (deep venous thrombosis) Acute End stage renal disease Acute Pneumonia Acute Pubic ramus fracture Acute Abdominal pain Acute Anemia Acute Chest pain Acute Contusion of jaw Acute Fever Acute Generalized weakness Acute Hyperkalemia Acute Hyperkalemia Acute Hypotension Acute Hypoxemia Acute Hypoxia Acute MRSA (methicillin resistant Staphylococcus aureus) Acute 04/04/17 Nephrostomy complication Acute Retroperitoneal fluid collection Acute UTI (urinary tract infection) Acute UTI (urinary tract infection) Acute
--- NOTE | 2017-08-21 17:01 | HOSPPROG ---
Hospitalist Progress Note Assessment/Plan: 52-year-old female admitted yesterday with pneumonia. Patient currently in the ICU on BiPAP support. Case has been discussed with intensive care medicine. Narcotic pain medication has been stopped and will use anti- inflammatories and Ultram only. Will continue to use unfractionated heparin regarding her DVT. She continues to require BiPAP support. Will continue the Levaquin for full course of 7 days as the chest x-ray questionably shows a right lower lobe infiltrate. -acute respiratory failure 2/2 narcotic excess, now in the ICU on BiPAP support -Pneumonia currently under treatment with duo nebs and antibiotics. Her oxygen saturation is at a baseline perhaps. - end-stage renal disease: Nephrology is consulting and planning dialysis, Tuesday - left hip probable fracture with a known left pubic ramus fracture. This is the cause of her significant pain Orthopedics and Dr. Kera Lowery will see her today in consultation. X-rays are reviewed reviewed by myself on the PAC system. - DVT in the right lower extremity with an IVC filter placed. because of her risk of falling full anti coagulation was not considered. We will continue with the IVC filter. Her oxygenation seems stable and the hypoxemia is most likely secondary to her pneumonitis. - HIV infection currently under treatment with HAART -sacral decubitus ulceration approximately 2 cm stage 1-2. Wound care is consulting - chronic medical problems: 1. Guillain-[place] syndrome remotely resulting in weakness and a neurogenic bladder. The patient was subsequently wheelchair bound resulting in decubitus ulcerations. Due to the neurogenic bladder the patient has suffered recurrent bladder infections resulting in renal infections and a subsequent left nephrectomy due to recurrent infections On 04/2017 2. depression, hypertension, hyperlipidemia, anemia secondary to renal disease. - Current wrists are decubitus ulceration and we are encouraging movement and ambulation as soon as we have clearance from Orthopedics as the solution of her left hip pain. time: Patient seen and examined at bedside in ICU; discussed with critical care; 50 min Subjective: More alert and cooperative and interactive. The patient was able to stand nicely with 2 person assist. She is cooperative and can take now deep breaths she has no complaints. Objective: Vital Signs Temp Pulse Resp BP Pulse Ox 36.6 C 80 21 H 124/64 H 93 08/21/17 12:00 08/21/17 16:00 08/21/17 16:00 08/21/17 16:00 08/21/17 16:00 Laboratory Results 08/21/17 06:00 08/21/17 06:00 08/20/17 08/21/17 08/22/17 05:59 05:59 05:59 Intake Total 1638.0 1374 Output Total 0 Balance 1638.0 1374 PT 13.3 SEC (12.0-15.0) 08/19/17 14:10 INR 0.99 (0.83-1.16) 08/19/17 14:10 - Time Spent With Patient Time Spent with Patient: greater than 35 minutes Time Spent with Patient: Greater than 35 minutes spent on this patients care, greater than 50% of time spent counseling, educating, and coordinating care regarding the above mentioned plan. - Pending Discharge Pending Discharge Within 24 Hours: No Pending Discharge Within 48 Hours: No - Physical Exam Constitutional: no apparent distress, chronically ill appearing Eyes: PERRL, anicteric sclera Ears, Nose, Mouth, Throat: moist mucous membranes, hearing normal Cardiovascular: regular rate and rhythym, systolic murmur Respiratory: reduced air movement, bronchial breath sounds, rhonchi Gastrointestinal: normoactive bowel sounds, soft, non-tender abdomen, no palpable masses Genitourinary: no bladder fullness Skin: warm Musculoskeletal: generalized weakness Psychiatric: interacting appropriately ICD10 Worksheet Patient Problems: Problems Problem Status Onset DVT (deep venous thrombosis) Acute End stage renal disease Acute Pneumonia Acute Pubic ramus fracture Acute Abdominal pain Acute Anemia Acute Chest pain Acute Contusion of jaw Acute Fever Acute Generalized weakness Acute Hyperkalemia Acute Hyperkalemia Acute Hypotension Acute Hypoxemia Acute Hypoxia Acute MRSA (methicillin resistant Staphylococcus aureus) Acute 04/04/17 Nephrostomy complication Acute Retroperitoneal fluid collection Acute UTI (urinary tract infection) Acute UTI (urinary tract infection) Acute
[2017-08-21] MEDS: SENNOSIDES/DOCUSATE SODIUM TAB PO SCH (20:40)
[2017-08-21] MEDS: LACOSAMIDE 50 MG TAB PO SCH (20:40)
[2017-08-21] MEDS: ONDANSETRON 4 MG/2 ML VIAL IVP PRN (22:19)
[2017-08-21] MEDS: HEPARIN/DEXTROSE 500 ML IV SCH (23:19)
[2017-08-22] MEDS: IBUPROFEN 600 MG TAB PO PRN ×2 (06:20→12:21)
[2017-08-22 06:40] LABS: PLATELET COUNT 112 10^3/uL (150-400)
[2017-08-22] MEDS: guaiFENesin 600 MG TAB.ER PO SCH ×2 (10:12→22:43)
[2017-08-22] MEDS: SENNOSIDES/DOCUSATE SODIUM TAB PO SCH ×2 (10:12→22:44)
[2017-08-22] MEDS: LACOSAMIDE 50 MG TAB PO SCH ×2 (10:12→22:43)
[2017-08-22] MEDS: CALCIUM CARBONATE 500 MG CHEWABLE TAB PO SCH ×3 (10:12→18:30)
[2017-08-22] MEDS: NON-FORMULARY NEW DRUG (Sevelamer Carbonate [Renvela] 1,600 MG) PO SCH ×3 (10:13→18:33)
[2017-08-22] MEDS: NEPHROVITE FOLIC ACID/VIT B&C 1 TAB PO SCH (10:13)
[2017-08-22] MEDS: NON-FORMULARY NEW DRUG (Escitalopram Oxalate [Lexapro] 20 MG) PO SCH (10:14)
[2017-08-22] MEDS: NON-FORMULARY NEW DRUG (Dolutegravir Sodium [Tivicay] 50 MG) PO SCH (11:42)
[2017-08-22] MEDS: RITONAVIR 100 MG PO SCH (11:43)
[2017-08-22] MEDS: ABACAVIR SULFATE 600 MG PO SCH (11:44)
[2017-08-22] MEDS: DARUNAVIR ETHANOLATE 800 MG PO SCH (11:44)
--- NOTE | 2017-08-22 12:30 | SOAPPROG ---
SOAP Progress Note Assessment/Plan: Assessment/Plan: The patient is a 52 y/o F with multiple medical issues who presented on 08/17 with hip pain and fever found to have PNA. ESRD on HD MWF -dialysis today -will UF as tolerated -L TDC Altered mental status and hypercarbic respiratory failure -avoid benzodiazepines, s/p narcan -continue BiPAP at night HTN/vol -as above, issues with hypertension and hypotension in the past -holding home amlodipine -may use hydralazine prn SBP>160 Fever w/ PNA -on broad spectrum abx -flu swab negative -management per primary team appreciated Hip pain -possible fx s/p NASEEM of pubic ramus -ortho consult -pain control renally dosed HIV -on HAART therapy DVT s/p IVC filter -unable to anticoagulate -US on Tue with LE resolving Anemia -persistently low Hb, s/p transfusion and stable -unable to tolerate EPO which may have caused PRES with seizures earlier this month -continue to monitor Hyperkalemia -will modulate with HD -renal diet, patient non-compliant 08/22/17 12:29 Objective: Vital Signs Temp Pulse Resp BP Pulse Ox 36.4 C 74 17 116/63 100 08/22/17 08:00 08/22/17 10:00 08/22/17 10:00 08/22/17 10:00 08/22/17 10:00 Laboratory Results 08/22/17 06:10 08/22/17 06:10 08/21/17 08/22/17 08/23/17 05:59 05:59 05:59 Intake Total 1374 2110 Output Total 0 Balance 1374 2110 PT 13.3 SEC (12.0-15.0) 08/19/17 14:10 INR 0.99 (0.83-1.16) 08/19/17 14:10 Physical Exam - Physical Exam General Appearance: WD/WN, alert, no apparent distress EENT: PERRL/EOMI, pharynx normal Neck: non-tender, limited range of motion Respiratory: chest non-tender, decreased breath sounds Cardiac/Chest: regular rate, rhythm, edema Abdomen: normal bowel sounds, non-tender, soft Skin: pallor Extremities: normal range of motion, non-tender Neuro/Psych: no motor/sensory deficits, alert, abnormal gait, depressed affect ICD10 Worksheet Patient Problems: Problems Problem Status Onset DVT (deep venous thrombosis) Acute End stage renal disease Acute Pneumonia Acute Pubic ramus fracture Acute Abdominal pain Acute Anemia Acute Chest pain Acute Contusion of jaw Acute Fever Acute Generalized weakness Acute Hyperkalemia Acute Hyperkalemia Acute Hypotension Acute Hypoxemia Acute Hypoxia Acute MRSA (methicillin resistant Staphylococcus aureus) Acute 04/04/17 Nephrostomy complication Acute Retroperitoneal fluid collection Acute UTI (urinary tract infection) Acute UTI (urinary tract infection) Acute
--- NOTE | 2017-08-22 13:11 | WOCRNPDOC ---
WOCRN Advanced Assessment Note - Skin Integrity Problem, Advanced Assess Sacrum Pressure Injury Dressing Type: Allevyn Life Exudate Amount: Scant Exudate Characteristic(s): Serosanguinous Integumentary Issue Intervention: Dressing Removed Eliazbeth Wound Tissue: Erythema, Non-blanching Wound Bed Color: [place], Purple Wound Bed Constitution: Smooth Tissue Site Measurement - Head-to-Toe Length X Width X Depth (cm): 3.5x3x0 is the DTI. The open area measures 0.6x0.6x0.1 Pressure Injury Stage: Stage 4 Pressure Injury Present on Admit: Yes Skin Integrity Problem Comment: Reopening Stage 4 pressure injury now with extensive DTI present over previously healed area. There is a small opening distally within the borders of the DTI. Patient on a P 500 mattress. Discussed necessity for clinitron with patient and her mother and they have agreed to move to the clinitron. Extensive education done about keeping the HOB below 30 to reduce pressure to sacral area. Please cover with allevyn life sacral dressing and turn patient side to side. Wound care will round again at end of week. Olga GEORGE in room for care.
--- NOTE | 2017-08-22 15:31 | PDINTPN ---
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 She had considerable pain which was treated with marcotics, but developed acute hypercapnic respiratory failure and required transfer to ICU for Bipap. Her narctoics were held and her mental status returned to baseline. Complicating her issues has been a LLE DVT diagnosed recently and treated with an IVC filter since she was thought to be too high a fall risk, and warfarin has multiple interactions with her chronic HAART therapy for her previously diagnosed HIV. She was also thought to have PNA on this admission and has been treated with Levaquin, though evidence to support the diagnosis has been scant. * Acute respiratory failure with hypercapnia- most consistent with narcotics and resolved once held. She was on bipap twice in 24 hours because of this. No history or evidence of chronic lung disease. Minimal O2 likely related to atelectasis. Encourage IS, OOB. * Pain control- she has responded well to scheduled tylenol and prn ibuprofen. She has ESRD on HD, so renal risk is moot. * DVT- she has an IVC filter in place and can be removed at 6 months per IR. Since she is hospitalized and monitored, I favor UFH over filter alone while she is here, but this will likely dc on discharge home. * Acetabular fracture- non-operative management per ortho. * Sacral decubitus ulcerations- managed by wound care/IM. * ESRD- getting HD without difficulty MWF * PNA?- complete 5-7 days of oral levaquin and dc. Check procalcitonin level if necessary. * Seizure- relatively new diagnosis and controlled on Vimpat- I would continue this for now ad defer to neurology clinic for further management * Discussed in detail with patient, mother, RN, and Dr. Fraser. * * OK for transfer back to floor 08/22/17 15:29 Subjective: Stable overnight, no bipap required and sat 100% on 4-5 lpm. No complaints Objective: Vital Signs Temp Pulse Resp BP Pulse Ox 36.6 C 73 16 128/65 H 92 08/22/17 15:14 08/22/17 15:14 08/22/17 15:14 08/22/17 15:14 08/22/17 15:14 Laboratory Results 08/22/17 06:10 08/22/17 06:10 08/21/17 08/22/17 08/23/17 05:59 05:59 05:59 Intake Total 1374 2110 Output Total 0 Balance 1374 2110 PT 13.3 SEC (12.0-15.0) 08/19/17 14:10 INR 0.99 (0.83-1.16) 08/19/17 14:10 Physical Exam - Physical Exam General Appearance: alert, no apparent distress EENT: PERRL/EOMI Neck: supple Respiratory: lungs clear, normal breath sounds, No respiratory distress, No accessory muscle use Cardiac/Chest: regular rate, rhythm, edema Abdomen: non-tender, soft, No distended Skin: normal color, warm/dry, No cyanosis Lymphatic: no adenopathy Extremities: No pedal edema Neuro/Psych: alert, normal mood/affect, cognition abnormalities ICD10 Worksheet Patient Problems: Problems Problem Status Onset DVT (deep venous thrombosis) Acute End stage renal disease Acute Pneumonia Acute Pubic ramus fracture Acute Abdominal pain Acute Anemia Acute Chest pain Acute Contusion of jaw Acute Fever Acute Generalized weakness Acute Hyperkalemia Acute Hyperkalemia Acute Hypotension Acute Hypoxemia Acute Hypoxia Acute MRSA (methicillin resistant Staphylococcus aureus) Acute 04/04/17 Nephrostomy complication Acute Retroperitoneal fluid collection Acute UTI (urinary tract infection) Acute UTI (urinary tract infection) Acute
--- NOTE | 2017-08-22 15:37 | HOSPPROG ---
Hospitalist Progress Note Assessment/Plan: 52 yo F w HIV, esrd here w acetabular fx, pneumonia, and now resolved hypercarbic respiratory failure AHRF: 2/2 narcs, which have been dc'd resolved pneumonia: day 4 abx HIV: continue HAART DVT: heparin gtt until dc'd has IVC filter d/w dr wan esrd: HD on schedule acetabular fx: touch down weight bearing will need folow up studies dispo: inpt Subjective: 08/19 cxr w b/l pneumonia (interp by me) Objective: Vital Signs Temp Pulse Resp BP Pulse Ox 36.6 C 73 16 128/65 H 92 08/22/17 15:14 08/22/17 15:14 08/22/17 15:14 08/22/17 15:14 08/22/17 15:14 Laboratory Results 08/22/17 06:10 08/22/17 06:10 08/21/17 08/22/17 08/23/17 05:59 05:59 05:59 Intake Total 1374 2110 Output Total 0 Balance 1374 2110 PT 13.3 SEC (12.0-15.0) 08/19/17 14:10 INR 0.99 (0.83-1.16) 08/19/17 14:10 - Physical Exam Constitutional: no apparent distress, appears nourished Eyes: PERRL, EOMI Ears, Nose, Mouth, Throat: moist mucous membranes, hearing normal Cardiovascular: regular rate and rhythym, no murmur, rub, or gallop Respiratory: no respiratory distress, clear to auscultation Gastrointestinal: normoactive bowel sounds, soft, non-tender abdomen Genitourinary: no bladder fullness, No hester in urethra Skin: warm, normal color Musculoskeletal: full muscle strength Neurologic: AAOx3 ICD10 Worksheet Patient Problems: Problems Problem Status Onset DVT (deep venous thrombosis) Acute End stage renal disease Acute Pneumonia Acute Pubic ramus fracture Acute Abdominal pain Acute Anemia Acute Chest pain Acute Contusion of jaw Acute Fever Acute Generalized weakness Acute Hyperkalemia Acute Hyperkalemia Acute Hypotension Acute Hypoxemia Acute Hypoxia Acute MRSA (methicillin resistant Staphylococcus aureus) Acute 04/04/17 Nephrostomy complication Acute Retroperitoneal fluid collection Acute UTI (urinary tract infection) Acute UTI (urinary tract infection) Acute
[2017-08-22] MEDS: HEPARIN/DEXTROSE 500 ML IV SCH (16:27)
--- NOTE | 2017-08-22 16:47 | ASMTCMCOM ---
CM Note CM Note Notes: PT/OT recommending SNF Rehab. Patient had been at [facility] before being discharged home. She may want to return there for Rehab on discharge. Patient transferred to . Date Signed: 08/22/2017 04:47 PM Electronically Signed By:Rosalba Sheets LCSW
[2017-08-22] MEDS: levOFLOXACIN 500 MG/DEXTROSE 100 ML IV SCH (17:28)
[2017-08-23] MEDS: IBUPROFEN 600 MG TAB PO PRN (01:00)
[2017-08-23] MEDS: LEVOTHYROXINE 112 MCG TAB PO SCH (05:22)
[2017-08-23] MEDS: ONDANSETRON 4 MG/2 ML VIAL IVP PRN (05:32)
[2017-08-23] MEDS: LACOSAMIDE 50 MG TAB PO SCH (09:19)
[2017-08-23] MEDS: NEPHROVITE FOLIC ACID/VIT B&C 1 TAB PO SCH (09:20)
[2017-08-23] MEDS: SENNOSIDES/DOCUSATE SODIUM TAB PO SCH ×2 (09:20→20:52)
[2017-08-23] MEDS: guaiFENesin 600 MG TAB.ER PO SCH ×2 (09:20→20:52)
[2017-08-23] MEDS: CALCIUM CARBONATE 500 MG CHEWABLE TAB PO SCH ×3 (09:20→19:13)
[2017-08-23] MEDS: NON-FORMULARY NEW DRUG (Sevelamer Carbonate [Renvela] 1,600 MG) PO SCH ×3 (09:21→19:13)
[2017-08-23] MEDS: NON-FORMULARY NEW DRUG (Escitalopram Oxalate [Lexapro] 20 MG) PO SCH (09:24)
--- NOTE | 2017-08-23 10:23 | SOAPPROG ---
SOAP Progress Note Assessment/Plan: Assessment: 1. Hyperkalemia Odd, given poor po intake and HD yesterday. Will recheck, drawing from fistula. Heparin can cause this also. HD today if needed. 2. ESRD On MWF schedule, may need today. 3. Resp Failure Better now. Avoid sedatives. 4. Sacral Wound Needs aggressive attention. 5. L Hip Prosthesis with displacement. Dr. Lowery of ortho evaluating. 6. Anemia Stable 7. LUQ pain Velma is now having some LUQ pain and nausea. Abd is soft without guarding. Monitor with serial exams and imaging if necessary. I will hold NSAIDS. 8. Case Management Winifrede requests transfer to [facility] when appropriate. Plan: 08/23/17 10:18 Subjective: In distress, weak, LUQ discomfort Objective: Vital Signs Temp Pulse Resp BP Pulse Ox 36.4 C 88 16 151/72 H 98 08/23/17 07:37 08/23/17 07:37 08/23/17 07:37 08/23/17 07:37 08/23/17 07:37 Microbiology 08/17/17 17:35 Blood Culture - Final Blood 08/17/17 17:16 Blood Culture - Final Blood Laboratory Results 08/22/17 06:10 08/22/17 06:10 08/22/17 08/23/17 08/24/17 05:59 05:59 05:59 Intake Total 2110 325 500 Output Total 0 Balance 2110 325 500 PT 13.3 SEC (12.0-15.0) 08/19/17 14:10 INR 0.99 (0.83-1.16) 08/19/17 14:10 Physical Exam - Physical Exam General Appearance: mild distress Respiratory: lungs clear Cardiac/Chest: tachycardia, systolic murmur Abdomen: non-tender, soft Extremities: normal inspection Neuro/Psych: alert ICD10 Worksheet Patient Problems: Problems Problem Status Onset DVT (deep venous thrombosis) Acute End stage renal disease Acute Pneumonia Acute Pubic ramus fracture Acute Abdominal pain Acute Anemia Acute Chest pain Acute Contusion of jaw Acute Fever Acute Generalized weakness Acute Hyperkalemia Acute Hyperkalemia Acute Hypotension Acute Hypoxemia Acute Hypoxia Acute MRSA (methicillin resistant Staphylococcus aureus) Acute 04/04/17 Nephrostomy complication Acute Retroperitoneal fluid collection Acute UTI (urinary tract infection) Acute UTI (urinary tract infection) Acute
[2017-08-23] MEDS: RITONAVIR 100 MG PO SCH ×2 (11:38→12:11)
[2017-08-23] MEDS: DARUNAVIR ETHANOLATE 800 MG PO SCH (11:39)
[2017-08-23] MEDS: ABACAVIR SULFATE 600 MG PO SCH (11:41)
[2017-08-23] MEDS: NON-FORMULARY NEW DRUG (Dolutegravir Sodium [Tivicay] 50 MG) PO SCH (11:42)
[2017-08-23] MEDS: HEPARIN/DEXTROSE 500 ML IV SCH (11:47)
--- NOTE | 2017-08-23 15:11 | HOSPPROG ---
Hospitalist Progress Note Assessment/Plan: 52 yo F w HIV, esrd here w acetabular fx, pneumonia, and now resolved hypercarbic respiratory failure AHRF: 2/2 narcs, which have been dc'd resolved CP: check ekg and trop cxr w no injury constipation: neurogenic bowel fleets and suppository somnolence: not narcotics at this point mom attributes this to vimpat i have held it at this point volume overload: will discuss volume removal w renal pneumonia: day 12/26 abx HIV: continue HAART DVT: heparin gtt until dc'd has IVC filter d/w dr wan esrd: HD on schedule acetabular fx: touch down weight bearing will need folow up studies dispo: inpt Subjective: difficulty swallowing and appears sedated. case d/w dr goff. cxr w cephalization s/o volume (interp by me) Objective: Vital Signs Temp Pulse Resp BP Pulse Ox 36.4 C 88 16 151/72 H 98 08/23/17 07:37 08/23/17 07:37 08/23/17 07:37 08/23/17 07:37 08/23/17 07:37 Microbiology 08/17/17 17:35 Blood Culture - Final Blood 08/17/17 17:16 Blood Culture - Final Blood Laboratory Results 08/22/17 06:10 08/22/17 08/23/17 08/24/17 05:59 05:59 05:59 Intake Total 2110 325 500 Output Total 0 Balance 2110 325 500 PT 13.3 SEC (12.0-15.0) 08/19/17 14:10 INR 0.99 (0.83-1.16) 08/19/17 14:10 - Physical Exam Constitutional: no apparent distress, appears nourished Eyes: PERRL, anicteric sclera Ears, Nose, Mouth, Throat: moist mucous membranes, hearing normal Cardiovascular: regular rate and rhythym, no murmur, rub, or gallop, systolic murmur Respiratory: no respiratory distress, no rales or rhonchi Gastrointestinal: normoactive bowel sounds, soft, non-tender abdomen Genitourinary: no bladder fullness, No hester in urethra Skin: warm, normal color Musculoskeletal: full muscle strength, no muscle tenderness Neurologic: AAOx3 Psychiatric: interacting appropriately, not anxious ICD10 Worksheet Patient Problems: Problems Problem Status Onset DVT (deep venous thrombosis) Acute End stage renal disease Acute Pneumonia Acute Pubic ramus fracture Acute Abdominal pain Acute Anemia Acute Chest pain Acute Contusion of jaw Acute Fever Acute Generalized weakness Acute Hyperkalemia Acute Hyperkalemia Acute Hypotension Acute Hypoxemia Acute Hypoxia Acute MRSA (methicillin resistant Staphylococcus aureus) Acute 04/04/17 Nephrostomy complication Acute Retroperitoneal fluid collection Acute UTI (urinary tract infection) Acute UTI (urinary tract infection) Acute
[2017-08-23 15:27] LABS: PLATELET COUNT 86 10^3/uL (150-400)
--- NOTE | 2017-08-23 15:33 | CPEKG ---
Heart Rate: 82 RR Interval: 732 P-R Interval: 160 QRSD Interval: 84 QT Interval: 348 QTC Interval: 407 P Gaines: 37 QRS Gaines: -3 T Wave Gaines: 47 EKG Severity - ABNORMAL ECG - EKG Impression: SINUS RHYTHM EKG Impression: MULTIPLE ATRIAL PREMATURE COMPLEXES Electronically Signed By: Ej Turner 24-Aug-2017 14:42:21
[2017-08-23] MEDS: HEPARIN 10,000 UNIT/10 ML MDV IVP PRN (17:29)
[2017-08-23] MEDS: ACETAMINOPHEN 650 MG/20.3 ML UDCUP PO PRN (20:52)
[2017-08-24] MEDS: HEPARIN 10,000 UNIT/10 ML MDV IVP PRN (00:05)
[2017-08-24] MEDS: BISACODYL 10 MG SUPP PR PRN (00:09)
[2017-08-24] MEDS ORDERED: LIDOCAINE 1% *Not for Epidural 20 ML MDV ONE (04:31)
[2017-08-24] MEDS: HEPARIN/DEXTROSE 500 ML IV SCH (04:45)
[2017-08-24] MEDS: LEVOTHYROXINE 112 MCG TAB PO SCH (05:57)
[2017-08-24 06:02] LABS: PLATELET COUNT 96 10^3/uL (150-400)
[2017-08-24] MEDS: SENNOSIDES/DOCUSATE SODIUM TAB PO SCH ×2 (08:17→22:01)
[2017-08-24] MEDS: POLYETHYLENE GLYCOL 3350 17 GM PKT PO PRN (08:18)
[2017-08-24] MEDS: guaiFENesin 600 MG TAB.ER PO SCH ×2 (08:18→22:01)
[2017-08-24] MEDS: ACETAMINOPHEN 650 MG/20.3 ML UDCUP PO PRN ×4 (08:18→22:02)
[2017-08-24] MEDS: ORAL BALANCE GEL TUBE PO PRN (08:20)
[2017-08-24] MEDS: CALCIUM CARBONATE 500 MG CHEWABLE TAB PO SCH ×2 (08:23→12:59)
[2017-08-24] MEDS: NON-FORMULARY NEW DRUG (Escitalopram Oxalate [Lexapro] 20 MG) PO SCH (08:23)
[2017-08-24] MEDS: NON-FORMULARY NEW DRUG (Sevelamer Carbonate [Renvela] 1,600 MG) PO SCH ×4 (08:24→18:23)
[2017-08-24] MEDS: NEPHROVITE FOLIC ACID/VIT B&C 1 TAB PO SCH (08:25)
--- NOTE | 2017-08-24 09:14 | SOAPPROG ---
SOAP Progress Note Assessment/Plan: Assessment: ESRD Sacral ulcer encephalopathy, better per mom's report respiratory failure improving anemia, stable hyperkalemia better today displaced hip prosthesis, ortho involved Plan: Velma's mom was present during entire interview HD tomorrow mom wants to get Velma to [place] acute care as soon as we are able wound care continue ARCHANA therapy for anemia 08/24/17 09:10 Subjective: opens eyes to her name tired this AM, didn't sleep well last night, mom says she looks better today than the past couple of days some SOB no nausea today belly feels better after BM Objective: Vital Signs Temp Pulse Resp BP Pulse Ox 36.6 C 84 12 150/78 H 93 08/24/17 07:54 08/24/17 07:54 08/24/17 07:54 08/24/17 07:54 08/24/17 07:54 Laboratory Results 08/24/17 05:50 08/23/17 14:40 08/23/17 08/24/17 08/25/17 05:59 05:59 05:59 Intake Total 325 600 Output Total 0 300 Balance 325 300 PT 13.3 SEC (12.0-15.0) 08/19/17 14:10 INR 0.99 (0.83-1.16) 08/19/17 14:10 Physical Exam - Physical Exam General Appearance: other (thin, chronically ill appearing) Neck: other (+JVD) Respiratory: No rhonchi, No wheezing Cardiac/Chest: regular rate, rhythm, edema (trace), No friction rub Abdomen: normal bowel sounds, non-tender, soft Skin: warm/dry, decubitus (sacrum) Neuro/Psych: other (arouseable, but drifts back to sleep. tired) ICD10 Worksheet Patient Problems: Problems Problem Status Onset DVT (deep venous thrombosis) Acute End stage renal disease Acute Pneumonia Acute Pubic ramus fracture Acute Abdominal pain Acute Anemia Acute Chest pain Acute Contusion of jaw Acute Fever Acute Generalized weakness Acute Hyperkalemia Acute Hyperkalemia Acute Hypotension Acute Hypoxemia Acute Hypoxia Acute MRSA (methicillin resistant Staphylococcus aureus) Acute 04/04/17 Nephrostomy complication Acute Retroperitoneal fluid collection Acute UTI (urinary tract infection) Acute UTI (urinary tract infection) Acute
--- NOTE | 2017-08-24 09:19 | SOAPPROG ---
SOGEORGE Progress Note Assessment/Plan: Assessment: Plan: 08/18/17 19:47 will be TDWB for now and will need repeat films over the next several weeks it is safe for her to roll onto her left side Subjective: Xrays reveal no change in fracture configuration suggesting stability still safe to roll from [id number] as well as TDWB on the LLE will repeat films in a week encourage calcium intake Objective: Vital Signs Temp Pulse Resp BP Pulse Ox 36.6 C 84 12 150/78 H 93 08/24/17 07:54 08/24/17 07:54 08/24/17 07:54 08/24/17 07:54 08/24/17 07:54 Laboratory Results 08/24/17 05:50 08/23/17 14:40 08/23/17 08/24/17 08/25/17 05:59 05:59 05:59 Intake Total 325 600 Output Total 0 300 Balance 325 300 PT 13.3 SEC (12.0-15.0) 08/19/17 14:10 INR 0.99 (0.83-1.16) 08/19/17 14:10 ICD10 Worksheet Patient Problems: Problems Problem Status Onset DVT (deep venous thrombosis) Acute End stage renal disease Acute Pneumonia Acute Pubic ramus fracture Acute Abdominal pain Acute Anemia Acute Chest pain Acute Contusion of jaw Acute Fever Acute Generalized weakness Acute Hyperkalemia Acute Hyperkalemia Acute Hypotension Acute Hypoxemia Acute Hypoxia Acute MRSA (methicillin resistant Staphylococcus aureus) Acute 04/04/17 Nephrostomy complication Acute Retroperitoneal fluid collection Acute UTI (urinary tract infection) Acute UTI (urinary tract infection) Acute
--- NOTE | 2017-08-24 09:51 | ASMTCMCOM ---
CM Note CM Note Notes: Referral sent to [facility], [facility] notified. They had pt a couple years ago. [facility] to review w clinical team and will notify CM. CM to follow. Date Signed: 08/24/2017 09:51 AM Electronically Signed By:EVERTON Zamora
--- NOTE | 2017-08-24 12:35 | PCMIDPN ---
Assessment/Plan: 1. Pneumonia: Patient will complete 7 days of levofloxacin today, then will discontinue. 2. HIV: Continue anti-retroviral regimen as is, but will discontinue Tums given drug interaction with Dolutegravir, and provide antiretrovirals in the morning, before 1St dose of Renagel. Subjective: complicated hospital course thus far, sincerely appreciate hospitalist assistance, and assistance of other specialists. Other at patient's bedside. She is more lucid today. 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 She is more lucid presently, and tells me "I want to get out of here. " Objective: Levofloxacin day 6/7 Vital Signs Temp Pulse Resp BP Pulse Ox 36.6 C 84 12 150/78 H 93 08/24/17 07:54 08/24/17 07:54 08/24/17 07:54 08/24/17 07:54 08/24/17 07:54 Laboratory Results 08/24/17 05:50 08/23/17 14:40 08/23/17 08/24/17 08/25/17 05:59 05:59 05:59 Intake Total 325 600 Output Total 0 300 Balance 325 300 ICD10 Worksheet Patient Problems: Problems Problem Status Onset DVT (deep venous thrombosis) Acute End stage renal disease Acute Pneumonia Acute Pubic ramus fracture Acute Abdominal pain Acute Anemia Acute Chest pain Acute Contusion of jaw Acute Fever Acute Generalized weakness Acute Hyperkalemia Acute Hyperkalemia Acute Hypotension Acute Hypoxemia Acute Hypoxia Acute MRSA (methicillin resistant Staphylococcus aureus) Acute 04/04/17 Nephrostomy complication Acute Retroperitoneal fluid collection Acute UTI (urinary tract infection) Acute UTI (urinary tract infection) Acute
[2017-08-24] MEDS: ABACAVIR SULFATE 600 MG PO SCH (12:52)
[2017-08-24] MEDS: DARUNAVIR ETHANOLATE 800 MG PO SCH (12:52)
[2017-08-24] MEDS: RITONAVIR 100 MG PO SCH (12:53)
[2017-08-24] MEDS: NON-FORMULARY NEW DRUG (Dolutegravir Sodium [Tivicay] 50 MG) PO SCH (12:59)
--- NOTE | 2017-08-24 13:58 | HOSPPROG ---
Hospitalist Progress Note Assessment/Plan: 52 yo F w HIV, esrd here w acetabular fx, pneumonia, and now resolved hypercarbic respiratory failure AHRF: query 2/2 narcs, which have been dc'd. Still desats occasionally to the 60s, ?URI vs PNA / mucus plugging needs sleep study cont atbx for pna add scheduled duonebs constipation: neurogenic bowel fleets and suppository somnolence: not narcotics at this point mom attributes this to vimpat, which has been held at her request volume overload: 3L off yesterday pneumonia: day 01/26 abx HIV: continue HAART DVT: heparin gtt d/c'd today due to some hemoptysis and oozing from dialysis catheter. AC previously held due to fall risk and was not planned to be continued at dc esrd: HD on schedule, qod acetabular fx: touch down weight bearing will need folow up studies dispo: inpt, transfer to [place] [facility] tomorrow if respiratory status remains stable Subjective: Pt doing ok, but complains of some pain. No fevers. Per RN, has desatted briefly to the 70's, but comes back up. Objective: Vital Signs Temp Pulse Resp BP Pulse Ox 36.6 C 84 12 150/78 H 93 08/24/17 07:54 08/24/17 07:54 08/24/17 07:54 08/24/17 07:54 08/24/17 07:54 Laboratory Results 08/24/17 05:50 08/23/17 14:40 08/23/17 08/24/17 08/25/17 05:59 05:59 05:59 Intake Total 325 600 Output Total 0 300 Balance 325 300 PT 13.3 SEC (12.0-15.0) 08/19/17 14:10 INR 0.99 (0.83-1.16) 08/19/17 14:10 - Physical Exam Constitutional: no apparent distress Eyes: PERRL Ears, Nose, Mouth, Throat: moist mucous membranes Cardiovascular: regular rate and rhythym Respiratory: no respiratory distress Gastrointestinal: normoactive bowel sounds, soft, non-tender abdomen Skin: warm Musculoskeletal: generalized weakness Neurologic: AAOx3 Psychiatric: interacting appropriately ICD10 Worksheet Patient Problems: Problems Problem Status Onset DVT (deep venous thrombosis) Acute End stage renal disease Acute Pneumonia Acute Pubic ramus fracture Acute Abdominal pain Acute Anemia Acute Chest pain Acute Contusion of jaw Acute Fever Acute Generalized weakness Acute Hyperkalemia Acute Hyperkalemia Acute Hypotension Acute Hypoxemia Acute Hypoxia Acute MRSA (methicillin resistant Staphylococcus aureus) Acute 04/04/17 Nephrostomy complication Acute Retroperitoneal fluid collection Acute UTI (urinary tract infection) Acute UTI (urinary tract infection) Acute
--- NOTE | 2017-08-24 15:38 | ASMTCMCOM ---
CM Note CM Note Notes: Glynn in admissions for [facility] ([phone]) reports they can accept pt. Hospital doctor Blair would like pt to d/c tomorrow, Glynn states they will have a bed tomorrow. Pt is assigned to Juan Harrell [phone] and assigned to room 314. RN report is [phone]. Pt scheduled for dialysis tomorrow, Glynn requests pt transport is scheduled after dialysis. Pt mother updated and agrees to take pt HIV meds to [place] [facility] per their request. CM to follow. Date Signed: 08/24/2017 03:38 PM Electronically Signed By:EVERTON Zamora
[2017-08-24] MEDS: levOFLOXACIN 500 MG/DEXTROSE 100 ML IV SCH (16:02)
[2017-08-24] MEDS: IPRATROPIUM/ALBUTEROL 3 ML DEYVIAL IH SCH ×2 (16:19→20:50)
[2017-08-25 04:53] LABS: PLATELET COUNT 94 10^3/uL (150-400)
[2017-08-25] MEDS ORDERED: NON-FORMULARY NEW DRUG (Dolutegravir Sodium [Tivicay] 50 MG) PO SCH (06:00)
[2017-08-25] MEDS: IPRATROPIUM/ALBUTEROL 3 ML DEYVIAL IH SCH ×2 (06:14→12:24)
[2017-08-25] MEDS ORDERED: IBUPROFEN 200 MG TAB PO PRN (07:15)
[2017-08-25] MEDS: LEVOTHYROXINE 112 MCG TAB PO SCH ×2 (07:23→11:58)
[2017-08-25] MEDS: NON-FORMULARY NEW DRUG (Sevelamer Carbonate [Renvela] 1,600 MG) PO SCH ×3 (07:41→12:08)
[2017-08-25] MEDS ORDERED: traMADol 50 MG TAB PO PRN (08:25)
--- NOTE | 2017-08-25 08:34 | PDIAF ---
- Diagnosis Diagnosis: ESRD, chronic hypoxemia Code Status: Full Code - Medication Management Discharge Medications: Medications to Continue on Transfer Abacavir Sulfate [Ziagen] 600 mg PO DAILY@02/23/13 [Last Taken 08/16/17] Darunavir Ethanolate [PREZISTA] 800 mg PO DAILY@02/23/13 [Last Taken 08/16/17 ] Escitalopram Oxalate [Lexapro] 20 mg PO DAILY 07/29/15 [Last Taken 08/17/17] Ritonavir [Norvir] 100 mg PO DAILY@12 07/29/15 [Last Taken 08/16/17] Sevelamer Carbonate [Renvela] 1,600 mg PO TIDMEAL 07/30/15 [Last Taken 08/17/17] Dolutegravir Sodium [Tivicay] 50 mg PO DAILY@12 04/28/16 [Last Taken 08/16/17] Acetaminophen [Tylenol 325mg (*)] 650 mg PO Q4HRS PRN tab 05/09/17 [Last Taken Unknown] Folic Acid/Vitamin B Comp W-C [Renavit Tablet] 1 each PO DAILY 07/25/17 [Last Taken 08/17/17] Herbals/Supplements -Info Only 1 ea PO DAILY 07/25/17 [Last Taken Unknown] Levothyroxine [Synthroid 112 mcg (*)] 112 mcg PO DAILY06 07/25/17 [Last Taken ] Chlorzoxazone 500 mg PO TID PRN 08/17/17 [Last Taken 08/17/17] guaiFENesin [Mucinex 600 MG (*)] 1,200 mg PO BID 08/17/17 [Last Taken 08/17/17] Ibuprofen [Motrin (*)] 400 mg PO Q8H PRN #60 tab 08/25/17 [Last Taken Unknown] Sennosides/Docusate Sodium [Senokot-S] 1 - 2 tab PO BID #60 tab 08/25/17 [Last Taken Unknown] traMADol [Ultram 50 mg (*)] 25 mg PO Q6H PRN #60 tab 08/25/17 [Last Taken Unknown] Discharge Medications: Refer to the Discharge Home Medication list for PRN reason. - Orders Services needed: Registered Nurse, Physical Therapy, Occupational Therapy Isolation Type: Contact Isolation Oxygen: CPAP at night or 4-5 LPM by face mask at night, nasal cannula during day. Diet Recommendation: other (Renal diet, potassium restricted) Diet Texture: Regular Texture Diet, Thin Liquids, Meds Whole in Puree Wound Care Instructions: see attached, needs ongoing wound care evaluation and treatment of sacral pressure injury Additional: Needs sleep study, evaluation for sleep apnea, HS CPAP per RT in the meantime - Follow Up Care Current Providers and Referrals: Adam Villalobos MD [Primary Care Provider] - As per Instructions
[2017-08-25 08:42] VITALS: BP 185/71; TEMP 98.6; O2SAT 95
--- NOTE | 2017-08-25 09:22 | GDS ---
[f rep st] DISCHARGE SUMMARY DIAGNOSES: 1. Acute on chronic hypoxemic and hypercarbic respiratory failure secondary to pneumonia, and possib ly hastened by opioids. 2. Acetabular fracture. No surgical intervention, touchdown weightbearing status. 3. End-stage renal disease, on hemodialysis. 4. Deep venous thrombosis with an inferior vena cava filter in place. 5. Human immunodeficiency virus on highly active antiretroviral therapy. 6. Sacral pressure injury, stage IV. 7. History of Guillain-[place]. 8. Frequent falls. 9. Anemia secondary to renal disease. 10. Hypertension. 11. Hyperlipidemia. 12. Depression. CONSULTANTS: 1. Dr. Rubin Hernández, Nephrology. 2. Dr. Kera Lowery, Orthopedic Surgery. 3. Dr. Rubin Rodriguez, Pulmonology. 4. Dr. Soha Kearney, Infectious Disease. HISTORY: For details, please see dictated history and physical dated August 17, 2017. In brief, margarita arcos patient is a 52-year-old female with a complicated medical history including HIV, end-stage renal disease, history of Guillain-[place], recurrent sacral pressure injuries and frequent falls, who presen karen to the emergency department with left hip pain, fever, and shortness of breath. Earlier in [facility], she had suffered a fall at which time a pubic ramus fracture was identified. She was discharged to the [facility] in [place] and went home on August 12. A week later, she developed f ever, weakness and increasing pain in her left hip, followed by another fall. In the emergency depar tment, right lower lobe pneumonia was diagnosed. A pelvic CT was performed showing a new lucency con sistent with an acetabular fracture, as well as old fractures in the left inferior and right superior pubic rami. She was admitted to the hospital for further management. HOSPITAL COURSE: The patient was admitted to the Medical/Surgical unit initially. She was treated w ith Rocephin and Zithromax for her pneumonia. Orthopedic Surgery consultation was obtained. No surg ical intervention was planned. She is made touchdown weightbearing status. She was continued on her regular dialysis regimen and Nephrology was consulted for management of her end-stage renal disease. Given her history of DVT with an IVC filter in place, she was not initially anticoagulated. Lorna issa, a heparin drip was started during hospitalization. She then developed a small amount of hemoptysi s and oozing from her dialysis catheter site. Heparin drip was discontinued for this reason. It has been documented in the past that she is not a candidate for anticoagulation due to her frequent fall s. She received opioids for pain control. On hospital day 3, she was found unresponsive with a pCO2 of 89 and a low pH. She received Narcan and responded well, and was transferred to the ICU. She di d require BiPAP overnight and was noted to be intermittently somnolent. Opioids and benzodiazepines were discontinued and her respiratory status improved. However, it is noted that she does have some episodes of oxygen desaturations during the night. Nursing notes report that sometimes her nasal can nula becomes dislodged and apneic spells are also described. I suspect she may have sleep apnea and she should undergo a sleep study either at the [facility] or as an outpatient. In the meantime, I recommend nasal CPAP, although her mother does not want her to have this. If they re fuse the empiric CPAP to prevent apneic spells and desaturations, then I would place her on an OxyMas k at 4-5 L while sleeping. She did complete 7 days of antibiotics for her pneumonia. She has remain ed afebrile and her white blood cell count has normalized. The patient is stable for transfer to [facility] [place], which is where her mother wishes for her to go. Also of note, her mother has requested her Vimpat to be discontinued as she feels that this is also contributing to her somnol ence. The patient has not had any seizures while off the Vimpat, though will require close monitorin g, and consider resuming this should she develop any seizures. I discussed the risk of recurrent sei zures with her mother, and she continues to refuse the Vimpat. In addition, she was also found to have a stage IV sacral pressure injury, and this is the main reaso n her mother wished for her to transfer to [facility], where she has felt they have received excellent wound care in the past. She was followed by our wound care team and will need ongoing wou nd care upon transfer. DISPOSITION: Patient is discharged to [facility] in stable condition. FOLLOWUP: 1. Dr. Adam Villalobos, primary care. 2. Dr. Kera Lowery or orthopedic surgeon at [facility] for ongoing evaluation of her acetabul ar and pubic rami fractures. 3. Nephrology for ongoing dialysis needs. Her current dialysis regimen is Tuesday, Tuesday, Tuesday . 4. Outpatient sleep study to evaluate for sleep. DISCHARGE MEDICATIONS: Please see Tailored for completed outpatient medication list. New medication s on discharge include: 1. Ibuprofen 400 mg p.o. q.8 hours p.r.n., #60, no refills. This was cleared by Nephrology. 2. Senokot 1-2 tablets p.o. b.i.d., #60, no refills. 3. Tramadol 25 mg p.o. q.6 hours p.r.n., #60, no refills. She will continue all other outpatient medications as previously prescribed. Discontinued medicines include: Vimpat, per the mother's request, and oxycodone. /[id number]/MODL
[2017-08-25] MEDS ORDERED: IBUPROFEN 200 MG TAB PO ONE (10:08)
[2017-08-25] MEDS: NON-FORMULARY NEW DRUG (Escitalopram Oxalate [Lexapro] 20 MG) PO SCH (10:36)
[2017-08-25] MEDS: SENNOSIDES/DOCUSATE SODIUM TAB PO SCH ×2 (10:37→11:57)
[2017-08-25] MEDS: NEPHROVITE FOLIC ACID/VIT B&C 1 TAB PO SCH (10:37)
[2017-08-25] MEDS: guaiFENesin 600 MG TAB.ER PO SCH ×2 (10:37→11:58)
--- NOTE | 2017-08-25 10:49 | SOAPPROG ---
SOAP Progress Note Assessment/Plan: Assessment: ESRD Sacral ulcer encephalopathy, better today respiratory failure improving anemia, stable hyperkalemia better today displaced hip prosthesis, ortho involved, still having pain, using ibuprofen Plan: Velma's mom was present during entire interview HD today mom wants to get Velma to [place] acute care as soon as we are able wound care wants to stay on TTS HD schedule at rehab 08/24/17 09:10 08/25/17 10:46 Subjective: Still with a lot of hip pain no cp nausea or vomiting appetite not great energy and strength are poor SOB overall better Objective: Vital Signs Temp Pulse Resp BP Pulse Ox 37.0 C 88 14 185/71 H 95 08/25/17 08:40 08/25/17 08:40 08/25/17 08:40 08/25/17 08:40 08/25/17 08:40 Laboratory Results 08/25/17 04:45 08/25/17 04:45 08/24/17 08/25/17 08/26/17 05:59 05:59 05:59 Intake Total 600 540 Output Total 300 Balance 300 540 PT 13.3 SEC (12.0-15.0) 08/19/17 14:10 INR 0.99 (0.83-1.16) 08/19/17 14:10 Physical Exam - Physical Exam General Appearance: thin, other (more alert today) Respiratory: rales, No rhonchi, No wheezing, No pleural rub Cardiac/Chest: regular rate, rhythm, No friction rub Abdomen: normal bowel sounds, non-tender, soft Extremities: other (tender hip on left, poor ROM) Neuro/Psych: alert, oriented x 3 ICD10 Worksheet Patient Problems: Problems Problem Status Onset DVT (deep venous thrombosis) Acute End stage renal disease Acute Pneumonia Acute Pubic ramus fracture Acute Abdominal pain Acute Anemia Acute Chest pain Acute Contusion of jaw Acute Fever Acute Generalized weakness Acute Hyperkalemia Acute Hyperkalemia Acute Hypotension Acute Hypoxemia Acute Hypoxia Acute MRSA (methicillin resistant Staphylococcus aureus) Acute 04/04/17 Nephrostomy complication Acute Retroperitoneal fluid collection Acute UTI (urinary tract infection) Acute UTI (urinary tract infection) Acute
[2017-08-25] MEDS: POLYETHYLENE GLYCOL 3350 17 GM PKT PO PRN (11:57)
[2017-08-25] MEDS: ABACAVIR SULFATE 600 MG PO SCH (12:06)
[2017-08-25] MEDS: RITONAVIR 100 MG PO SCH (12:07)
[2017-08-25] MEDS: DARUNAVIR ETHANOLATE 800 MG PO SCH (12:07)
[2017-08-25 12:31] VITALS: PULSE 94; RESP 18
[2017-08-25] MEDS ORDERED: oxyCODONE IR 5 MG TAB PO PRN (12:54)
[2017-08-25] MEDS ORDERED: LIDOCAINE 1% *Not for Epidural 20 ML MDV ONE (13:03)
--- NOTE | 2017-08-25 14:15 | ASMTCMCOM ---
CM Note CM Note Notes: Pt medically stable for d/c to [facility], orders sent in Allscripts. Pt had dialysis this am. [employer] transport scheduled for 01:30, pcs in chart and provided to [facility]. Pt mother updated. Date Signed: 08/25/2017 02:15 PM Electronically Signed By:EVERTON Zamora
--- NOTE | 2017-08-25 14:16 | ASDISCHSUM ---
Discharge Information Plan Status:LTAC Medically Cleared to Leave: Discharge Date:08/25/2017 02:02 PM CM D/C Disposition:[facility] ADT D/C Disposition:[facility] Projected Discharge Date:08/25/2017 11:00 AM Transportation at D/C:ALS/BLS Discharge Delay Reason: Follow-Up Date:08/25/2017 11:00 AM Discharge Slot: Final Diagnosis: Placement Information Referral Type:[facility] Referral ID:[id number] Provider Name:[facility] Address 1:[address] Address 2: City:[place] Selection Factors: State:[place] Patient Contact Information Contact Name:CONSTANZAMAGDA Relationship:Mother Address:[address] City:[place] Phone: State/Zip Code:[place] [address] Email: Financial Information Financial Class: Primary Plan Desc:MEDICARE INPATIENT Primary Plan Number:[id number] Secondary Plan Desc:MEDICAID [place] Secondary Plan Number:[id number] Assessment Information [facility] CM Progress Note CM Note CM Note Notes: Pt has complex medical hx (refer to H&P), here w/PNA and has had recent pubic remus fx for which she did rehab at [facility] and was dc'd from there 08/12 to home. Pt Mother, Anuja, very involved. DC needs not clear yet but will likely need CM involvement. Pt will have ortho consult. CM will follow. Date Signed: 08/18/2017 12:47 PM Electronically Signed By:Agatha Melendez RN [facility] CM Progress Note CM Note CM Note Notes: Pt had change in medical status and moved to ICU. CM to follow. Date Signed: 08/19/2017 02:39 PM Electronically Signed By:EVERTON Zamora [facility] CM Progress Note CM Note CM Note Notes: PT/OT recommending SNF Rehab. Patient had been at [facility] before being discharged home. She may want to return there for Rehab on discharge. Patient transferred to . Date Signed: 08/22/2017 04:47 PM Electronically Signed By:Rosalba Sheets LCSW [facility] CM Progress Note CM Note CM Note Notes: [facility]. Glynn to review w clinical team and will notify CM. CM to follow. Date Signed: 08/24/2017 09:51 AM Electronically Signed By:EVERTON Zamora [facility] CM Progress Note CM Note CM Note Notes: Glynn in admissions for [facility] ([phone]) reports they can accept pt. Hospital doctor Blair would like pt to d/c tomorrow, Glynn states they will have a bed tomorrow. Pt is assigned to Juan Harrell [phone] and assigned to room 314. RN report is [phone]. Pt scheduled for dialysis tomorrow, Glynn requests pt transport is scheduled after dialysis. Pt mother updated and agrees to take pt HIV meds to [place] [facility] per their request. CM to follow. Date Signed: 08/24/2017 03:38 PM Electronically Signed By:EVERTON Zamora [facility] CM Progress Note CM Note CM Note Notes: Pt medically stable for d/c to [facility], orders sent in [employer]. Pt had dialysis this am. [employer] Stretcher transport scheduled for 01:30, pcs in chart and provided to LIVIER. Pt mother updated. Date Signed: 08/25/2017 02:15 PM Electronically Signed By:EVERTON Zamora Intervention Information
== END 2017-08-25 14:02 | disposition short-term general hospital (02) | DRG 193 ==
LOC: F3N 17:41 → F2N 08-19 14:49 → F3N 08-22 12:46
PROVIDERS: ADMIT Internal Medicine Pulmonary Disease; ATTEND Internal Medicine Pulmonary Disease
PROC: 30233N1 Transfusion of Nonautologous Red Blood Cells into Peripheral Vein, Percutaneous Approach (ICD-10-PCS; 2017-08-18)
PROC: 02HV33Z Insertion of Infusion Device into Superior Vena Cava, Percutaneous Approach (ICD-10-PCS; principal; 2017-08-19)
PROC: 5A1D80Z Performance of Urinary Filtration, Prolonged Intermittent, 6-18 hours Per Day (ICD-10-PCS; 2017-08-19)
DX: J18.1 Lobar pneumonia, unspecified organism (principal); J96.21 Acute and chronic respiratory failure with hypoxia; L89.154 Pressure ulcer of sacral region, stage 4; J96.22 Acute and chronic respiratory failure with hypercapnia; S32.465A Nondisplaced associated transverse-posterior fracture of left acetabulum, initial encounter for closed fracture; N18.6 End stage renal disease; I12.0 Hypertensive chronic kidney disease with stage 5 chronic kidney disease or end stage renal disease; S32.592A Other specified fracture of left pubis, initial encounter for closed fracture; Z21 Asymptomatic human immunodeficiency virus [HIV] infection status; R29.6 Repeated falls; D63.1 Anemia in chronic kidney disease; E87.5 Hyperkalemia; F32.9 Major depressive disorder, single episode, unspecified; Z86.718 Personal history of other venous thrombosis and embolism; G35 Multiple sclerosis; E03.9 Hypothyroidism, unspecified; W05.0XXA Fall from non-moving wheelchair, initial encounter; Z99.2 Dependence on renal dialysis; Z99.3 Dependence on wheelchair; N31.9 Neuromuscular dysfunction of bladder, unspecified; M48.02 Spinal stenosis, cervical region; E21.3 Hyperparathyroidism, unspecified; T40.605A Adverse effect of unspecified narcotics, initial encounter
CPT/HCPCS: 85520-90; 92526-GN; 92610-GN; 96374; 97162-GP; 97166-GO; 97530-GO; 97530-GP; 97535-GO; C1751; G8978-GP-CK; G8979-GP-CJ; G8987-GO-CM; G8988-GO-CJ; G8996-GN-CI; G8997-GN-CH; G8998-GN-CH; J0696; J1170; J1644; J1953; J1956; J2310; J2405; P9016

== ENCOUNTER → 2017-08-17 | Outpatient (CLI) | payer OTHER, MEDICAID | LOC: FLAB 09:39 | PROVIDERS: ATTEND Internal Medicine | DX: J98.11 Atelectasis (principal); I51.7 Cardiomegaly; R59.0 Localized enlarged lymph nodes ==

== ENCOUNTER 2017-12-30 14:38 | Emergency (ER) | payer OTHER, MEDICAID ==
[2017-12-30 15:10] LABS: PLATELET COUNT 151 10^3/uL (150-400)
--- NOTE | 2017-12-30 15:21 | EDPHY ---
H & P Time Seen by Provider: 12/30/17 14:56 HPI/ROS: HPI Low hemoglobin. 52-year-old female by private vehicle with her mother. This patient has a complicated past medical history. Please see below. She has a history of anemia secondary to chronic renal failure. She receives transfusions at a transfusion center at [facility] 3 to 4 times a year. She got a call from her hemodialysis center where she was on Tuesday that her hemoglobin was 6.9. She tried to get in to her transfusion center this afternoon but they had no appointments available. She presents to the emergency department for evaluation of anemia but otherwise has no other complaints. She reports that she is transfused at this center and then sent home. She did not undergo hemodialysis today. She is scheduled for Tuesday at her dialysis center. She will also be seen again at her transfusion center at [facility] on Tuesday. ROS: Constitutional: No fever, no chills. No weakness. Eyes: No discharge. No changes in vision. ENT: No sore throat. No nasal congestion or rhinorrhea. Respiratory: No cough. No shortness of breath. Cardiac: No chest pain, no palpitations. Gastrointestinal: No abdominal pain, no vomiting, no diarrhea. Genitourinary: No hematuria. No dysuria or increased frequency with urination. Musculoskeletal: No back pain. No neck pain. No myalgias or arthralgias. Skin: No rashes. Neurological: No headache. No focal weakness or altered sensation. Past medical history: HIV, hyperlipidemia, hypertension, depression, end-stage renal disease with hemodialysis on Tuesday and Tuesday, Guillain-[place] syndrome, chronic anemia secondary to end-stage kidney disease which requires routine transfusions every several months, frequent nephrolithiasis and urinary tract infections. Social history: She currently lives with her mother and is present with her mother. Nonsmoker. No alcohol. Her mother is very active in her care. Physical Exam: General Appearance: Alert, no distress. This patient is responding to questions appropriately and in full sentences. This patient appears well- hydrated and well-nourished. Eyes: Pupils equal and round no pallor or injection. No lid edema, erythema or injection. Respiratory: There are no retractions, lungs are clear to auscultation with good air movement bilaterally. Cardiovascular: Regular rate and rhythm. No murmur. Gastrointestinal: Abdomen is soft and nontender, no masses, bowel sounds normal. No focal tenderness at McBurney's point. No Larson sign. Neurological: Motor sensory function is grossly intact. Cranial nerves are normal. Skin: Warm and dry, no rashes. Musculoskeletal: Neck is supple and nontender. Extremities are symmetrical. All joints range without pain or impingement. Psychiatric: No agitation. No depression. Database: EKG: Imaging: Procedures: Emergency department course: Vital signs reviewed and are normal. IV was placed. She was placed on a monitor. She has been typed and screened here from previous admissions. Hemoglobin 7.0 with a hematocrit of 22.2 today. Plan will be to transfuse her 1 unit of PRBCs and she will be rechecked on Tuesday at her transfusion center or through her panman, Dr. Ho or 1 of his partners. 3:35 p.m., patient re-evaluated. Resting comfortably at this time. Vital signs reviewed and are normal. Discussed results of CBC and hemoglobin of 7.0. She consents for transfusion of 1 unit of PRBC. This has been ordered. 5:00 p.m., the patient has been transfused 1 unit of type specific PRBCs. No complications. She feels comfortable going home at this time. Plan will be to have her follow up at her transfusion center with her panman on Tuesday for re-evaluation and repeat H&H. She will also be dialyzed at this time. Her basic metabolic panel shows a baseline creatinine and a normal potassium. She feels comfortable going home with her mother. Return to emergency department precautions have been reviewed with both of them. All of their questions were answered. The patient was discharged in good condition. Differential Diagnosis: The differential diagnosis on this patient includes but is not limited to anemia secondary to chronic kidney disease. Coagulopathy, hemorrhage, iron deficiency anemia unlikely. This represents a partial list of diagnoses considered. These considerations are based on history, physical exam, past history, reassessment and diagnostic testing. Smoking Status: Never smoked Constitutional: Initial Vital Signs Temperature (C) 36.7 C 12/30/17 14:40 Heart Rate 79 12/30/17 14:40 Respiratory Rate 16 12/30/17 14:40 Blood Pressure 103/60 12/30/17 14:40 O2 Sat (%) 96 05/11/18 14:40 O2 Delivery Mode Room Air Allergies/Adverse Reactions: ertapenem sodium [From Invanz] Allergy (Intermediate, Verified 07/25/17 10:05) Rash, neck and throat swelling vancomycin [Vancomycin] Allergy (Intermediate, Verified 07/25/17 10:05) Swelling/neck,face,throat doxycycline Allergy (Verified 07/25/17 10:05) hydroxyzine HCl [From Atarax] Allergy (Verified 07/25/17 10:05) keflin Allergy (Uncoded 05/06/17 09:34) FLU SHOTS Adverse Reaction (Uncoded 05/06/17 09:34) RT POOR KIDNEY FUNCTION AVOIDS Home Medications: Medication Instructions Recorded Abacavir Sulfate [Ziagen] 600 mg PO DAILY@12 02/23/13 Darunavir Ethanolate [PREZISTA] 800 mg PO DAILY@02/23/13 Escitalopram Oxalate [Lexapro] 20 mg PO DAILY 07/29/15 Ritonavir [Norvir] 100 mg PO DAILY@12 07/29/15 Sevelamer Carbonate [Renvela] 1,600 mg PO TIDMEAL 07/30/15 Dolutegravir Sodium [Tivicay] 50 mg PO DAILY@12 04/28/16 Acetaminophen [Tylenol 325mg (*)] 650 mg PO Q4HRS PRN tab 05/09/17 Folic Acid/Vitamin B Comp W-C 1 each PO DAILY 07/25/17 [Renavit Tablet] Herbals/Supplements -Info Only 1 ea PO DAILY 07/25/17 Levothyroxine [Synthroid 112 mcg 112 mcg PO DAILY06 07/25/17 (*)] Chlorzoxazone 500 mg PO TID PRN 08/17/17 guaiFENesin [Mucinex 600 MG (*)] 1,200 mg PO BID 08/17/17 Ibuprofen [Motrin (*)] 400 mg PO Q8H PRN #60 tab 08/25/17 Sennosides/Docusate Sodium 1 - 2 tab PO BID #60 tab 08/25/17 [Senokot-S] traMADol [Ultram 50 mg (*)] 25 mg PO Q6H PRN #60 tab 08/25/17 Medical Decision Making - Data Points Laboratory Results: Laboratory Results 12/30/17 14:58 12/30/17 14:58 Departure - Departure Disposition: Home, Routine, Self-Care Clinical Impression: Anemia, Chronic renal failure Condition: Good Instructions: Chronic Kidney Disease (ED), Anemia (ED), Blood Transfusion (DC) Additional Instructions: Read and follow provided instructions. Follow-up with your panman or at your transfusion center on Tuesday as discussed for re-evaluation and repeat of your hemoglobin and hematocrit. You will also need to be dialyzed on Tuesday without fail. Continue your medication as prescribed. Return to the emergency department for lightheadedness, shortness of breath, worsening symptoms or other serious concerns. Referrals: Brandon Ho MD [Medical Doctor] - As per Instructions
[2017-12-30 15:24] LABS: INR 0.98 (0.83-1.16); PROTIME(PATIENT) 13.2 SEC (12.0-15.0)
[2017-12-30 16:32] VITALS: BP 117/69
== END 2017-12-30 17:34 | disposition home or self-care (01) ==
PROC: 30233N1 Transfusion of Nonautologous Red Blood Cells into Peripheral Vein, Percutaneous Approach (ICD-10-PCS; principal; 2017-12-30)
DX: D64.9 Anemia, unspecified (principal); I12.0 Hypertensive chronic kidney disease with stage 5 chronic kidney disease or end stage renal disease; N18.6 End stage renal disease; B20 Human immunodeficiency virus [HIV] disease
CPT/HCPCS: 36430; 99285; P9016; P9040

== ENCOUNTER 2018-01-13 16:16 | Emergency (ER) | payer OTHER, MEDICAID ==
[2018-01-13 16:29] VITALS: BP 133/76
== END 2018-01-13 18:32 | disposition left against medical advice (07) ==
DX: Z53.21 Procedure and treatment not carried out due to patient leaving prior to being seen by health care provider (principal)

== ENCOUNTER 2018-01-14 08:56 | Observation (INO) | payer OTHER, MEDICAID ==
--- NOTE | 2018-01-14 09:29 | EDPHY ---
H & P Stated Complaint: requesting "blood transfusion" low hemoglobin at dialysis 01/13 , fatigue Time Seen by Provider: 01/14/18 09:14 HPI/ROS: CHIEF COMPLAINT: Severe anemia HISTORY OF PRESENT ILLNESS: 52-year-old female with end-stage renal disease and chronic anemia presents with generalized weakness. She usually receives blood transfusions every 2 weeks because of a severe anemia. Hemoglobin 1 week ago was 7. She has been trying to schedule a transfusion as an outpatient, but has been unable to do so. Gradually increasing weakness over the past week, unable to perform her usual activities of daily living. Last transfusion was 2 weeks ago. Dialysis schedule is Wednesdays and Fridays. Last dialysis was yesterday. No fever or recent illness. REVIEW OF SYSTEMS: complete 10 point ROS negative except at noted in the HPI - Personal History LMP (Females 10-55): Post Menopausal Tetanus Vaccine Date: 2010 - Medical/Surgical History Hx Asthma: No Hx Chronic Respiratory Disease: No Hx Diabetes: No Hx Cardiac Disease: No Hx Renal Disease: Yes Hx Cirrhosis: No Hx Alcoholism: No Hx HIV/AIDS: Yes Hx Splenectomy or Spleen Trauma: No Other PMH: pmh- neurogenic bladder, [place], anemia, ESRD w/ dialysis, hyperparathyroidism, HIV+, sacral decub 08/05 until 06/06., hydronephrosis, htn. psh- tonsillectomy, cholecystectomy, LFA fistula, left hip replacement, uterine ablation, L nephrectomy 04/14/17 at [facility], L nephrostomy tube - Social History Smoking Status: Never smoked - Physical Exam Exam: General Appearance: Alert, pleasant, pale Eyes: Pupils equal and round, conjunctival pallor ENT, Mouth: Mucous membranes moist, lips pale Neck: Normal inspection Respiratory: Lungs are clear to auscultation Cardiovascular: Regular rate and rhythm Gastrointestinal: Abdomen is soft and nontender Neurological: A&O, nonfocal exam Skin: Warm and dry Extremities: Nontender, no pedal edema Psychiatric: Mood and affect normal Constitutional: Initial Vital Signs Temperature (C) 37.0 C 01/14/18 09:04 Heart Rate 89 01/14/18 09:04 Respiratory Rate 16 01/14/18 09:04 O2 Sat (%) 85 L 01/14/18 09:04 O2 Delivery Mode Room Air Allergies/Adverse Reactions: ertapenem sodium [From Invanz] Allergy (Intermediate, Verified 05/25/18 16:26) Rash, neck and throat swelling vancomycin [Vancomycin] Allergy (Intermediate, Verified 01/13/18 16:26) Swelling/neck,face,throat doxycycline Allergy (Verified 01/13/18 16:26) hydroxyzine HCl [From Atarax] Allergy (Verified 01/13/18 16:26) keflin Allergy (Uncoded 05/06/17 09:34) FLU SHOTS Adverse Reaction (Uncoded 05/06/17 09:34) RT POOR KIDNEY FUNCTION AVOIDS Home Medications: Medication Instructions Recorded Abacavir Sulfate [Ziagen] 600 mg PO DAILY@12 02/23/13 Darunavir Ethanolate [PREZISTA] 800 mg PO DAILY@02/23/13 Escitalopram Oxalate [Lexapro] 20 mg PO DAILY 07/29/15 Ritonavir [Norvir] 100 mg PO DAILY@12 07/29/15 Sevelamer Carbonate [Renvela] 1,600 mg PO TIDMEAL 07/30/15 Dolutegravir Sodium [Tivicay] 50 mg PO DAILY@12 04/28/16 Acetaminophen [Tylenol 325mg (*)] 650 mg PO Q4HRS PRN tab 05/09/17 Folic Acid/Vitamin B Comp W-C 1 each PO DAILY 07/25/17 [Renavit Tablet] Herbals/Supplements -Info Only 1 ea PO DAILY 07/25/17 Chlorzoxazone 500 mg PO TID PRN 08/17/17 guaiFENesin [Mucinex 600 MG (*)] 1,200 mg PO BID 08/17/17 Ibuprofen [Motrin (*)] 400 mg PO Q8H PRN #60 tab 08/25/17 Sennosides/Docusate Sodium 1 - 2 tab PO BID #60 tab 08/25/17 [Senokot-S] traMADol [Ultram 50 mg (*)] 25 mg PO Q6H PRN #60 tab 08/25/17 Fluticasone Nasal [Flonase Nasal 1 sprays NASAL HS 01/14/18 [place]] Levothyroxine [Synthroid 200 mcg 200 mcg PO DAILY06 01/14/18 (*)] Omeprazole 20 mg PO DAILY 01/14/18 SUMAtriptan [Imitrex 50 MG (*)] 25 mg PO DAILY PRN 01/14/18 amLODIPine BESYLATE [Amlodipine 5 mg PO SUTUTHSA@09 01/14/18 Besylate] hydrALAZINE [Apresoline] 25 mg PO MOWEFR PRN 01/14/18 levETIRAcetam [Keppra 500 mg (*)] 500 mg PO DAILY 01/14/18 Medical Decision Making ED Course/Re-evaluation: This pt presents with severe anemia related to ESRD. IV access is quite challenging in this pt, and it took multiple tries to obtain adequate IV access. No evidence of acute hemorrhage. 1 u PRBC ordered. The hospitalist service was consulted for admission. Differential Diagnosis: includes though not limited to hemolysis, hemorrhage, aplastic anemia Departure - Departure Disposition: [facility] Inpatient Acute Clinical Impression: End stage renal disease, Anemia of chronic renal failure, stage 4 (severe) Condition: Fair
[2018-01-14] MEDS ORDERED: ALTEPLASE 2 MG VIAL IVP PRN (11:20)
[2018-01-14 12:23] LABS: PLATELET COUNT 119 10^3/uL (150-400)
[2018-01-14 12:24] VITALS: BP 137/74
--- NOTE | 2018-01-14 16:28 | ASMTLACE ---
GRANTE Acuity / Level of Answers: No Care: Did the patient have an inpatient admission? Comorbidities - select Answers: Moderate or severe liver all that apply or renal disease Other Notes: chronic anemia, HIV+ # of Emergency department Answers: 5-8 visits in the last 6 months Score: 9 Date Signed: 01/14/2018 04:27 PM Electronically Signed By:Enid Denson RN
--- NOTE | 2018-01-14 16:33 | ASMTCMCOM ---
CM Note CM Note Notes: Pt presented to the ED through triage with her mother, Anuja Arnold ([phone]) for weakness and stating she needs a blood transfusion. Pt admitted for a transfusion, continued monitoring. Pt was going to possibly have a PICC placed but a 22g IV access was eventually obtained and since pt didn't want the PICC (she hopes to get a port placed with Dr Tineo soon), the PICC order was canceled (& also after the ED RN, ED CTL and ED Provider discuss that hospital policy does allow for blood transfusion through a 22g IV). Pt had been to the ED 12/30/17 and received a blood transfusion in the ED and discharged home. There was confusion as to why pt didn't receive the transfusion in the ED and then discharge home as before, especially since pt did not want to be admitted. Hopefully patient will receive the needed blood transfusion, remain stable and discharge home. Pt was admitted to [facility] 08/17-08/25/17 and discharged to [facility]. Pt was discharged from [facility] to [facility] in [place]; while she was staying there she was receiving outpatient transfusions every 2 wks through [facility]. Anuja states pt was d/c'd from [facility] to her apartment on [address], where she lives independently. Anuja helps her out a lot with various needs; Anuja has been trying to get pt set up with an outpatient infusion clinic in [place] for transfusions, but has had difficulty. Anuja says she has been talking to [facility] and was told that pt would need to be established with a office receptionist in order to schedule outpt transfusions at [facility]. Anuja says she is hoping to get pt established with Dr Gaona or Dr Rhonda Wadsworth this upcoming week. Pt receives dialysis at [facility] on Tue, Tue, and Tuesday, but because of the holiday weekend, pt is scheduled to receive dialysis tomorrow. Pt's roll finisher is Dr Brandon Ho. Pt states she is transferring dialysis care to [facility] office on 01/23/18. Pt also has a ongoing sacral pressure injury and is followed by at the [facility] clinic. Pt also has a customer service sales associate through [facility] (P: [phone], F: [phone]). Pt's PCP is Dr Adam Villalobos. Anticipate pt to receive blood transfusion and either discharge later tonight or early tomorrow. CM to follow. Reviewed chart and it appears pt was discharged home. Date Signed: 01/14/2018 04:32 PM Electronically Signed By:Enid Denson RN
--- NOTE | 2018-01-14 20:34 | GDS ---
[f rep st] DISCHARGE SUMMARY DISCHARGE DIAGNOSES: 1. Anemia of chronic disease, admitted for transfusion, now canceled. 2. History of end-stage renal disease, on hemodialysis. 3. History of Guillain-[place], now wheelchair bound. 4. History of human immunodeficiency virus. 5. History of deep venous thrombosis. 6. History of frequent falls. 7. History of decubitus ulcers. 8. Hypertension. 9. Dyslipidemia. 10. Depression. 11. Recent multiple hospitalizations due to small-bowel obstructions, cellulitis, and Clostridium di fficile. These were all at [facility]. 12. History of seizure, on Aranesp and Epogen. BRIEF HISTORY: The patient was seen in the ED for transfusion. This was not done due to poor IV acc ess. Patient declines getting PICC line placement. She will follow up with an outpatient surgeon fo r placement of port due to her poor IV access. DISCHARGE MEDICATIONS: Please see medication reconciliation. She will be discharged on all her home medications, which include sumatriptan, hydralazine, amlodipine, omeprazole, fluticasone, Keppra, le vothyroxine, chlorzoxazone, Tylenol, Ziagen, Prezista, folic acid, Daniela-Roberto, Lexapro, Tivicay, ibupr ofen, Renvela, Senokot, Norvir, tramadol, and guaifenesin. PHYSICAL EXAM: VITAL SIGNS: On day of discharge, blood pressure 137/74, heart rate of 90, respirati ons 91% on room air. Temp of 98.5 degrees Fahrenheit. GENERAL: She is a pleasant female in no apparent distress. HEENT: Head is normocephalic, atraumatic. Eyes are without scleral icter us. HEART: Regular rate and rhythm with a 2 to 3/6 systolic ejection murmur. LUNGS: Clear. LABORATORY DATA: CBC with WBC is 2.94, hemoglobin 7.1, hematocrit 22.4, platelet count 119. BMP wit h sodium 139, potassium 5, chloride 97, CO2 is 30, BUN 41, creatinine 3.3, glucose of 79. RESULTS PENDING: None. DIET: Per previous. ACTIVITY: As tolerated. DISCHARGE INSTRUCTIONS: Follow up with General Surgery as outpatient. /[id number]/MODL
== END 2018-01-14 16:04 | disposition home or self-care (01) ==
LOC: F1N 12:15
PROVIDERS: ADMIT Internal Medicine; ATTEND Internal Medicine
DX: D63.8 Anemia in other chronic diseases classified elsewhere (principal); N18.6 End stage renal disease; G61.0 Guillain-Barre syndrome; I10 Essential (primary) hypertension; E78.5 Hyperlipidemia, unspecified; F32.9 Major depressive disorder, single episode, unspecified; B20 Human immunodeficiency virus [HIV] disease; Z99.2 Dependence on renal dialysis; Z99.3 Dependence on wheelchair; Z86.718 Personal history of other venous thrombosis and embolism; Z91.81 History of falling; Z86.69 Personal history of other diseases of the nervous system and sense organs
CPT/HCPCS: G0378; P9016

== ENCOUNTER 2018-01-17 14:25 | Inpatient (IN) | payer OTHER, MEDICAID ==
[2018-01-17] MEDS ORDERED: BUPIVACAINE 0.5% 30 ML SDV ONE (15:05)
--- NOTE | 2018-01-17 15:35 | PDHPUP ---
History & Physical Update H&P update statement: This history and physical update is based on an assessment of the patient which was completed after admission or registration (within 24 hours), but prior to the surgery/procedure. H&P update: H&P reviewed & patient examined, no change in patient's condition since H&P completed (patient seen and examined in clinic earlier today and again in preop)
[2018-01-17] MEDS ORDERED: fentaNYL 100 MCG/2 ML INJ ONE (15:48)
[2018-01-17] MEDS ORDERED: PROPOFOL 200 MG/20 ML VIAL ONE (15:48)
[2018-01-17] MEDS ORDERED: LIDOCAINE 2% 100 MG/5 ML SYR ONE (15:49)
--- NOTE | 2018-01-17 15:58 | PDANEPAE ---
ANE Past Medical History - Cardiovascular History Hx Hypertension: Yes Hx Arrhythmias: No Hx Coronary Artery / Peripheral Vascular Disease: No Hx CHF / Valvular Disease: No Cardiovascular History Comment: HYPERLIPIDEMIA - Pulmonary History Hx COPD: No Hx Asthma/Reactive Airway Disease: No Hx Recent Upper Respiratory Infection: No Hx Oxygen in Use at Home: No Hx Sleep Apnea: Yes Pulmonary History Comment: TRACHEAOSTOMY 1981 - Neurologic History Hx Cerebrovascular Accident: No Hx Seizures: No Hx Dementia: No Neurologic History Comment: HX OF GUILLAIN-BARRE W/ RESIDUAL DEFICITS AND CHRONIC NEUROPATHY, FREQUENT MIGRAINES, - Endocrine History Hx Diabetes: No Endocrine History Comment: HYPERPARATHYROIDISM - Renal History Hx Renal Disorders: Yes Renal History Comment: STAGE IV CHRONIC KIDNEY DISEASE, FREQUENT UTIS, NEUROGENIC BLADDER S/P GUILLIAN BARRE, NEPHROSTOMY TUBE, CHROMIC INDWELLING SUPRAPUBIC CATHETER, ATROPHIC RIGHT KIDNEY - Liver History Hx Hepatic Disorders: Yes - Neurological & Psychiatric Hx Hx Neurological and Psychiatric Disorders: Yes Neurological / Psychiatric History Comment: DEPRESSION, MIGRAINES, HX OF GUILLAIN-BARRE 1981, PARTIAL LOWER EXTREMITY PARALYSIS - Cancer History Hx Cancer: No - Congenital Disorder History Hx Congenital Disorders: No - GI History Hx Gastrointestinal Disorders: No - Other Health History Other Health History: HIV+, LEFT HIP DYSPLASIA, HX SKIN DECUBS SACRAL - Chronic Pain History Chronic Pain: No - Surgical History Prior Surgeries: ANKLE SURGERY, LEFT KNEE ARTHROSCOPY, TOSILLECTOMY, TRACHEOSTOMY, CHOLECYSTECTOMY, LEFT TOTAL HIP, SUPRAPUBIC CATHETER PLACEMENT, NEPHROSTOMY TUBE PLACEMENT, TUBAL LIGATION, MUTIPLE LEFT EXTREMITY FAILED AV FISTUAL ATTEMPTS ANE Review of Systems Review of Systems: - Exercise capacity Exercise capacity: limited by disability ANE Patient History - Allergies Allergies/Adverse Reactions: ertapenem sodium [From Invanz] Allergy (Intermediate, Verified 01/13/18 16:26) Rash, neck and throat swelling vancomycin [Vancomycin] Allergy (Intermediate, Verified 01/13/18 16:26) Swelling/neck,face,throat doxycycline Allergy (Verified 01/13/18 16:26) hydroxyzine HCl [From Atarax] Allergy (Verified 01/13/18 16:26) keflin Allergy (Uncoded 05/06/17 09:34) FLU SHOTS Adverse Reaction (Uncoded 05/06/17 09:34) RT POOR KIDNEY FUNCTION AVOIDS - Home Medications Home medications: home medication list seen and reviewed Home Medications: Abacavir Sulfate [Ziagen] 600 mg PO DAILY@12 02/23/13 [Last Taken 08/16/17] Darunavir Ethanolate [PREZISTA] 800 mg PO DAILY@02/23/13 [Last Taken 08/16/17 ] Escitalopram Oxalate [Lexapro] 20 mg PO DAILY 07/29/15 [Last Taken 08/17/17] Ritonavir [Norvir] 100 mg PO DAILY@07/29/15 [Last Taken 08/16/17] Sevelamer Carbonate [Renvela] 1,600 mg PO TIDMEAL 07/30/15 [Last Taken 08/17/17] Dolutegravir Sodium [Tivicay] 50 mg PO DAILY@04/28/16 [Last Taken 08/16/17] Folic Acid/Vitamin B Comp W-C [Renavit Tablet] 1 each PO DAILY 07/25/17 [Last Taken 08/17/17] Herbals/Supplements -Info Only 1 ea PO DAILY 07/25/17 [Last Taken Unknown] Chlorzoxazone 500 mg PO TID PRN 08/17/17 [Last Taken 08/17/17] guaiFENesin [Mucinex 600 MG (*)] 1,200 mg PO BID 08/17/17 [Last Taken 08/17/17] Fluticasone Nasal [Flonase Nasal [place]] 1 sprays NASAL HS 01/14/18 [Last Taken Unknown] Levothyroxine [Synthroid 200 mcg (*)] 200 mcg PO DAILY06 01/14/18 [Last Taken Unknown] Omeprazole 20 mg PO DAILY 01/14/18 [Last Taken Unknown] SUMAtriptan [Imitrex 50 MG (*)] 25 mg PO DAILY PRN 01/14/18 [Last Taken Unknown] amLODIPine BESYLATE [Amlodipine Besylate] 5 mg PO SUTUTHSA@01/14/18 [Last Taken Unknown] hydrALAZINE [Apresoline] 25 mg PO MOWEFR PRN 01/14/18 [Last Taken Unknown] levETIRAcetam [Keppra 500 mg (*)] 500 mg PO DAILY 01/14/18 [Last Taken Unknown] - NPO status NPO Status: no food or drink >8 hours NPO Since - Liquids (Date): 01/16/18 NPO Since - Liquids (Time): 18:00 NPO Since - Solids (Date): 01/16/18 NPO Since - Solids (Time): 18:00 - Anes Hx Anes Hx: post operative nausea - Smoking Hx Smoking Status: Never smoked - Alcohol Use Alcohol Use: None - Family Anes Hx Family Anes Hx: none Family Hx Anesthesia Complications: NONE ANE Labs/Vital Signs - Labs Result Diagrams: 01/17/18 15:40 01/17/18 15:40 - Vital Signs Blood Pressure: 147/88 Heart Rate: 86 Respiratory Rate: 16 O2 Sat (%): 4 Height: 172.72 cm Weight: 54.431 kg ANE Physical Exam - Airway Neck exam: FROM Mallampati Score: Class 2 Mouth exam: normal dental/mouth exam - Pulmonary Pulmonary: no respiratory distress, clear to auscultation - Cardiovascular Cardiovascular: regular rate and rhythym, no murmur, rub, or gallop - ASA Status ASA Status: IV ANE Anesthesia Plan Anesthesia Plan: GA w LMA
[2018-01-17 16:01] LABS: PLATELET COUNT 184 10^3/uL (150-400)
[2018-01-17] MEDS ORDERED: CEFAZOLIN 2 GM/DEXTROSE/100 ML BAG IV ONE (16:05)
[2018-01-17] MEDS ORDERED: NS 1,000 ML IV ONE (16:15)
[2018-01-17] MEDS ORDERED: ceFAZolin 2 GM/DEXTROSE 100 ML IV ONE (16:30)
[2018-01-17] MEDS ORDERED: LIDOCAINE 1% *Not for Epidural 20 ML MDV ONE (20:00)
--- NOTE | 2018-01-17 20:34 | SOAPPROG ---
SOAP Progress Note Assessment/Plan: Assessment: 1. HyperK: will dialyze tonight for definitive treatment. Recent blood transfusions likely contributing. Low K diet. 2. esrd: typical schedule is mwf but last dialyzed Sun due to [place]. Hd this evening as above, I would expect that she could then wait until Tuesday for next treatment. 3. Anemia: multiple transfusions recently, for port placement due to access issues. Presumably this will be done tomorrow. Plan: 01/17/18 20:29 Subjective: Esrd on hd MWF at [facility]. Difficulty with iv access and requiring transfusions recently due to anemia, so planned for outpt port placement today. Pre-op labs revealed K 6.8 so OR cancelled and pt admitted. No ekg changes, repeat K 6.2 prior to any medical therapy. Currently on dialysis. Fatigued and non-communicative. Objective: Vital Signs Temp Pulse Resp BP Pulse Ox 36.7 C 78 16 134/63 H 99 01/17/18 19:01 01/17/18 19:01 01/17/18 19:01 01/17/18 19:01 01/17/18 19:01 Laboratory Results 01/17/18 15:40 01/17/18 17:30 Physical Exam - Physical Exam General Appearance: no apparent distress Neck: other (+jvd) Respiratory: lungs clear (anteriorly) Cardiac/Chest: regular rate, rhythm Abdomen: soft Extremities: swelling (dependent/LE) ICD10 Worksheet Patient Problems: Problems Problem Status Onset Abdominal pain Acute Anemia Acute Anemia of chronic renal failure, stage 4 (severe) Acute Chest pain Acute Contusion of jaw Acute DVT (deep venous thrombosis) Acute End stage renal disease Acute Fever Acute Generalized weakness Acute Hyperkalemia Acute Hyperkalemia Acute Hypotension Acute Hypoxemia Acute Hypoxia Acute MRSA (methicillin resistant Staphylococcus aureus) Acute 04/04/17 Nephrostomy complication Acute Pneumonia Acute Pubic ramus fracture Acute Retroperitoneal fluid collection Acute UTI (urinary tract infection) Acute UTI (urinary tract infection) Acute
[2018-01-18] MEDS: ACETAMINOPHEN 325 MG TAB PO PRN (00:07)
--- NOTE | 2018-01-18 07:48 | SOAPPROG ---
SOAP Progress Note Assessment/Plan: Assessment/Plan: 52 Y F multiple comorbidities including ESRD on HD, now with anemia requiring transfusions and better IV access. Admitted for port placement yesterday. Surgery postponed 2/2 hyperkalemia. HD last night. Appreciate renal input and care. Plan for OR today for port placement with fluoroscopic guidance if medically cleared. Await hospitalist's input and clearance. Will get BMP this am. S: one word answers. says she didn't have HD last night but she did. mentation not at baseline. O: somnolent but arousable, not oriented. ctab rrr abd soft 01/18/18 07:45 Objective: Vital Signs Temp Pulse Resp BP Pulse Ox 36.7 C 88 12 129/68 H 98 01/18/18 04:00 01/18/18 04:00 01/18/18 04:00 01/18/18 04:00 01/18/18 04:00 Laboratory Results 01/17/18 15:40 01/17/18 17:30 01/17/18 01/18/18 01/19/18 05:59 05:59 05:59 Output Total 2300 Balance -2300 ICD10 Worksheet Patient Problems: Problems Problem Status Onset Abdominal pain Acute Anemia Acute Anemia of chronic renal failure, stage 4 (severe) Acute Chest pain Acute Contusion of jaw Acute DVT (deep venous thrombosis) Acute End stage renal disease Acute Fever Acute Generalized weakness Acute Hyperkalemia Acute Hyperkalemia Acute Hypotension Acute Hypoxemia Acute Hypoxia Acute MRSA (methicillin resistant Staphylococcus aureus) Acute 04/04/17 Nephrostomy complication Acute Pneumonia Acute Pubic ramus fracture Acute Retroperitoneal fluid collection Acute UTI (urinary tract infection) Acute UTI (urinary tract infection) Acute
--- NOTE | 2018-01-18 11:11 | SOAPPROG ---
SOAP Progress Note Assessment/Plan: Assessment: 52 y/o F with a known h/o ESRD on HD who presented for port- placement and was found to be anemia, s/p transfusion and HD. Plan for OR today. ESRD on HD MWF -patient of [facility] HD -plan for HD prior to discharge Anemia -chronic issue and was previously getting transfusions q2 weeks -Hb 7.3 last week, and surprised by 8.1 on 01/17, will repeat stat and most likely needs transfusion on HD today if <8mg/dL -followed by [facility], port placement for transfusions -OR today, appreciated -will avoid EPO given h/o seizures on this med Hyperkalemia -chronic issue, patient is non-compliant with diet -modulate with HD -renal diet and keep on telemetry BMD -continue phos binder and sensipar -monitor labs with HD Altered mental status -unclear etiology and no obvious infection -will hold Keppra and monitor 01/18/18 12:04 Subjective: Patient has been very sleepy since Tuesday. Mother thinks keppra may be contributing vs anemia. She is shocked by the Hb yesterday. Patient is dozing off periodically and denies infectious symptoms. Objective: Vital Signs Temp Pulse Resp BP Pulse Ox 36.4 C 75 20 107/59 L 2 L 01/18/18 07:48 01/18/18 07:48 01/18/18 07:48 01/18/18 07:48 01/18/18 07:48 Laboratory Results 01/17/18 15:40 01/18/18 08:20 01/17/18 01/18/18 01/19/18 05:59 05:59 05:59 Output Total 2300 Balance -2300 Physical Exam - Physical Exam General Appearance: WD/WN, mild distress, thin, other (sleepy) EENT: PERRL/EOMI Neck: non-tender, supple Respiratory: chest non-tender, decreased breath sounds Cardiac/Chest: regular rate, rhythm Abdomen: normal bowel sounds, non-tender, soft Skin: normal color, warm/dry Extremities: normal range of motion, non-tender Neuro/Psych: no motor/sensory deficits, depressed affect ICD10 Worksheet Patient Problems: Problems Problem Status Onset Abdominal pain Acute Anemia Acute Anemia of chronic renal failure, stage 4 (severe) Acute Chest pain Acute Contusion of jaw Acute DVT (deep venous thrombosis) Acute End stage renal disease Acute Fever Acute Generalized weakness Acute Hyperkalemia Acute Hyperkalemia Acute Hypotension Acute Hypoxemia Acute Hypoxia Acute MRSA (methicillin resistant Staphylococcus aureus) Acute 04/04/17 Nephrostomy complication Acute Pneumonia Acute Pubic ramus fracture Acute Retroperitoneal fluid collection Acute UTI (urinary tract infection) Acute UTI (urinary tract infection) Acute
[2018-01-18] MEDS ORDERED: BUPIVACAINE 0.5% 30 ML SDV ONE (12:37)
--- NOTE | 2018-01-18 13:06 | PDANEPAE ---
ANE History of Present Illness here for port placement ANE Past Medical History - Cardiovascular History Hx Hypertension: Yes Hx Arrhythmias: No Hx Coronary Artery / Peripheral Vascular Disease: No Hx CHF / Valvular Disease: No Cardiovascular History Comment: HYPERLIPIDEMIA - Pulmonary History Hx COPD: No Hx Asthma/Reactive Airway Disease: No Hx Recent Upper Respiratory Infection: No Hx Oxygen in Use at Home: No Hx Sleep Apnea: Yes Sleep Apnea Screening Result - Last Documented: Negative Pulmonary History Comment: TRACHEAOSTOMY 1981 - Neurologic History Hx Cerebrovascular Accident: No Hx Seizures: No Hx Dementia: No Neurologic History Comment: HX OF GUILLAIN-BARRE W/ RESIDUAL DEFICITS AND CHRONIC NEUROPATHY, FREQUENT MIGRAINES, - Endocrine History Hx Diabetes: No Endocrine History Comment: HYPERPARATHYROIDISM - Renal History Hx Renal Disorders: Yes Renal History Comment: STAGE IV CHRONIC KIDNEY DISEASE, FREQUENT UTIS, NEUROGENIC BLADDER S/P GUILLIAN BARRE, NEPHROSTOMY TUBE, CHROMIC INDWELLING SUPRAPUBIC CATHETER, ATROPHIC RIGHT KIDNEY - Liver History Hx Hepatic Disorders: Yes - Neurological & Psychiatric Hx Hx Neurological and Psychiatric Disorders: Yes Neurological / Psychiatric History Comment: DEPRESSION, MIGRAINES, HX OF GUILLAIN-BARRE 1981, PARTIAL LOWER EXTREMITY PARALYSIS - Cancer History Hx Cancer: No - Congenital Disorder History Hx Congenital Disorders: No - GI History Hx Gastrointestinal Disorders: No - Other Health History Other Health History: HIV+, LEFT HIP DYSPLASIA, HX SKIN DECUBS SACRAL - Chronic Pain History Chronic Pain: No - Surgical History Prior Surgeries: ANKLE SURGERY, LEFT KNEE ARTHROSCOPY, TOSILLECTOMY, TRACHEOSTOMY, CHOLECYSTECTOMY, LEFT TOTAL HIP, SUPRAPUBIC CATHETER PLACEMENT, NEPHROSTOMY TUBE PLACEMENT, TUBAL LIGATION, MUTIPLE LEFT EXTREMITY FAILED AV FISTUAL ATTEMPTS ANE Review of Systems Review of Systems: - Exercise capacity Exercise capacity: <4 METS METS (RN): 1 METS ANE Patient History - Allergies Allergies/Adverse Reactions: ertapenem sodium [From Invanz] Allergy (Intermediate, Verified 01/13/18 16:26) Rash, neck and throat swelling vancomycin [Vancomycin] Allergy (Intermediate, Verified 01/13/18 16:26) Swelling/neck,face,throat doxycycline Allergy (Verified 01/13/18 16:26) hydroxyzine HCl [From Atarax] Allergy (Verified 01/13/18 16:26) keflin Allergy (Uncoded 05/06/17 09:34) FLU SHOTS Adverse Reaction (Uncoded 05/06/17 09:34) RT POOR KIDNEY FUNCTION AVOIDS - Home Medications Home medications: home medication list seen and reviewed Home Medications: Abacavir Sulfate [Ziagen] 600 mg PO DAILY@02/23/13 [Last Taken 01/16/18] Darunavir Ethanolate [PREZISTA] 800 mg PO DAILY@02/23/13 [Last Taken 01/16/18 ] Escitalopram Oxalate [Lexapro] 20 mg PO DAILY 07/29/15 [Last Taken 08/17/17] Ritonavir [Norvir] 100 mg PO DAILY@07/29/15 [Last Taken 01/16/18] Sevelamer Carbonate [Renvela] 1,600 mg PO TIDMEAL 07/30/15 [Last Taken 08/17/17] Dolutegravir Sodium [Tivicay] 50 mg PO DAILY@04/28/16 [Last Taken 08/16/17] Folic Acid/Vitamin B Comp W-C [Renavit Tablet] 1 each PO DAILY 07/25/17 [Last Taken 08/17/17] Herbals/Supplements -Info Only 1 ea PO DAILY 07/25/17 [Last Taken Unknown] Chlorzoxazone 500 mg PO TID PRN 08/17/17 [Last Taken 08/17/17] guaiFENesin [Mucinex 600 MG (*)] 1,200 mg PO BID PRN 08/17/17 [Last Taken ] Fluticasone Nasal [Flonase Nasal [place]] 1 sprays NASAL HS 01/14/18 [Last Taken Unknown] Levothyroxine [Synthroid 200 mcg (*)] 200 mcg PO DAILY06 01/14/18 [Last Taken Unknown] Omeprazole 20 mg PO DAILY 01/14/18 [Last Taken Unknown] SUMAtriptan [Imitrex 50 MG (*)] 50 mg PO DAILY PRN 01/14/18 [Last Taken Unknown] amLODIPine BESYLATE [Amlodipine Besylate] 5 mg PO SUTUTHSA@01/14/18 [Last Taken Unknown] hydrALAZINE [Apresoline] 25 mg PO DAILY PRN 01/14/18 [Last Taken Unknown] levETIRAcetam [Keppra 500 mg (*)] 500 mg PO DAILY 01/14/18 [Last Taken 01/16/18] Cinacalcet HCl [Sensipar (*)] 30 mg PO MOWEFR 01/17/18 [Last Taken 01/16/18] Sevelamer Carbonate [Renvela] 800 mg PO DAILY PRN 01/17/18 [Last Taken Unknown] - NPO status NPO Since - Liquids (Date): 01/18/18 NPO Since - Liquids (Time): 09:00 NPO Since - Solids (Date): 01/18/18 NPO Since - Solids (Time): 00:00 - Smoking Hx Smoking Status: Never smoked - Alcohol Use Alcohol Use: None - Family Anes Hx Family Hx Anesthesia Complications: NONE ANE Labs/Vital Signs - Labs Result Diagrams: 01/18/18 12:30 01/18/18 08:20 - Vital Signs Blood Pressure: 95/54 Heart Rate: 79 Respiratory Rate: 14 O2 Sat (%): 100 Height: 172.72 cm Weight: 54 kg ANE Physical Exam - Airway Neck exam: FROM Mallampati Score: Class 1 Mouth exam: dentures - Pulmonary Pulmonary: no respiratory distress - Cardiovascular Cardiovascular: regular rate and rhythym - ASA Status ASA Status: IV ANE Anesthesia Plan Anesthesia Plan: GA w LMA
[2018-01-18] MEDS ORDERED: PROPOFOL 200 MG/20 ML VIAL ONE (13:47)
[2018-01-18] MEDS ORDERED: fentaNYL 100 MCG/2 ML INJ ONE (13:47)
[2018-01-18] MEDS ORDERED: NALOXONE HCL 0.4 MG/ML INJ IVP PRN (14:05)
[2018-01-18] MEDS ORDERED: fentaNYL 100 MCG/2 ML INJ IVP PRN (14:05)
[2018-01-18] MEDS ORDERED: ONDANSETRON 4 MG/2 ML VIAL IVP PRN (14:05)
[2018-01-18] MEDS ORDERED: PHENYLEPHRINE HCL 100 MCG/ML SYR ONE (14:12)
[2018-01-18] MEDS ORDERED: hydrALAZINE 25 MG TAB PO PRN (15:12)
[2018-01-18] MEDS ORDERED: IBUPROFEN 200 MG TAB PO PRN (15:12)
[2018-01-18] MEDS ORDERED: traMADol 50 MG TAB PO PRN (15:12)
[2018-01-18] MEDS ORDERED: SUMAtriptan 50 MG TAB PO PRN (15:12)
[2018-01-18] MEDS ORDERED: guaiFENesin 600 MG TAB.ER PO PRN (15:12)
[2018-01-18] MEDS ORDERED: CHLORZOXAZONE 500 MG PO PRN (15:12)
[2018-01-18] MEDS ORDERED: CINACALCET HCL 30 MG TAB PO SCH (15:15)
--- NOTE | 2018-01-18 15:36 | WOCRNPDOC ---
WOCRN Advanced Assessment Note - Skin Integrity Problem, Advanced Assess Coccyx Pressure Injury Dressing Type: Allevyn Life Dressing Description: Intact, Shadowed Exudate Amount: Minimal Exudate Color: [place] Exudate Characteristic(s): Serosanguinous Integumentary Issue Intervention: Visualized Under Dressing Elizabeth Wound Tissue: Erythema, Scarred, Calloused Elizabeth Wound Swelling: None Wound Bed Color: Purple, Red, Yellow Wound Bed Constitution: Granulation Tissue (60%), Undermining (0.5cm undermining from 3-4 o'clock), Adhered Slough (40%) Wound Edges: Not Attached, Epibole, Scarred, Thick Site Odor: Slight Site Measurement - Head-to-Toe Length X Width X Depth (cm): 3x2.1x0.6 Pressure Injury Stage: Stage 4 Pressure Injury Present on Admit: Yes Skin Integrity Problem Comment: Reopened Stage 4 full thickness down to subcutaneous layers pressure injury present upon admission. Suspect after debridement wound could be down to fascia or bone. Autolytic debridement will be initiated. Recommend/requested general surgery consult for possible debridement. Will round again on Tuesday (or early next week).
--- NOTE | 2018-01-18 16:02 | HOSPPROG ---
Hospitalist Progress Note Assessment/Plan: 52 yo F w esrd, HIV here for tunneled catheter; hyperkalemia noted hyperkalemia: has improved HD per renal decubitus: wound care HIV: continue TOMPKINS anemia: no need for transfusion esrd: per renal dispo: inpt Subjective: s/p tunneled catheter Objective: Vital Signs Temp Pulse Resp BP Pulse Ox 36.1 C 67 11 L 97/56 L 99 01/18/18 15:46 01/18/18 15:27 01/18/18 15:46 01/18/18 15:46 01/18/18 15:46 Laboratory Results 01/18/18 12:30 01/18/18 08:20 01/17/18 01/18/18 01/19/18 05:59 05:59 05:59 Output Total 2300 Balance -2300 - Physical Exam Constitutional: no apparent distress, appears nourished Eyes: PERRL, anicteric sclera Ears, Nose, Mouth, Throat: moist mucous membranes, hearing normal Cardiovascular: regular rate and rhythym, no murmur, rub, or gallop Respiratory: no respiratory distress, no rales or rhonchi Gastrointestinal: normoactive bowel sounds, soft, non-tender abdomen Genitourinary: no bladder fullness, No hester in urethra Skin: warm, normal color, other (decubitus, present on admit) Musculoskeletal: full muscle strength ICD10 Worksheet Patient Problems: Problems Problem Status Onset Abdominal pain Acute Anemia Acute Anemia of chronic renal failure, stage 4 (severe) Acute Chest pain Acute Contusion of jaw Acute DVT (deep venous thrombosis) Acute End stage renal disease Acute Fever Acute Generalized weakness Acute Hyperkalemia Acute Hyperkalemia Acute Hypotension Acute Hypoxemia Acute Hypoxia Acute MRSA (methicillin resistant Staphylococcus aureus) Acute 04/04/17 Nephrostomy complication Acute Pneumonia Acute Pubic ramus fracture Acute Retroperitoneal fluid collection Acute UTI (urinary tract infection) Acute UTI (urinary tract infection) Acute
--- NOTE | 2018-01-18 16:27 | ASMTCMCOM ---
CM Note CM Note Notes: 01/18/2018 Case Management Note Discussed pt with RN. Pt was admitted for port placement today. Pt has been off the floor for the majority of the afternoon. Case Management to meet with pt and her mother tomorrow. Case Management d/c poc: to be determined. Date Signed: 01/18/2018 04:26 PM Electronically Signed By:Brittany Haynes RN
[2018-01-18] MEDS ORDERED: Darunavir Ethanolate [Prezista] 800 MG PO SCH (19:00)
[2018-01-18] MEDS ORDERED: ABACAVIR SULFATE 600 MG PO SCH (19:00)
[2018-01-18] MEDS ORDERED: Ritonavir [Norvir] 100 MG PO SCH (19:00)
[2018-01-18] MEDS ORDERED: Dolutegravir Sodium [Tivicay] 50 MG PO SCH (19:00)
[2018-01-18] MEDS: Sevelamer Carbonate [Renvela] 800 MG PO PRN (19:42)
[2018-01-18] MEDS: levETIRAcetam 500 MG TAB PO SCH (19:43)
[2018-01-18] MEDS: SEVELAMER CARBONATE 800 MG PO SCH (19:44)
[2018-01-18] MEDS ORDERED: FLUTICASONE NASAL 120 SPRAYS/16 GM MDI EACHNARE SCH (21:00)
[2018-01-19] MEDS ORDERED: LEVOTHYROXINE 200 MCG TAB PO SCH (06:00)
[2018-01-19] MEDS: Sevelamer Carbonate [Renvela] 800 MG PO PRN (07:40)
[2018-01-19] MEDS: SEVELAMER CARBONATE 800 MG PO SCH ×2 (08:23→12:18)
[2018-01-19] MEDS: levETIRAcetam 500 MG TAB PO SCH (08:24)
--- NOTE | 2018-01-19 08:25 | POSTANESTH ---
Post Anesthetic Evaluation Cardiovascular Status: Normal, Stable Respiratory Status: Normal, Stable Level of Consciousness/Mental Status: Can Participate in Eval Pain Control: Adequate, Prn Tx Ordered Nausea/Vomiting Control: Adequate, Prn Tx Ordered Complications Possibly Related to Anesthesia: None Noted
[2018-01-19] MEDS ORDERED: NON-FORMULARY NEW DRUG (Omeprazole [Omeprazole] 20 MG) PO SCH (09:00)
[2018-01-19] MEDS ORDERED: NON-FORMULARY NEW DRUG (Escitalopram Oxalate [Lexapro] 20 MG) PO SCH (09:00)
[2018-01-19] MEDS ORDERED: amLODIPine BESYLATE 5 MG TAB PO SCH (09:00)
[2018-01-19] MEDS ORDERED: Herbals/Supplements -Info Only PO SCH (09:00)
[2018-01-19] MEDS ORDERED: PANTOPRAZOLE SODIUM 40 MG TAB PO SCH (09:00)
[2018-01-19] MEDS ORDERED: NEPHROVITE FOLIC ACID/VIT B&C 1 TAB PO SCH (09:00)
[2018-01-19] MEDS ORDERED: ESCITALOPRAM OXALATE 10 MG TAB PO SCH (09:00)
--- NOTE | 2018-01-19 09:33 | SOAPPROG ---
SOAP Progress Note Assessment/Plan: Assessment: 52 y/o F with a known h/o ESRD on HD who presented for port- placement and was found to be anemia, s/p transfusion and HD. Plan for OR today. ESRD on HD MWF -patient of [facility] HD -may discharge today to return to regular shift tomorrow Anemia -chronic issue and was previously getting transfusions q2 weeks -Hb up to 8.4g/dL yesterday, no transfusion -followed by [facility], port placement for transfusions -OR today, appreciated -will avoid EPO given h/o seizures on this med Hyperkalemia -chronic issue, patient is non-compliant with diet -modulated with HD, K 4.1 this am -renal diet BMD -continue phos binder and sensipar -monitor labs with HD Somnolence -unclear etiology and no obvious infection -will hold Keppra and monitor 01/19/18 09:31 Subjective: Patient got port and dialyzed yesterday. Still having sleepiness. Excited that Hb improving. Objective: Vital Signs Temp Pulse Resp BP Pulse Ox 36.8 C 84 10 L 105/57 L 100 01/19/18 07:27 01/19/18 07:27 01/19/18 07:27 01/19/18 07:27 01/19/18 07:27 Laboratory Results 01/18/18 12:30 01/18/18 08:20 01/18/18 01/19/18 01/20/18 05:59 05:59 05:59 Intake Total 300 Output Total 2300 505 Balance -2300 -205 Physical Exam - Physical Exam General Appearance: WD/WN, thin EENT: PERRL/EOMI Neck: non-tender, supple Respiratory: chest non-tender, decreased breath sounds Cardiac/Chest: regular rate, rhythm, edema Abdomen: normal bowel sounds, non-tender Skin: pallor Extremities: normal range of motion, non-tender Neuro/Psych: oriented x 3, cognition abnormalities, depressed affect ICD10 Worksheet Patient Problems: Problems Problem Status Onset Abdominal pain Acute Anemia Acute Anemia of chronic renal failure, stage 4 (severe) Acute Chest pain Acute Contusion of jaw Acute DVT (deep venous thrombosis) Acute End stage renal disease Acute Fever Acute Generalized weakness Acute Hyperkalemia Acute Hyperkalemia Acute Hypotension Acute Hypoxemia Acute Hypoxia Acute MRSA (methicillin resistant Staphylococcus aureus) Acute 04/04/17 Nephrostomy complication Acute Pneumonia Acute Pubic ramus fracture Acute Retroperitoneal fluid collection Acute UTI (urinary tract infection) Acute UTI (urinary tract infection) Acute
--- NOTE | 2018-01-19 10:12 | ASMTCMCOM ---
CM Note CM Note Notes: 01/19/2018 Case Management Note Met w/pt and her Mom Anuja. Pt is currently living independently in her apartment with support from her Mom. Pt is dialyzed MWF at [facility] Pt currently using [facility] application support consultant PT OT twice a week. Faxed updates to [facility]. Pt was recently discharged from the [facility] SNF on 12/29. Pt and Mom have strong preference that pt avoid SNF. Pt plans to move in with Mom after d/c for approximately one week. Case Management d/c poc: pt to d/c to Mom's home with resumption of [facility] Case Management to follow. Date Signed: 01/19/2018 10:12 AM Electronically Signed By:Brittany Haynes RN
--- NOTE | 2018-01-19 10:23 | PDMN ---
Medical Necessity Medical necessity: change to IP; los>2mn s/p tunneled catheter placement, somnolence, hyperkalemia; requires HD, monitor potassium, hold Keppra, and continue monitoring; comorbid ESRD, HIV, chronic anemia, and decubitus; per order and progress notes 01/18/18
--- NOTE | 2018-01-19 12:50 | HOSPPROG ---
Hospitalist Progress Note Assessment/Plan: 52 yo F w esrd, HIV here for tunneled catheter; hyperkalemia noted hyperkalemia: has improved HD per renal decubitus: wound care surgery to see today somnolence: gregorio held alert HIV: continue TOMPKINS anemia: no need for transfusion esrd: per renal dispo: inpt home today after surgery eval > 30 minutes on dc Subjective: feels well. alert Objective: Vital Signs Temp Pulse Resp BP Pulse Ox 36.8 C 90 17 108/67 100 01/19/18 12:00 01/19/18 12:00 01/19/18 12:00 01/19/18 12:00 01/19/18 12:00 Laboratory Results 01/18/18 12:30 01/18/18 08:20 01/18/18 01/19/18 01/20/18 05:59 05:59 05:59 Intake Total 300 Output Total 2300 505 Balance -2300 -205 - Physical Exam Constitutional: no apparent distress, appears nourished Eyes: PERRL, anicteric sclera Ears, Nose, Mouth, Throat: moist mucous membranes, hearing normal Cardiovascular: regular rate and rhythym, no murmur, rub, or gallop, other ( port sign c/d/i) Respiratory: no respiratory distress, no rales or rhonchi Gastrointestinal: normoactive bowel sounds, soft, non-tender abdomen Genitourinary: no bladder fullness, No hester in urethra Skin: warm, normal color Musculoskeletal: full muscle strength, no muscle tenderness Neurologic: AAOx3 ICD10 Worksheet Patient Problems: Problems Problem Status Onset Abdominal pain Acute Anemia Acute Anemia of chronic renal failure, stage 4 (severe) Acute Chest pain Acute Contusion of jaw Acute DVT (deep venous thrombosis) Acute End stage renal disease Acute Fever Acute Generalized weakness Acute Hyperkalemia Acute Hyperkalemia Acute Hypotension Acute Hypoxemia Acute Hypoxia Acute MRSA (methicillin resistant Staphylococcus aureus) Acute 04/04/17 Nephrostomy complication Acute Pneumonia Acute Pubic ramus fracture Acute Retroperitoneal fluid collection Acute UTI (urinary tract infection) Acute UTI (urinary tract infection) Acute
[2018-01-19] MEDS: ACETAMINOPHEN 325 MG TAB PO PRN (15:17)
[2018-01-19 15:21] VITALS: BP 101/57
--- NOTE | 2018-01-19 16:23 | GDS ---
[f rep st] DISCHARGE SUMMARY DISCHARGE DIAGNOSES: 1. Human immunodeficiency virus. 2. End-stage renal disease. 3. 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 4. Anemia without transfusion requirements. 5. Decubitus ulcer present on admission, followed by Wound Care. 6. Hyperkalemia. ADMISSION COURSE: Please see admission history and physical by Dr. Dung Chavarria. The patient presente d for elective tunneled catheter placement by Dr. Ej Tineo, this because of her need for transfu sions, given her anemia secondary to HIV and end-stage renal disease and her intolerance of erythropo ietin products. Patient had uncomplicated port placement. She received dialysis while here. She wa s hyperkalemic on presentation. The patient was noted by Wound Care to have a decubitus ulcer present on admission. She is followed by [facility], Dr. Jc, who knows her from the outpatient setting, was unable see her, d id not look actively infected. The plan is to have outpatient followup. She was noted to be somnolent with the recent addition of Keppra. Given the fact all of her seizures had occurred in the setting of erythropoietin products which have been permanently discontinued, the patient is discharged home off Keppra. This is the only medication change. /[id number]/MODL
--- NOTE | 2018-01-19 17:11 | ASDISCHSUM ---
Discharge Information Plan Status:Home with Home Health Medically Cleared to Leave:01/19/2018 Discharge Date:01/19/2018 05:00 PM D/C Disposition:Home Health Service [facility] D/C Disposition:Home, Routine, Self-Care Projected Discharge Date:01/20/2018 11:00 AM Transportation at D/C:Family Discharge Delay Reason: Follow-Up Date:01/20/2018 11:00 AM Discharge Slot: Final Diagnosis: Placement Information Referral Type:*Home Health Care Services Referral ID:[id number] Provider Name:[facility] [place] ([facility]) Address 1:[address] [address] Address 2: City:[place] Selection Factors: State:[place] Patient Contact Information Contact Name:TERA Relationship:Mother Address:[address] City:[place] Alternate Phone: State/Zip Code:[place] [address] Email: Financial Information Financial Class:Medicare Primary Plan Desc:MEDICARE INPATIENT Primary Plan Number:[id number] Secondary Plan Desc:MED[place] Secondary Plan Number:[id number] Assessment Information LACE LACE Length of stay for Answers: 1 day current admission Acuity / Level of Answers: No Care: Did the patient have an inpatient admission? Comorbidities - select Answers: Moderate or severe liver all that apply or renal disease Other Notes: anemia, HIV, neurogenic bladder, guillian barre, hyperparathyroid ism , hydronephrosis, HTN # of Emergency department Answers: 3-4 visits in the last 6 months Score: 9 Date Signed: 01/19/2018 05:14 PM Electronically Signed By:Brittany Haynes RN [facility] Progress Note CM Note CM Note Notes: 01/18/2018 Case Management Note Discussed pt with RN. Pt was admitted for port placement today. Pt has been off the floor for the majority of the afternoon. Case Management to meet with pt and her mother tomorrow. Case Management d/c poc: to be determined. Date Signed: 01/18/2018 04:26 PM Electronically Signed By:Brittany Haynes RN [facility] Progress Note CM Note CM Note Notes: 01/19/2018 Case Management Note Met w/pt and her Mom Anuja. Pt is currently living independently in her apartment with support from her Mom. Pt is dialyzed MWF at [facility]. Pt currently using [facility] RN PT OT twice a week. Faxed updates to [facility]. Pt was recently discharged from the [facility] SNF on 12/29. Pt and Mom have strong preference that pt avoid SNF. Pt plans to move in with Mom after d/c for approximately one week. Case Management d/c poc: pt to d/c to Mom's home with resumption of [facility] Case Management to follow. Date Signed: 01/19/2018 10:12 AM Electronically Signed By:Brittany Haynes RN Case Management Discharge Plan Note Case Management Discharge Discharge Order Complete? Answers: Yes Patient to Obtain Answers: via Family Medications Transportation Arranged Answers: Family/Friends Faxed Final Orders Answers: Yes Agency/Facility Transfer Answers: Yes Report Printed & Faxed to Receiving Agency Family Notified Answers: Yes Notes: in room Discharge Comments Notes: 01/19/2018 Case Management Note Pt discharged to her Mother's house with resumption of [facility]. Faxed final orders. Mom transported home. Date Signed: 01/19/2018 05:10 PM Electronically Signed By:Brittany Haynes RN [facility] CM Progress Note CM Note CM Note Notes: Orders placed for HHC. [employer]agency faxed to [facility], [place] confirmed. Date Signed: 01/20/2018 04:59 PM Electronically Signed By:Chelsea Farmer RN Intervention Information Intervention Type:*REDDY-Signed Date of Service:01/18/2018 10:13 AM Patient Type:Observation Staff Member:Amanda Shoemaker Hours: Discipline: Severity: Comment: Intervention Type:*Occurence 72 Date of Service:01/20/2018 09:10 AM Patient Type:Inpatient Staff Member:ARIEL Danielson Susan Hours: Discipline: Severity: Comment:
--- NOTE | 2018-01-19 17:15 | ASMTLACE ---
GRANTE Length of stay for Answers: 1 day current admission Acuity / Level of Answers: No Care: Did the patient have an inpatient admission? Comorbidities - select Answers: Moderate or severe liver all that apply or renal disease Other Notes: anemia, HIV, neurogenic bladder, guillian barre, hyperparathyroid ism , hydronephrosis, HTN # of Emergency department Answers: 3-4 visits in the last 6 months Score: 9 Date Signed: 01/19/2018 05:14 PM Electronically Signed By:Brittany Haynes RN
--- NOTE | 2018-01-20 16:42 | PDIAF ---
- Diagnosis Diagnosis: esrd, hiv, anemia Code Status: Full Code - Medication Management Discharge Medications: Medications to Continue on Transfer Abacavir Sulfate [Ziagen] 600 mg PO DAILY@02/23/13 [Last Taken 01/16/18] Darunavir Ethanolate [PREZISTA] 800 mg PO DAILY@02/23/13 [Last Taken 01/16/18 ] Escitalopram Oxalate [Lexapro] 20 mg PO DAILY 07/29/15 [Last Taken 08/17/17] Ritonavir [Norvir] 100 mg PO DAILY@07/29/15 [Last Taken 01/16/18] Sevelamer Carbonate [Renvela] 1,600 mg PO TIDMEAL 07/30/15 [Last Taken 08/17/17] Dolutegravir Sodium [Tivicay] 50 mg PO DAILY@04/28/16 [Last Taken 08/16/17] Acetaminophen [Tylenol 325mg (*)] 650 mg PO Q4HRS PRN tab 05/09/17 [Last Taken Unknown] Folic Acid/Vitamin B Comp W-C [Renavit Tablet] 1 each PO DAILY 07/25/17 [Last Taken 08/17/17] Herbals/Supplements -Info Only 1 ea PO DAILY 07/25/17 [Last Taken Unknown] Chlorzoxazone 500 mg PO TID PRN 08/17/17 [Last Taken 08/17/17] guaiFENesin [Mucinex 600 MG (*)] 1,200 mg PO BID PRN 08/17/17 [Last Taken ] Ibuprofen [Motrin (*)] 400 mg PO Q8H PRN #60 tab 08/25/17 [Last Taken Unknown] traMADol [Ultram 50 mg (*)] 25 mg PO Q6H PRN #60 tab 08/25/17 [Last Taken Unknown] Fluticasone Nasal [Flonase Nasal [place]] 1 sprays NASAL HS 01/14/18 [Last Taken Unknown] Levothyroxine [Synthroid 200 mcg (*)] 200 mcg PO DAILY06 01/14/18 [Last Taken Unknown] Omeprazole 20 mg PO DAILY 01/14/18 [Last Taken Unknown] SUMAtriptan [Imitrex 50 MG (*)] 50 mg PO DAILY PRN 01/14/18 [Last Taken Unknown] amLODIPine BESYLATE [Amlodipine Besylate] 5 mg PO SUTUTHSA@09 01/14/18 [Last Taken Unknown] hydrALAZINE [Apresoline] 25 mg PO DAILY PRN 01/14/18 [Last Taken Unknown] Cinacalcet HCl [Sensipar (*)] 30 mg PO MOWEFR 01/17/18 [Last Taken 01/16/18] Sevelamer Carbonate [Renvela] 800 mg PO DAILY PRN 01/17/18 [Last Taken Unknown] Discharge Medications: Refer to the Discharge Home Medication list for PRN reason. - Orders Services needed: Home Care, Registered Nurse, Physical Therapy, Occupational Therapy Home Care Face to Face: I certify that this patient was under my care and that I had the required [id number] encounter meeting the encounter requirements on the discharge day. My findings support the fact that the patient is homebound as defined in Home Care Face to Face Continued: CMS Chapter 7 Medicare Benefits Manual 30.1.1 , The condition of the patient is such that there exists a normal inability to leave home and consequently, leaving home would require a considerable and taxing effort. Isolation Type: Contact Isolation Additional Instructions: Bedsore (Pressure injury) care: You have a stage 4 pressure injury (also known as a bedsore) on your tailbone ( the coccyx) To help heal this wound and avoid further injury please do the following: Reposition yourself frequently, at least every 15 minutes when sitting. Reposition every hour in chair so that the tissues fully reperfuse with blood. When youre in bed, try to rest on your side as much as possible, and change position every two hours (for example, turn or tilt from your right side toward your left).~ If you sleep on a sleep number or medical bed, keep the head of the bed below 30 degrees and keep all pressure off your low back for at least 5 minutes at least every two hours.~ Please contact [facility] for an appointment, at [phone], for follow up for your wound. Wound care orders: Change dressings to coccyx every day and prn. 1. Clean with ns and gauze 2. Skin prep armen wound 3. Cut 3 pieces of iodofoam to fit inside wound bed and layer.It should not overlap onto intact skin. May secure with thin steri strip. Alternately if you do not have iodofoam available, you may use iodosorb to wound bed and covered with plain packing moistened with sterile water. 4. Cover with a bordered foam sacral dressing. Andressa Armijo CWON - Follow Up Care Current Providers and Referrals: Adam Villalobos MD [Primary Care Provider] -
--- NOTE | 2018-01-20 17:00 | ASMTCMCOM ---
CM Note CM Note Notes: Orders placed for HHC. Interagency faxed to [facility], receipt confirmed. Date Signed: 01/20/2018 04:59 PM Electronically Signed By:Chelsea Farmer RN
--- NOTE | 2018-01-28 22:44 | GOP ---
[f rep st] OPERATIVE REPORT DATE OF OPERATION: 01/17/2018 SURGEON: Ej Tineo MD PREOPERATIVE DIAGNOSIS: Chronic renal failure and lack of intravenous access. POSTOPERATIVE DIAGNOSIS: Chronic renal failure and lack of intravenous access. PROCEDURE PERFORMED: A right subclavian port placement with fluoroscopic guidance. FINDINGS: The patient was found to have good flow and good position. DESCRIPTION OF PROCEDURE: The patient was taken to the operating room where she received satisfactor y general endotracheal anesthesia by Dr. Ambrocio. She was placed in the supine position, prepped and d raped in the usual sterile fashion. A single stick was made into the right subclavian vein. Guidewi re was introduced. Position was confirmed with fluoroscopy. A subcu pocket was made in the 2nd inte rcostal space and port tubing was passed from that pocket to the subclavian insertion site and then t rimmed to the appropriate length using fluoroscopy and introduced through the introducer sheath and d ilator system into the right atrium. Good backflow was achieved. The port was secured to the fascia with 3-0 Vicryl sutures. The pocket was closed with 3-0 Vicryl for the subcu and 4-0 Prolene subcut icular stitch for the skin. The entrance site was closed with Prolene mattress suture. All wounds w ere infiltrated with 0.5% Marcaine. She tolerated the procedure well, was taken to the recovery room in good condition. There were no complications. /[id number]/MODL
== END 2018-01-19 17:00 | disposition home or self-care (01) | DRG 977 ==
LOC: FSGY 14:25 → INTOOBSV 17:34 → F2W 17:34 → OBSVTOIN 17:34 → F2W 18:19 → OBSVTOIN 01-18 15:58 → F2W 01-19 17:02
PROVIDERS: ADMIT Family Medicine; ATTEND Surgery
DX: B20 Human immunodeficiency virus [HIV] disease (principal); N18.6 End stage renal disease; L89.154 Pressure ulcer of sacral region, stage 4; I12.0 Hypertensive chronic kidney disease with stage 5 chronic kidney disease or end stage renal disease; D64.9 Anemia, unspecified; E87.5 Hyperkalemia; G40.909 Epilepsy, unspecified, not intractable, without status epilepticus; E78.5 Hyperlipidemia, unspecified; E21.3 Hyperparathyroidism, unspecified
CPT/HCPCS: 97163-GP; 97166-GO; C1788; G8978-GP-CL; G8979-GP-CK; G8987-GO-CJ; G8988-GO-CI; J0690; J1642; J2001; J2370; J2704; J3010

== ENCOUNTER → 2018-01-27 | Day surgery (SDC) | payer OTHER, MEDICAID ==
[~2018-01-27] MED LIST changes: +FLUMAZENIL 0.5 MG/5 ML MDV IVP PRN; -IOPAMIDOL (ISOVUE 370) 100 ML BTL IV ONE; +IOPAMIDOL (ISOVUE-300) 100 ML BTL ONE; +MEPERIDINE 25 MG/ML SYR IVP PRN; +MIDAZOLAM 2 MG/2 ML VIAL IVP PRN; +NALOXONE HCL 0.4 MG/ML INJ IVP PRN; +NALOXONE HCL 0.4 MG/ML INJ ONE; +NS 1,000 ML IV SCH; +fentaNYL 100 MCG/2 ML INJ IVP PRN; +fentaNYL 100 MCG/2 ML INJ ONE
[2018-01-27 15:17] VITALS: BP 150/78
== END | disposition home or self-care (01) ==
LOC: FIMAGING 11:43
PROVIDERS: ATTEND Internal Medicine
PROC: 06PY3DZ Removal of Intraluminal Device from Lower Vein, Percutaneous Approach (ICD-10-PCS; principal; 2018-01-27 13:52)
PROC: B5181ZA Fluoroscopy of Superior Vena Cava using Low Osmolar Contrast, Guidance (ICD-10-PCS; principal; 2018-01-27 13:52)
DX: Z45.89 Encounter for adjustment and management of other implanted devices (principal); D63.1 Anemia in chronic kidney disease; B20 Human immunodeficiency virus [HIV] disease; N18.6 End stage renal disease; Z86.718 Personal history of other venous thrombosis and embolism; Z99.2 Dependence on renal dialysis; Z90.5 Acquired absence of kidney
CPT/HCPCS: 37193; 71046; 75822; C1769; C1773; C1894; J1642; J1644; J2310; J3010; Q9967

== ENCOUNTER 2018-02-03 15:06 | Outpatient (CLI) | payer OTHER, MEDICAID | END 2018-02-03 19:20 | disposition home or self-care (01) | LOC: FOBOP 15:06 | PROVIDERS: ATTEND Internal Medicine Hematology & Oncology | PROC: 30233N1 Transfusion of Nonautologous Red Blood Cells into Peripheral Vein, Percutaneous Approach (ICD-10-PCS; principal; 2018-02-03) | DX: N18.6 End stage renal disease (principal) | CPT/HCPCS: 36430; J1642; P9016; P9040 ==

== ENCOUNTER 2018-02-07 10:20 | Emergency (ER) | payer OTHER, MEDICAID ==
--- NOTE | 2018-02-07 11:00 | EDPHY ---
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 She visited her primary care providers, Dr. Antony, yesterday for persistent cough. This has been worse over the past two weeks. She was noted to be hypoxic at this visit. She had a scopolamine patch placed, and suspected that fatigue from this in combination with possible sleep apnea resulted in her low oxygen saturations. This morning, the patient's SpO2 remained low, measured at 78% at home. She has an appointment with ENT to evaluate "blisters" around her larynx, possibly related to multiple intubations during recent hospitalizations. She is not generally on home oxygen, and her primary care provider recommended she be evaluated here in the emergency department and set up with home oxygen. The patient denies fever, chest pain, abdominal pain, vomiting, diarrhea, urinary complaints, or other associated symptoms. REVIEW OF SYSTEMS: Aside from elements discussed in the HPI, a comprehensive 10-point review of systems was reviewed and is negative. PMH: 1. Anemia 2. End-stage renal disease, on hemodialysis. 3. History of Guillain-Stillwater 4. History of HIV 5. History of DVT 6. History of frequent falls 7. History of decubitus ulcers 8. Hypertension 9. Dyslipidemia 10. Depression. 11. Multiple recent hospitalizations (small bowel obstruction, c-difficile, cellulitis). 12. History of seizure 13. Hyperparathyroidism. SOCIAL HISTORY: Mother at bedside. Lives in [place]. Single. PHYSICAL EXAM: General:Patient is alert, in no acute distress. ENT:Eyes are normal to inspection. ENT inspection normal. Neck: Normal inspection. Full range of motion. Respiratory:No respiratory distress. Breath sounds normal bilaterally. Cardiovascular: Regular rate and rhythm. Strong peripheral pulses. Normal cap refill. Abdomen:The abdomen is nontender to palpation. There are no peritoneal signs. There are normal bowel sounds. Back: Normal to inspection. No tenderness to palpation. Skin: Normal color. No rash. Warm and dry. Extremities: Normal appearance. Full range of motion. Neuro: Oriented x3. Normal motor function. Normal sensory function. ED Course: 52 y/o female presents with hypoxemia, persistent cough. Plan for x-ray of neck and chest to r/o obstruction, pneumonia, or other acute processes. Patient and her mother decline further labs at this time as she follows up frequently with her primary care providers. Reviewed imaging studies. X-ray neck negative for acute processes. X-ray chest negative for pneumonia there is some evidence of fluid overload which may be chronic for this patient. Her most recent dialysis treatment was yesterday. The patient may have mild possible CHF and has had elevated BNP in the past. 12:26 Reassessed patient. Discussed imaging results. The patient would like to be discharged home and follow up with her ENT appointment this afternoon at 15: 00 for further evaluation. She and her mother decline further evaluation at this time. There may be other causes for her hypoxemia and multiple possibilities for this including CHF, but I am unable to investigate these further without further testing. The patient understands this and wishes to be discharged home. Plan to set her up with home oxygen for hypoxia. Plan to consult with case management. - Data Points Imaging Results: Imaging Impressions Chest X-Ray 02/07/18 11:13 Impression: Probable mild CHF with basilar atelectasis. Soft Tissue Neck X-Ray 02/07/18 11:14 Impression: No acute findings. General Time Seen by Provider: 02/07/18 10:57 Initial Vital Signs: Initial Vital Signs Temperature (C) 36.9 C 02/07/18 10:27 Heart Rate 80 02/07/18 10:27 Respiratory Rate 18 02/07/18 10:27 Blood Pressure 152/96 H 02/07/18 10:27 O2 Sat (%) 89 L 02/07/18 10:27 O2 Delivery Mode Nasal Cannula O2 (L/minute) 2 Allergies/Adverse Reactions: ertapenem sodium [From Invanz] Allergy (Intermediate, Verified 01/23/18 16:23) Rash, neck and throat swelling influenza virus vaccine, specific Allergy (Intermediate, Verified 01/23/18 16:23 ) Other-Enter Comments vancomycin [Vancomycin] Allergy (Intermediate, Verified 01/23/18 16:23) Swelling/neck,face,throat cephalexin [From Keflex] Allergy (Verified 02/07/18 10:24) doxycycline Allergy (Verified 01/23/18 16:23) hydroxyzine HCl [From Atarax] Allergy (Verified 02/03/18 15:48) Home Medications: Medication Instructions Recorded Abacavir Sulfate [Ziagen] 600 mg PO DAILY@02/23/13 Darunavir Ethanolate [PREZISTA] 800 mg PO DAILY@02/23/13 Escitalopram Oxalate [Lexapro] 20 mg PO DAILY 07/29/15 Ritonavir [Norvir] 100 mg PO DAILY@07/29/15 Sevelamer Carbonate [Renvela] 1,600 mg PO TIDMEAL 07/30/15 Dolutegravir Sodium [Tivicay] 50 mg PO DAILY@04/28/16 Acetaminophen [Tylenol 325mg (*)] 650 mg PO Q4HRS PRN tab 05/09/17 Folic Acid/Vitamin B Comp W-C 1 each PO DAILY 07/25/17 [Renavit Tablet] Herbals/Supplements -Info Only 1 ea PO DAILY 07/25/17 Chlorzoxazone 500 mg PO TID PRN 08/17/17 guaiFENesin [Mucinex 600 MG (*)] 1,200 mg PO BID PRN 08/17/17 Ibuprofen [Motrin (*)] 400 mg PO Q8H PRN #60 tab 08/25/17 traMADol [Ultram 50 mg (*)] 25 mg PO Q6H PRN #60 tab 08/25/17 Fluticasone Nasal [Flonase Nasal 1 sprays NASAL HS 01/14/18 [place]] Levothyroxine [Synthroid 200 mcg 200 mcg PO DAILY06 01/14/18 (*)] Omeprazole 20 mg PO DAILY 01/14/18 SUMAtriptan [Imitrex 50 MG (*)] 50 mg PO DAILY PRN 01/14/18 amLODIPine BESYLATE [Amlodipine 5 mg PO SUTUTHSA@01/14/18 Besylate] hydrALAZINE [Apresoline] 25 mg PO DAILY PRN 01/14/18 Cinacalcet HCl [Sensipar (*)] 30 mg PO MOWEFR 01/17/18 Sevelamer Carbonate [Renvela] 800 mg PO DAILY PRN 01/17/18 Departure - Departure Disposition: Home, Routine, Self-Care Clinical Impression: Hypoxemia Condition: Good Instructions: Using Oxygen at Home (ED), Hypoxemia (DC) Additional Instructions: 1. Follow up with your ENT provider this afternoon as scheduled. 2. Use home oxygen as directed. Follow up with your primary care provider for further management. 3. Return to the emergency department for fever, chest pain, shortness of breath , or other worsening of condition. Referrals: Adam Villalobos MD [Primary Care Provider] - As per Instructions Report Scribed for: Dallas Garner Report Scribed by: Elisa Fernandez Date of Report: 02/07/18 Time of Report: 11:00 Physician Review and Approval Statement: Portions of this note were transcribed by an ED scribe. I personally performed the history, physical exam, and medical decision making; and confirm the accuracy of the information in the transcribed note.
[2018-02-07 13:32] VITALS: BP 126/90
--- NOTE | 2018-02-07 17:37 | ASDISCHSUM ---
Discharge Information Plan Status:Home with No Needs Medically Cleared to Leave: Discharge Date:02/07/2018 01:31 PM CM D/C Disposition:Home, Routine, Self-Care ADT D/C Disposition:Home, Routine, Self-Care Projected Discharge Date:02/07/2018 01:31 PM Transportation at D/C:Family Discharge Delay Reason: Follow-Up Date:02/07/2018 01:31 PM Discharge Slot: Final Diagnosis: Placement Information Patient Contact Information Contact Name:TERA Relationship:Mother Address:[address] City:[facility] Phone: [facility]/Zip Code:[place] [address] Email: Financial Information Financial Class:Medicare Primary Plan Desc:MEDICARE OUTPATIENT Primary Plan Number:[id number] Secondary Plan Desc:MED[place] Secondary Plan Number:[id number] Assessment Information [facility] CM Progress Note CM Note CM Note Notes: Pt presented to the ED through triage with her mother, Anuja. Pt reportedly was recommended by her PCP, Dr Antony (and/or Dr Villalobos?) at [facility] to come to the ED to be evaluated for a cough, hypoxia, and to be set up with home oxygen. Pt was evaluated w/chest x ray and imaging of the soft tissues of the neck but then declined to have any further testing done and wanted to go home. Pt also reported wanting to make it to her appt w/an ENT today at 1500. Sheila with [facility] assisted w/getting a home oxygen company to deliver an oxygen tank to the ED. It was explained thoroughly to the patient and Anuja that her insurance (Medicare/Medicaid) would not cover home oxygen ordered from the ED so they understand they will have to self-pay for the oxygen until pt can follow up with her PCP and have the necessary testing and documentation done in order to get it covered. This CM assisted w/obtaining and faxing ED MD order, ED report and face sheet to [facility]. Spoke w/Faye at [facility] [[email or web address]] and confirmed recieval. Oxygen tanks were delivered to ED room and patient discharged home. This CM spoke with ARIEL Heath Cap Lining Machine Operator ([phone]) at [facility] re:pt's ED visit and let her know she was arranged home oxygen but will need to follow up with PCP in order to get additional prescriptions and possibly get it covered via insurance. CM available for further assistance if needed. Date Signed: 02/07/2018 05:35 PM Electronically Signed By:Enid Denson RN Intervention Information Intervention Type:Health Clinic Date of Service:02/07/2018 05:35 PM Patient Type:Emergency Room Staff Member:ARIEL Denson [place] Hours:0.25 Discipline:Steel Division Supervisor Severity: Comment:PCP office Intervention Type:Post Acute Communication Date of Service:02/07/2018 05:35 PM Patient Type:Emergency Room Staff Member:ARIEL Denson [place] Hours:0.25 Discipline:Steel Division Supervisor Severity: Comment:RN Cap Lining Machine Operator at PCP office Intervention Type:Specialized DME Date of Service:02/07/2018 05:35 PM Patient Type:Emergency Room Staff Member:ARIEL Denson [place] Hours:0.25 Discipline:Steel Division Supervisor Severity: Comment:home oxygen
== END 2018-02-07 13:31 | disposition home or self-care (01) ==
DX: R09.02 Hypoxemia (principal); Z21 Asymptomatic human immunodeficiency virus [HIV] infection status; I12.0 Hypertensive chronic kidney disease with stage 5 chronic kidney disease or end stage renal disease; N18.6 End stage renal disease

== ENCOUNTER → 2018-02-10 | Outpatient (CLI) | payer OTHER, MEDICAID | LOC: FIMAGING 10:06 | PROVIDERS: ATTEND Surgery | DX: Z13.89 Encounter for screening for other disorder (principal); L89.90 Pressure ulcer of unspecified site, unspecified stage | CPT/HCPCS: J1642 ==

== ENCOUNTER 2018-02-16 11:24 | Outpatient (CLI) | payer OTHER, MEDICAID | END 2018-02-16 14:10 | disposition home or self-care (01) | LOC: FOBOP 11:24 | PROVIDERS: ATTEND Internal Medicine Hematology & Oncology | PROC: 30233N1 Transfusion of Nonautologous Red Blood Cells into Peripheral Vein, Percutaneous Approach (ICD-10-PCS; principal; 2018-02-16) | DX: N18.6 End stage renal disease (principal); D63.1 Anemia in chronic kidney disease | CPT/HCPCS: 36430; J1642; P9016 ==

== ENCOUNTER → 2018-02-16 | Outpatient (CLI) | payer OTHER, MEDICAID ==
[~2018-02-16] MED LIST changes: -FLUMAZENIL 0.5 MG/5 ML MDV IVP PRN; +IOPAMIDOL (ISOVUE 370) 100 ML BTL IV ONE; -IOPAMIDOL (ISOVUE-300) 100 ML BTL ONE; -MEPERIDINE 25 MG/ML SYR IVP PRN; -MIDAZOLAM 2 MG/2 ML VIAL IVP PRN; -NALOXONE HCL 0.4 MG/ML INJ IVP PRN; -NALOXONE HCL 0.4 MG/ML INJ ONE; -NS 1,000 ML IV SCH; -fentaNYL 100 MCG/2 ML INJ IVP PRN; -fentaNYL 100 MCG/2 ML INJ ONE
== END ==
LOC: FIMAGING 15:01
PROVIDERS: ATTEND Internal Medicine
DX: I70.0 Atherosclerosis of aorta (principal); I25.10 Atherosclerotic heart disease of native coronary artery without angina pectoris; I51.7 Cardiomegaly; J98.4 Other disorders of lung
CPT/HCPCS: 71275; Q9967; J1642; P9016

== ENCOUNTER 2018-02-18 13:40 | Inpatient (IN) | payer OTHER, MEDICAID ==
--- NOTE | 2018-02-18 14:22 | EDPHY ---
H & P Time Seen by Provider: 02/18/18 14:22 HPI/ROS: CHIEF COMPLAINT: Low blood pressure and sacral ulcer HISTORY OF PRESENT ILLNESS: Has had a sacral ulcer for the past 4 months. The patient is on dialysis and has HIV and sees the [facility]. She also has anemia and got a recent blood transfusion. Her last dialysis was yesterday. Today her mother says she is a little less responsive and had low blood pressure. Further history not obtainable from the patient as she really isn't verbal which is her current state for the last few days. She underwent a CT angiogram on the for hypoxia which report was reviewed by me did not show thromboemboli but did show some pulmonary edema. Decubitus is covered with a dressing since has some redness around it and some drainage. No fevers at home. REVIEW OF SYSTEMS: Eye: No changes reported ENT: No symptoms reported Cardiac: No chest pain reported Pulmonary: Little bit of a cough, chronically on oxygen Abdomen: no vomiting, diarrhea, abdominal pain Musculoskeletal: Neck pain for quite some time that seems unchanged Skin: Decubitus as above Neuro: Decreased mental status Constitutional: no fever : Does make urine according to the mother and got diagnosed with the UTI within the last 6 months. A comprehensive 10 point review of systems is otherwise negative aside from elements mentioned in the history of present illness. PAST MEDICAL HISTORY: HPI dated 01/17/2018 personally reviewed includes renal disease on dialysis, frequent UTI, hypothyroid, depression, sacral ulcers, HIV, anemia, hypertension, hyperlipidemia. Left nephrectomy in 2017, cholecystectomy, left hip arthroplasty, hysterectomy. Bilateral foot and left knee surgery. Social history: Here with her mother who is her primary caregiver General Appearance: Patient is sleepy but moans when I turn her on her side. She does spontaneously move all 4 extremities. Eyes: No scleral icterus. ENT, Mouth: Dry mucous membranes. Respiratory: Normal respiratory effort, breath sounds equal, lungs are clear to auscultation. Cardiovascular: Regular rate and rhythm. Gastrointestinal: Abdomen is soft and non tender. Neurological: Moves all 4 extremities and groans when I rolled her over, does not really answer questions. Skin: She has a sacral decubitus with drainage and surrounding redness but no eschar or blister. Scattered anterior areas of redness and papular on her groin and around her umbilicus. No purpura or petechiae. Musculoskeletal: Left leg peripheral edema greater than right which according to the mother is chronic Psychiatric: Unable, not verbal during my exam Emergency Department course/MDM: 1440: Discussed with Dr. Garg. Levaquin 750 and daptomycin 6 milligrams/ kilogram is his recommendation. Not febrile but high suspicion for sepsis given hypotension and ulcer. EKG, lactate, blood in urine cultures, chest x-ray. Sacral decubitus ulcer is cultured. 1602: 128/66 after IV fluids, pressors not required in the ED. Levaquin started. Seen by Dr. Garg. 2nd lactate 1.1. Urine is also a potential source of infection given pyuria and bacteria, culture pending. Smoking Status: Never smoked Constitutional: Initial Vital Signs Temperature (C) 36.7 C 02/18/18 13:44 Heart Rate 79 02/18/18 13:44 Respiratory Rate 18 02/18/18 13:44 Blood Pressure 75/37 L 02/18/18 13:44 O2 Sat (%) 65 L 02/18/18 13:44 O2 Delivery Mode Oxymask O2 (L/minute) 6 Allergies/Adverse Reactions: ertapenem sodium [From Invanz] Allergy (Intermediate, Verified 02/18/18 13:43) Rash, neck and throat swelling influenza virus vaccine, specific Allergy (Intermediate, Verified 02/18/18 13:43 ) Other-Enter Comments vancomycin [Vancomycin] Allergy (Intermediate, Verified 02/18/18 13:43) Swelling/neck,face,throat cephalexin [From Keflex] Allergy (Verified 02/18/18 13:43) doxycycline Allergy (Verified 02/18/18 13:43) hydroxyzine HCl [From Atarax] Allergy (Verified 02/18/18 13:43) Home Medications: Medication Instructions Recorded Abacavir Sulfate [Ziagen] 600 mg PO DAILY@02/23/13 Darunavir Ethanolate [PREZISTA] 800 mg PO DAILY@02/23/13 Escitalopram Oxalate [Lexapro] 20 mg PO DAILY 07/29/15 Ritonavir [Norvir] 100 mg PO DAILY@07/29/15 Sevelamer Carbonate [Renvela] 1,600 mg PO TIDMEAL 07/30/15 Dolutegravir Sodium [Tivicay] 50 mg PO DAILY@04/28/16 Acetaminophen [Tylenol 325mg (*)] 650 mg PO Q4HRS PRN tab 05/09/17 Folic Acid/Vitamin B Comp W-C 1 each PO DAILY 07/25/17 [Renavit Tablet] Herbals/Supplements -Info Only 1 ea PO DAILY 07/25/17 Chlorzoxazone 500 mg PO TID PRN 08/17/17 guaiFENesin [Mucinex 600 MG (*)] 1,200 mg PO BID PRN 08/17/17 Ibuprofen [Motrin (*)] 400 mg PO Q8H PRN #60 tab 08/25/17 traMADol [Ultram 50 mg (*)] 25 mg PO Q6H PRN #60 tab 08/25/17 Fluticasone Nasal [Flonase Nasal 1 sprays NASAL HS 01/14/18 [place]] Levothyroxine [Synthroid 200 mcg 200 mcg PO DAILY06 01/14/18 (*)] Omeprazole 20 mg PO DAILY 01/14/18 SUMAtriptan [Imitrex 50 MG (*)] 50 mg PO DAILY PRN 01/14/18 amLODIPine BESYLATE [Amlodipine 5 mg PO SUTUTHSA@09 01/14/18 Besylate] hydrALAZINE [Apresoline] 25 mg PO DAILY PRN 01/14/18 Cinacalcet HCl [Sensipar (*)] 30 mg PO MOWEFR 01/17/18 Sevelamer Carbonate [Renvela] 800 mg PO DAILY PRN 01/17/18 Medical Decision Making - Diagnostics EKG Interpretation: 12-lead EKG interpreted by me; official reading is in trace master. My interpretation is sinus rhythm rate 75 no ischemic changes. Imaging Results: Imaging Impressions Chest X-Ray 02/18/18 14:44 Impression: Chronic CHF. Imaging: I viewed and interpreted images myself Consult/Admit Bed Type: [place] [id number] Critical Care Time: Critical care time spent by me, Dr. Cornejo, exclusively with the care of this patient was 45 minutes, exclusive of PA or HIDE WASHER time and exclusive of separate procedures. The organ system at risk was infectious and cardiovascular and I ordered IV fluids, consultation with Infectious Disease, multiple diagnostics, IV antibiotics and supplemental oxygen to stabilize the patient and prevent worsening of the patient's condition. - Data Points Laboratory Results: Laboratory Results 02/18/18 14:20 02/18/18 14:44 02/18/18 02/18/18 02/18/18 14:44 14:29 14:20 WBC RBC Hgb POC Hgb 7.8 gm/dL L gm/dL (12.6-16.3) Hct POC Hct 23 % L % (38-47) MCV MCH MCHC RDW Plt Count MPV Neut % (Auto) Lymph % (Auto) [place] % (Auto) Eos % (Auto) Baso % (Auto) Nucleat RBC Rel Count Absolute Neuts (auto) Absolute Lymphs (auto) Absolute Monos (auto) Absolute Eos (auto) Absolute Basos (auto) Absolute Nucleated RBC Immature Gran % Immature Gran # Platelet Estimate Basophilic Stippling Microcytic Cells Oval Macrocytes Smear Review By PT 15.0 SEC SEC (12.0-15.0) INR 1.16 (0.83-1.16) APTT 36.0 SEC SEC (23.0-38.0) VBG Lactic Acid POC Sodium 137 mEq/L mEq/L (135-145) Sodium 135 mEq/L mEq/L (135-145) POC Potassium 5.0 mEq/L mEq/L (3.3-5.0) Potassium 5.0 mEq/L mEq/L (3.3-5.0) POC Chloride 97 mEq/L mEq/L (97-110) Chloride 97 mEq/L mEq/L (97-110) Carbon Dioxide 30 mEq/l mEq/l (22-31) Anion Gap 8 mEq/L mEq/L (8-16) POC BUN 36 mg/dL H mg/dL (7-23) BUN 38 mg/dL H mg/dL (7-23) Creatinine 3.9 mg/dL H mg/dL (0.6-1.0) POC Creatinine 4.2 mg/dL H mg/dL (0.6-1.0) Estimated GFR 12 Glucose 91 mg/dL mg/dL (70-100) POC Glucose 96 mg/dL mg/dL (70-100) Calcium 8.8 mg/dL mg/dL (8.5-10.4) Total Bilirubin 0.5 mg/dL mg/dL (0.1-1.4) 02/18/18 02/18/18 14:20 14:20 WBC 7.55 10^3/uL 10^3/uL (3.80-9.50) RBC 2.27 10^6/uL L 10^6/uL (4.18-5.33) Hgb 7.5 g/dL L g/dL (12.6-16.3) POC Hgb Hct 23.6 % L % (38.0-47.0) POC Hct MCV 104.0 fL H fL (81.5-99.8) MCH 33.0 pg pg (27.9-34.1) MCHC 31.8 g/dL L g/dL (32.4-36.7) RDW 19.9 % H % (11.5-15.2) Plt Count 132 10^3/uL L 10^3/uL (150-400) MPV 9.4 fL fL (8.7-11.7) Neut % (Auto) 71.9 % % (39.3-74.2) Lymph % (Auto) 16.4 % % (15.0-45.0) [place] % (Auto) 11.1 % % (4.5-13.0) Eos % (Auto) 0.1 % L % (0.6-7.6) Baso % (Auto) 0.1 % L % (0.3-1.7) Nucleat RBC Rel Count 0.0 % % (0.0-0.2) Absolute Neuts (auto) 5.42 10^3/uL 10^3/uL (1.70-6.50) Absolute Lymphs (auto) 1.24 10^3/uL 10^3/uL (1.00-3.00) Absolute Monos (auto) 0.84 10^3/uL H 10^3/uL (0.30-0.80) Absolute Eos (auto) 0.01 10^3/uL L 10^3/uL (0.03-0.40) Absolute Basos (auto) 0.01 10^3/uL L 10^3/uL (0.02-0.10) Absolute Nucleated RBC 0.00 10^3/uL 10^3/uL (0-0.01) Immature Gran % 0.4 % % (0.0-1.1) Immature Gran # 0.03 10^3/uL 10^3/uL (0.00-0.10) Platelet Estimate ADEQUATE (ADEQ) Basophilic Stippling 1+ H Microcytic Cells 1+ H Oval Macrocytes 1+ H Smear Review By Pending PT INR APTT VBG Lactic Acid 1.6 mmol/L mmol/L (0.7-2.1) POC Sodium Sodium POC Potassium Potassium POC Chloride Chloride Carbon Dioxide Anion Gap POC BUN BUN Creatinine POC Creatinine Estimated GFR Glucose POC Glucose Calcium Total Bilirubin Medications Given: Levofloxacin/Dextrose (Levaquin 750 Mg (Premix)) 150 mls @ 100 mls/hr IV EDNOW ONE PRN Reason: Protocol Stop: 02/18/18 16:13 Last Admin: 02/18/18 15:10 Dose: 150 mls Discontinued Medications Sodium Chloride (Ns) 500 mls @ 0 mls/hr IV ONCE ONE PRN Reason: Wide Open Stop: 02/18/18 14:47 Last Admin: 02/18/18 14:48 Dose: 500 mls Sodium Chloride (Ns) 1,700 mls @ 3,400 mls/hr 30 ml/kg infuse over 30 min ( 1700 ml) IV EDNOW ONE PRN Reason: Protocol Stop: 02/18/18 15:29 Last Admin: 02/18/18 15:16 Dose: 1,700 mls Point of Care Test Results: Chemistry 02/18/18 14:29 POC Sodium 137 mEq/L mEq/L (135-145) POC Potassium 5.0 mEq/L mEq/L (3.3-5.0) POC Chloride 97 mEq/L mEq/L (97-110) POC BUN 36 mg/dL H mg/dL (7-23) POC Creatinine 4.2 mg/dL H mg/dL (0.6-1.0) POC Glucose 96 mg/dL mg/dL (70-100) ISTAT H&H 02/18/18 14:29 POC Hgb 7.8 gm/dL L gm/dL (12.6-16.3) POC Hct 23 % L % (38-47) Departure - Departure Disposition: [facility] Inpatient Acute Clinical Impression: Hypoxemia Hypotension Qualifiers: Hypotension type: unspecified hypotension type Qualified Code(s): I95.9 - Hypotension, unspecified Decubitus ulcer of sacral area Qualifiers: Pressure ulcer stage: unspecified pressure ulcer stage Qualified Code(s): L89.159 - Pressure ulcer of sacral region, unspecified stage UTI (urinary tract infection) Qualifiers: Urinary tract infection type: site unspecified Hematuria presence: with hematuria Qualified Code(s): N39.0 - Urinary tract infection, site not specified ; R31.9 - Hematuria, unspecified; R31.9 - Hematuria, unspecified Condition: Serious
[2018-02-18] MEDS ORDERED: DAPTOMYCIN IV ONE (14:45)
[2018-02-18] MEDS ORDERED: NS IV ONE (14:45)
[2018-02-18] MEDS ORDERED: NS 500 ML IV ONE (14:46)
--- NOTE | 2018-02-18 14:53 | CPEKG ---
Heart Rate: 75 RR Interval: 800 P-R Interval: 156 QRSD Interval: 84 QT Interval: 420 QTC Interval: 470 P [place]: 39 QRS Vining: 32 T Wave [place]: 45 EKG Severity - NORMAL ECG - EKG Impression: SINUS RHYTHM Electronically Signed By: Manny Cornejo 18-Feb-2018 15:02:48
[2018-02-18 14:59] LABS: PLATELET COUNT 132 10^3/uL (150-400)
[2018-02-18] MEDS ORDERED: NS 1,700 ML IV ONE (15:00)
[2018-02-18 15:10] LABS: INR 1.16 (0.83-1.16)
[2018-02-18] MEDS ORDERED: NS 1,000 ML IV SCH (15:15)
[2018-02-18] MEDS ORDERED: ALBUMIN 5% 250 ML IV ONE (15:15)
[2018-02-18] MEDS ORDERED: ONDANSETRON DISINTEGRATING 4 MG TAB PO PRN (15:15)
--- NOTE | 2018-02-18 16:13 | PCMIDPN ---
Assessment/Plan: Assessment/Plan: * Probable sepsis syndrome: Hypotension and somnolence most likely associated with sepsis syndrome. Primary considerations would be bacteremia associated with chronic decubitus ulcer although appearance does not show findings of overt infection versus bacteremia associated with ongoing hemodialysis or indwelling port. In the setting of chronic decubitus ulcer, will need broad coverage including coverage for MRSA, Gram-negative rods, and anaerobes. Will treat empirically with daptomycin and Zosyn; reviewed penicillin allergy with mother which is felt not to be true allergy as had negative skin testing and persistent rash after stopping Augmentin with ultimate conclusion that rash associated with dialyzer. * AIDS: Most recent CD4 count 239 (33%). Viral load is currently pending. Continue antiretrovirals including: Norvir 100 mg po daily; Prezista 800 mg p.o. Daily, Tivicay 50 mg p.o. Daily and Ziagen 600 mg orally daily * Chronic sacral decubitus ulcer: Scheduled for MRI to assess for sacral osteomyelitis on 03/01/2018; given need for hospitalization, can be achieved while she is inpatient as she failed outpatient study without sedation. * Inguinal rash: Appears to be combination irritant dermatitis and intertrigo. Will treat with topical barrier cream and clotrimazole. Time spent, 60 min, which greater than half was spent in education/counseling/ coordination of care related to above probable sepsis, aids, chronic sacral decubitus ulcer, and inguinal rash. Care coordinated with ED staff and Dr. Russo. 02/18/18 16:05 02/18/18 16:15 Subjective: Patient well known to our service from outpatient care related to HIV/AIDS who is seen in the emergency department today for somnolence, hypotension, and temperature to 100 degrees at home preceding presentation. Patient with chronic sacral decubitus ulcer which mother notes is worsening over last several days. Recently seen on 02/13/2018 in our office at which point in time decubitus did not show findings of infection. Mother notes that patient has had intermittent somnolence over some time but today significantly worse. Patient has a port in right upper chest which is being accessed and was placed in late December. Patient also with end-stage renal disease on hemodialysis on an ongoing basis. Mother also notes chronic cough. Note from our office of 02/13/2018 is reviewed. Culture data in our system also reviewed. Allergies: Discussed allergies with mother as previously felt to have allergy to Augmentin; penicillin testing was performed and was negative; mother notes that rash persisted and was ultimately felt to be due to her dialyzer Objective: Vital Signs Temp Pulse Resp BP Pulse Ox 36.8 C 84 19 128/66 H 96 02/18/18 16:02 02/18/18 16:02 02/18/18 16:02 02/18/18 16:02 02/18/18 16:02 - Physical Exam General Appearance: other (Somnolent but arousable) EENT: dry mucous membranes, No scleral icterus, No conjunctival petechiae Respiratory: lungs clear, No respiratory distress Cardiac/Chest: regular rate, rhythm, systolic murmur (2/6 left upper sternal border) Extremities: inflammation (Abrasion over right knee) Abdomen: non-tender, No distended Back: other (Approximately 2 x 2 cm sacral decubitus ulcer which probes in several directions; no purulent drainage; maceration and irritant type erythema surrounding ulcer margin; additional pressure injury noted at approximately 12- 4 o'clock) Skin: other (Bilateral erythema, maceration and irritation in inguinal regions and umbilicus with few satellite papules) Neuro/Psych: other (Somnolent but able to follow commands) ICD10 Worksheet Patient Problems: Problems Problem Status Onset Decubitus ulcer of sacral area Acute Hypotension Acute Abdominal pain Acute Anemia Acute Anemia of chronic renal failure, stage 4 (severe) Acute Chest pain Acute Contusion of jaw Acute DVT (deep venous thrombosis) Acute End stage renal disease Acute Fever Acute Generalized weakness Acute Hyperkalemia Acute Hyperkalemia Acute Hypoxemia Acute Hypoxia Acute MRSA (methicillin resistant Staphylococcus aureus) Acute 04/04/17 Nephrostomy complication Acute Pneumonia Acute Pubic ramus fracture Acute Retroperitoneal fluid collection Acute UTI (urinary tract infection) Acute UTI (urinary tract infection) Acute
--- NOTE | 2018-02-18 16:35 | PDGENHP ---
History and Physical - Chief Complaint Acute encephalopathy - History of Present Illness Primary soldering machine feeder: Dr. Ho Primary wound care: Dr. Rupa Jc Primary general surgeon: Dr. Tineo Primary infectious Disease: Anitra Ulrich and Dr. Saez HPI: 52-year-old female presenting with acute encephalopathy characterized as somnolence with poor arousability, acutely worsening on the day of this presentation, when her mother attempted to awaken her from bed. The patient's mother reports that she has had increased lethargy over the past week but this has not resulted in the patient completely being unable to get up from bed, and choosing to sleep all day. The patient's mother also reports that her sacral wound appears to be slightly worsening in so far as that may be slightly more reddened, but she has been keeping it bandage. She also reports that the patient has had some increased excoriation located on the left abdomen. Of note , the patient had a temperature of a 100 degrees F on the morning of presentation and she has also been having some loose stools but has not had any fecal incontinence or diarrhea on the morning of this presentation. Her mother noted that her oxygen level and systolic blood pressure were both decreased, and she sought medical attention. Upon arrival, the patient's SpO2 was 65% and her systolic blood pressure was 75. Of note, the patient has recently [facility] and she underwent debridement of her sacral wound by Dr. Fleming on the . An MRI was scheduled for the 20 sec, the patient was unable to tolerate secondary to pain. The patient has been adhering to her dialysis schedule, and she was most recently dialyzed on the day prior to this presentation. She has notably been receiving IV Benadryl through the dialysis, given some symptoms that have been considered allergic response to dialysis. History Information - Allergies/Home Medication List Allergies/Adverse Reactions: ertapenem sodium [From Invanz] Allergy (Intermediate, Verified 02/18/18 13:43) Rash, neck and throat swelling influenza virus vaccine, specific Allergy (Intermediate, Verified 02/18/18 13:43 ) Other-Enter Comments vancomycin [Vancomycin] Allergy (Intermediate, Verified 02/18/18 13:43) Swelling/neck,face,throat cephalexin [From Keflex] Allergy (Verified 02/18/18 13:43) doxycycline Allergy (Verified 02/18/18 13:43) hydroxyzine HCl [From Atarax] Allergy (Verified 02/18/18 13:43) Home Medications: Abacavir Sulfate [Ziagen] 600 mg PO DAILY@02/23/13 [Last Taken 01/16/18] Darunavir Ethanolate [PREZISTA] 800 mg PO DAILY@02/23/13 [Last Taken 01/16/18 ] Escitalopram Oxalate [Lexapro] 20 mg PO DAILY 07/29/15 [Last Taken 08/17/17] Ritonavir [Norvir] 100 mg PO DAILY@07/29/15 [Last Taken 01/16/18] Sevelamer Carbonate [Renvela] 1,600 mg PO TIDMEAL 07/30/15 [Last Taken 08/17/17] Dolutegravir Sodium [Tivicay] 50 mg PO DAILY@04/28/16 [Last Taken 08/16/17] Folic Acid/Vitamin B Comp W-C [Renavit Tablet] 1 each PO DAILY 07/25/17 [Last Taken 08/17/17] Herbals/Supplements -Info Only 1 ea PO DAILY 07/25/17 [Last Taken Unknown] Chlorzoxazone 500 mg PO TID PRN 08/17/17 [Last Taken 08/17/17] guaiFENesin [Mucinex 600 MG (*)] 1,200 mg PO BID PRN 08/17/17 [Last Taken ] Fluticasone Nasal [Flonase Nasal [place]] 1 sprays NASAL HS 01/14/18 [Last Taken Unknown] Levothyroxine [Synthroid 200 mcg (*)] 200 mcg PO DAILY06 01/14/18 [Last Taken Unknown] Omeprazole 20 mg PO DAILY 01/14/18 [Last Taken Unknown] SUMAtriptan [Imitrex 50 MG (*)] 50 mg PO DAILY PRN 01/14/18 [Last Taken Unknown] amLODIPine BESYLATE [Amlodipine Besylate] 5 mg PO SUTUTHSA@01/14/18 [Last Taken Unknown] hydrALAZINE [Apresoline] 25 mg PO DAILY PRN 01/14/18 [Last Taken Unknown] Cinacalcet HCl [Sensipar (*)] 30 mg PO MOWEFR 01/17/18 [Last Taken 01/16/18] Sevelamer Carbonate [Renvela] 800 mg PO DAILY PRN 01/17/18 [Last Taken Unknown] I have personally reviewed and updated: family history, medical history, social history, surgical history - Past Medical History Additional medical history: HIV on anti-retroviral therapy. Guillain-Aberdeen syndrome with neurogenic bladder. Hypothyroidism. Depression. Nephrolithiasis with frequent urinary tract infections. Deep tissue injury on the sacrum, [facility]. Anemia of chronic kidney disease with recent blood transfusion. End-stage renal disease on Tuesday hemodialysis. Hypertension and hyperlipidemia. Seizure disorder, most recently provoked by erythropoietin. Small-bowel obstruction. C difficile colitis - Surgical History Additional surgical history: left-sided nephrectomy 2017. Cholecystectomy. Left hip surgery. Suprapubic catheter. Hysterectomy. Tubal ligation. Bilateral foot surgery. Left knee surgery. Left upper extremity AV fistula. A right chest port placement by Dr. Tineo 01/28 - Family History Additional family history: no coronary artery disease - Social History Smoking Status: Never smoked Alcohol Use: None Drug Use: None Additional social history: lives independently in an apartment in [place], mother is primary senior business broker Review of Systems Review of Systems: ROS: 10pt was reviewed & negative except for what was stated in HPI & below Constitutional: Reports: fever, malaise, weakness Skin: Reports: other (Excoriation over left abdomen) Neurological: Reports: other (Somnolence) Physical Exam Physical Exam: Temp Pulse Resp BP Pulse Ox 36.8 C 84 19 128/66 H 96 02/18/18 16:02 02/18/18 16:02 02/18/18 16:02 02/18/18 16:02 02/18/18 16:02 O2 (L/minute) 6 Constitutional: no apparent distress, not in pain, chronically ill appearing, uncomfortable Eyes: PERRL, anicteric sclera, EOMI Ears, Nose, Mouth, Throat: other (Tacky mucous membranes) Cardiovascular: edema (1+ bilateral lower extremities), other (Left upper extremity AV fistula audible thrill), No systolic murmur, No irregularly irregular, No tachycardia Respiratory: no respiratory distress, no rales or rhonchi, clear to auscultation Gastrointestinal: normoactive bowel sounds, distension (Mild), No tenderness, No guarding Skin: other (Excoriation over left abdomen, serous drainage from small abdomen shallow ulceration, no erythema around the port) Musculoskeletal: other (Notable muscular atrophy) Neurologic: other (Alert awake oriented x2 to person and place, not time) Psychiatric: not anxious, encephalopathic, other (Somnolent but arousable to tactile stimuli), No agitated Lab Data & Imaging Review 02/18/18 14:20 02/18/18 14:44 WBC 7.55 10^3/uL (3.80-9.50) 02/18/18 14:20 RBC 2.27 10^6/uL (4.18-5.33) L 02/18/18 14:20 Hgb 7.5 g/dL (12.6-16.3) L 02/18/18 14:20 POC Hgb 7.8 gm/dL (12.6-16.3) L 02/18/18 14:29 Hct 23.6 % (38.0-47.0) L 02/18/18 14:20 POC Hct 23 % (38-47) L 02/18/18 14:29 MCV 104.0 fL (81.5-99.8) H 02/18/18 14:20 MCH 33.0 pg (27.9-34.1) 02/18/18 14:20 MCHC 31.8 g/dL (32.4-36.7) L 02/18/18 14:20 RDW 19.9 % (11.5-15.2) H 02/18/18 14:20 Plt Count 132 10^3/uL (150-400) L 02/18/18 14:20 MPV 9.4 fL (8.7-11.7) 02/18/18 14:20 Neut % (Auto) 71.9 % (39.3-74.2) 02/18/18 14:20 Lymph % (Auto) 16.4 % (15.0-45.0) 02/18/18 14:20 [place] % (Auto) 11.1 % (4.5-13.0) 02/18/18 14:20 Eos % (Auto) 0.1 % (0.6-7.6) L 02/18/18 14:20 Baso % (Auto) 0.1 % (0.3-1.7) L 02/18/18 14:20 Nucleat RBC Rel Count 0.0 % (0.0-0.2) 02/18/18 14:20 Absolute Neuts (auto) 5.42 10^3/uL (1.70-6.50) 02/18/18 14:20 Absolute Lymphs (auto) 1.24 10^3/uL (1.00-3.00) 02/18/18 14:20 Absolute Monos (auto) 0.84 10^3/uL (0.30-0.80) H 02/18/18 14:20 Absolute Eos (auto) 0.01 10^3/uL (0.03-0.40) L 02/18/18 14:20 Absolute Basos (auto) 0.01 10^3/uL (0.02-0.10) L 02/18/18 14:20 Absolute Nucleated RBC 0.00 10^3/uL (0-0.01) 02/18/18 14:20 Immature Gran % 0.4 % (0.0-1.1) 02/18/18 14:20 Immature Gran # 0.03 10^3/uL (0.00-0.10) 02/18/18 14:20 Platelet Estimate ADEQUATE (ADEQ) 02/18/18 14:20 Basophilic Stippling 1+ H 02/18/18 14:20 Microcytic Cells 1+ H 02/18/18 14:20 Oval Macrocytes 1+ H 02/18/18 14:20 PT 15.0 SEC (12.0-15.0) 02/18/18 14:20 INR 1.16 (0.83-1.16) 02/18/18 14:20 APTT 36.0 SEC (23.0-38.0) 02/18/18 14:20 VBG Lactic Acid 1.1 mmol/L (0.7-2.1) 02/18/18 15:45 POC Sodium 137 mEq/L (135-145) 02/18/18 14:29 Sodium 135 mEq/L (135-145) 02/18/18 14:44 POC Potassium 5.0 mEq/L (3.3-5.0) 02/18/18 14:29 Potassium 5.0 mEq/L (3.3-5.0) 02/18/18 14:44 POC Chloride 97 mEq/L (97-110) 02/18/18 14:29 Chloride 97 mEq/L (97-110) 02/18/18 14:44 Carbon Dioxide 30 mEq/l (22-31) 02/18/18 14:44 Anion Gap 8 mEq/L (8-16) 02/18/18 14:44 POC BUN 36 mg/dL (7-23) H 02/18/18 14:29 BUN 38 mg/dL (7-23) H 02/18/18 14:44 Creatinine 3.9 mg/dL (0.6-1.0) H 02/18/18 14:44 POC Creatinine 4.2 mg/dL (0.6-1.0) H 02/18/18 14:29 Estimated GFR 12 02/18/18 14:44 Glucose 91 mg/dL (70-100) 02/18/18 14:44 POC Glucose 96 mg/dL (70-100) 02/18/18 14:29 Calcium 8.8 mg/dL (8.5-10.4) 02/18/18 14:44 Total Bilirubin 0.5 mg/dL (0.1-1.4) 02/18/18 14:44 Ammonia 14.0 uMOL/L (9.0-30.0) 02/18/18 15:45 POC Troponin I 0.72 ng/mL (0.00-0.08) H 02/18/18 15:22 TSH 13.500 uIU/mL (0.465-4.680) H 02/18/18 15:15 Urine Color YANETH 02/18/18 15:10 Urine Appearance TURBID 02/18/18 15:10 Urine pH 7.0 (5.0-7.5) 02/18/18 15:10 Ur Specific [place] 1.015 (1.002-1.030) 02/18/18 15:10 Urine Protein 1+ (NEGATIVE) H 02/18/18 15:10 Urine Ketones NEGATIVE (NEGATIVE) 02/18/18 15:10 Urine Blood 1+ (NEGATIVE) H 02/18/18 15:10 Urine Nitrate NEGATIVE (NEGATIVE) 02/18/18 15:10 Urine Bilirubin NEGATIVE (NEGATIVE) 02/18/18 15:10 Urine Urobilinogen NEGATIVE EU (0.2-1.0) 02/18/18 15:10 Ur Leukocyte Esterase 1+ (NEGATIVE) H 02/18/18 15:10 Urine RBC 50-182 /hpf (0-3) H 02/18/18 15:10 Urine WBC 50-182 /hpf (0-3) H 02/18/18 15:10 Ur Epithelial Cells NONE SEEN /lpf (NONE-1+) 02/18/18 15:10 Urine Bacteria 4+ /hpf (NONE SEEN) H 02/18/18 15:10 Urine Mucus 3+ /lpf (NONE-1+) H 02/18/18 15:10 Urine Glucose NEGATIVE (NEGATIVE) 02/18/18 15:10 Visualized and Interpreted imaging results: Yes Interpretation: CT angio demonstrating pulmonary edema, no PE, bronchiolitis Visualized and Interpreted EKG results: Yes EKG Interpretation: Positive for: other (Normal sinus rhythm, T-wave inversion in V2) Assessment & Plan Assessment: 52-year-old female presents with sepsis and acute encephalopathy Plan: 1. Sepsis. Acute, new problem this provider, further workup indicated. Evidenced by Q sofa score of 2, with hypotension and encephalopathy, potential sources of infection include bacteremia verses osteomyelitis/sacral decubitus -discussed with Dr. Filiberto Garg at bedside, he recommends Zosyn and daptomycin given her extensive allergy list, believe that she has tolerated Augmentin in the recent past -blood culture sent, a UA/urine culture sent, if develops diarrhea send stool PCR to rule out C diff, wound culture from sacrum sent, get chest x-ray -discussed with Dr. Manny Cornejo, he reports to me he is giving the patient the sepsis protocol fluid bolus, we will recheck lactic acid level after this bolus , monitor blood pressure, admit to ICU in case the patient requires pressors, currently has port as central access 2. Acute encephalopathy. Evidenced by global brain dysfunction characterized as somnolence, disorientation, which are acute changes from her baseline, most likely secondary to the toxic effects of infection and sepsis -mental status currently poor, monitor closely, will require one-to-one assistance -no evidence of meningitis on physical exam 3. End-stage renal disease. Tuesday hemodialysis, patient may require dialysis tomorrow depending on her fluid requirements today -will contact Nephrology -monitor on telemetry -monitor serum chemistries 4. Anemia of end-stage renal disease. Hemoglobin 7.5, if hypotension becomes refractory to fluids, will give her blood transfusion, but the patient does not demonstrate any active evidence of blood loss or hemolysis 5. HIV. Chronic, continue anti viral therapy 6. Pressure injury. Reviewed outside records including 02/09/2018 [facility] note by Dr. Rupa Jc, her evaluation was demonstrative of deep tissue injury with consideration of possible osteomyelitis, the patient underwent debridement -wound care consultation placed -area is currently covered, recommend pressure offloading bed in ICU Diet. Swallow eval, renal if passes Prophylaxis. High risk patient, heparin subcu Code. Full Disposition. Anticipated discharge uncertain this time, anticipated stay is greater than 48 hr for reasonable medical necessity including sepsis and acute encephalopathy in the setting of high risk comorbid conditions outlined above. 45 min of critical care time spent with this patient, at bedside, specifically coordinating care and addressing sepsis treatment outlined above, patient remains critically ill with high risk of worsening morbidity and/or mortality is being admitted to the intensive care unit.
[2018-02-18] MEDS ORDERED: CHLORZOXAZONE 500 MG PO PRN (18:39)
[2018-02-18] MEDS ORDERED: BENZONATATE 100 MG CAP PO PRN (18:39)
[2018-02-18] MEDS ORDERED: IBUPROFEN 200 MG TAB PO PRN (18:39)
[2018-02-18] MEDS ORDERED: guaiFENesin 600 MG TAB.ER PO PRN (18:39)
[2018-02-18] MEDS: LIDO/ZINC OX/CLOTRIMAZOLE (MAD) 116 GM CREAM TP SCH (21:16)
[2018-02-18] MEDS: FLUTICASONE NASAL 120 SPRAYS/16 GM MDI EACHNARE SCH (21:17)
[2018-02-18] MEDS: HEPARIN 5,000 UNIT/0.5 ML INJ SC SCH (21:17)
[2018-02-18] MEDS: ABACAVIR SULFATE 600 MG PO SCH (21:18)
[2018-02-18] MEDS: (Dolutegravir Sodium [Tivicay] 50 MG) PO SCH (21:19)
[2018-02-18] MEDS: DARUNAVIR ETHANOLATE 800 MG PO SCH (21:20)
[2018-02-18] MEDS: RITONAVIR 100 MG PO SCH (21:21)
[2018-02-18] MEDS: PIPERACILLIN/TAZO 2.25 GM/DEX 50 ML IV SCH (22:21)
[2018-02-19 04:18] LABS: PLATELET COUNT 156 10^3/uL (150-400)
[2018-02-19] MEDS: PIPERACILLIN/TAZO 2.25 GM/DEX 50 ML IV SCH ×3 (05:51→23:12)
[2018-02-19] MEDS: LEVOTHYROXINE 200 MCG TAB PO SCH (05:51)
[2018-02-19] MEDS: HEPARIN 5,000 UNIT/0.5 ML INJ SC SCH ×3 (05:51→23:13)
[2018-02-19] MEDS: PANTOPRAZOLE SODIUM 40 MG TAB PO SCH (08:49)
[2018-02-19] MEDS: ESCITALOPRAM OXALATE 10 MG TAB PO SCH (08:49)
[2018-02-19] MEDS: NEPHROVITE FOLIC ACID/VIT B&C 1 TAB PO SCH (08:51)
[2018-02-19] MEDS: (Sevelamer Carbonate [Renvela] 800 MG) PO SCH ×3 (08:52→17:34)
[2018-02-19] MEDS: LIDO/ZINC OX/CLOTRIMAZOLE (MAD) 116 GM CREAM TP SCH ×2 (08:54→20:07)
[2018-02-19] MEDS ORDERED: Herbals/Supplements -Info Only PO SCH (09:00)
--- NOTE | 2018-02-19 09:13 | PDMN ---
Medical Necessity Medical necessity: est los>2mn for sepsis w/hypotension, and encephalopathy, r/ t bacteremia vs osteomyelitis/sacral decubitus; admit to ICU, requires ID and nephrology consult, IV abx, close monitoring of mental status, and tele; comorbid HIV, ESRD on HD, anemia, pressure injury; per order and H&P
[2018-02-19] MEDS: SUMAtriptan 50 MG TAB PO PRN (09:26)
--- NOTE | 2018-02-19 10:04 | SOAPPROG ---
SOAP Progress Note Assessment/Plan: Assessment: 52 yo female with PMH significant for GBS (1983) and ESRD on HD MWF at [facility] with Dr. Ho admitted with AMS with concern for sepsis ( hypoxia, hypotension improved with IVF and abx). # ESRD- -New O2 requirement but patient breathing comfortably on 3L O2 NC, so no emergent indication for HD on 02/19 for volume. *Continue HD MWF per routine schedule *Discontinued maintenance IVF -daily dialysis vitamin # Hypotension- presumed 2/2 sepsis. resolved with IVF *Discontinued IVF --IV abx per primary --Blood cultures pending (does have R chest port and sacral wound) # CKD-MBD --Ok to continue Sensipar and Sevelamer for now. *Will check Phos with AM labs -Ca ok at 8.9 # Hyperkalemia- ok --continue to modulate with HD # Hypervolemia- patient is total body volume up on exam, but given that she just presented with hypotension that was fluid responsive <12hrs ago and no emergent need for volume removal from respiratory standpoint, will not plan for extra dialysis session on 02/19 for volume removal. Will wait until regular HD day on 02/20 Plan: 02/19/18 10:06 Subjective: Patient presented with lethargy for over a week and worsening AMS. BP and O2 sats low at home. Temp 100. Patient's mother reported worsening of sacral wound. Patient reports have some loose stools but not increased frequency of bowel movements. BP initially 75 systolic and O2 sats at 65%. Did have some pulmonary edema on CXR on admission. Given 3L NS on admission with improvement of hypotension. BP up to 120's systolic. Blood cultures and sacral wound culture pending. Abx given. Patient is feeling much better this morning. Denies shortness of breath. Discussed possibility of dialysis today and patient wishes to hold off until tomorrow. Objective: Vital Signs Temp Pulse Resp BP Pulse Ox 36.7 C 82 14 121/49 H 96 02/19/18 07:43 02/19/18 07:43 02/19/18 07:43 02/19/18 07:43 02/19/18 07:43 Laboratory Results 02/19/18 04:10 02/19/18 04:10 02/18/18 02/19/18 02/20/18 05:59 05:59 05:59 Intake Total 3142 Output Total 100 Balance 3042 PT 15.0 SEC (12.0-15.0) 02/18/18 14:20 INR 1.16 (0.83-1.16) 02/18/18 14:20 Exam: General- chronically ill-appearing, NAD Eyes- anicteric, no conjunctival injection HEENT- MMM, no oral lesions Pulm- few scattered rales at bilateral bases, breathing comfortably on 3L O2 NC CV- NRRR, + systolic murmur Skin- sacral wound covered Pysch- pleasant, answers questions appropriately Neuro- wheelchair bound, CN II-XII grossly intact ICD10 Worksheet Patient Problems: Problems Problem Status Onset Decubitus ulcer of sacral area Acute Hypotension Acute Hypoxemia Acute UTI (urinary tract infection) Acute Abdominal pain Acute Anemia Acute Anemia of chronic renal failure, stage 4 (severe) Acute Chest pain Acute Contusion of jaw Acute DVT (deep venous thrombosis) Acute End stage renal disease Acute Fever Acute Generalized weakness Acute Hyperkalemia Acute Hyperkalemia Acute Hypoxemia Acute Hypoxia Acute MRSA (methicillin resistant Staphylococcus aureus) Acute 04/04/17 Nephrostomy complication Acute Pneumonia Acute Pubic ramus fracture Acute Retroperitoneal fluid collection Acute UTI (urinary tract infection) Acute UTI (urinary tract infection) Acute
[2018-02-19] MEDS ORDERED: FAMOTIDINE 20 MG/NACL 50 ML IV ONE (10:57)
--- NOTE | 2018-02-19 11:44 | ASMTCMCOM ---
CM Note CM Note Notes: 52yr old female with numerous ER visits and admissions present admit: Encephalopathy, Sepsis, Sacral wound, Guillain Kell[place]. She has anadditional Hx of End stage renal dis.-dialysis M/W/F, Neurogenic bladder, Nephrectomy, Hypothyroid, Anemia, HTN, HLD, Sz diso, SBO, C-diff, Depression. Complains of back pain-possible UTI, Pulm edema. Usually lives alone independently, mother acts as qa intern. PT reports that she is moving well and uses a W/C. May need HC on discharge. Date Signed: 02/19/2018 11:43 AM Electronically Signed By:Rosalba Sheets LCSW
--- NOTE | 2018-02-19 13:21 | PCMIDPN ---
Assessment/Plan: Assessment/Plan: * Probable sepsis syndrome: Hypotension and somnolence most likely associated with sepsis syndrome - clinically improved today with resolution of somnolence. Primary considerations include bacteremia associated with chronic decubitus ulcer although appearance does not show findings of overt infection versus bacteremia associated with ongoing hemodialysis or indwelling port. Continue empiric daptomycin and Zosyn. Once stabilizes, will proceed with pelvic MRI to assess for osteomyelitis of the sacrum in the setting of chronic sacral decubitus ulcer. * AIDS: Most recent CD4 count 239 (33%). Viral load is currently pending. Continue antiretrovirals including: Norvir 100 mg po daily; Prezista 800 mg p.o. Daily, Tivicay 50 mg p.o. Daily and Ziagen 600 mg orally daily * Chronic sacral decubitus ulcer: See above discussion. Will not add anti fungal coverage as use may simply represent colonization based on chronicity of ulceration. * Inguinal rash: Appears to be combination irritant dermatitis and intertrigo. Will treat with topical barrier cream and clotrimazole. No significant interval change. * Flank pain: Unclear etiology. Continue observation. Consider CT if any failure to improve versus inclusion with MRI when pelvic MRI performed. * Pruritis: No rash present. May be associated with Zosyn. Continue to observe and use Benadryl as needed. Time spent, 35 min, which greater than half was spent in education/counseling/ coordination of care related to above probable sepsis, aids, chronic sacral decubitus ulcer, pruritis and flank pain. Care coordinated with SURFACING TECHNICIAN and Dr. Pinto. 02/19/18 13:18 02/19/18 13:21 Subjective: Patient complains of diffuse pruritis. Also notes left-sided flank pain. Mother notes previously was complaining of right-sided flank pain. Objective: Vital Signs Temp Pulse Resp BP Pulse Ox 36.4 C 73 15 133/104 H 95 02/19/18 12:00 02/19/18 12:00 02/19/18 12:00 02/19/18 12:00 02/19/18 12:00 Laboratory Results 02/19/18 04:10 02/19/18 04:10 02/18/18 02/19/18 02/20/18 05:59 05:59 05:59 Intake Total 3142 Output Total 100 Balance 3042 Daptomycin # 1 Zosyn # 1 Blood cultures x2 no growth Sacral decubitus with 4+ GPC, 1+ yeast - Physical Exam General Appearance: alert, no apparent distress, non-toxic EENT: No scleral icterus, No conjunctival petechiae Respiratory: lungs clear, No respiratory distress Cardiac/Chest: regular rate, rhythm, other (Port nontender without erythema) Extremities: other (Abrasion over right knee without surrounding cellulitis) Abdomen: non-tender, No distended Back: No CVA tenderness Neuro/Psych: other (Significant improvement in level of alertness) ICD10 Worksheet Patient Problems: Problems Problem Status Onset Decubitus ulcer of sacral area Acute Hypotension Acute Hypoxemia Acute UTI (urinary tract infection) Acute Abdominal pain Acute Anemia Acute Anemia of chronic renal failure, stage 4 (severe) Acute Chest pain Acute Contusion of jaw Acute DVT (deep venous thrombosis) Acute End stage renal disease Acute Fever Acute Generalized weakness Acute Hyperkalemia Acute Hyperkalemia Acute Hypoxemia Acute Hypoxia Acute MRSA (methicillin resistant Staphylococcus aureus) Acute 04/04/17 Nephrostomy complication Acute Pneumonia Acute Pubic ramus fracture Acute Retroperitoneal fluid collection Acute UTI (urinary tract infection) Acute UTI (urinary tract infection) Acute
--- NOTE | 2018-02-19 15:07 | WOCRNPDOC ---
WOCRN Advanced Assessment Note - Skin Integrity Problem, Advanced Assess Coccyx Pressure Injury Dressing Type: Allevyn Life Dressing Description: Intact, Saturated Closure Description: Not Approximated Exudate Amount: Excessive Exudate Color: Reddish/Yellow Exudate Characteristic(s): Serosanguinous Integumentary Issue Intervention: Dressing Changed Elizabeth Wound Tissue: Erythema, Macerated, Non-blanching, Raw, Shiny, Thin, Crusted , Scarred, Calloused, Painful/Tender Wound Bed Color: [place] Wound Bed Constitution: Red/[place] - Non Granular Tissue, Tunneling (1 o'clock to 3cm, 6 o'clock to 2 cm) Site Measurement - Head-to-Toe Length X Width X Depth (cm): 2.4x2x2 Pressure Injury Stage: Stage 4 Pressure Injury Present on Admit: Yes Skin Integrity Problem Comment: This patient is well known to wound care. This wound was previously a stage 4, most recently seen by this group at the end of December. The patient's mother has been caring for it at home but she is currently unavailable to answer any questions. Patient rolled to her left side with assist from ARIEL Guerra. Saturated dressing removed from wound. Wound cleaned with NS and gauze and wound bed explored with qtip. Elizabeth wound tissue is thin and red. From 6 o'clock to 1 o'clock the wound margin is thick and white. Mari tells me that the patient's mother has been placing some powder on the margins of the wound when dressing it. This could be a build up of the powder, or maceration, or a combination of both. Patient is unable to tolerate attempts to remove this tissue. Wound bed packed with patient's home silver based fiber packing and covered with and allevyn. At 1 o'clock there is a currently intact blister. Given the condition of the skin surrounding the coccyx pressure injury, and the proximity of this blister to the wound, these injuries are likely to become one larger wound. Aggressive offloading measures implemented. Patient already on appropriate surface - [place] bed. Wound care will round again later this week.
--- NOTE | 2018-02-19 16:36 | HOSPPROG ---
Hospitalist Progress Note Assessment/Plan: Sepsis. Q sofa 2 on admission with hypotension and encephalopathy. Possible sources include sacral pressure ulcer / osteomyelitis. Also consider urinary source with h/o nephrostomy/nephrectomy complicated by infections. She also has a PORT, though this does not appear infected. -cont zosyn/dapto per ID, appreciate assistance -pelvic MRI planned when more stabilized to assess for osteomyelitis -consider CT abd Acute encephalopathy - 2/2 infection, improving today End-stage renal disease. Tuesday hemodialysis -renal following, HD planned on usual schedule Anemia of end-stage renal disease. Hemoglobin stable, no e/o bleeding. -follow -epo per renal HIV. Chronic, continue anti viral therapy Sacral pressure injury. 02/09/2018 Wound Care Clinic note by Dr. Rupa Jc discussed deep tissue injury with consideration of possible osteomyelitis, the patient underwent debridement -wound care -pressure offloading bed -pelvic MRI as above Rash - clotrimazole Diet. Renal Prophylaxis. High risk patient, DEYSI Code. Full Disposition. cont inpt, transfer to PCU, ADD uncertain Subjective: Pt sedated after receiving benadryl for itching. No fevers. No pain. Per RN, mentation improved. Mother also notes improvement. Objective: Vital Signs Temp Pulse Resp BP Pulse Ox 36.4 C 78 15 109/53 L 92 02/19/18 12:00 02/19/18 16:00 02/19/18 16:00 02/19/18 16:00 02/19/18 16:00 Laboratory Results 02/19/18 04:10 02/19/18 04:10 02/18/18 02/19/18 02/20/18 05:59 05:59 05:59 Intake Total 3142 Output Total 100 Balance 3042 PT 15.0 SEC (12.0-15.0) 02/18/18 14:20 INR 1.16 (0.83-1.16) 02/18/18 14:20 - Physical Exam Constitutional: no apparent distress Eyes: PERRL Ears, Nose, Mouth, Throat: moist mucous membranes Cardiovascular: regular rate and rhythym Respiratory: no respiratory distress Gastrointestinal: normoactive bowel sounds, soft, non-tender abdomen Skin: warm Musculoskeletal: full muscle strength Psychiatric: encephalopathic ICD10 Worksheet Patient Problems: Problems Problem Status Onset Decubitus ulcer of sacral area Acute Hypotension Acute Hypoxemia Acute UTI (urinary tract infection) Acute Abdominal pain Acute Anemia Acute Anemia of chronic renal failure, stage 4 (severe) Acute Chest pain Acute Contusion of jaw Acute DVT (deep venous thrombosis) Acute End stage renal disease Acute Fever Acute Generalized weakness Acute Hyperkalemia Acute Hyperkalemia Acute Hypoxemia Acute Hypoxia Acute MRSA (methicillin resistant Staphylococcus aureus) Acute 04/04/17 Nephrostomy complication Acute Pneumonia Acute Pubic ramus fracture Acute Retroperitoneal fluid collection Acute UTI (urinary tract infection) Acute UTI (urinary tract infection) Acute
[2018-02-19] MEDS: RITONAVIR 100 MG PO SCH (20:05)
[2018-02-19] MEDS: ABACAVIR SULFATE 600 MG PO SCH (20:05)
[2018-02-19] MEDS: DARUNAVIR ETHANOLATE 800 MG PO SCH (20:06)
[2018-02-19] MEDS: FLUTICASONE NASAL 120 SPRAYS/16 GM MDI EACHNARE SCH (20:07)
[2018-02-19] MEDS: (Dolutegravir Sodium [Tivicay] 50 MG) PO SCH (20:07)
[2018-02-20] MEDS ORDERED: NS 500 ML IV ONE (03:21)
[2018-02-20] MEDS: PIPERACILLIN/TAZO 2.25 GM/DEX 50 ML IV SCH ×2 (05:27→15:05)
[2018-02-20] MEDS: HEPARIN 5,000 UNIT/0.5 ML INJ SC SCH ×3 (05:27→21:46)
[2018-02-20] MEDS: LEVOTHYROXINE 200 MCG TAB PO SCH (05:27)
[2018-02-20] MEDS: PANTOPRAZOLE SODIUM 40 MG TAB PO SCH (07:49)
[2018-02-20] MEDS: ESCITALOPRAM OXALATE 10 MG TAB PO SCH (07:49)
--- NOTE | 2018-02-20 08:21 | SOAPPROG ---
SOAP Progress Note Assessment/Plan: Assessment: 52 yo female with PMH significant for GBS (1983), HIV, and ESRD on HD MWF at [facility] with Dr. Ho admitted with AMS with concern for sepsis (hypoxia, hypotension improved with IVF and abx). # ESRD- *Continue HD MWF per routine schedule -daily dialysis vitamin -LUE AVF # Hypotension- presumed 2/2 sepsis. --IV abx per ID --Blood cultures pending (does have R chest port and sacral wound)-- further imaging planned to eval for osteo given wound --wound culture with group A strep --low threshold to transfer ICU # CKD-MBD --Ok to continue Sensipar and Sevelamer for now. ---CA/phos at goal # Hyperkalemia- ok --should improve with HD today --low K diet # Hypervolemia- IVF stopped, for HD today---will have to evaluate BP to ensure can tolerate ok #HIV on HAART- CD4 239, ID following #Anemia CKD/acute infection -not on Epo-- I spoke to outpt HD RN who reports it has been on hold for several months now due to "HTN" and getting transfused as needed for Hb <7 Shantel Brito MD [facility] pager [phone] 02/20/18 08:53 Subjective: Feels sleepy this am, wants to eat breakfast. No sob, n/v, f/c. Discussed Epo with RN at outpt HD unit-- she tells me pt has been getting Objective: Vital Signs Temp Pulse Resp BP Pulse Ox 36.8 C 85 14 80/47 L 95 02/20/18 07:16 02/20/18 07:16 02/20/18 07:16 02/20/18 07:16 02/20/18 07:16 Laboratory Results 02/19/18 04:10 02/20/18 03:40 02/19/18 02/20/18 02/21/18 05:59 05:59 05:59 Intake Total 3142 810 Output Total 100 0 Balance 3042 810 PT 15.0 SEC (12.0-15.0) 02/18/18 14:20 INR 1.16 (0.83-1.16) 02/18/18 14:20 Physical Exam - Physical Exam General Appearance: alert, no apparent distress, other (chronically ill, sleepy) EENT: other (mmm) Respiratory: lungs clear (ant bilat) Cardiac/Chest: regular rate, rhythm, other (RIJ central port in place) Abdomen: normal bowel sounds, non-tender, soft Extremities: other (trace LE edema, LUE AV+thrill/bruit) Neuro/Psych: alert, other (sleepy but follows commands, answers questions ok) ICD10 Worksheet Patient Problems: Problems Problem Status Onset Decubitus ulcer of sacral area Acute Hypotension Acute Hypoxemia Acute UTI (urinary tract infection) Acute Abdominal pain Acute Anemia Acute Anemia of chronic renal failure, stage 4 (severe) Acute Chest pain Acute Contusion of jaw Acute DVT (deep venous thrombosis) Acute End stage renal disease Acute Fever Acute Generalized weakness Acute Hyperkalemia Acute Hyperkalemia Acute Hypoxemia Acute Hypoxia Acute MRSA (methicillin resistant Staphylococcus aureus) Acute 04/04/17 Nephrostomy complication Acute Pneumonia Acute Pubic ramus fracture Acute Retroperitoneal fluid collection Acute UTI (urinary tract infection) Acute UTI (urinary tract infection) Acute
[2018-02-20] MEDS ORDERED: EPOETIN ALFA 10,000 UNIT/ML VIAL SC SCH (08:30)
[2018-02-20] MEDS ORDERED: NS 1,000 ML IV ONE (09:35)
[2018-02-20] MEDS: (Sevelamer Carbonate [Renvela] 800 MG) PO PRN ×3 (10:19→18:46)
[2018-02-20] MEDS: (Sevelamer Carbonate [Renvela] 800 MG) PO SCH ×3 (10:23→18:47)
[2018-02-20] MEDS: NEPHROVITE FOLIC ACID/VIT B&C 1 TAB PO SCH (10:26)
[2018-02-20] MEDS: LIDO/ZINC OX/CLOTRIMAZOLE (MAD) 116 GM CREAM TP SCH ×2 (10:27→21:45)
--- NOTE | 2018-02-20 10:55 | HOSPPROG ---
Hospitalist Progress Note Assessment/Plan: Sepsis. Q sofa 2 on admission with hypotension and encephalopathy. Possible sources include sacral pressure ulcer / osteomyelitis. Also consider urinary source with h/o nephrostomy/nephrectomy complicated by infections. She also has a PORT, though this does not appear infected. BCx's ngtd. -cont zosyn/dapto per ID, appreciate assistance -pelvic MRI was planned to assess for osteo of sacrum, though would need conscious sedation due to claustrophobia -discussed with ID, will start with CT abd/pelvis with contrast Hypotension - suspect related to poor oral intake with sedation on IV benadryl -NS bolus, BP improved to 92/47 -low threshold for ICU transfer / pressor support -lactate nl -d/c IV benadryl for now, unclear if this could be contributory End-stage renal disease. Tuesday HD -discussed hypotension with Dr. Macias. If BP remains stable after fluid bolus, will proceed with dialysis Acute encephalopathy - 2/2 infection, improved today Anemia of end-stage renal disease. Hemoglobin stable, no e/o bleeding. -follow -epo per renal HIV. Chronic, continue anti viral therapy -ID following Sacral pressure injury. 02/09/2018 Wound Care Clinic note by Dr. Rupa Jc discussed deep tissue injury with consideration of possible osteomyelitis, the patient underwent debridement -wound care -pressure offloading bed -CT as above, possibly proceed with MRI pelvis if CT not revealing (?if gadolinium dialyzable) Rash - clotrimazole Diet. Renal Prophylaxis. High risk patient, DEYSI Code. Full Disposition. cont inpt, ADD uncertain Subjective: Pt feels better today, asking to go home. No fevers/chills. Mentation improved. Not taking a lot of po. No CP or SOB. She does endorse some flank pain on the right. Objective: Vital Signs Temp Pulse Resp BP Pulse Ox 36.8 C 85 14 97/55 L 95 02/20/18 07:16 02/20/18 07:16 02/20/18 07:16 02/20/18 10:33 02/20/18 07:16 Laboratory Results 02/19/18 04:10 02/20/18 03:40 02/19/18 02/20/18 02/21/18 05:59 05:59 05:59 Intake Total 3142 810 Output Total 100 0 Balance 3042 810 PT 15.0 SEC (12.0-15.0) 02/18/18 14:20 INR 1.16 (0.83-1.16) 02/18/18 14:20 - Physical Exam Constitutional: no apparent distress Eyes: PERRL Ears, Nose, Mouth, Throat: moist mucous membranes Cardiovascular: regular rate and rhythym Respiratory: no respiratory distress Gastrointestinal: normoactive bowel sounds, soft, non-tender abdomen Skin: warm Musculoskeletal: full muscle strength Neurologic: AAOx3 Psychiatric: interacting appropriately ICD10 Worksheet Patient Problems: Problems Problem Status Onset Decubitus ulcer of sacral area Acute Hypotension Acute Hypoxemia Acute UTI (urinary tract infection) Acute Abdominal pain Acute Anemia Acute Anemia of chronic renal failure, stage 4 (severe) Acute Chest pain Acute Contusion of jaw Acute DVT (deep venous thrombosis) Acute End stage renal disease Acute Fever Acute Generalized weakness Acute Hyperkalemia Acute Hyperkalemia Acute Hypoxemia Acute Hypoxia Acute MRSA (methicillin resistant Staphylococcus aureus) Acute 04/04/17 Nephrostomy complication Acute Pneumonia Acute Pubic ramus fracture Acute Retroperitoneal fluid collection Acute UTI (urinary tract infection) Acute UTI (urinary tract infection) Acute
--- NOTE | 2018-02-20 12:03 | ASMTCMCOM ---
CM Note CM Note Notes: 02/20/2018 Case Management Note Met w/pt and Mom to discuss d/c plans. Pt is currently utilizing [facility] candy dipper for wound care. Pt and Mom expressed if wound requires surgery they would prefer to transfer to [facility]. Faxed referral to [facility] to update on hospital stay. If pt were to need SNF rehab both pt and mother would prefer a return to [facility] rehab. Pt has support from the [facility]. Per mom pt to be evaluated for further home supports through the [facility] (developmental delays cares program) for unskilled care. Pt is independent in her own apartment prior to admission. She is able to go to the grocery and prepare her own meals. Pt has dialysis MWF at [facility]. Pt has strong support from her Mom. Pt to transfer from to ICU. Per Mom the transfer is for unstable blood pressure due to infection from pt wound. Case Management d/c poc: to be determined. Case Management to follow. Date Signed: 02/20/2018 12:02 PM Electronically Signed By:Brittany Hyanes RN
[2018-02-20] MEDS ORDERED: diphenhydrAMINE 25 MG CAP PO PRN (13:56)
[2018-02-20] MEDS: oxyCODONE IR 5 MG TAB PO PRN (14:13)
[2018-02-20] MEDS ORDERED: IOPAMIDOL (ISOVUE-300) 100 ML BTL ONE (14:50)
--- NOTE | 2018-02-20 17:09 | PCMIDPN ---
Assessment/Plan: Assessment/Plan: * Possible sepsis syndrome: Hypotension and somnolence most likely associated with sepsis syndrome. No defined etiology however and blood cultures remain negative. Preliminary CT findings do not show sacral osteomyelitis or intra- abdominal abscess. Will continue daptomycin pending additional culture data. Will stop Zosyn given persistent pruritis. Procalcitonin is elevated suggesting infectious etiology although this is not definitive. * AIDS: Most recent CD4 count 239 (33%). Viral load is currently pending. Continue antiretrovirals including: Norvir 100 mg po daily; Prezista 800 mg p.o. Daily, Tivicay 50 mg p.o. Daily and Ziagen 600 mg orally daily * Chronic sacral decubitus ulcer: See above discussion. Will not target all pathogens seen on culture as these likely represent colonization and decubitus is without evidence overtly of skin and soft tissue infection. Reasonable to consider [place] acute for debridement and flap closure. * Inguinal rash: Appears to be combination irritant dermatitis and intertrigo. Improving with barrier cream and anti fungal cream. * Flank pain: Unclear etiology. Await final CT interpretation although preliminarily no findings to explain flank pain. * Pruritis: No rash present. May be associated with Zosyn. Discontinue Zosyn as outlined above. Time spent, 35 min, which greater than half was spent in education/counseling/ coordination of care related to above possible sepsis, aids, chronic sacral decubitus ulcer, pruritis and flank pain as well as CT findings. Care coordinated with PUMPER GAUGER APPRENTICE and Dr. Pinto. 02/20/18 17:06 02/20/18 17:18 Subjective: Patient with persistent pruritis. On hemodialysis this afternoon. Objective: Vital Signs Temp Pulse Resp BP Pulse Ox 36.8 C 68 13 108/48 L 97 02/20/18 15:47 02/20/18 15:47 02/20/18 15:47 02/20/18 15:47 02/20/18 15:47 Laboratory Results 02/19/18 04:10 02/20/18 03:40 02/19/18 02/20/18 02/21/18 05:59 05:59 05:59 Intake Total 3142 810 700 Output Total 100 0 Balance 3042 810 700 Daptomycin # 2 Zosyn # 2 Blood cultures x2 no growth Sacral decubitus with growth of group A Streptococcus, MRSA, E coli, and Klebsiella Urine culture with growth of group A Streptococcus - Physical Exam General Appearance: alert, no apparent distress EENT: No scleral icterus, No thrush Abdomen: non-tender, No distended Back: other (Sacral decubitus with macerations surrounding margins and hypertrophied margins along left side; no purulence) Skin: other (Bilateral intertrigo in maceration with overlying cream in place) ICD10 Worksheet Patient Problems: Problems Problem Status Onset Decubitus ulcer of sacral area Acute Hypotension Acute Hypoxemia Acute UTI (urinary tract infection) Acute Abdominal pain Acute Anemia Acute Anemia of chronic renal failure, stage 4 (severe) Acute Chest pain Acute Contusion of jaw Acute DVT (deep venous thrombosis) Acute End stage renal disease Acute Fever Acute Generalized weakness Acute Hyperkalemia Acute Hyperkalemia Acute Hypoxemia Acute Hypoxia Acute MRSA (methicillin resistant Staphylococcus aureus) Acute 04/04/17 Nephrostomy complication Acute Pneumonia Acute Pubic ramus fracture Acute Retroperitoneal fluid collection Acute UTI (urinary tract infection) Acute UTI (urinary tract infection) Acute
--- NOTE | 2018-02-20 17:44 | WOCRNPDOC ---
[facility] Advanced Assessment Note - Skin Integrity Problem, Advanced Assess Coccyx Pressure Injury Dressing Type: Allevyn Life Dressing Description: Clean/Dry, Intact Integumentary Issue Intervention: Dressing Removed Pressure Injury Stage: Stage 4 Pressure Injury Present on Admit: Yes Skin Integrity Problem Comment: Wound visualized while patient sitting on bedside commode because patient is going to CT. No bone palpable. Discussed options for packing wound with patient's mother and Dr. Jc. Recommend patient go to [facility] for wound closure with Dr. Peterson. Will try and contact wound nurse. Will initiate BID Dakin's packing and will round later this week if patient is still inpatient. Blisters at around 1 oclock are resolved. Asked Dr. Pinto to put in orders for Dakins (Sodium hypochlorite). Andressa MACIEL and RNs Olga and Vicki in room for cares.
[2018-02-20] MEDS: ABACAVIR SULFATE 600 MG PO SCH (18:40)
[2018-02-20] MEDS: (Dolutegravir Sodium [Tivicay] 50 MG) PO SCH (18:43)
[2018-02-20] MEDS: DARUNAVIR ETHANOLATE 800 MG PO SCH (18:43)
[2018-02-20] MEDS: RITONAVIR 100 MG PO SCH (18:45)
[2018-02-20] MEDS: SODIUM HYPOCHLORITE (DAKINS 1/4 STR) 473 ML BTL TP SCH (18:47)
[2018-02-20] MEDS: DAPTOmycin 350 MG in NS 100 ML IV SCH (19:17)
[2018-02-20] MEDS: CINACALCET HCL 30 MG TAB PO SCH (19:40)
[2018-02-20] MEDS: FLUTICASONE NASAL 120 SPRAYS/16 GM MDI EACHNARE SCH (21:45)
[2018-02-21] MEDS: oxyCODONE IR 5 MG TAB PO PRN (00:39)
[2018-02-21] MEDS: HEPARIN 5,000 UNIT/0.5 ML INJ SC SCH ×3 (06:08→22:17)
--- NOTE | 2018-02-21 09:48 | HOSPPROG ---
Hospitalist Progress Note Assessment/Plan: Sepsis. Q sofa 2 on admission with hypotension and encephalopathy. Possible sources include sacral pressure ulcer / osteomyelitis. UCx growing GAS, unclear if this is source of infection. She also has a PORT, though this does not appear infected. BCx's ngtd. -cont dapto, zosyn dc'd per ID due to ongoing pruritis -CT abd/pelvis yest pers reviewed/interp, no e/o abscess or sacral osteo Acute hypoxemic / hypercarbic respiratory failure - on 10 LPM O2 this am with decreased mentation. Chart review reveals h/o pCO2 in the 50's. In the past, hypercarbia was thought possibly related to oversedation from opiates and I note she was quite sedated on IV Benadryl over the past couple of days. Benadryl since d/c'd. There is also possibly h/o sleep apnea. -STAT CXR personally reviewed/interp, shows new pulmonary edema -ABG now- pH 7.1, pCO2 95 -start bipap, recheck ABG in 1-2 hrs -avoid sedating medications -echo ordered to assess LV function Acute encephalopathy - initially thought 2/2 infection, today she has developed a hypercarbic encephalopathy possibly due to oversedation -bipap as above Hypotension - responded to NS bolus yesterday, improved today though now with pulmonary edema -currently SBP 90's -echo pending End-stage renal disease. Tuesday HD -HD yesterday, unclear if she had volume removed, discussed with renal Anemia of end-stage renal disease. Hemoglobin stable, no e/o bleeding. -follow -epo per renal HIV. Chronic, continue anti viral therapy -ID following Sacral pressure injury. 02/09/2018 Wound Care Clinic note by Dr. Rupa Jc discussed deep tissue injury with consideration of possible osteomyelitis, the patient underwent debridement -wound care -pressure offloading bed -CT did not reveal osteo, considering MRI pelvis -per surg, may be candidate to transfer to [facility] for further management Rash - clotrimazole Diet. Renal Prophylaxis. High risk patient, DEYSI Code. Full Disposition. cont inpt, ADD uncertain 30 minutes critical care Subjective: Pt is somnolent, not arousable this am. O2 requirement up to 10 LPM. No fevers/chills. Objective: Vital Signs Temp Pulse Resp BP Pulse Ox 36.4 C 85 13 114/48 L 90 L 02/21/18 08:00 02/21/18 08:00 02/21/18 08:00 02/21/18 08:00 02/21/18 08:00 Laboratory Results 02/21/18 04:20 02/21/18 04:20 02/20/18 02/21/18 02/22/18 05:59 05:59 05:59 Intake Total 810 1500 Output Total 0 Balance 810 1500 PT 15.0 SEC (12.0-15.0) 02/18/18 14:20 INR 1.16 (0.83-1.16) 02/18/18 14:20 - Physical Exam Constitutional: no apparent distress Eyes: PERRL Ears, Nose, Mouth, Throat: moist mucous membranes Cardiovascular: regular rate and rhythym Respiratory: no respiratory distress, reduced air movement, inspiratory crackles Gastrointestinal: normoactive bowel sounds, soft, non-tender abdomen Skin: warm Musculoskeletal: generalized weakness Psychiatric: encephalopathic ICD10 Worksheet Patient Problems: Problems Problem Status Onset Decubitus ulcer of sacral area Acute Hypotension Acute Hypoxemia Acute UTI (urinary tract infection) Acute Abdominal pain Acute Anemia Acute Anemia of chronic renal failure, stage 4 (severe) Acute Chest pain Acute Contusion of jaw Acute DVT (deep venous thrombosis) Acute End stage renal disease Acute Fever Acute Generalized weakness Acute Hyperkalemia Acute Hyperkalemia Acute Hypoxemia Acute Hypoxia Acute MRSA (methicillin resistant Staphylococcus aureus) Acute 04/04/17 Nephrostomy complication Acute Pneumonia Acute Pubic ramus fracture Acute Retroperitoneal fluid collection Acute UTI (urinary tract infection) Acute UTI (urinary tract infection) Acute
[2018-02-21 10:19] LABS: PLATELET COUNT 136 10^3/uL (150-400)
--- NOTE | 2018-02-21 11:47 | SOAPPROG ---
SOAP Progress Note Assessment/Plan: Assessment: 1. Hypercapneic resp failure On bipap, CO2 improving. We have had extensive conversations relating to etio. At present, I do not favor this is primarily a volume issue, and given her BP, I would not favor UF at present. Echo shows good LV function. We will follow closely over the afternoon, and will readily dialyze if we feel it would aid her management. 2. ESRD Next HD tomorrow. BP's have been lowish. Assess for pressor or UF needs in the am. 3. Sepsis Decub, pulmonary, port all possible sources. CT suggests dense material in bladder. Will review with RN and ID. 4. Anemia Stable at this time. Plan: 02/21/18 11:44 02/21/18 11:48 Objective: Vital Signs Temp Pulse Resp BP Pulse Ox 36.4 C 78 12 94/55 L 100 02/21/18 08:00 02/21/18 10:00 02/21/18 10:00 02/21/18 10:00 02/21/18 10:00 Laboratory Results 02/21/18 10:00 02/21/18 04:20 02/20/18 02/21/18 02/22/18 05:59 05:59 05:59 Intake Total 810 1500 Output Total 0 Balance 810 1500 PT 15.0 SEC (12.0-15.0) 02/18/18 14:20 INR 1.16 (0.83-1.16) 02/18/18 14:20 Physical Exam - Physical Exam General Appearance: no apparent distress Respiratory: accessory muscle use, decreased breath sounds Cardiac/Chest: regular rate, rhythm Abdomen: soft Extremities: other (1+ hip edema) Neuro/Psych: other (somnolent, disoriented) ICD10 Worksheet Patient Problems: Problems Problem Status Onset Decubitus ulcer of sacral area Acute Hypotension Acute Hypoxemia Acute UTI (urinary tract infection) Acute Abdominal pain Acute Anemia Acute Anemia of chronic renal failure, stage 4 (severe) Acute Chest pain Acute Contusion of jaw Acute DVT (deep venous thrombosis) Acute End stage renal disease Acute Fever Acute Generalized weakness Acute Hyperkalemia Acute Hyperkalemia Acute Hypoxemia Acute Hypoxia Acute MRSA (methicillin resistant Staphylococcus aureus) Acute 04/04/17 Nephrostomy complication Acute Pneumonia Acute Pubic ramus fracture Acute Retroperitoneal fluid collection Acute UTI (urinary tract infection) Acute UTI (urinary tract infection) Acute
[2018-02-21] MEDS: SODIUM HYPOCHLORITE (DAKINS 1/4 STR) 473 ML BTL TP SCH ×2 (12:00→21:45)
[2018-02-21] MEDS: LIDO/ZINC OX/CLOTRIMAZOLE (MAD) 116 GM CREAM TP SCH ×2 (12:00→21:44)
--- NOTE | 2018-02-21 12:39 | ASMTCMCOM ---
CM Note CM Note Notes: Patient needs longterm wound care. She has been at [facility] before and would like to return to that LTAC setting. Referral sent to [facility] ([facility]). Date Signed: 02/21/2018 12:38 PM Electronically Signed By:Rosalba Sheets LCSW
--- NOTE | 2018-02-21 15:04 | ECHO ---
[email or web address] [address] [address] Main: [phone] Fax: Transthoracic Echocardiogram Name: BAR LEVY MR#: [id number] Study Date: 02/21/2018 Study Time: 11:22 AM Date of : 1965 Age: 52 year(s) Height: 172.7 cm (68 in.) Weight: 58.97 kg (130 lb.) BSA: 1.7 m2 Gender: Female Examination: Echo Indication: Pulmonary edema/respiratory failure Image Quality: Contrast: Requested by: Aixa Pinto BP: 94 mmHg/44 mmHg Heart Rate: Rhythm: Indication: Pulmonary edema/respiratory failure Procedure Staff Terminal Make Up Operator: Laure Cardona RDCS Reading Physician: Gael Collazo MD Requesting Provider: Conclusions: Normal size left ventricle. Mild concentric LV hypertrophy. Global hypercontractility of the left ventricle. LV septal motion consistent with borderline RV volume overload.. The left atrium is mildly dilated. The right atrium is mildly dilated. The mitral valve is normal in appearance and function. Mild mitral valve regurgitation is present. Aortic valve is not well visualized. There is no aortic valve regurgitation. Mild calcific aortic valve stenosis. Mild tricuspid regurgitation is present. No old studies for comparison Measurements: Chambers Valvular Assessment AV/MV Valvular Assessment TV/PV Normal Normal Normal Name Value Range Name Value Range Name Value Range Ao Amalia (MM): 3.1 cm (2.2 cm-3.7 AV meanP mmHg ( - ) TR Vmax: 2.41 mm/s ( - ) cm) MV A Vmax: 1.09 m/s ( - ) TR PGmax: 23 mmHg ( - ) IVSd (2D): 1.1 cm (0.6 cm-1.1 syst. PAP: 28 mmHg ( - ) cm) LVDd (2D): 4.3 cm (3.9 cm-5.3 cm) LVDs (2D): 2.9 cm (2.1 cm-4 cm) LVPWd (2D): 1.1 cm ( - ) LVEF (MOD4): 76 % (>=55 %) EF Range: 70-75 % Patient: BAR LEVY Study Date: 02/21/2018 Page 1 of 2 11:22 AM Continued Measurements: Chambers Valvular Assessment AV/MV Valvular Assessment TV/PV Name Value Name Value Name Value LADs: 2.8 cm MV E' Septal: 0.06 m/s CVP (est.): 5 mmHg LADs Lon.2 cm LA Area: 22.2 cm2 Additional Vessels Name Value Ao Ascendin.5 cm Findings: Left Ventricle: Normal size left ventricle. Mild concentric LV hypertrophy. Global hypercontractility of the left ventricle. The ejection fraction is estimated to be 70-75 %. LV septal motion consistent with borderline RV volume overload.. Right Ventricle: Normal size right ventricle. Left Atrium: The left atrium is mildly dilated. Right Atrium: The right atrium is mildly dilated. Port noted.. Mitral Valve: The mitral valve is normal in appearance and function. Mild mitral valve regurgitation is present. Aortic Valve: Aortic valve is not well visualized. There is no aortic valve regurgitation. Mild calcific aortic valve stenosis. Tricuspid Valve: The tricuspid valve is normal in appearance and function. Mild tricuspid regurgitation is present. Pulmonic Valve: The pulmonic valve is normal in appearance and function. Trivial pulmonic valve regurgitation. Aorta: The aorta is normal. Pericardium: Trivial anterior pericardial effusion. Left side pleural effusion. (No Signature Object) Patient: BAR LEVY Study Date: 02/21/2018 Page 2 of 2 11:22 AM [id number]
--- NOTE | 2018-02-21 15:23 | GCON ---
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 She also has a history of HIV and is on HAART therapy. She was ad mitted on 02/18/2018 with mental status changes and worsening sacral decubitus ulcer. The ulcer has been chronic. She has been evaluated in the Wound Care Clinic and followed by Dr. Jc and had a de bridement on 02/09 without much difficulty. She was somewhat hypotensive on admission and was though t to be septic, though the source was not exactly clear. Osteomyelitis of the sacrum was postulated, and she was started on Zosyn and daptomycin under Infectious Disease guidance. She was normotensive shortly after admission and developed hypotension again on 02/20 after getting some Benadryl and res ponded to IV fluid. She was transferred to the intensive care unit for further monitoring, was dialy zed, and her blood pressure normalized. She never needed pressors and has been afebrile since her ar rival in the intensive care unit. However, she was quite somnolent this morning, and an arterial blo od gas was obtained, showing reported pH 7.1, with a pCO2 of about 90. Those actual results are not currently available to me at this time. In any case, she was placed on BiPAP, and her subsequent blo od gas showed a pH of 7.34, pCO2 48, pO2 80, with a bicarb of 25, oxygen saturation 95%. She has no history of pulmonary disease, though I did evaluate her in July of 2017 when she had a similar ep isode of CO2 retention and did respond well to Narcan at that time. She did require BiPAP overnight, but she was, at one time, thought to possibly have sleep apnea, though she has never had a formal sl eep study and is not morbidly obese. She is a nonsmoker and uses rare narcotics. In the most curren t history, she did get oxycodone IR at about 12:30 last p.m., as well as some Benadryl as described p reviously, but none since that period of time. She was dialyzed yesterday prior to the oxycodone. PAST MEDICAL HISTORY: Includes: 1. HIV, which I believe is inactive at this time on highly active anti-retroviral therapy. 2. 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 3. Neurogenic bladder. 4. Hypothyroidism. 5. Depression. 6. Kidney stones. 7. Frequent urinary tract infections. 8. Severe anemia of chronic disease, thought to be related to both HIV, as well as end-stage renal d isease, requiring transfusions. 9. End-stage renal disease, dialysis dependent. 10. Hypertension. 11. Hyperlipidemia. 12. Previous seizure disorder, the details of which are unclear at this time. 13. Small bowel obstruction. 14. C difficile colitis. 15. CO2 retention in July 2017. 16. Deep vein thrombosis with an IVC filter in place. 17. Pneumonia in July 2017 as well. 18. She also had a subacute acetabular fracture that was treated nonoperatively. PAST SURGICAL HISTORY: Includes: 1. Left nephrectomy in the past, nephrostomy tubes. 2. Cholecystectomy. 3. Hip surgery. 4. Suprapubic catheter placement. 5. Hysterectomy. 6. Tubal ligation. 7. Foot and knee surgery. 8. AV fistulas in the past and a relatively recently placed chest port for her frequent transfusions . SOCIAL HISTORY: She is a nonsmoker. No alcohol or IV drug use. FAMILY HISTORY: Noncontributory at this time. MEDICATIONS: Now include Tessalon, Sensipar, daptomycin, Lexapro, Flonase, Mucinex, subcu heparin, S ynthroid, anti-retroviral therapies, Zofran, oxycodone IR, Protonix, Dakin solution, Imitrex, and Grady a-Roberto. PHYSICAL EXAM: VITAL SIGNS: Blood pressure was 114/48, heart rate of 85, respirations 13, oxygen sa turation 90% on 5 L OxyMask. She was quite somnolent, though aroused to voice and dozed off easily. HEENT: Pupils equally round and reactive to light. Nonicteric and noninjected. Mucous membranes a re moist, without erythema or exudate. NECK: Supple, without adenopathy or jugular vein distention. LUNGS: Breath sounds were diminished but clear to auscultation bilaterally, without wheezes, rubs or rales. HEART: Regular rate and rhythm, without obvious murmur. ABDOMEN: Soft, nontender, nondi stended, without hepatosplenomegaly. EXTREMITIES: No clubbing, cyanosis, or edema. NEUROLOGIC: No nfocal. SKIN: Warm and dry, without evidence of rash. LABORATORY DATA: Includes a CBC from 02/19 with a white count of 5.8, hematocrit of 24, platelets 15 6. Basic metabolic panel from yesterday with a sodium of 140 and a potassium of 5.3, bicarb 26, was 30 several days ago. BUN 55, creatinine 5.2, phosphorus 5.9. LFTs were essentially normal. Alkalin e phosphatase was 239. Procalcitonin was 2.5. TSH 13.5. Urinalysis showed dirty urine with nothing specific. Cultures from her wound are growing multiple organisms, including MRSA, E coli, Klebsiell a, yeast species and Strep pyogenes. Blood cultures have been negative to date. ASSESSMENT/PLAN: Hypercapnic respiratory failure, requiring mechanical ventilation in the form of Bi PAP. I suspect this is related to narcotics, though we did not give her Narcan on this admission. S he certainly had a brisk response previously. She has shown evidence of CO2 retention, and it may be related to interactions between oxycodone and her anti-retroviral therapies. Benadryl is also not h elping the situation, and I will explore with her mother, as well as the staff about minimizing or re ducing or eliminating narcotics as much as possible because of these drug interactions. Her end-stag e renal disease certainly is not helpful here as well and may lead to prolonged episodes. My suspici on clinically for sleep apnea is modest. I think a sleep study is certainly indicated as she has had observed apneas while in the hospital in the past, and this can lead to substantial morbidity and mo rtality if left untreated. In the meantime, we will leave her on CPAP. Her repeat CBC showed a whit e count of 7.2, hematocrit 25, and platelets 136, so no substantial change there. Basic metabolic pa lui for today was fairly unremarkable, although her BNP was 65,000, but a chest x-ray would certainly be valuable at this time. I do not suspect asthma or chronic obstructive pulmonary disease or other uncommon causes, such as underlying neurologic disease. Although Guillain-[place] can certainly cause respiratory insufficiency, this should have occurred many years ago, and she has not shown evidence o f substantial chronic disease, though she has had recurrent episodes of hypercapnic respiratory failu re. She will eventually need complete pulmonary function testing, including maximum inspiratory and expiratory efforts to evaluate her pulmonary function, and we may consider a sniff test in the future . /[id number]/MODL
[2018-02-21] MEDS: NEPHROVITE FOLIC ACID/VIT B&C 1 TAB PO SCH (15:49)
[2018-02-21] MEDS: ESCITALOPRAM OXALATE 10 MG TAB PO SCH (15:49)
[2018-02-21] MEDS: PANTOPRAZOLE SODIUM 40 MG TAB PO SCH (15:49)
[2018-02-21] MEDS: (Sevelamer Carbonate [Renvela] 800 MG) PO SCH ×3 (15:49→17:31)
[2018-02-21] MEDS: LEVOTHYROXINE 200 MCG TAB PO SCH (15:49)
--- NOTE | 2018-02-21 16:16 | PCMIDPN ---
Assessment/Plan: Assessment/Plan: * Possible sepsis syndrome: No clearly defined etiology for possible sepsis. Presentation may be related to other etiology rather than infection. Will continue daptomycin x7 days total given lack of clarity. Do not think group A streptococcal urinary tract infection likely contributing as this may be present simply from perineal irritation and colonization. Nevertheless, will be covered by daptomycin. * AIDS: Most recent CD4 count 239 (33%). Continue antiretrovirals including: Norvir 100 mg po daily; Prezista 800 mg p.o. Daily, Tivicay 50 mg p.o. Daily and Ziagen [address] Rodriguez's note reviewed noting potential for potentiation of oxycodone with Prezista. * Chronic sacral decubitus ulcer: Reviewed this a.m. With Dr. Jc. No overt changes of osteomyelitis noted on CT scan. If patient will have flap procedure and debridement, think can forego MRI as surgical evaluation will likely define if osteomyelitis present. * Inguinal rash: Continue barrier cream and anti fungal cream. * Flank pain: Unclear etiology. No findings radiographically on CT scan to explain symptoms. * Pruritis: Zosyn now discontinued. Agree with plans to try to minimize Benadryl exposure with hypercapnia and somnolence. * Diarrhea: May be related oral contrast associated with CT scan. Will continue to observe without further evaluation for C difficile unless persists. Time spent, 25 min, which greater than half was spent in education/counseling/ coordination of care related to above possible sepsis, aids, chronic sacral decubitus ulcer, pruritis and flank pain as well as CT findings. Care coordinated with [facility] and Dr. Pinto. 02/21/18 16:12 Subjective: Patient with recurrent somnolence and hypercapnia. Now on CPAP. Objective: Vital Signs Temp Pulse Resp BP Pulse Ox 36.5 C 76 23 H 136/74 H 97 02/21/18 12:00 02/21/18 15:09 02/21/18 15:09 02/21/18 14:00 02/21/18 15:09 Laboratory Results 02/21/18 10:00 02/21/18 04:20 02/20/18 02/21/18 02/22/18 05:59 05:59 05:59 Intake Total 810 1500 Output Total 0 Balance 810 1500 Daptomycin # 3 Anti-retroviral therapy with abacavir, Prezista, Tivicay, and ritonavir - Physical Exam General Appearance: non-toxic, other (Somnolent) EENT: other (CPAP), No scleral icterus Respiratory: lungs clear Cardiac/Chest: regular rate, rhythm Abdomen: non-tender, No distended Skin: rash (Intertriginous rash without change) ICD10 Worksheet Patient Problems: Problems Problem Status Onset Decubitus ulcer of sacral area Acute Hypotension Acute Hypoxemia Acute UTI (urinary tract infection) Acute Abdominal pain Acute Anemia Acute Anemia of chronic renal failure, stage 4 (severe) Acute Chest pain Acute Contusion of jaw Acute DVT (deep venous thrombosis) Acute End stage renal disease Acute Fever Acute Generalized weakness Acute Hyperkalemia Acute Hyperkalemia Acute Hypoxemia Acute Hypoxia Acute MRSA (methicillin resistant Staphylococcus aureus) Acute 04/04/17 Nephrostomy complication Acute Pneumonia Acute Pubic ramus fracture Acute Retroperitoneal fluid collection Acute UTI (urinary tract infection) Acute UTI (urinary tract infection) Acute
[2018-02-21] MEDS: RITONAVIR 100 MG PO SCH (18:05)
[2018-02-21] MEDS: DARUNAVIR ETHANOLATE 800 MG PO SCH (18:05)
[2018-02-21] MEDS: (Dolutegravir Sodium [Tivicay] 50 MG) PO SCH (18:05)
[2018-02-21] MEDS: ABACAVIR SULFATE 600 MG PO SCH (18:05)
[2018-02-21] MEDS: FLUTICASONE NASAL 120 SPRAYS/16 GM MDI EACHNARE SCH (21:44)
[2018-02-22] MEDS: HEPARIN 5,000 UNIT/0.5 ML INJ SC SCH ×3 (05:52→23:00)
[2018-02-22] MEDS: LEVOTHYROXINE 200 MCG TAB PO SCH (05:53)
[2018-02-22] MEDS: PANTOPRAZOLE SODIUM 40 MG TAB PO SCH (08:21)
[2018-02-22] MEDS: NEPHROVITE FOLIC ACID/VIT B&C 1 TAB PO SCH (08:21)
[2018-02-22] MEDS: ESCITALOPRAM OXALATE 10 MG TAB PO SCH (08:21)
[2018-02-22] MEDS: (Sevelamer Carbonate [Renvela] 800 MG) PO SCH ×3 (08:22→18:36)
[2018-02-22] MEDS: LIDO/ZINC OX/CLOTRIMAZOLE (MAD) 116 GM CREAM TP SCH ×2 (08:23→21:30)
[2018-02-22] MEDS: SODIUM HYPOCHLORITE (DAKINS 1/4 STR) 473 ML BTL TP SCH ×2 (08:23→23:02)
[2018-02-22] MEDS: IBUPROFEN 200 MG TAB PO PRN ×2 (10:10→17:33)
--- NOTE | 2018-02-22 10:11 | HOSPPROG ---
Hospitalist Progress Note Assessment/Plan: Sepsis. Q sofa 2 on admission with hypotension and encephalopathy. Possible sources include sacral pressure ulcer / osteomyelitis. UCx growing GAS and GNR , unclear if this is source of infection. She also has a PORT, though this does not appear infected. BCx's ngtd. -cont dapto for 1 week, zosyn dc'd per ID due to ongoing pruritis -CT abd/pelvis - no e/o abscess or sacral osteo Acute hypoxemic / hypercarbic respiratory failure - pH 7.1 --> 7.34 after bipap initiated yesterday for pCO2 95 (now 48). Suspect 2/2 oversedation, some consideration given to chronic diaphragm weakness with h/o guillian barre. CXR with new pulmonary edema yest, echo with nl LV function. -now stable on 3 LPM -avoid sedating medications Acute encephalopathy - 2/2 hypercarbic encephalopathy possibly due to oversedation, improved with bipap, back to baseline -discussed avoiding sedating meds with mom including opiates, benadryl Hypotension - improved End-stage renal disease. Dialysis schedule is M/W/F -HD per renal Anemia of end-stage renal disease. Hemoglobin stable, no e/o bleeding. -epo per renal HIV. Chronic, continue anti viral therapy -ID following Sacral pressure injury. 02/09/2018 Wound Care Clinic note by Dr. Rupa Jc discussed deep tissue injury with consideration of possible osteomyelitis, the patient underwent debridement -wound care -pressure offloading bed -CT did not reveal osteo, defer further imaging -per surg, may be candidate to transfer to [facility] for further management Rash - clotrimazole Diet. Renal Prophylaxis. High risk patient, DEYSI Code. Full Disposition. cont inpt, ADD uncertain, possible transfer to [facility], CM involved. Case discussed with Dr. Rodriguez and care team at multi-disciplinary rounds. Subjective: Pt doing much better today, mentating back at baseline. Eating biscuits and gravy. No fevers. Denies CP or SOB. Objective: Vital Signs Temp Pulse Resp BP Pulse Ox 37 C 81 12 135/70 H 94 02/22/18 01:00 02/22/18 08:00 02/22/18 08:00 02/22/18 08:00 02/22/18 08:00 Microbiology 02/18/18 16:13 Urine Culture - Final Urine,Clean Catch Streptococcus Pyogenes Grp A Gram Neg Fly Nonlactose Ferm. Laboratory Results 02/22/18 04:45 02/22/18 05:50 02/21/18 02/22/18 02/23/18 05:59 05:59 05:59 Intake Total 1500 200 Balance 1500 200 PT 15.0 SEC (12.0-15.0) 02/18/18 14:20 INR 1.16 (0.83-1.16) 02/18/18 14:20 - Physical Exam Constitutional: no apparent distress Eyes: PERRL Ears, Nose, Mouth, Throat: moist mucous membranes Cardiovascular: regular rate and rhythym Respiratory: no respiratory distress, reduced air movement, inspiratory crackles Gastrointestinal: normoactive bowel sounds, soft, non-tender abdomen Skin: warm Musculoskeletal: generalized weakness Neurologic: AAOx3 Psychiatric: interacting appropriately ICD10 Worksheet Patient Problems: Problems Problem Status Onset Decubitus ulcer of sacral area Acute Hypotension Acute Hypoxemia Acute UTI (urinary tract infection) Acute Abdominal pain Acute Anemia Acute Anemia of chronic renal failure, stage 4 (severe) Acute Chest pain Acute Contusion of jaw Acute DVT (deep venous thrombosis) Acute End stage renal disease Acute Fever Acute Generalized weakness Acute Hyperkalemia Acute Hyperkalemia Acute Hypoxemia Acute Hypoxia Acute MRSA (methicillin resistant Staphylococcus aureus) Acute 04/04/17 Nephrostomy complication Acute Pneumonia Acute Pubic ramus fracture Acute Retroperitoneal fluid collection Acute UTI (urinary tract infection) Acute UTI (urinary tract infection) Acute
[2018-02-22] MEDS: METHOCARBAMOL 500 MG TAB PO PRN ×2 (13:06→21:05)
--- NOTE | 2018-02-22 13:21 | PDINTPN ---
Site Worker Progress Note Assessment/Plan: 52 F with complex PMH including very remote GB syndrome resulting in prolonged weakness and wheelchair, complicated by chronic sacral decubitus ulcer. She is followed in wound care clinic and had a recent debridement, but was admitted with MS changes and fluid-responsive hypotension. She was thought to have a possible (unproven) sacral osteomyelitis and was treated with antibiotics. Just prior to dialysis for her ESRD, she again developed fluid responsive hypotension so was transferred to ICU. While she was initially stable, she did get a low dose of oxycodone followed by severe hypercapnic respiratory failure and required bipap. She had a similar episode in 07/2017 which was highly responsive to narcan. This episode was treated with bipap until the effects subsided and she remained free of bipap with a normal abg the next morning. * Acute respiratory failure with hypercapnea- I suspect her narcotics, despite the low dose, was the causative trigger since she normalized in time. Narcotics can interact with HAART therapy and her ESRD doesnt help. An additional cause could be chronic inflammatory demyelinating polyneuropathy, the chronic equivalent of Guillain- [place], that can have a fluctuating course. If it is CIDP , periodic treatment with IVIG may be a therapeutic choice during crises. She should FU as an outpatient with neurology for an opinion regarding this theory. In the meantime I would avoid narcotics as best as possible and consider alternatives such as Ultram, Robaxin, or others for pain. In addition, she will need a full PSG and complete PFTs with MIP/MEP as an outpatient. Discussed with family and rounding team in detail * 02/22/18 13:21 Subjective: off bipap since 2299 Objective: Vital Signs Temp Pulse Resp BP Pulse Ox 37 C 82 14 113/64 90 L 02/22/18 01:00 02/22/18 12:00 02/22/18 12:00 02/22/18 12:00 02/22/18 12:00 Microbiology 02/18/18 16:13 Urine Culture - Final Urine,Clean Catch Streptococcus Pyogenes Grp A Gram Neg Fly Nonlactose Ferm. Laboratory Results 02/22/18 04:45 02/22/18 05:50 02/21/18 02/22/18 02/23/18 05:59 05:59 05:59 Intake Total 1500 200 Balance 1500 200 PT 15.0 SEC (12.0-15.0) 02/18/18 14:20 INR 1.16 (0.83-1.16) 02/18/18 14:20 Physical Exam - Physical Exam General Appearance: alert, no apparent distress EENT: PERRL/EOMI Neck: supple Respiratory: lungs clear, normal breath sounds, No respiratory distress, No accessory muscle use Cardiac/Chest: regular rate, rhythm, No edema Abdomen: non-tender, soft, No distended Skin: normal color, warm/dry, No cyanosis Lymphatic: no adenopathy Extremities: No pedal edema Neuro/Psych: alert, oriented x 3, cognition abnormalities ICD10 Worksheet Patient Problems: Problems Problem Status Onset Decubitus ulcer of sacral area Acute Hypotension Acute Hypoxemia Acute UTI (urinary tract infection) Acute Abdominal pain Acute Anemia Acute Anemia of chronic renal failure, stage 4 (severe) Acute Chest pain Acute Contusion of jaw Acute DVT (deep venous thrombosis) Acute End stage renal disease Acute Fever Acute Generalized weakness Acute Hyperkalemia Acute Hyperkalemia Acute Hypoxemia Acute Hypoxia Acute MRSA (methicillin resistant Staphylococcus aureus) Acute 04/04/17 Nephrostomy complication Acute Pneumonia Acute Pubic ramus fracture Acute Retroperitoneal fluid collection Acute UTI (urinary tract infection) Acute UTI (urinary tract infection) Acute
--- NOTE | 2018-02-22 14:19 | PCMIDPN ---
Assessment/Plan: Assessment/Plan: * Possible sepsis syndrome: No clearly defined etiology for possible sepsis. Presentation may be related to other etiology rather than infection. No defined etiology to date. Plan to complete 7 days total of daptomycin empirically. * AIDS: Most recent CD4 count 239 (33%) with viral load 595. Continue antiretrovirals including: Norvir 100 mg po daily; Prezista 800 mg p.o. Daily, Tivicay 50 mg p.o. Daily and Ziagen 600 mg orally daily. No change in regimen based on low level viremia. Will repeat this in the future. * Chronic sacral decubitus ulcer: Likely management at [facility] for debridement and flap coverage. * Inguinal rash: Continue barrier cream and anti fungal cream. * Diarrhea: GI pathogen panel pending. 02/22/18 14:13 02/22/18 14:20 Subjective: Patient sitting up in chair. No complaints. Level of alertness significantly improved. Objective: Vital Signs Temp Pulse Resp BP Pulse Ox 37 C 82 14 113/64 90 L 02/22/18 01:00 02/22/18 12:00 02/22/18 12:00 02/22/18 12:00 02/22/18 12:00 Microbiology 02/18/18 16:13 Urine Culture - Final Urine,Clean Catch Streptococcus Pyogenes Grp A Gram Neg Fly Nonlactose Ferm. Laboratory Results 02/22/18 04:45 02/22/18 05:50 02/21/18 02/22/18 02/23/18 05:59 05:59 05:59 Intake Total 1500 200 Balance 1500 200 Daptomycin # 4 Blood cultures x2 no growth Sacral decubitus and urine cultures reviewed Stool pathogen panel by PCR pending - Physical Exam General Appearance: alert, non-toxic EENT: No scleral icterus, No thrush, No conjunctival petechiae Respiratory: lungs clear, No respiratory distress Cardiac/Chest: regular rate, rhythm Abdomen: non-tender, No distended ICD10 Worksheet Patient Problems: Problems Problem Status Onset Decubitus ulcer of sacral area Acute Hypotension Acute Hypoxemia Acute UTI (urinary tract infection) Acute Abdominal pain Acute Anemia Acute Anemia of chronic renal failure, stage 4 (severe) Acute Chest pain Acute Contusion of jaw Acute DVT (deep venous thrombosis) Acute End stage renal disease Acute Fever Acute Generalized weakness Acute Hyperkalemia Acute Hyperkalemia Acute Hypoxemia Acute Hypoxia Acute MRSA (methicillin resistant Staphylococcus aureus) Acute 04/04/17 Nephrostomy complication Acute Pneumonia Acute Pubic ramus fracture Acute Retroperitoneal fluid collection Acute UTI (urinary tract infection) Acute UTI (urinary tract infection) Acute
[2018-02-22] MEDS: metroNIDAZOLE 500 MG TAB PO SCH ×2 (15:09→23:00)
--- NOTE | 2018-02-22 17:00 | SOAPPROG ---
SOAP Progress Note Assessment/Plan: Assessment/Plan: ESRD: on HD MWF, seen on HD today. Anemia: Hgb stable, will continue to monitor. FLY: Phos 5.9, not on phos binder, will continue to monitor. Subjective: No acute events overnight. Her breathing is better today, she is awake and alert. She is on HD and tolerating well. Objective: Vital Signs Temp Pulse Resp BP Pulse Ox 36.6 C 82 18 129/70 H 92 02/22/18 16:00 02/22/18 16:00 02/22/18 16:00 02/22/18 16:00 02/22/18 16:00 Microbiology 02/22/18 11:15 Gastrointestinal Tract Panel (PCR) - Final Stool Clostridium Difficile Detected 02/18/18 16:13 Urine Culture - Final Urine,Clean Catch Streptococcus Pyogenes Grp A Gram Neg Fly Nonlactose Ferm. Laboratory Results 02/22/18 04:45 02/22/18 05:50 02/21/18 02/22/18 02/23/18 05:59 05:59 05:59 Intake Total 1500 200 Balance 1500 200 PT 15.0 SEC (12.0-15.0) 02/18/18 14:20 INR 1.16 (0.83-1.16) 02/18/18 14:20 General: alert and oriented, no acute distress Eyes: EOMI, PERRL OP: Clear CV: RRR Resp: nonlabored respirations on NC Abd: Soft, NT Ext: trace edema BLE Neuro: CN II-XII grossly intact Psych: appropriate mood and affect Access: LUE AVF cannulated ICD10 Worksheet Patient Problems: Problems Problem Status Onset Decubitus ulcer of sacral area Acute Hypotension Acute Hypoxemia Acute UTI (urinary tract infection) Acute Abdominal pain Acute Anemia Acute Anemia of chronic renal failure, stage 4 (severe) Acute Chest pain Acute Contusion of jaw Acute DVT (deep venous thrombosis) Acute End stage renal disease Acute Fever Acute Generalized weakness Acute Hyperkalemia Acute Hyperkalemia Acute Hypoxemia Acute Hypoxia Acute MRSA (methicillin resistant Staphylococcus aureus) Acute 04/04/17 Nephrostomy complication Acute Pneumonia Acute Pubic ramus fracture Acute Retroperitoneal fluid collection Acute UTI (urinary tract infection) Acute UTI (urinary tract infection) Acute
--- NOTE | 2018-02-22 18:16 | SOAPPROG ---
SOAP Progress Note Assessment/Plan: Assessment: Velma is well known to me. Outpatient, I had been trying to get a MRI of her pelvis because she developed a recurrent decubitus ulcer that was more painful. She was unable to tolerate debridement in the wound healing center. This admission, she had a CT that did not show evidence of osteomylitis Unclear why she is septic I think that she would benefit from another stay at [facility] when she is medically stable. I agree with orders from wound care team. Please let me know if there are any questions/concerns or ways I can help Plan: 02/22/18 18:03 Objective: Vital Signs Temp Pulse Resp BP Pulse Ox 36.6 C 82 18 129/70 H 92 02/22/18 16:00 02/22/18 16:00 02/22/18 16:00 02/22/18 16:00 02/22/18 16:00 Microbiology 02/22/18 11:15 Gastrointestinal Tract Panel (PCR) - Final Stool Clostridium Difficile Detected 02/18/18 16:13 Urine Culture - Final Urine,Clean Catch Streptococcus Pyogenes Grp A Gram Neg Fly Nonlactose Ferm. Laboratory Results 02/22/18 04:45 02/22/18 05:50 02/21/18 02/22/18 02/23/18 05:59 05:59 05:59 Intake Total 1500 200 Balance 1500 200 PT 15.0 SEC (12.0-15.0) 02/18/18 14:20 INR 1.16 (0.83-1.16) 02/18/18 14:20 ICD10 Worksheet Patient Problems: Problems Problem Status Onset Decubitus ulcer of sacral area Acute Hypotension Acute Hypoxemia Acute UTI (urinary tract infection) Acute Abdominal pain Acute Anemia Acute Anemia of chronic renal failure, stage 4 (severe) Acute Chest pain Acute Contusion of jaw Acute DVT (deep venous thrombosis) Acute End stage renal disease Acute Fever Acute Generalized weakness Acute Hyperkalemia Acute Hyperkalemia Acute Hypoxemia Acute Hypoxia Acute MRSA (methicillin resistant Staphylococcus aureus) Acute 04/04/17 Nephrostomy complication Acute Pneumonia Acute Pubic ramus fracture Acute Retroperitoneal fluid collection Acute UTI (urinary tract infection) Acute UTI (urinary tract infection) Acute
[2018-02-22] MEDS: DAPTOmycin 350 MG in NS 100 ML IV SCH (18:33)
[2018-02-22] MEDS: RITONAVIR 100 MG PO SCH (18:37)
[2018-02-22] MEDS: (Dolutegravir Sodium [Tivicay] 50 MG) PO SCH (18:39)
[2018-02-22] MEDS: CINACALCET HCL 30 MG TAB PO SCH (18:39)
[2018-02-22] MEDS: DARUNAVIR ETHANOLATE 800 MG PO SCH (18:40)
[2018-02-22] MEDS: ABACAVIR SULFATE 600 MG PO SCH (18:40)
[2018-02-22] MEDS: ONDANSETRON 4 MG/2 ML VIAL IVP PRN (20:48)
[2018-02-22] MEDS: FLUTICASONE NASAL 120 SPRAYS/16 GM MDI EACHNARE SCH (23:01)
[2018-02-23] MEDS: metroNIDAZOLE 500 MG TAB PO SCH ×2 (06:38→14:07)
[2018-02-23] MEDS: LEVOTHYROXINE 200 MCG TAB PO SCH (06:38)
[2018-02-23] MEDS: HEPARIN 5,000 UNIT/0.5 ML INJ SC SCH ×3 (06:38→21:03)
[2018-02-23] MEDS: ACETAMINOPHEN 325 MG TAB PO PRN (06:43)
[2018-02-23 07:25] LABS: PLATELET COUNT 123 10^3/uL (150-400)
[2018-02-23] MEDS: PANTOPRAZOLE SODIUM 40 MG TAB PO SCH (09:07)
[2018-02-23] MEDS: NEPHROVITE FOLIC ACID/VIT B&C 1 TAB PO SCH (09:07)
[2018-02-23] MEDS: ESCITALOPRAM OXALATE 10 MG TAB PO SCH (09:07)
[2018-02-23] MEDS: (Sevelamer Carbonate [Renvela] 800 MG) PO SCH ×3 (09:08→18:21)
[2018-02-23] MEDS: LIDO/ZINC OX/CLOTRIMAZOLE (MAD) 116 GM CREAM TP SCH ×2 (09:10→22:24)
[2018-02-23] MEDS: ONDANSETRON 4 MG/2 ML VIAL IVP PRN (09:19)
--- NOTE | 2018-02-23 10:14 | HOSPPROG ---
Hospitalist Progress Note Assessment/Plan: Sepsis. Q sofa 2 on admission with hypotension and encephalopathy. Possible sources include sacral pressure ulcer / osteomyelitis. UCx growing GAS and GNR , unclear if this is source of infection. She also has a PORT, though this does not appear infected. BCx's ngtd. -cont dapto for 1 week per ID, last dose tomorrow -CT abd/pelvis - no e/o abscess or sacral osteo Acute hypoxemic / hypercarbic respiratory failure - pH 7.1 --> 7.34 after bipap for pCO2 95 (f/u pCO2 48). Suspect 2/2 oversedation. 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 She may benefit from a single dose of IVIG if she has recurrent episode of hypercarbia. Also consider sleep apnea. Echo with nl LV function. -now stable on 2 LPM -avoid sedating medications -outpt PFT's and sleep study recommended Acute encephalopathy - 2/2 hypercarbic encephalopathy possibly due to oversedation, improved with bipap, now back to baseline -discussed avoiding sedating meds with mom including opiates, benadryl Hypotension - improved End-stage renal disease. Dialysis schedule is M/W/F -HD per renal Anemia of end-stage renal disease. Hemoglobin stable, no e/o bleeding. -epo per renal HIV. Chronic, continue anti viral therapy -ID following Sacral pressure injury. 02/09/2018 Wound Care Clinic note by Dr. Rupa Jc discussed deep tissue injury with consideration of possible osteomyelitis, the patient underwent debridement -wound care -pressure offloading bed -CT did not reveal osteo, defer further imaging -per surg (followed by Dr. 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 She is not tolerating Flagyl with GI side effects. -change to oral vanc, which shouldn't be absorbed systemically Rash - clotrimazole Diet. Renal Prophylaxis. High risk patient, DEYSI Code. Full Disposition. cont inpt, ADD uncertain, possible transfer to [facility], CM involved. Per CM, she may be "out of Medicare days" for transfer to [facility], in which case, will need to f/u with surgery for other options to manage her chronic pressure ulcer. F/U with further CM recs tomorrow. Case discussed with ID. Subjective: Pt doing better today. Up in chair, plans to go outside. No fevers /chills. No CP or SOB. Mentation at baseline. Objective: Vital Signs Temp Pulse Resp BP Pulse Ox 36.8 C 78 14 139/68 H 100 02/23/18 07:54 02/23/18 07:54 02/23/18 07:54 02/23/18 07:54 02/23/18 07:54 Microbiology 02/22/18 11:15 Gastrointestinal Tract Panel (PCR) - Final Stool Clostridium Difficile Detected 02/18/18 16:13 Urine Culture - Final Urine,Clean Catch Streptococcus Pyogenes Grp A Gram Neg Fly Nonlactose Ferm. Laboratory Results 02/23/18 06:30 02/23/18 06:30 02/22/18 02/23/18 02/24/18 05:59 05:59 05:59 Intake Total 200 913 Output Total 2000 Balance 200 -1087 PT 15.0 SEC (12.0-15.0) 02/18/18 14:20 INR 1.16 (0.83-1.16) 02/18/18 14:20 - Physical Exam Constitutional: no apparent distress Eyes: PERRL Ears, Nose, Mouth, Throat: moist mucous membranes Cardiovascular: regular rate and rhythym Respiratory: no respiratory distress, clear to auscultation, reduced air movement Gastrointestinal: normoactive bowel sounds, soft, non-tender abdomen Skin: warm Musculoskeletal: full muscle strength Neurologic: AAOx3 Psychiatric: interacting appropriately ICD10 Worksheet Patient Problems: Problems Problem Status Onset Decubitus ulcer of sacral area Acute Hypotension Acute Hypoxemia Acute UTI (urinary tract infection) Acute Abdominal pain Acute Anemia Acute Anemia of chronic renal failure, stage 4 (severe) Acute Chest pain Acute Contusion of jaw Acute DVT (deep venous thrombosis) Acute End stage renal disease Acute Fever Acute Generalized weakness Acute Hyperkalemia Acute Hyperkalemia Acute Hypoxemia Acute Hypoxia Acute MRSA (methicillin resistant Staphylococcus aureus) Acute 04/04/17 Nephrostomy complication Acute Pneumonia Acute Pubic ramus fracture Acute Retroperitoneal fluid collection Acute UTI (urinary tract infection) Acute UTI (urinary tract infection) Acute
[2018-02-23] MEDS: SODIUM HYPOCHLORITE (DAKINS 1/4 STR) 473 ML BTL TP SCH ×2 (11:39→22:23)
--- NOTE | 2018-02-23 12:21 | SOAPPROG ---
SOAP Progress Note Assessment/Plan: Assessment/Plan: ESRD: on HD MWF. - Next HD tomorrow. Anemia: Hgb stable, will continue to monitor. FLY: Phos 3.8, no need for phos binder, will continue to monitor. Subjective: No acute events overnight. Pt breathing comfortably on NC, no pain today. She is up in wheelchair today. Objective: Vital Signs Temp Pulse Resp BP Pulse Ox 36.8 C 78 14 139/68 H 100 02/23/18 07:54 02/23/18 07:54 02/23/18 07:54 02/23/18 07:54 02/23/18 07:54 Microbiology 02/22/18 11:15 Gastrointestinal Tract Panel (PCR) - Final Stool Clostridium Difficile Detected 02/18/18 16:13 Urine Culture - Final Urine,Clean Catch Streptococcus Pyogenes Grp A Gram Neg Fly Nonlactose Ferm. Laboratory Results 02/23/18 06:30 02/23/18 06:30 02/22/18 02/23/18 02/24/18 05:59 05:59 05:59 Intake Total 200 913 Output Total 2000 Balance 200 -1087 PT 15.0 SEC (12.0-15.0) 02/18/18 14:20 INR 1.16 (0.83-1.16) 02/18/18 14:20 General: alert and oriented, no acute distress Eyes: EOMI, PERRL OP: Clear CV: RRR Resp; nonlabored respirations on NC Abd: Soft, NT Ext: no edema BLE Neuro: CN II-XII grossly intact, no asterixis Psych: cooperative, blunted affect Access: LUE AVF ICD10 Worksheet Patient Problems: Problems Problem Status Onset Decubitus ulcer of sacral area Acute Hypotension Acute Hypoxemia Acute UTI (urinary tract infection) Acute Abdominal pain Acute Anemia Acute Anemia of chronic renal failure, stage 4 (severe) Acute Chest pain Acute Contusion of jaw Acute DVT (deep venous thrombosis) Acute End stage renal disease Acute Fever Acute Generalized weakness Acute Hyperkalemia Acute Hyperkalemia Acute Hypoxemia Acute Hypoxia Acute MRSA (methicillin resistant Staphylococcus aureus) Acute 04/04/17 Nephrostomy complication Acute Pneumonia Acute Pubic ramus fracture Acute Retroperitoneal fluid collection Acute UTI (urinary tract infection) Acute UTI (urinary tract infection) Acute
[2018-02-23] MEDS: IBUPROFEN 200 MG TAB PO PRN (15:10)
--- NOTE | 2018-02-23 16:18 | ASMTCMCOM ---
CM Note CM Note Notes: CM has been made aware of Pt's Medicare availability. At present she is out of acute full days, acute co-pay days and out of all SNF days. She entered this hospital with 59 lifetime reserve days. They are being used with this hospitalization. Pt has Medicaid as a secondary insurance and a message was sent to Glynn inquiring whether that insurance could cover her days at the acute hospital. A ULTC 100 has been requested. CM to follow. D/C Plan: TBD Date Signed: 02/23/2018 04:17 PM Electronically Signed By:Asia Powers
[2018-02-23] MEDS: VANCOMYCIN 125 MG/2.5 ML UDL PO SCH ×2 (16:54→21:03)
[2018-02-23] MEDS: SUMAtriptan 50 MG TAB PO PRN (16:54)
--- NOTE | 2018-02-23 17:01 | PDINTPN ---
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 She is followed in wound care clinic and had a recent debridement, but was admitted with MS changes and fluid-responsive hypotension. She was thought to have a possible (unproven) sacral osteomyelitis and was treated with antibiotics. Just prior to dialysis for her ESRD, she again developed fluid responsive hypotension so was transferred to ICU. While she was initially stable, she did get a low dose of oxycodone followed by severe hypercapnic respiratory failure and required bipap. She had a similar episode in 07/2017 which was highly responsive to narcan. This episode was treated with bipap until the effects subsided and she remained free of bipap with a normal abg the next morning. * Acute respiratory failure with hypercapnea- I suspect her narcotics, despite the low dose, was the causative trigger since she normalized in time. Narcotics can interact with HAART therapy and her ESRD doesnt help. An additional cause could be chronic inflammatory demyelinating polyneuropathy, the chronic equivalent of Guillain- [place], that can have a fluctuating course. If it is CIDP , periodic treatment with IVIG may be a therapeutic choice during crises. She should FU as an outpatient with neurology for an opinion regarding this theory. In the meantime I would avoid narcotics as best as possible and consider alternatives such as Ultram, Robaxin, or others for pain. In addition, she will need a full PSG and complete PFTs with MIP/MEP as an outpatient. No further pulmonary events 02/23 * C diff- consider po vanco * OK for floor Subjective: no events Objective: Vital Signs Temp Pulse Resp BP Pulse Ox 37.1 C 80 22 H 133/71 H 99 02/23/18 12:00 02/23/18 12:00 02/23/18 12:00 02/23/18 12:00 02/23/18 12:00 Microbiology 02/22/18 11:15 Gastrointestinal Tract Panel (PCR) - Final Stool Clostridium Difficile Detected Laboratory Results 02/23/18 06:30 02/23/18 06:30 02/22/18 02/23/18 02/24/18 05:59 05:59 05:59 Intake Total 200 913 Output Total 2000 Balance 200 -1087 PT 15.0 SEC (12.0-15.0) 02/18/18 14:20 INR 1.16 (0.83-1.16) 02/18/18 14:20 Physical Exam - Physical Exam General Appearance: alert, no apparent distress EENT: PERRL/EOMI Neck: supple Respiratory: lungs clear, normal breath sounds, decreased breath sounds, No respiratory distress, No accessory muscle use Cardiac/Chest: regular rate, rhythm, No edema Abdomen: non-tender, soft, No distended Skin: normal color, warm/dry, No cyanosis Lymphatic: no adenopathy Extremities: No pedal edema Neuro/Psych: alert, normal mood/affect, cognition abnormalities ICD10 Worksheet Patient Problems: Problems Problem Status Onset Decubitus ulcer of sacral area Acute Hypotension Acute Hypoxemia Acute UTI (urinary tract infection) Acute Abdominal pain Acute Anemia Acute Anemia of chronic renal failure, stage 4 (severe) Acute Chest pain Acute Contusion of jaw Acute DVT (deep venous thrombosis) Acute End stage renal disease Acute Fever Acute Generalized weakness Acute Hyperkalemia Acute Hyperkalemia Acute Hypoxemia Acute Hypoxia Acute MRSA (methicillin resistant Staphylococcus aureus) Acute 04/04/17 Nephrostomy complication Acute Pneumonia Acute Pubic ramus fracture Acute Retroperitoneal fluid collection Acute UTI (urinary tract infection) Acute UTI (urinary tract infection) Acute
--- NOTE | 2018-02-23 18:24 | PCMIDPN ---
Assessment/Plan: Assessment/Plan: * Possible sepsis syndrome: No clearly defined etiology for possible sepsis. Symptomatically improved with negative blood cultures. 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 Completing 7 days of daptomycin with last dose after dialysis tomorrow. * AIDS: Most recent CD4 count 239 (33%) with viral load 595. Continue antiretrovirals including: Norvir 100 mg po daily; Prezista 800 mg p.o. Daily, Tivicay 50 mg p.o. Daily and Ziagen 600 mg orally daily. No change in regimen based on low level viremia. Will repeat this in the future. * Chronic sacral decubitus ulcer: Ongoing inquiry with hopes to achieve further management at [facility] for debridement and flap coverage. * Inguinal rash: Continue barrier cream and anti fungal cream. * Diarrhea: C difficile positive on GI pathogen panel. Unclear if this truly represents C difficile colitis as diarrhea was improving prior to initiation of anti C difficile therapy. Patient tolerating metronidazole poorly. Agree with plans to transition to oral vancomycin - if shows continued improvement tomorrow , would favor transitioning to twice daily dosing for approximately 7 days in total given antibiotic exposure. 02/23/18 18:21 Subjective: Patient feels better. Having a peppermint Mocha and going to the patio. Objective: Vital Signs Temp Pulse Resp BP Pulse Ox 36.4 C 76 16 115/67 100 02/23/18 17:51 02/23/18 17:51 02/23/18 17:51 02/23/18 17:51 02/23/18 17:56 Microbiology 02/22/18 11:15 Gastrointestinal Tract Panel (PCR) - Final Stool Clostridium Difficile Detected Laboratory Results 02/23/18 06:30 02/23/18 06:30 02/22/18 02/23/18 02/24/18 05:59 05:59 05:59 Intake Total 200 913 Output Total 2000 Balance 200 -1087 Daptomycin # 5 Blood cultures x2 no growth Stool pathogen panel PCR positive for C difficile - Physical Exam General Appearance: alert, no apparent distress EENT: No scleral icterus, No thrush Respiratory: lungs clear, No respiratory distress Cardiac/Chest: regular rate, rhythm Abdomen: non-tender, No distended Back: No CVA tenderness ICD10 Worksheet Patient Problems: Problems Problem Status Onset Decubitus ulcer of sacral area Acute Hypotension Acute Hypoxemia Acute UTI (urinary tract infection) Acute Abdominal pain Acute Anemia Acute Anemia of chronic renal failure, stage 4 (severe) Acute Chest pain Acute Contusion of jaw Acute DVT (deep venous thrombosis) Acute End stage renal disease Acute Fever Acute Generalized weakness Acute Hyperkalemia Acute Hyperkalemia Acute Hypoxemia Acute Hypoxia Acute MRSA (methicillin resistant Staphylococcus aureus) Acute 04/04/17 Nephrostomy complication Acute Pneumonia Acute Pubic ramus fracture Acute Retroperitoneal fluid collection Acute UTI (urinary tract infection) Acute UTI (urinary tract infection) Acute
[2018-02-23] MEDS: ABACAVIR SULFATE 600 MG PO SCH (19:50)
[2018-02-23] MEDS: RITONAVIR 100 MG PO SCH (19:51)
[2018-02-23] MEDS: (Dolutegravir Sodium [Tivicay] 50 MG) PO SCH (19:52)
[2018-02-23] MEDS: DARUNAVIR ETHANOLATE 800 MG PO SCH (19:53)
[2018-02-23] MEDS: FLUTICASONE NASAL 120 SPRAYS/16 GM MDI EACHNARE SCH (22:25)
[2018-02-24] MEDS: LEVOTHYROXINE 200 MCG TAB PO SCH (05:43)
[2018-02-24] MEDS: HEPARIN 5,000 UNIT/0.5 ML INJ SC SCH ×3 (05:44→20:28)
[2018-02-24] MEDS: VANCOMYCIN 125 MG/2.5 ML UDL PO SCH ×4 (05:44→20:27)
[2018-02-24 06:14] LABS: PLATELET COUNT 123 10^3/uL (150-400)
[2018-02-24] MEDS: NEPHROVITE FOLIC ACID/VIT B&C 1 TAB PO SCH (09:30)
[2018-02-24] MEDS: PANTOPRAZOLE SODIUM 40 MG TAB PO SCH (09:30)
[2018-02-24] MEDS: ESCITALOPRAM OXALATE 10 MG TAB PO SCH (09:30)
[2018-02-24] MEDS: (Sevelamer Carbonate [Renvela] 800 MG) PO SCH ×3 (09:32→18:09)
[2018-02-24] MEDS: LIDO/ZINC OX/CLOTRIMAZOLE (MAD) 116 GM CREAM TP SCH ×2 (09:33→20:34)
[2018-02-24] MEDS: SODIUM HYPOCHLORITE (DAKINS 1/4 STR) 473 ML BTL TP SCH ×2 (10:00→20:34)
--- NOTE | 2018-02-24 12:12 | SOAPPROG ---
SOAP Progress Note Assessment/Plan: Assessment/Plan: ESRD: on HD MWF. - Next HD today. Anemia: Hgb stable, will continue to monitor. SARIKA: Phos 4.5, no need for phos binder, will continue to monitor. HTN: BP ok currently off meds, pt to take hydralazine prn after discharge. Subjective: No acute events overnight. Pt breathing comfortably, has some headache but no other issues. Objective: Vital Signs Temp Pulse Resp BP Pulse Ox 36.4 C 67 16 112/66 89 L 02/24/18 11:18 02/24/18 11:18 02/24/18 11:18 02/24/18 11:18 02/24/18 11:18 Laboratory Results 02/24/18 05:55 02/24/18 05:55 02/23/18 02/24/18 02/25/18 05:59 05:59 05:59 Intake Total 913 100 Output Total 2000 2 Balance -1087 98 PT 15.0 SEC (12.0-15.0) 02/18/18 14:20 INR 1.16 (0.83-1.16) 02/18/18 14:20 General: alert and oriented, no acute distress Eyes: EOMI, PERRL OP: Clear CV: RRR Resp: nonlabored respirations Abd: Soft, NT/ND Ext: no edema BLE Neuro: CN II-XII grossly intact ICD10 Worksheet Patient Problems: Problems Problem Status Onset Decubitus ulcer of sacral area Acute Hypotension Acute Hypoxemia Acute UTI (urinary tract infection) Acute Abdominal pain Acute Anemia Acute Anemia of chronic renal failure, stage 4 (severe) Acute Chest pain Acute Contusion of jaw Acute DVT (deep venous thrombosis) Acute End stage renal disease Acute Fever Acute Generalized weakness Acute Hyperkalemia Acute Hyperkalemia Acute Hypoxemia Acute Hypoxia Acute MRSA (methicillin resistant Staphylococcus aureus) Acute 04/04/17 Nephrostomy complication Acute Pneumonia Acute Pubic ramus fracture Acute Retroperitoneal fluid collection Acute UTI (urinary tract infection) Acute UTI (urinary tract infection) Acute
--- NOTE | 2018-02-24 12:24 | ASMTCMCOM ---
CM Note CM Note Notes: Spoke w/Glynn at [facility], the dilema is with the pt's dwindeling Medicare days, she has 54 and each day in the hospital uses those days. He was hoping that the pt could go home with IV infusion + home care. With the idea of keeping her out of the hospital for 60 days so her Medicare days can reset. CM unsure if medically pt is appropriate to be successful at home. CM to discuss with and Glynn is following up with his team to come up with options. DC Plan: TBD Date Signed: 02/24/2018 12:23 PM Electronically Signed By:Qian Wilks RN
[2018-02-24] MEDS: IBUPROFEN 200 MG TAB PO PRN (12:29)
--- NOTE | 2018-02-24 15:06 | HOSPPROG ---
Hospitalist Progress Note Assessment/Plan: #Sepsis. Source is unclear but possible sources include sacral pressure ulcer / osteomyelitis. UCx growing GAS and GNR, unclear if this is source of infection. She also has a PORT, though this does not appear infected. BCx's ngtd. ID did not think that sacral pressure ulcers were the source -cont dapto for 1 week per ID, last dose is today -CT abd/pelvis - no e/o abscess or sacral osteo #Acute hypoxemic / hypercarbic respiratory failure - resolving - Suspect 2/2 oversedation. 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 She may benefit from a single dose of IVIG if she has recurrent episode of hypercarbia. Also consider sleep apnea. Echo with nl LV function. She will need f/u with Pulm -now stable on 2 LPM -avoid sedating medications -outpt PFT's and sleep study recommended #Acute encephalopathy - 2/2 hypercarbic encephalopathy possibly due to oversedation, improved with bipap, now back to baseline -avoid sedating meds opiates, benadryl Hypotension - improved End-stage renal disease. Dialysis schedule is M/W/F -HD per renal Anemia of end-stage renal disease. Hemoglobin stable, no e/o bleeding. -epo per renal -transfuse for Hgb less than 7 HIV. Chronic, continue anti viral therapy -ID following Sacral pressure injury. 02/09/2018 [facility] Clinic note by Dr. Rupa Jc discussed deep tissue injury with consideration of possible osteomyelitis, the patient underwent debridement -wound care -pressure offloading bed -CT did not reveal osteo, defer further imaging -per surg (followed by Dr. 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 She is not tolerating Flagyl with GI side effects. -change to oral vanc, which shouldn't be absorbed systemically Rash - clotrimazole Diet. Renal Prophylaxis. High risk patient, DEYSI Code. Full Disposition. cont inpt, ADD uncertain, possible transfer to [facility], CM involved. Per CM, she may be "out of Medicare days" for transfer to [facility], in which case, will need to f/u with surgery for other options to manage her chronic pressure ulcer. Awaiting reccs. Last day of abx are today. She will also get HD today. Will plan on discharge tomorrow either to [place] [facility] vs other Subjective: no cp or sob. Will have last dose of abx today. Objective: Vital Signs Temp Pulse Resp BP Pulse Ox 36.4 C 67 16 112/66 89 L 02/24/18 11:18 02/24/18 11:18 02/24/18 11:18 02/24/18 11:18 02/24/18 11:18 Laboratory Results 02/24/18 05:55 02/24/18 05:55 02/23/18 02/24/18 02/25/18 05:59 05:59 05:59 Intake Total 913 100 Output Total 2000 2 Balance -1087 98 PT 15.0 SEC (12.0-15.0) 02/18/18 14:20 INR 1.16 (0.83-1.16) 02/18/18 14:20 - Physical Exam Constitutional: no apparent distress Eyes: PERRL, EOMI Ears, Nose, Mouth, Throat: moist mucous membranes, hearing normal Cardiovascular: regular rate and rhythym, No edema Respiratory: no respiratory distress Gastrointestinal: normoactive bowel sounds Skin: warm Neurologic: AAOx3 Psychiatric: interacting appropriately, not anxious, not encephalopathic Lymph, Heme, Immunologic: No petechiae ICD10 Worksheet Patient Problems: Problems Problem Status Onset Decubitus ulcer of sacral area Acute Hypotension Acute Hypoxemia Acute UTI (urinary tract infection) Acute Abdominal pain Acute Anemia Acute Anemia of chronic renal failure, stage 4 (severe) Acute Chest pain Acute Contusion of jaw Acute DVT (deep venous thrombosis) Acute End stage renal disease Acute Fever Acute Generalized weakness Acute Hyperkalemia Acute Hyperkalemia Acute Hypoxemia Acute Hypoxia Acute MRSA (methicillin resistant Staphylococcus aureus) Acute 04/04/17 Nephrostomy complication Acute Pneumonia Acute Pubic ramus fracture Acute Retroperitoneal fluid collection Acute UTI (urinary tract infection) Acute UTI (urinary tract infection) Acute
[2018-02-24] MEDS: ACETAMINOPHEN 325 MG TAB PO PRN (15:43)
--- NOTE | 2018-02-24 16:41 | ASMTCMCOM ---
CM Note CM Note Notes: Spoke w/ and Glynn at [facility], at this time they cannot take pt, Glynn explained situation to Velma's mother. Pt has only 54 Medicare days to use at the hospital and LTAC, plan is for pt to go home w/homecare and get directly admitted to LTAC later. CM set up home care with [facility] and they will send an RN see pt on Tuesday. CM confirmed with [facility] that the Medicare days they use will not affect the medicare days pt needs for LTAC. DC Plan: Home Care ([facility]/RN) Date Signed: 02/24/2018 04:41 PM Electronically Signed By:Qian Wilks RN
[2018-02-24] MEDS: DAPTOmycin 350 MG in NS 100 ML IV SCH (17:09)
--- NOTE | 2018-02-24 17:16 | PCMIDPN ---
Assessment/Plan: # Possible sepsis syndrome: No clear etiology for possible sepsis. last day of daptomycin today (s/p total of 7 days) --planned DC tomorrow. I will try to around on her 1st thing to loud for early discharge # AIDS: Most recent CD4 count 239 (33%) with viral load 595. Continue antiretrovirals including: Norvir 100 mg po daily; Prezista 800 mg p.o. Daily, Tivicay 50 mg p.o. Daily and Ziagen 600 mg orally daily. # Chronic sacral decubitus ulcer: Cannot go to [facility] until remains out of inpatient therapy for 60 days due to medicare rules --needs Rx Dakins @ DC --reviewed wound Care with patient and, her mom and wound healing nurse. Orders were written for home by wound care nurse # Diarrhea: C difficile positive on GI pathogen panel, may just reflect colonization therefore will dc on low dose for 1 more week --dc on Vancomycin 125mg PO BID x 1 more week Subjective: patient feeling much better ready to go home Objective: Vital Signs Temp Pulse Resp BP Pulse Ox 36.4 C 79 16 148/76 H 100 02/24/18 15:31 02/24/18 15:31 02/24/18 15:31 02/24/18 15:31 02/24/18 15:31 Laboratory Results 02/24/18 05:55 02/24/18 05:55 02/23/18 02/24/18 02/25/18 05:59 05:59 05:59 Intake Total 913 100 Output Total 1999 2 Balance -1087 98 Gen: Chr ill appearance HEENT: No thrush CV: RRR Chest Clear, breathing easy Abd: soft NT mild intertrigo Did not examine pressure ulcer Patient was conversational with flat affect consistent with her baseline - Time Spent With Patient Time Spent with Patient: greater than 25 minutes Time Spent with Patient: Greater than 25 minutes spent on this patients care, greater than 50% of time spent counseling, educating, and coordinating care regarding the above mentioned plan. ICD10 Worksheet Patient Problems: Problems Problem Status Onset Decubitus ulcer of sacral area Acute Hypotension Acute Hypoxemia Acute UTI (urinary tract infection) Acute Abdominal pain Acute Anemia Acute Anemia of chronic renal failure, stage 4 (severe) Acute Chest pain Acute Contusion of jaw Acute DVT (deep venous thrombosis) Acute End stage renal disease Acute Fever Acute Generalized weakness Acute Hyperkalemia Acute Hyperkalemia Acute Hypoxemia Acute Hypoxia Acute MRSA (methicillin resistant Staphylococcus aureus) Acute 04/04/17 Nephrostomy complication Acute Pneumonia Acute Pubic ramus fracture Acute Retroperitoneal fluid collection Acute UTI (urinary tract infection) Acute UTI (urinary tract infection) Acute
[2018-02-24] MEDS: ABACAVIR SULFATE 600 MG PO SCH (18:08)
[2018-02-24] MEDS: DARUNAVIR ETHANOLATE 800 MG PO SCH (18:10)
[2018-02-24] MEDS: (Dolutegravir Sodium [Tivicay] 50 MG) PO SCH (18:12)
[2018-02-24] MEDS: RITONAVIR 100 MG PO SCH (18:12)
[2018-02-24] MEDS: CINACALCET HCL 30 MG TAB PO SCH (19:12)
[2018-02-24] MEDS: FLUTICASONE NASAL 120 SPRAYS/16 GM MDI EACHNARE SCH (20:26)
[2018-02-25] MEDS: ACETAMINOPHEN 325 MG TAB PO PRN (03:12)
[2018-02-25] MEDS: LEVOTHYROXINE 200 MCG TAB PO SCH (06:01)
[2018-02-25] MEDS: VANCOMYCIN 125 MG/2.5 ML UDL PO SCH (06:02)
[2018-02-25 06:23] LABS: PLATELET COUNT 118 10^3/uL (150-400)
[2018-02-25] MEDS: HEPARIN 5,000 UNIT/0.5 ML INJ SC SCH (06:28)
[2018-02-25 07:55] VITALS: BP 151/90
[2018-02-25] MEDS: PANTOPRAZOLE SODIUM 40 MG TAB PO SCH (08:20)
[2018-02-25] MEDS: NEPHROVITE FOLIC ACID/VIT B&C 1 TAB PO SCH (08:20)
[2018-02-25] MEDS: ESCITALOPRAM OXALATE 10 MG TAB PO SCH (08:20)
[2018-02-25] MEDS: (Sevelamer Carbonate [Renvela] 800 MG) PO PRN (08:21)
[2018-02-25] MEDS: SODIUM HYPOCHLORITE (DAKINS 1/4 STR) 473 ML BTL TP SCH (08:24)
[2018-02-25] MEDS: LIDO/ZINC OX/CLOTRIMAZOLE (MAD) 116 GM CREAM TP SCH (08:24)
[2018-02-25] MEDS: (Sevelamer Carbonate [Renvela] 800 MG) PO SCH (08:25)
--- NOTE | 2018-02-25 09:38 | PCMIDPN ---
Assessment/Plan: # Possible sepsis syndrome: No clear etiology for possible sepsis. last day of daptomycin 02/24/2018 (s/p total of 7 days) --DC today # AIDS: Most recent CD4 count 239 (33%) with viral load 595. Continue antiretrovirals including: Norvir 100 mg po daily; Prezista 800 mg p.o. Daily, Tivicay 50 mg p.o. Daily and Ziagen 600 mg orally daily. --will arrange for follow-up in ID Clinic # Chronic sacral decubitus ulcer --needs Rx Dakins @ DC --Home Care and patient's family to manage sacral decubitus with hopes of remaining out of acute care to get another 60 days of inpatient Medicare. Currently patient is out of Medicare days and cannot go to [facility] # Diarrhea: C difficile positive on GI pathogen panel, may just reflect colonization therefore will dc on low dose for 1 more week --dc on Vancomycin 125mg PO BID x 1 more week Subjective: Patient feeling well and ready to go home Objective: Vital Signs Temp Pulse Resp BP Pulse Ox 36.9 C 88 14 151/90 H 93 02/25/18 07:55 02/25/18 07:55 02/25/18 07:55 02/25/18 07:55 02/25/18 07:55 Laboratory Results 02/25/18 06:10 02/24/18 05:55 02/24/18 02/25/18 02/26/18 05:59 05:59 05:59 Intake Total 100 550 Output Total 2 Balance 98 550 - Physical Exam General Appearance: alert, no apparent distress, cachetic EENT: No thrush Respiratory: lungs clear, No accessory muscle use Cardiac/Chest: regular rate, rhythm Extremities: No pedal edema Abdomen: non-tender, soft Skin: pallor, No rash Neuro/Psych: alert, normal mood/affect ICD10 Worksheet Patient Problems: Problems Problem Status Onset Abdominal pain Acute Anemia Acute Anemia of chronic renal failure, stage 4 (severe) Acute Chest pain Acute Contusion of jaw Acute DVT (deep venous thrombosis) Acute Decubitus ulcer of sacral area Acute End stage renal disease Acute Fever Acute Generalized weakness Acute Hyperkalemia Acute Hyperkalemia Acute Hypotension Acute Hypoxemia Acute Hypoxemia Acute Hypoxia Acute MRSA (methicillin resistant Staphylococcus aureus) Acute 04/04/17 Nephrostomy complication Acute Pneumonia Acute Pubic ramus fracture Acute Retroperitoneal fluid collection Acute UTI (urinary tract infection) Acute UTI (urinary tract infection) Acute UTI (urinary tract infection) Acute
--- NOTE | 2018-02-25 09:40 | PDDCSUM ---
Discharge Summary Discharge Summary: The patient was admitted for possible sepsis syndrome and started on broad spectrum abx. She was treated with Daptomycin for 7 days, her last day was 02/24. Source was not identified. She did not have any e/o OM on imaging, although she does have a hx of this previously. Bone Tissue culture was not obtained. UCx growing GAS and GNR, unclear if this is source of infection. She also has a PORT, though this does not appear infected. BCx's ngtd. ID did not think that sacral pressure ulcers were the source. CT abd/pelvis - no e/o abscess or sacral osteo. She was initially planned to go to [facility] for wound care but as her abx have completed and no active plan for wound closure, the plan changes and she will f/u with her wound care team at [facility]. The goal is to likely pursue wound closure but she will need to have more medicare days available. She had Acute hypoxemic resp failure and this has resolved. Please see below. DDX: #Sepsis. Source is unclear but possible sources include sacral pressure ulcer / osteomyelitis. UCx growing GAS and GNR, unclear if this is source of infection. She also has a PORT, though this does not appear infected. BCx's ngtd. ID did not think that sacral pressure ulcers were the source -cont dapto for 1 week per ID, last dose is today -CT abd/pelvis - no e/o abscess or sacral osteo #Acute hypoxemic / hypercarbic respiratory failure - resolving - Suspect 2/2 oversedation. 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 She may benefit from a single dose of IVIG if she has recurrent episode of hypercarbia. Also consider sleep apnea. Echo with nl LV function. She will need f/u with Pulm -now stable on 2 LPM -avoid sedating medications -outpt PFT's and sleep study recommended #Acute encephalopathy - 2/2 hypercarbic encephalopathy possibly due to oversedation, improved with bipap, now back to baseline -avoid sedating meds opiates, benadryl Hypotension - improved End-stage renal disease. Dialysis schedule is M/W/F -HD per renal Anemia of end-stage renal disease. Hemoglobin stable, no e/o bleeding. -epo per renal -transfuse for Hgb less than 7 HIV. Chronic, continue anti viral therapy -ID following - Most recent CD4 count 239 (33%) with viral load 595. Continue antiretrovirals including: Norvir 100 mg po daily; Prezista 800 mg p.o. Daily, Tivicay 50 mg p.o. Daily and Ziagen 600 mg orally daily. Sacral pressure injury. 02/09/2018 Wound Care Clinic note by Dr. Rupa Jc discussed deep tissue injury with consideration of possible osteomyelitis, the patient underwent debridement -wound care -pressure offloading bed -CT did not reveal osteo, defer further imaging -Amanda Diarrhea: C difficile positive on GI pathogen panel, may just reflect colonization therefore will dc on low dose for 1 more week --dc on Vancomycin 125mg PO BID x 1 more week Meds: see med rec Exam: vss NAD AAOX3 NORMAL WORK OF BREATHING NO EDEMA F/U: PER ABOVE TOTAL TIME SPENT ON D/C IS 40 MINUTES
--- NOTE | 2018-02-25 09:55 | PDIAF ---
- Diagnosis Diagnosis: POSSIBLE SEPSIS, SACRAL WOUND Code Status: Full Code - Medication Management Discharge Medications: Medications to Continue on Transfer Abacavir Sulfate [Ziagen] 600 mg PO DAILY@02/23/13 [Last Taken 01/16/18] Darunavir Ethanolate [PREZISTA] 800 mg PO DAILY@02/23/13 [Last Taken 01/16/18 ] Escitalopram Oxalate [Lexapro] 20 mg PO DAILY 07/29/15 [Last Taken 08/17/17] Ritonavir [Norvir] 100 mg PO DAILY@07/29/15 [Last Taken 02/17/18] Sevelamer Carbonate [Renvela] 800 mg PO TIDMEAL 07/30/15 [Last Taken 02/17/18] Dolutegravir Sodium [Tivicay] 50 mg PO DAILY@04/28/16 [Last Taken 08/16/17] Acetaminophen [Tylenol 325mg (*)] 650 mg PO Q4HRS PRN tab 05/09/17 [Last Taken Unknown] Folic Acid/Vitamin B Comp W-C [Renavit Tablet] 1 each PO DAILY 07/25/17 [Last Taken 08/17/17] Herbals/Supplements -Info Only 1 ea PO DAILY 07/25/17 [Last Taken Unknown] Chlorzoxazone 500 mg PO TID PRN 08/17/17 [Last Taken 08/17/17] guaiFENesin [Mucinex 600 MG (*)] 1,200 mg PO BID PRN 08/17/17 [Last Taken ] Ibuprofen [Motrin (*)] 400 mg PO Q8H PRN #60 tab 08/25/17 [Last Taken Unknown] Fluticasone Nasal [Flonase Nasal Tea] 1 sprays NASAL HS 01/14/18 [Last Taken Unknown] Levothyroxine [Synthroid 200 mcg (*)] 200 mcg PO DAILY06 01/14/18 [Last Taken Unknown] Omeprazole 20 mg PO DAILY 01/14/18 [Last Taken Unknown] SUMAtriptan [Imitrex 50 MG (*)] 50 mg PO DAILY PRN 01/14/18 [Last Taken Unknown] amLODIPine BESYLATE [Amlodipine Besylate] 5 mg PO SUTUTHSA@01/14/18 [Last Taken Unknown] hydrALAZINE [Apresoline] 25 mg PO DAILY PRN 01/14/18 [Last Taken Unknown] Cinacalcet HCl [Sensipar (*)] 30 mg PO MOWEFR@1800 01/17/18 [Last Taken 01/16/18 ] Sevelamer Carbonate [Renvela] 800 mg PO DAILY PRN 01/17/18 [Last Taken Unknown] Benzonatate [Tessalon Pearles] 100 mg PO TID PRN 02/18/18 [Last Taken Unknown] Lido/Zinc Ox/Clotrimazole Crm [Moisture Associated Dermatitis Cream] 1 alexander TP BID 30 Days #1 cream 02/25/18 [Last Taken Unknown] Sodium Hypochlorite [Dakin's / Str] 1 - 5 ml TP BID #1 btl 02/25/18 [Last Taken Unknown] Vancomycin [Vancocin Oral Liquid] 125 mg PO BID 7 Days #14 udl 02/25/18 [Last Taken Unknown] Discharge Medications: Refer to the Discharge Home Medication list for PRN reason. - Orders Services needed: Home Care, Registered Nurse, Master Communications Department Chair, Physical Therapy, Occupational Therapy Home Care Face to Face: I certify that this patient was under my care and that I had the required [id number] encounter meeting the encounter requirements on the discharge day. My findings support the fact that the patient is homebound as defined in Home Care Face to Face Continued: [facility] Chapter 7 Medicare Benefits Manual 30.1.1 , The condition of the patient is such that there exists a normal inability to leave home and consequently, leaving home would require a considerable and taxing effort. Isolation Type: CDIFF Isolation, Contact Isolation Diet Recommendation: no restrictions on diet Diet Texture: Regular Texture Diet Additional Instructions: Wound care orders: Change dressing to coccyx BID and prn. 1. Flush wound well with ns. 2. Skin prep armen wound and pat on a thin layer of zinc oxide powder around edges. 3. Soak 1/2 or 1 inch plain packing gauze (whichever fits better without over packing) gauze with strength Dakins solution (0.125% Sodium Hypoclorite solution) and wring out. Pack into pocket. 4. Cover with ABD's and then secure with Medipore tape. Andressa Armijo CWTRINITY Please follow up at [facility] upon discharge for continued wound care. Please f/u with Dr. Fleming in one week Please f/u with Dr. Saez in 2 weeks - Follow Up Care Current Providers and Referrals: Ct Antony MD [Primary Care Provider] - As per Instructions
--- NOTE | 2018-02-25 11:43 | ASMTDCNOTE ---
Case Management Discharge Discharge Order Complete? Answers: Yes Patient to Obtain Answers: via Family Medications Transportation Arranged Answers: Family/Friends Faxed Final Orders Answers: Yes Family Notified Answers: Yes Discharge Comments Notes: Patient discharged to home. I [facility]. RX ordered to patient's pharmacy. Mother will take her home. Date Signed: 02/25/2018 11:43 AM Electronically Signed By:Marga Van RN
--- NOTE | 2018-03-06 09:03 | ASDISCHSUM ---
Discharge Information Plan Status:LTAC Medically Cleared to Leave: Discharge Date:02/25/2018 11:51 AM CM D/C Disposition:[facility] D/C Disposition:Home Health Service Projected Discharge Date:02/22/2018 11:00 AM Transportation at D/C:ALS/BLS Discharge Delay Reason: Follow-Up Date:02/22/2018 11:00 AM Discharge Slot: Final Diagnosis:Encephalopathy, Sepsis, Sacral wound, Guillain [place] Placement Information Referral Type:*Home Health Care Services Referral ID:[id number] Provider Name: Address 1: Phone Number: Address 2: Fax Number: City: Selection Factors: State: Referral Type:[facility] Referral ID:[id number] Provider Name: Address 1: Phone Number: Address 2: Fax Number: City: Selection Factors: State: Patient Contact Information Contact Name:TERA Relationship:Mother Address:[address] City:[place] Alternate Phone: State/Zip Code:[place] [address] Email: Financial Information Financial Class:Medicare Primary Plan Desc:MEDICARE INPATIENT Primary Plan Number:[id number] Secondary Plan Desc:MEDICAID [place] Secondary Plan Number:[id number] Assessment Information [facility] CM Progress Note CM Note CM Note Notes: 52yr old female with numerous ER visits and admissions present admit: Encephalopathy, Sepsis, Sacral wound, Guillain [place]. She has anadditional Hx of End stage renal dis.-dialysis M/W/F, Neurogenic bladder, Nephrectomy, Hypothyroid, Anemia, HTN, HLD, Sz diso, SBO, C-diff, Depression. Complains of back pain-possible UTI, Pulm edema. Usually lives alone independently, mother acts as manager therapy. PT reports that she is moving well and uses a W/C. May need HC on discharge. Date Signed: 02/19/2018 11:43 AM Electronically Signed By:Rosalba Sheets LCSW [facility] Progress Note CM Note CM Note Notes: 02/20/2018 Case Management Note Met w/pt and Mom to discuss d/c plans. Pt is currently utilizing [facility] stone operator for wound care. Pt and Mom expressed if wound requires surgery they would prefer to transfer to [facility]. Faxed referral to [facility] to update on hospital stay. If pt were to need SNF rehab both pt and mother would prefer a return to [facility] rehab. Pt has support from the [employer] program. Per mom pt to be evaluated for further home supports through the [facility]DC (developmental delays cares program) for unskilled care. Pt is independent in her own apartment prior to admission. She is able to go to the grocery and prepare her own meals. Pt has dialysis MWF at [facility]. Pt has strong support from her Mom. Pt to transfer from to ICU. Per Mom the transfer is for unstable blood pressure due to infection from pt wound. Case Management d/c poc: to be determined. Case Management to follow. Date Signed: 02/20/2018 12:02 PM Electronically Signed By:Brittany Haynes RN [facility] Progress Note CM Note CM Note Notes: Patient needs group home wound care. She has been at [facility] before and would like to return to that LTAC setting. Referral sent to [facility] ([facility]). Date Signed: 02/21/2018 12:38 PM Electronically Signed By:Rosalba Sheets LCSW [facility] CM Progress Note CM Note CM Note Notes: CM has been made aware of Pt's Medicare availability. At present she is out of acute full days, acute co-pay days and out of all SNF days. She entered this hospital with 59 lifetime reserve days. They are being used with this hospitalization. Pt has Medicaid as a secondary insurance and a message was sent to Glynn inquiring whether that insurance could cover her days at the [facility]. A ULTC 100 has been requested. CM to follow. D/C Plan: TBD Date Signed: 02/23/2018 04:17 PM Electronically Signed By:Asia Powers [facility] CM Progress Note CM Note CM Note Notes: Spoke w/Glynn at [facility], the dilema is with the pt's dwindeling Medicare days, she has 54 and each day in the hospital uses those days. He was hoping that the pt could go home with IV infusion + home care. With the idea of keeping her out of the hospital for 60 days so her Medicare days can reset. CM unsure if medically pt is appropriate to be successful at home. CM to discuss with and Glynn is following up with his team to come up with options. DC Plan: TBD Date Signed: 02/24/2018 12:23 PM Electronically Signed By:Qian Wilks RN [facility] CM Progress Note CM Note CM Note Notes: Spoke w/ and Glynn at [facility], at this time they cannot take pt, Glynn explained situation to Velma's mother. Pt has only 54 Medicare days to use at the hospital and LTAC, plan is for pt to go home w/homecare and get directly admitted to LTAC later. CM set up home care with [facility] and they will send an RN see pt on Tuesday. confirmed with [facility] that the Medicare days they use will not affect the medicare days pt needs for LTAC. DC Plan: Home Care ([facility]) Date Signed: 02/24/2018 04:41 PM Electronically Signed By:Qian Wilks RN Case Management Discharge Plan Note Case Management Discharge Discharge Order Complete? Answers: Yes Patient to Obtain Answers: via Family Medications Transportation Arranged Answers: Family/Friends Faxed Final Orders Answers: Yes Family Notified Answers: Yes Discharge Comments Notes: Patient discharged to home. I notified on-call RN with [facility] of her discharge. RX ordered to patient's pharmacy. Mother will take her home. Date Signed: 02/25/2018 11:43 AM Electronically Signed By:Marga Van RN Intervention Information
== END 2018-02-25 11:51 | disposition home health service (06) | DRG 974 ==
LOC: F2N 16:12 → F2W 02-19 17:20 → F2N 02-20 12:23 → F3E 02-23 17:42
PROVIDERS: ADMIT Internal Medicine; ATTEND Family Medicine
PROC: 5A1D70Z Performance of Urinary Filtration, Intermittent, Less than 6 Hours Per Day (ICD-10-PCS; 2018-02-20)
PROC: 5A09358 Assistance with Respiratory Ventilation, Less than 24 Consecutive Hours, Intermittent Positive Airway Pressure (ICD-10-PCS; principal; 2018-02-21)
DX: B20 Human immunodeficiency virus [HIV] disease (principal); A41.9 Sepsis, unspecified organism; G93.49 Other encephalopathy; T40.2X5A Adverse effect of other opioids, initial encounter; T45.0X5A Adverse effect of antiallergic and antiemetic drugs, initial encounter; J96.02 Acute respiratory failure with hypercapnia; L89.154 Pressure ulcer of sacral region, stage 4; N18.6 End stage renal disease; J96.01 Acute respiratory failure with hypoxia; N39.0 Urinary tract infection, site not specified; B95.0 Streptococcus, group A, as the cause of diseases classified elsewhere; A04.71 Enterocolitis due to Clostridium difficile, recurrent; E03.9 Hypothyroidism, unspecified; N31.9 Neuromuscular dysfunction of bladder, unspecified; F32.9 Major depressive disorder, single episode, unspecified; D63.1 Anemia in chronic kidney disease; I12.0 Hypertensive chronic kidney disease with stage 5 chronic kidney disease or end stage renal disease; G40.909 Epilepsy, unspecified, not intractable, without status epilepticus; G47.30 Sleep apnea, unspecified; E78.5 Hyperlipidemia, unspecified; R21 Rash and other nonspecific skin eruption; R10.9 Unspecified abdominal pain; L29.9 Pruritus, unspecified; L30.4 Erythema intertrigo; E87.70 Fluid overload, unspecified; E87.5 Hyperkalemia; Z99.2 Dependence on renal dialysis; Z90.5 Acquired absence of kidney; Z99.3 Dependence on wheelchair
CPT/HCPCS: 82435-PO; 82565-PO; 82947-PO; 84132-PO; 84295-PO; 84484-PO; 84520-PO; 85014-PO; 86359-90; 86360-90; 87536-90; 96374; 97116-GP; 97162-GP; 97166-GO; 97530-GP; G0472; G8978-GP-CK; G8979-GP-CI; G8987-GO-CK; G8988-GO-CJ; J0878; J1200; J1642; J1644; J1956; J2405; J2543; P9016; Q9967

== ENCOUNTER → 2018-04-28 | Outpatient (CLI) | payer OTHER, MEDICAID | LOC: F1NOP 17:47 | PROVIDERS: ATTEND Internal Medicine Hematology & Oncology | PROC: 30233N1 Transfusion of Nonautologous Red Blood Cells into Peripheral Vein, Percutaneous Approach (ICD-10-PCS; principal; 2018-04-28) | DX: N18.6 End stage renal disease (principal); D64.9 Anemia, unspecified | CPT/HCPCS: 36430; J1642; P9016 ==

== ENCOUNTER → 2018-05-11 | Outpatient (CLI) | payer OTHER, MEDICAID | LOC: F1NOP 14:48 | PROVIDERS: ATTEND Internal Medicine Hematology & Oncology | PROC: 30233N1 Transfusion of Nonautologous Red Blood Cells into Peripheral Vein, Percutaneous Approach (ICD-10-PCS; principal; 2018-05-11) | DX: N18.6 End stage renal disease (principal); D63.1 Anemia in chronic kidney disease | CPT/HCPCS: 36430; P9016 ==

== ENCOUNTER 2018-06-13 11:21 | Inpatient (IN) | payer OTHER, MEDICAID ==
[2018-06-13] MEDS ORDERED: VANCOMYCIN PHARMACY TO DOSE MISC ONE (11:38)
[2018-06-13] MEDS ORDERED: DAPTOmycin 360 MG in NS 100 ML IV ONE (12:28)
[2018-06-13] MEDS ORDERED: VANCOMYCIN HCL/NORMAL SALINE 250 ML IV ONE (12:30)
[2018-06-13 12:33] LABS: PLATELET COUNT 94 10^3/uL (150-400)
[2018-06-13] MEDS ORDERED: MIDAZOLAM 2 MG/2 ML VIAL ONE (12:52)
[2018-06-13] MEDS ORDERED: fentaNYL 100 MCG/2 ML INJ ONE (12:52)
[2018-06-13] MEDS ORDERED: PROPOFOL 200 MG/20 ML VIAL ONE (12:52)
[2018-06-13] MEDS ORDERED: BUPIVACAINE 0.5% 30 ML SDV ONE (12:54)
[2018-06-13] MEDS ORDERED: ALBUMIN 5% 250 ML BOTTLE IV ONE (13:02)
--- NOTE | 2018-06-13 14:02 | PDANEPAE ---
ANE Past Medical History - Cardiovascular History Hx Hypertension: Yes Hx Arrhythmias: No Hx Chest Pain: No Hx Coronary Artery / Peripheral Vascular Disease: No Hx CHF / Valvular Disease: Yes Hx Palpitations: No Cardiovascular History Comment: HYPERLIPIDEMIA. murmur. Hx DVT, 07/2017 - greenfeld filter placed - Pulmonary History Hx COPD: No Hx Asthma/Reactive Airway Disease: No Hx Recent Upper Respiratory Infection: No Hx Oxygen in Use at Home: Yes O2 in Use at Home (L/minute): 2L/NC around the clock Hx Sleep Apnea: No Sleep Apnea Screening Result - Last Documented: Negative Pulmonary History Comment: TRACHEOSTOMY 1981 - reversed after Guillain-[place] acute episode. 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 CHRONIC NEUROPATHY FREQUENT MIGRAINES. Had had seizures years ago but was from a medication she is no longer taking. stenosis in neck and back. generalized muscle spasms - Endocrine History Hx Diabetes: No Endocrine History Comment: HYPERPARATHYROIDISM. hypothyroid. thyroid nodule - Renal History Hx Renal Disorders: Yes Renal History Comment: STAGE IV CHRONIC KIDNEY DISEASE. FREQUENT UTI's. NEUROGENIC BLADDER S/P GUILLIAN BARRE. ATROPHIC RIGHT KIDNEY - still urinates a small amt. Hx pyelonephritis - Liver History Hx Hepatic Disorders: Yes Hepatic History Comment: choleystectomy. hx pancreatitis - Neurological & Psychiatric Hx Hx Neurological and Psychiatric Disorders: Yes Neurological / Psychiatric History Comment: DEPRESSION - Cancer History Hx Cancer: No - Congenital Disorder History Hx Congenital Disorders: No - GI History Hx Gastrointestinal Disorders: Yes Gastrointestinal History Comment: hx of c.diff, 11/2017 - Other Health History Other Health History: MRSA +, 08/2017, sputum & in kidney they removed per pts mother. HIV+. anemia, thrombocytopenia. Left dysplagia, frequent falls on left hip. Hx Sacral decubitus, being treated by Dr. Jc. Hx cellulitis, BLE' s summer 2017. Upper & lower dentures/plates - lower is permanent, upper is removable. Reading glasses - Chronic Pain History Chronic Pain: Yes (generalized, muscle spasms) - Surgical History Prior Surgeries: Port placement 12/2017. ANKLE SURGERY. LEFT KNEE ARTHROSCOPY TOSILLECTOMY TRACHEOSTOMY CHOLECYSTECTOMY. LEFT TOTAL HIP. SUPRAPUBIC CATHETER PLACEMENT. Nephrectomy, left. NEPHROSTOMY TUBE PLACEMENT - has been removed. TUBAL LIGATION. MUTIPLE LEFT EXTREMITY FAILED AV FISTUAL ATTEMPTS ANE Review of Systems Review of Systems: - Exercise capacity METS (RN): 1 METS ANE Patient History - Allergies Allergies/Adverse Reactions: cephalexin Allergy (Verified 06/09/18 14:23) Rash doxycycline Allergy (Verified 06/09/18 14:23) ulcers in espohagus ertapenem sodium [From Invanz] Allergy (Verified 06/09/18 14:23) Rash, neck and throat swelling hydroxyzine Allergy (Verified 06/09/18 14:23) respiratory failure hydroxyzine HCl [From Atarax] Allergy (Verified 06/09/18 14:23) Dyspnea influenza virus vaccine, specific Allergy (Verified 06/09/18 14:23) hx guillian-barre, states cannot have vancomycin [Vancomycin] Allergy (Verified 06/09/18 14:23) Red Man's syndrome with IV; PO is okay ertapenem sodium Allergy (Uncoded 06/09/18 14:23) Rash, neck and throat swelling - Home Medications Home Medications: Abacavir Sulfate [Ziagen] DAILY@02/23/13 [Last Taken 06/12/18] Darunavir Ethanolate [PREZISTA] DAILY@02/23/13 [Last Taken 06/12/18] Escitalopram Oxalate [Lexapro] DAILY 07/29/15 [Last Taken 06/13/18 07:00] Ritonavir [Norvir] DAILY@07/29/15 [Last Taken 06/12/18] Sevelamer Carbonate [Renvela] TIDMEAL 07/30/15 [Last Taken 06/12/18] Dolutegravir Sodium [Tivicay] DAILY@04/28/16 [Last Taken 06/12/18] Herbals/Supplements -Info Only DAILY 07/25/17 [Last Taken 06/12/18] Chlorzoxazone TID PRN 08/17/17 [Last Taken 05/30/18] guaiFENesin [Mucinex 600 MG (*)] PRN 08/17/17 [Last Taken 06/12/18] Levothyroxine [Synthroid 200 mcg (*)] DAILY06 01/14/18 [Last Taken 06/13/18 07: 00] amLODIPine BESYLATE [Amlodipine Besylate] DAILY 01/14/18 [Last Taken 06/12/18] hydrALAZINE [Apresoline] DAILY PRN 01/14/18 [Last Taken 05/30/18] Cinacalcet HCl [Sensipar (*)] DAILY 01/17/18 [Last Taken 06/12/18] Sevelamer Carbonate [Renvela] PRN 01/17/18 [Last Taken 06/12/18] Benzonatate [Tessalon Pearles] TID PRN 02/18/18 [Last Taken 05/14/18] Acetaminophen [Tylenol 325mg (*)] Q4HRS PRN 06/09/18 [Last Taken 06/12/18] Oxycodone HCl [Oxycodone HCl] Q12 PRN 06/09/18 [Last Taken 05/30/18] Daniela-Roberto DAILY 06/09/18 [Last Taken 06/12/18] guaiFENesin [Mucinex 600 MG (*)] DAILY06 06/09/18 [Last Taken 06/12/18] Levaquin 500 PO Q2D 06/13/18 [Last Taken 06/12/18] - NPO status NPO Since - Liquids (Date): 06/13/18 NPO Since - Liquids (Time): 10:30 NPO Since - Solids (Date): 06/12/18 NPO Since - Solids (Time): 19:00 - Smoking Hx Smoking Status: Never smoked - Family Anes Hx Family Hx Anesthesia Complications: none ANE Labs/Vital Signs - Labs Result Diagrams: 06/13/18 12:28 06/13/18 12:28 - Vital Signs Blood Pressure: 134/77 Heart Rate: 70 Respiratory Rate: 12 O2 Sat (%): 100 Height: 172.72 cm Weight: 58.967 kg ANE Physical Exam - Airway Neck exam: decreased ROM Mallampati Score: Class 2 Mouth exam: poor dentition, dentures - Pulmonary Pulmonary: no respiratory distress, no rales or rhonchi, reduced air movement - Cardiovascular Cardiovascular: regular rate and rhythym - ASA Status ASA Status: III, IV ANE Anesthesia Plan Anesthesia Plan: general endotracheal anesthesia
[2018-06-13] MEDS ORDERED: DIAZEPAM 5 MG/ML 1 ML SYR IVP PRN (14:04)
[2018-06-13] MEDS ORDERED: ONDANSETRON 4 MG/2 ML VIAL IVP PRN ×2 (14:04→15:34)
[2018-06-13] MEDS ORDERED: NALOXONE HCL 0.4 MG/ML INJ IVP PRN (14:04)
[2018-06-13] MEDS ORDERED: fentaNYL 100 MCG/2 ML INJ IVP PRN (14:04)
[2018-06-13] MEDS ORDERED: ALBUTEROL 3 ML DEYVIAL IH PRN (14:04)
[2018-06-13] MEDS ORDERED: LIDOCAINE 2% 5 ML SDV ONE (14:13)
[2018-06-13] MEDS ORDERED: SODIUM BICARBONATE 50 MEQ/50 ML SYR ONE (14:13)
[2018-06-13] MEDS ORDERED: CISATRACURIUM BESYLATE 20 MG/10 ML VIAL IV ONE (14:13)
--- NOTE | 2018-06-13 15:15 | POSTOPPROG ---
Post Op Note Date of Operation: 06/13/18 Surgeon: Rupa Jc Railroad Commissioner: ginette Anesthesiologist: britany Anesthesia: GET(General Endotracheal) Pre-op Diagnosis: ventral hernia Post-op Diagnosis: same Indication: 52yo F wheelchair bound with symptomatic ventral hernia Procedure: davinci LLQ ventral hernia repair with mesh Findings: malaysian cheese defect LLQ Inf/Abcess present in the surg proc area at time of surgery?: No Depth: Superfical (Skin SQ) EBL: Minimal Complications: none immediately postop Specimen(s): none
[2018-06-13] MEDS ORDERED: HYDROmorphONE/DILAUDID 1 MG/ML INJ IVP PRN (15:18)
[2018-06-13] MEDS ORDERED: diphenhydrAMINE 25 MG CAP PO PRN (15:18)
[2018-06-13] MEDS ORDERED: HYDROmorphONE/DILAUDID 2 MG TAB PO PRN (15:21)
[2018-06-13] MEDS ORDERED: HYDROCODONE/APAP 5/325 TAB PO PRN (15:22)
--- NOTE | 2018-06-13 15:50 | POSTANESTH ---
Post Anesthetic Evaluation Cardiovascular Status: Normal, Stable, Similar to Pre-Op Cond Respiratory Status: Normal, Stable, Similar to Pre-op Cond. Level of Consciousness/Mental Status: Moderately Sleepy Pain Control: Adequate, Prn Tx Ordered Nausea/Vomiting Control: Adequate, Prn Tx Ordered Complications Possibly Related to Anesthesia: None Noted
[2018-06-13] MEDS: OXYCODONE/APAP 5/325 TAB PO PRN ×2 (16:58→22:56)
[2018-06-13] MEDS: ACETAMINOPHEN 325 MG TAB PO PRN (19:48)
--- NOTE | 2018-06-13 20:55 | ASMTLACE ---
SHAKILA Comorbidities - select Answers: Congestive heart failure all that apply Moderate or severe liver or renal disease Opioid dependence / Chronic pain Other Notes: Hx of Guillain-barre; HTN; Hx of DVT # of Emergency department Answers: 5-8 visits in the last 6 months Social determinants Answers: Mental health diagnosis (anxiety, depression, pers onality disorders, etc.) Score: 18 Date Signed: 06/13/2018 08:54 PM Electronically Signed By:Amanda Shoemaker
[2018-06-14 04:36] LABS: PLATELET COUNT 86 10^3/uL (150-400)
--- NOTE | 2018-06-14 05:14 | GCON ---
HOSPITALIST CONSULTATION DATE OF CONSULTATION: 06/13/2018 REFERRING PHYSICIAN: Rupa Jc MD REASON FOR CONSULTATION: Postoperative medical management. HISTORY OF PRESENT ILLNESS: This is a 52-year-old female with history of multiple medical problems, including HIV, end-stage renal disease on dialysis, Guillain-Tucker syndrome with neurogenic bladder, hypothyroidism, depression, and frequent urinary tract infections as well as decubitus ulcers, who is postop day 0 robotic ventral hernia repair. The patient was seen postoperatively where she states that she is having some postoperative pain that seems to be controlled with medications. She currently denies any chest pain or shortness of breath . She denies any headache. She denies any new neurologic deficits. PAST MEDICAL HISTORY: 1. HIV, on anti-retroviral therapy. Followed by the [facility]. 2. Guillain-Tucker syndrome with neurogenic bladder. 3. Hypothyroidism. 4. Depression. 5. Nephrolithiasis with recurrent urinary tract infections. 6. Sacral decubitus ulcers. [facility]. 7. Anemia of chronic disease. 8. End-stage renal disease, on hemodialysis Tuesday, Tuesday, Tuesday. 9. Hypertension. 10. Hyperlipidemia. 11. Seizure disorder. 12. Small-bowel obstructions. 13. C difficile colitis. PAST SURGICAL HISTORY: 1. Cholecystectomy. 2. Left hip surgery. 3. Suprapubic catheter. 4. Hysterectomy. 5. Tubal ligation. 6. Bilateral foot surgery. 7. Left knee surgery. 8. Left upper extremity AV fistula. 9. Right chest port placement by Dr. Tineo. 10. Left-sided nephrectomy in 2017. HOME MEDICATIONS: Reviewed. Refer to [facility] for details. ALLERGIES: Cephalexin, doxycycline, ertapenem, hydroxyzine, influenza vaccine, vancomycin. SOCIAL HISTORY: The patient denies any alcohol, tobacco, or illicit drug use. FAMILY HISTORY: Reviewed and noncontributory. REVIEW OF SYSTEMS: Comprehensive 10-point review of systems was done and was negative, except for as mentioned in HPI. PHYSICAL EXAM: VITAL SIGNS: Blood pressure 151/93, pulse 78, respiratory rate 16, O2 saturation 97% on room air. Temperature afebrile. GENERAL: No acute distress. HEAD: Normocephalic, atraumatic. EYES: PERRLA. Sclerae anicteric. MOUTH: Moist mucous membranes. NECK: Supple. No lymphadenop athy. CARDIOVASCULAR: S1, S2. Soft diastolic murmur. LUNGS: Clear. No wheezes, rales, or rhonch i. ABDOMEN: Distended, hypoactive bowel sounds. There is no guarding or rebound tenderness. Surgi delmis incisions are closed. EXTREMITIES: No clubbing or cyanosis. NEURO: Cranial nerves 2-12 grossl y intact. Moves all extremities. SKIN: Clear. No rashes. DIAGNOSTICS: Done 06/13/2018, WBC is 2.25, hemoglobin 6.2, hematocrit 19.1, platelets 94. Sodium 13 9, potassium 5, chloride 97, CO2 32, BUN 32, creatinine 4.2, glucose 86. Op note by Dr. Jc was reviewed, the patient had a ventral hernia incisional repair with robot. ASSESSMENT AND PLAN: This is a 52-year-old female with multiple medical problems, as detailed below, who is postoperative day 0 of ventral hernia repair, whom I have been asked to see for medical manag ement of: 1. History of end-stage renal disease. Plan: We will consult Nephrology to continue with dialysis. 2. Acute on chronic anemia of chronic disease with hemoglobin of 6.2. Plan: We will plan on blood transfusion given her recent surgery and we will continue to monitor for bleeding. 3. History of human immunodeficiency virus. Plan: We will continue home medications. 4. History of sacral decubitus ulcer. Plan: Wound care consult. Thank you for allowing me to participate in the care of this patient. The hospitalist service will c jose daniel to follow along with you. /[id number]/MODL
[2018-06-14] MEDS ORDERED: hydrALAZINE 25 MG TAB PO PRN (05:24)
[2018-06-14] MEDS ORDERED: BENZONATATE 100 MG CAP PO PRN (05:24)
[2018-06-14] MEDS ORDERED: SEVELAMER HCL 800 MG TAB PO PRN (05:49)
[2018-06-14] MEDS: LEVOTHYROXINE 200 MCG TAB PO SCH (06:14)
[2018-06-14] MEDS: ESCITALOPRAM OXALATE 10 MG TAB PO SCH (06:14)
[2018-06-14] MEDS: OXYCODONE/APAP 5/325 TAB PO PRN ×3 (06:31→18:46)
[2018-06-14] MEDS: SEVELAMER HCL 800 MG TAB PO SCH ×3 (08:54→18:36)
[2018-06-14] MEDS ORDERED: NEPHROVITE FOLIC ACID/VIT B&C 1 TAB PO SCH (09:00)
[2018-06-14] MEDS ORDERED: LIDOCAINE/PRILOCAINE 1 EACH CRTUBE TP PRN (10:47)
[2018-06-14] MEDS: ACETAMINOPHEN 325 MG TAB PO PRN (11:19)
--- NOTE | 2018-06-14 12:10 | GCON ---
REASON FOR CONSULTATION: Opinion regarding end-stage kidney failure. HISTORY OF PRESENT ILLNESS: The patient is a very pleasant 52 year old with end-stage kidney failure , on 3 times weekly dialysis at the [facility], under the care of Dr. Brandon spaulding. The patient has had multiple medical issues. She has also had an abdominal wall hernia that h as been not an issue until recently when she began experiencing increasing pain that seemed not to go away completely and was having some difficulty with her appetite. She was taken to the operating ro om yesterday for her abdominal hernia repair and is feeling better today. The patient has not been h aving fevers or chills. She does have some nausea. No vomiting. No chest pain, shortness of breath , cough, sputum, hemoptysis, hematemesis, or epistaxis. She has been having abdominal pain, which is better postoperatively. No diarrhea, constipation, melena, hematochezia, blurry vision, double visi on, headache, orthopnea, paroxysmal nocturnal dyspnea, palpitations, or syncope. PAST MEDICAL HISTORY: Significant for: 1. End-stage kidney failure, on 3 times weekly dialysis. 2. History of HIV, on active therapy. 3. History of Guillain-[place] syndrome. 4. History of seizures. 5. History of recurrent urinary tract infections. 6. History of small-bowel obstruction. 7. Anemia. 8. History of sacral wound, followed [facility]. 9. Status post cholecystectomy. 10. Status post hysterectomy. 11. History of kidney stones. CURRENT MEDICATIONS: Include: 1. Norvasc 5 mg a day. 2. Sensipar 30 mg a day. 3. Lexapro 20 mg a day. 4. Hydralazine 25 mg daily p.r.n. elevated blood pressures. 5. Synthroid 200 mcg a day. 6. Renagel. 7. Daniela-Roberto. Her home HIV medications were reviewed. ALLERGIES: To Keflex, vancomycin, influenza vaccine, ertapenem, doxycycline, and hydroxyzine. FAMILY HISTORY: Negative for renal failure. SOCIAL HISTORY: She does not use tobacco, alcohol, or IV or recreational drugs. She is cared for by her mother. REVIEW OF SYSTEMS: A complete 12-point review of systems was performed with pertinent positives and negatives as per the previous sections. PHYSICAL EXAMINATION: VITAL SIGNS: Blood pressure 127/61, pulse 82, respirations 16, temperature 36 .8 degrees. GENERALLY: She is sitting up in a chair, getting dialysis and is in no acute distress. HEENT: Pupils are reactive to light. Extraocular movements are intact. Mucous membranes are moist . NECK: No lymphadenopathy or thyromegaly. She has mild JVD. HEART: Regular. No rub. No S3. S he has a grade 1/6 systolic murmur. LUNGS: No rales, rhonchi, or wheezes. ABDOMEN: Quiet. Mildly distended, mildly tender. No obvious organomegaly, masses, or bruits. EXTREMITIES: Trace edema. No cyanosis or clubbing. NEUROLOGIC: No asterixis. SKIN: No unusual rashes or lesions. LYMPH: N o palpable lymphadenopathy or lymphedema. MUSCULOSKELETAL: No effusions or tenderness. LABORATORY: Serum sodium 141, potassium 5.4, chloride 99, CO2 of 32, BUN 41, creatinine 5.3, glucose 98, calcium 9.4. WBC 3.84, hemoglobin 5.9, she received 1 unit of packed red blood cells today, hem atocrit 18, platelet count 86,000. IMPRESSIONS: 1. End-stage kidney failure, on three times weekly dialysis. 2. Mildly increased potassium at 5.4. 3. Anemia of chronic kidney disease, as well as anemia of blood loss, one unit of packed red blood c adamss was given today with dialysis. 4. Ventral hernia, needing repair. 5. Human immunodeficiency virus, on multiple medications. RECOMMENDATIONS: 1. Dialysis today. 2. Agree with transfusion. 3. Pain control. 4. Once she begins passing gas, we will start giving her some food. 5. Up and around as she is able. 6. She will likely need to go to a physical rehabilitation center after discharge. Thank you for allowing me to participate in the care of your patient. If there are any questions, pl ease do not hesitate to contact us. We will be following along with you. /[id number]/MODL
--- NOTE | 2018-06-14 13:58 | SOAPPROG ---
SOAP Progress Note Assessment/Plan: Assessment/Plan: 52yo F POD#1 s/p Davinci ventral hernia repair with mesh, multiple comorbidities Dialysis today Hyperkalemia Anemia of chronic disease HIV Appreciate hospitalist management of comorbidities, nephrology Regular diet S: feeling better this morning. O: Plan: 06/14/18 13:56 Objective: Vital Signs Temp Pulse Resp BP Pulse Ox 36.6 C 87 16 89/50 L 98 06/14/18 11:39 06/14/18 11:39 06/14/18 11:39 06/14/18 11:39 06/14/18 11:39 Laboratory Results 06/14/18 04:15 06/14/18 04:15 06/13/18 06/14/18 06/15/18 05:59 05:59 05:59 Intake Total 525 350 Output Total 10 10 Balance 515 340 ICD10 Worksheet Patient Problems: Problems Problem Status Onset Abdominal pain Acute Anemia Acute Anemia of chronic renal failure, stage 4 (severe) Acute Chest pain Acute Contusion of jaw Acute DVT (deep venous thrombosis) Acute Decubitus ulcer of sacral area Acute End stage renal disease Acute Fever Acute Generalized weakness Acute Hyperkalemia Acute Hyperkalemia Acute Hypotension Acute Hypoxemia Acute Hypoxemia Acute Hypoxia Acute MRSA (methicillin resistant Staphylococcus aureus) Acute 04/04/17 Nephrostomy complication Acute Pubic ramus fracture Acute Retroperitoneal fluid collection Acute UTI (urinary tract infection) Acute UTI (urinary tract infection) Acute UTI (urinary tract infection) Acute
--- NOTE | 2018-06-14 15:28 | HOSPPROG ---
Hospitalist Progress Note Assessment/Plan: 52 YO Female s/p ventral hernia repair on 06/13/18. We have been consulted for medical management #Hypotension, improved on recheck -will hold Amlodipine -s/p PRBC #ESRD: HD per Nephrology #Anemia -s/p PRBC transfusion -will recheck #Hyperkalemia, Nephrology following, will get HD #HIV: cont home meds #UTI, diagnosed as an outpatient. The pt's mother requesting the Levaquin be restarted as its on her home medication list and that the pt is in the middle of treatment -will restart #Hx of GBS #Sacral Decubitus Ulcer: wound care following #Generalized Weakness: PT Subjective: no complaints. had HD this morning. BP is soft. not symptomatic. Objective: Vital Signs Temp Pulse Resp BP Pulse Ox 36.6 C 95 16 108/60 90 L 06/14/18 11:39 06/14/18 14:44 06/14/18 11:39 06/14/18 14:44 06/14/18 14:44 Laboratory Results 06/14/18 14:50 06/14/18 04:15 06/13/18 06/14/18 06/15/18 05:59 05:59 05:59 Intake Total 525 350 Output Total 10 70 Balance 515 280 - Physical Exam Constitutional: no apparent distress, chronically ill appearing Eyes: PERRL Ears, Nose, Mouth, Throat: moist mucous membranes, hearing normal Cardiovascular: regular rate and rhythym, No edema Respiratory: no respiratory distress, no rales or rhonchi, clear to auscultation Gastrointestinal: normoactive bowel sounds Skin: warm Neurologic: AAOx3 Psychiatric: interacting appropriately, not anxious, not encephalopathic Lymph, Heme, Immunologic: No petechiae ICD10 Worksheet Patient Problems: Problems Problem Status Onset Abdominal pain Acute Anemia Acute Anemia of chronic renal failure, stage 4 (severe) Acute Chest pain Acute Contusion of jaw Acute DVT (deep venous thrombosis) Acute Decubitus ulcer of sacral area Acute End stage renal disease Acute Fever Acute Generalized weakness Acute Hyperkalemia Acute Hyperkalemia Acute Hypotension Acute Hypoxemia Acute Hypoxemia Acute Hypoxia Acute MRSA (methicillin resistant Staphylococcus aureus) Acute 04/04/17 Nephrostomy complication Acute Pubic ramus fracture Acute Retroperitoneal fluid collection Acute UTI (urinary tract infection) Acute UTI (urinary tract infection) Acute UTI (urinary tract infection) Acute
--- NOTE | 2018-06-14 16:48 | ASMTCMCOM ---
CM Note CM Note Notes: 06/14/2018 Case Management Note Met with pt and mother Anuja [phone] to discuss discharge needs. Pt was admitted for a ventral hernia repair. Pt has a history of ESRD, HIV, chronic UTIs, chronic wounds, and chronic anemia requiring blood transfusions. Pt is well known to case management. Pt is part of the [facility] program. Left voicemail with child support case officer Teri Carlson [phone] ext [phone]. Mother requests application for Medicaid HCBS supports in the home. Mother also had questions about respite care coordination for stay at [facility] during a planned vacation. Waiting to hear from Teri prior to application for [facility]. Referred to [facility] for adjunct faculty for medical terminology medicaid assessment. Mother provides all supports for pt, though pt lives independently in her own apartment. Pt is not homebound and does not qualify for home health at this time. Pt has used [facility] in the past. Pt has near daily MD appointments between Dialysis MWF at the [facility] and wound care clinic follow. Pt and mother declined Palliative support stating "we have enough MD's to see on a regular basis." [facility] Notified MD of need for PT and OT evals. Case Management d/c poc: anticipating [facility] pending acceptance. Case Management to follow. Date Signed: 06/14/2018 04:48 PM Electronically Signed By:Brittany Haynes RN
[2018-06-14] MEDS: VITAMIN B12 PO SCH (17:52)
[2018-06-14] MEDS: ZINC OXIDE TP SCH (17:53)
--- NOTE | 2018-06-14 18:13 | WOCRNPDOC ---
JANICE Advanced Assessment Note - Skin Integrity Problem, Advanced Assess Coccyx Pressure Injury Dressing Type: Open to Air Exudate Amount: Moderate Exudate Characteristic(s): Cloudy, Serosanguinous Elizabeth Wound Tissue: Erythema, Scarred, Painful/Tender Wound Bed Constitution: Tunneling (6 oclock with patient on her right side 3.8 cm) Site Measurement - Head-to-Toe Length X Width X Depth (cm): 0.6x0.3x3 Pressure Injury Stage: Stage 4 Pressure Injury Present on Admit: Yes Skin Integrity Problem Comment: Patient well know to wound care. Has a reopened stage 4 pressure injury in sacrococcygeal area. The wound reopened approximately 9 months ago and has since been very difficult and slow to close. Patient on P 500 mattress as she declined air fluidized surface. Per patient's mother who is in the room the wound had been healing well, though it had been difficult to keep packed as the packing kept falling out, though the depth was getting smaller (approx 1 cm). Per mother the skin keeps trying to close down. There is extensive hard scar tissue build up around the wound opening. Upon probing wound was found to be quite a bit deeper than the reported measurment. Dr. Jc visualized and probed wound as well. Will initiate plain packing soaked with Vashe with BID changes for now. Wound care will follow. Dr. Jc may initiate a different plan.
[2018-06-14] MEDS: Darunavir Ethanolate [Prezista] 800 MG PO SCH (19:54)
[2018-06-14] MEDS: Ritonavir [Norvir] 100 MG PO SCH (19:55)
[2018-06-14] MEDS: ABACAVIR SULFATE 600 MG PO SCH (19:55)
[2018-06-14] MEDS: Dolutegravir Sodium [Tivicay] 50 MG PO SCH (19:56)
[2018-06-14] MEDS: CINACALCET HCL 30 MG TAB PO SCH (19:56)
[2018-06-14] MEDS ORDERED: amLODIPine BESYLATE 5 MG TAB PO SCH (21:00)
[2018-06-15] MEDS: OXYCODONE/APAP 5/325 TAB PO PRN ×2 (05:21→14:25)
[2018-06-15] MEDS: ESCITALOPRAM OXALATE 10 MG TAB PO SCH (06:36)
[2018-06-15] MEDS: LEVOTHYROXINE 200 MCG TAB PO SCH (06:36)
[2018-06-15] MEDS: ZINC OXIDE TP SCH (10:21)
[2018-06-15] MEDS: NEPHROVITE FOLIC ACID/VIT B&C 1 TAB PO SCH (10:21)
[2018-06-15] MEDS: SEVELAMER HCL 800 MG TAB PO SCH ×3 (10:22→18:16)
--- NOTE | 2018-06-15 12:48 | PDMN ---
Medical Necessity Medical necessity: Changed to IP as of 06/14/2018 per and MCG M-35; los> 2MN for ongoing management of anemia with hypotension s/p ventral hernia repair; comorbidities ESRD with dialysis, current UTI, HIV
[2018-06-15] MEDS: VITAMIN B12 PO SCH (13:14)
--- NOTE | 2018-06-15 15:15 | HOSPPROG ---
Hospitalist Progress Note Assessment/Plan: 52 YO Female s/p ventral hernia repair on 06/13/18. We have been consulted for medical management #Hypotension, resolved -cont to hold Amlodipine for now -s/p PRBC transfusion, one uniton 06/15 -recheck labs tomorrow #ESRD: HD per Nephrology, scheduled for tomorrow #Anemia -s/p PRBC transfusion -will recheck #Hyperkalemia, Nephrology following, s/p HD #HIV: cont home meds #UTI, diagnosed as an outpatient. -cont Levaquin. per the mother, the plan is for a 14 day treatment course, 7 pills every other day. This was started on 06/10 #Hx of GBS #Sacral Decubitus Ulcer: wound care following. Chronic #Generalized Weakness: PT Subjective: bp is better. no overnight events. no sob Objective: Vital Signs Temp Pulse Resp BP Pulse Ox 36.7 C 88 12 110/57 L 100 06/15/18 11:39 06/15/18 11:39 06/15/18 11:39 06/15/18 11:39 06/15/18 11:39 Laboratory Results 06/14/18 14:50 06/14/18 04:15 06/14/18 06/15/18 06/16/18 05:59 05:59 05:59 Intake Total 525 600 Output Total 10 110 Balance 515 490 - Physical Exam Constitutional: no apparent distress Eyes: PERRL Ears, Nose, Mouth, Throat: moist mucous membranes, hearing normal Cardiovascular: regular rate and rhythym Respiratory: no respiratory distress, no rales or rhonchi Gastrointestinal: normoactive bowel sounds, soft, non-tender abdomen Skin: warm Neurologic: AAOx3 Psychiatric: interacting appropriately, not anxious, not encephalopathic ICD10 Worksheet Patient Problems: Problems Problem Status Onset Abdominal pain Acute Anemia Acute Anemia of chronic renal failure, stage 4 (severe) Acute Chest pain Acute Contusion of jaw Acute DVT (deep venous thrombosis) Acute Decubitus ulcer of sacral area Acute End stage renal disease Acute Fever Acute Generalized weakness Acute Hyperkalemia Acute Hyperkalemia Acute Hypotension Acute Hypoxemia Acute Hypoxemia Acute Hypoxia Acute MRSA (methicillin resistant Staphylococcus aureus) Acute 04/04/17 Nephrostomy complication Acute Pubic ramus fracture Acute Retroperitoneal fluid collection Acute UTI (urinary tract infection) Acute UTI (urinary tract infection) Acute UTI (urinary tract infection) Acute
--- NOTE | 2018-06-15 18:13 | SOAPPROG ---
SOAP Progress Note Assessment/Plan: Assessment: ESRD on HD MWF -Plan for HD on 06/16 per regular HD schedule -Check RFP in AM Anemia -Recheck labs in AM. Was transfused on HD on 06/14 for Hgb in 5's --> 7.3 post- transfusion. Will see if needs more blood with HD on 06/15 Subjective: Patient feeling pretty good. Abdomen is a little sore. Eating and drinking ok. Objective: Vital Signs Temp Pulse Resp BP Pulse Ox 36.9 C 75 12 126/62 H 97 06/15/18 15:30 06/15/18 15:30 06/15/18 15:30 06/15/18 15:30 06/15/18 15:30 Laboratory Results 06/14/18 14:50 06/14/18 04:15 06/14/18 06/15/18 06/16/18 05:59 05:59 05:59 Intake Total 525 600 Output Total 10 110 Balance 515 490 Exam: General- awake, alert, NAD, chronically ill-appearing Eyes- anicteric sclera, no conjunctival edema HEENT- MMM, no gross oral lesions CV- NRRR, no g/m/r Pulm: CTAB, no wheezes or rales breathing comfortably on RA Abd: firm, mildly tender, laparoscopy incisions c/d/i ICD10 Worksheet Patient Problems: Problems Problem Status Onset Abdominal pain Acute Anemia Acute Anemia of chronic renal failure, stage 4 (severe) Acute Chest pain Acute Contusion of jaw Acute DVT (deep venous thrombosis) Acute Decubitus ulcer of sacral area Acute End stage renal disease Acute Fever Acute Generalized weakness Acute Hyperkalemia Acute Hyperkalemia Acute Hypotension Acute Hypoxemia Acute Hypoxemia Acute Hypoxia Acute MRSA (methicillin resistant Staphylococcus aureus) Acute 04/04/17 Nephrostomy complication Acute Pubic ramus fracture Acute Retroperitoneal fluid collection Acute UTI (urinary tract infection) Acute UTI (urinary tract infection) Acute UTI (urinary tract infection) Acute
--- NOTE | 2018-06-15 19:48 | SOAPPROG ---
SOAP Progress Note Assessment/Plan: Assessment: s/p davinci ventral hernia repair with mesh. Doing well. Tolerating diet. Incisions cdi. No heavy lifting pushing or pulling more than 15 lbs for 6 weeks Sacral decubitus ulcer. Reconstituted Epifix [id number] ex 08/22/2022 and injected into wound Plan: 06/15/18 19:46 Objective: Vital Signs Temp Pulse Resp BP Pulse Ox 36.9 C 75 12 126/62 H 97 06/15/18 15:30 06/15/18 15:30 06/15/18 15:30 06/15/18 15:30 06/15/18 15:30 Laboratory Results 06/14/18 14:50 06/14/18 04:15 06/14/18 06/15/18 06/16/18 05:59 05:59 05:59 Intake Total 525 600 500 Output Total 10 110 Balance 515 490 500 ICD10 Worksheet Patient Problems: Problems Problem Status Onset Abdominal pain Acute Anemia Acute Anemia of chronic renal failure, stage 4 (severe) Acute Chest pain Acute Contusion of jaw Acute DVT (deep venous thrombosis) Acute Decubitus ulcer of sacral area Acute End stage renal disease Acute Fever Acute Generalized weakness Acute Hyperkalemia Acute Hyperkalemia Acute Hypotension Acute Hypoxemia Acute Hypoxemia Acute Hypoxia Acute MRSA (methicillin resistant Staphylococcus aureus) Acute 04/04/17 Nephrostomy complication Acute Pubic ramus fracture Acute Retroperitoneal fluid collection Acute UTI (urinary tract infection) Acute UTI (urinary tract infection) Acute UTI (urinary tract infection) Acute
[2018-06-15] MEDS: Darunavir Ethanolate [Prezista] 800 MG PO SCH (20:51)
[2018-06-15] MEDS: CINACALCET HCL 30 MG TAB PO SCH (20:51)
[2018-06-15] MEDS: Ritonavir [Norvir] 100 MG PO SCH (20:51)
[2018-06-15] MEDS: Dolutegravir Sodium [Tivicay] 50 MG PO SCH (20:51)
[2018-06-15] MEDS: ABACAVIR SULFATE 600 MG PO SCH (20:52)
[2018-06-16 04:47] LABS: PLATELET COUNT 91 10^3/uL (150-400)
[2018-06-16] MEDS: SEVELAMER HCL 800 MG TAB PO SCH ×3 (09:09→18:38)
[2018-06-16] MEDS: OXYCODONE/APAP 5/325 TAB PO PRN (09:09)
--- NOTE | 2018-06-16 09:26 | SOAPPROG ---
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 Yang silver solution mixer for weekend My pager [phone] 06/16/18 11:48 Subjective: Had HD earlier today. Family verified she can take sq aranesp but not Epo or IV aranesp. Working with PT. Objective: Vital Signs Temp Pulse Resp BP Pulse Ox 36.8 C 93 18 128/81 H 93 06/16/18 07:43 06/16/18 07:43 06/16/18 07:43 06/16/18 07:43 06/16/18 07:43 Laboratory Results 06/16/18 04:05 06/16/18 04:05 06/15/18 06/16/18 06/17/18 05:59 05:59 05:59 Intake Total 600 500 Output Total 110 Balance 490 500 Physical Exam - Physical Exam General Appearance: alert, no apparent distress EENT: other (mmm) Cardiac/Chest: regular rate, rhythm Extremities: other (no edema) Neuro/Psych: alert, oriented x 3 ICD10 Worksheet Patient Problems: Problems Problem Status Onset Abdominal pain Acute Anemia Acute Anemia of chronic renal failure, stage 4 (severe) Acute Chest pain Acute Contusion of jaw Acute DVT (deep venous thrombosis) Acute Decubitus ulcer of sacral area Acute End stage renal disease Acute Fever Acute Generalized weakness Acute Hyperkalemia Acute Hyperkalemia Acute Hypotension Acute Hypoxemia Acute Hypoxemia Acute Hypoxia Acute MRSA (methicillin resistant Staphylococcus aureus) Acute 04/04/17 Nephrostomy complication Acute Pubic ramus fracture Acute Retroperitoneal fluid collection Acute UTI (urinary tract infection) Acute UTI (urinary tract infection) Acute UTI (urinary tract infection) Acute
[2018-06-16] MEDS: LEVOTHYROXINE 200 MCG TAB PO SCH (11:38)
[2018-06-16] MEDS: ESCITALOPRAM OXALATE 10 MG TAB PO SCH (11:39)
[2018-06-16] MEDS: NEPHROVITE FOLIC ACID/VIT B&C 1 TAB PO SCH (11:39)
[2018-06-16] MEDS: VITAMIN B12 PO SCH (11:42)
[2018-06-16] MEDS: ZINC OXIDE TP SCH (11:43)
--- NOTE | 2018-06-16 13:14 | SOAPPROG ---
SOAP Progress Note Assessment/Plan: Assessment/Plan: 52yo F POD#3 s/p Davinci ventral hernia repair with mesh, multiple comorbidities Appreciate hospitalist management of comorbidities, nephrology Tolerating regular diet Pain controlled with percocet DC tomorrow to [facility]. No heavy lifting pushing or pulling more than 15 lbs for 6 weeks. May shower S: doing well, LLQ fullness and pain improved O: sitting upright in chair getting dialysis No increased WOB Abd exam deferred Sacral debucitus ulcer not examined today Objective: Vital Signs Temp Pulse Resp BP Pulse Ox 36.8 C 93 18 128/81 H 93 06/16/18 07:43 06/16/18 07:43 06/16/18 07:43 06/16/18 07:43 06/16/18 07:43 Laboratory Results 06/16/18 04:05 06/16/18 04:05 06/15/18 06/16/18 06/17/18 05:59 05:59 05:59 Intake Total 600 500 Output Total 110 Balance 490 500 ICD10 Worksheet Patient Problems: Problems Problem Status Onset Abdominal pain Acute Anemia Acute Anemia of chronic renal failure, stage 4 (severe) Acute Chest pain Acute Contusion of jaw Acute DVT (deep venous thrombosis) Acute Decubitus ulcer of sacral area Acute End stage renal disease Acute Fever Acute Generalized weakness Acute Hyperkalemia Acute Hyperkalemia Acute Hypotension Acute Hypoxemia Acute Hypoxemia Acute Hypoxia Acute MRSA (methicillin resistant Staphylococcus aureus) Acute 04/04/17 Nephrostomy complication Acute Pubic ramus fracture Acute Retroperitoneal fluid collection Acute UTI (urinary tract infection) Acute UTI (urinary tract infection) Acute UTI (urinary tract infection) Acute
--- NOTE | 2018-06-16 15:49 | ASMTCMCOM ---
AUDREY Note AUDREY Note Notes: Pt has been accepted to [facility] in [place]. Pt may be able to discharge on Sat/Sun, she also needs a chair time at the [facility] on Tuesday, if needed call Sarina [phone] to schedule. AUDREY spoke with Rakesh at [facility], please let him know when pt will be discharging. Pt's mother Anuja is very invovled and can transfer pt to SNF. DC Plan: [facility]/ [facility] Date Signed: 06/16/2018 03:48 PM Electronically Signed By:Qian Wilks RN
--- NOTE | 2018-06-16 16:39 | HOSPPROG ---
Hospitalist Progress Note Assessment/Plan: 52 YO Female s/p ventral hernia repair on 06/13/18. We have been consulted for medical management #Hypotension, resolved -cont to hold Amlodipine for now #ESRD: HD per Nephrology, M/W/F #Anemia -s/p PRBC transfusion one unit on 06/15 and another one today -will recheck in a.m. #Hyperkalemia, Nephrology following, s/p HD #HIV: cont home meds #UTI, diagnosed as an outpatient. -cont Levaquin. per the mother, the plan is for a 14 day treatment course, 7 pills every other day. This was started on 06/10 #Hx of GBS #Sacral Decubitus Ulcer: wound care following. Chronic #Generalized Weakness: PT Plan is for discharge tomorrow per Surgery. Medically is stable. Hgb will need to be followed closely and this can be done in conjunction with dialysis. would cont to hold Amlodipine Subjective: no cp or sob. no n/v. no diarrhea Objective: Vital Signs Temp Pulse Resp BP Pulse Ox 36.7 C 70 14 118/57 L 90 L 06/16/18 15:25 06/16/18 15:25 06/16/18 15:25 06/16/18 15:25 06/16/18 15:25 Laboratory Results 06/16/18 04:05 06/16/18 04:05 06/15/18 06/16/18 06/17/18 05:59 05:59 05:59 Intake Total 600 500 Output Total 110 Balance 490 500 - Physical Exam Constitutional: chronically ill appearing Eyes: PERRL Ears, Nose, Mouth, Throat: moist mucous membranes, hearing normal Cardiovascular: regular rate and rhythym, No edema Respiratory: no respiratory distress, no rales or rhonchi, clear to auscultation Gastrointestinal: normoactive bowel sounds, soft, non-tender abdomen Skin: warm Neurologic: No AAOx3 Psychiatric: interacting appropriately, not anxious Lymph, Heme, Immunologic: No petechiae ICD10 Worksheet Patient Problems: Problems Problem Status Onset Abdominal pain Acute Anemia Acute Anemia of chronic renal failure, stage 4 (severe) Acute Chest pain Acute Contusion of jaw Acute DVT (deep venous thrombosis) Acute Decubitus ulcer of sacral area Acute End stage renal disease Acute Fever Acute Generalized weakness Acute Hyperkalemia Acute Hyperkalemia Acute Hypotension Acute Hypoxemia Acute Hypoxemia Acute Hypoxia Acute MRSA (methicillin resistant Staphylococcus aureus) Acute 04/04/17 Nephrostomy complication Acute Pubic ramus fracture Acute Retroperitoneal fluid collection Acute UTI (urinary tract infection) Acute UTI (urinary tract infection) Acute UTI (urinary tract infection) Acute
[2018-06-16] MEDS: Dolutegravir Sodium [Tivicay] 50 MG PO SCH (20:34)
[2018-06-16] MEDS: Darunavir Ethanolate [Prezista] 800 MG PO SCH (20:35)
[2018-06-16] MEDS: Ritonavir [Norvir] 100 MG PO SCH (20:35)
[2018-06-16] MEDS: CINACALCET HCL 30 MG TAB PO SCH (20:36)
[2018-06-16] MEDS: ABACAVIR SULFATE 600 MG PO SCH (20:37)
[2018-06-17] MEDS: OXYCODONE/APAP 5/325 TAB PO PRN (03:00)
--- NOTE | 2018-06-17 07:53 | PDIAF ---
- Diagnosis Diagnosis: Ventral hernia, ESRD Code Status: Full Code - Medication Management Discharge Medications: Medications to Continue on Transfer Abacavir Sulfate [Ziagen] 600 mg PO DAILY@02/23/13 [Last Taken 06/12/18] Darunavir Ethanolate [PREZISTA] 800 mg PO DAILY@02/23/13 [Last Taken 06/12/18 ] Escitalopram Oxalate [Lexapro] 20 mg PO DAILY@07/29/15 [Last Taken 06/13/18 07:00] Ritonavir [Norvir] 100 mg PO DAILY@07/29/15 [Last Taken 06/12/18] Sevelamer Carbonate [Renvela] 800 mg PO TIDMEAL 07/30/15 [Last Taken 06/12/18] Dolutegravir Sodium [Tivicay] 50 mg PO DAILY@04/28/16 [Last Taken 06/12/18] Herbals/Supplements -Info Only 1 each PO DAILY 07/25/17 [Last Taken 06/12/18] Chlorzoxazone 500 mg PO TID PRN 08/17/17 [Last Taken 05/30/18] Levothyroxine [Synthroid 200 mcg (*)] 200 mcg PO DAILY@01/14/18 [Last Taken 06/13/18 07:00] amLODIPine BESYLATE [Amlodipine Besylate] 5 mg PO HS 01/14/18 [Last Taken ] hydrALAZINE [Apresoline] 25 mg PO DAILY PRN 01/14/18 [Last Taken 05/30/18] Cinacalcet HCl [Sensipar (*)] 30 mg PO HS 01/17/18 [Last Taken 06/12/18] Sevelamer Carbonate [Renvela] 800 mg PO DAILY PRN 01/17/18 [Last Taken 06/12/18] Benzonatate [Tessalon Pearles] 100 mg PO TID PRN 02/18/18 [Last Taken 05/14/18] Acetaminophen [Tylenol 325mg (*)] 650 mg PO Q4HRS PRN 06/09/18 [Last Taken 06/12] Folic Acid/Vit B Com W/C [Nephro-Roberto Rx] 1 each PO DAILY 06/09/18 [Last Taken 06/12/18] guaiFENesin [Mucinex 600 MG (*)] 600 mg PO BID 06/09/18 [Last Taken 06/12/18] Ibuprofen [Motrin (*)] 400 mg PO Q8H PRN 06/13/18 [Last Taken Unknown] SUMAtriptan [Imitrex 50 MG (*)] 50 mg PO DAILY PRN 06/13/18 [Last Taken Unknown] Triamcinolone 0.1% [Triamcinolone 0.1% Cream (*)] 1 alexander TP DAILY PRN 06/13/18 [ Last Taken Unknown] Vitamin B12 1000 Mcg/Ml Drops 1 drop PO DAILY 06/13/18 [Last Taken 06/12/18] Zinc Oxide Powder 1 alexander TP DAILY 06/13/18 [Last Taken 06/12/18] levOFLOXACIN [levAQUIN (*)] 500 mg PO Q2D 06/13/18 [Last Taken 06/12/18] oxyCODONE/APAP 5/325 [Percocet 5/325 (*)] 1 - 2 tab PO Q4H PRN 06/13/18 [Last Taken Unknown] Saccharomyces Boulardii [FLORASTOR] 250 mg PO DAILY 06/14/18 [Last Taken Unknown ] Acetaminophen [Tylenol 325mg (*)] 650 mg PO Q6 PRN tab 06/16/18 [Last Taken Unknown] Lidocaine/Prilocaine [Emla Cream] 1 alexander TP PRN PRN cream 06/16/18 [Last Taken Unknown] oxyCODONE/APAP 5/325 [Percocet 5/325 (*)] 1 tab PO Q4 PRN tab 06/16/18 [Last Taken Unknown] Discharge Medications: Refer to the Discharge Home Medication list for PRN reason. - Orders Services needed: Registered Nurse, Physical Therapy, Occupational Therapy Isolation Type: Contact Isolation Diet Recommendation: no restrictions on diet Diet Texture: Regular Texture Diet Additional Instructions: No heavy lifting pushing or pulling more than 15 lbs for 6 weeks - Follow Up Care Current Providers and Referrals: Rupa Jc MD [Medical Doctor] - follow up in [address] Antony MD [Primary Care Provider] -
[2018-06-17] MEDS: ACETAMINOPHEN 325 MG TAB PO PRN (08:01)
[2018-06-17] MEDS: ESCITALOPRAM OXALATE 10 MG TAB PO SCH (08:01)
[2018-06-17] MEDS: LEVOTHYROXINE 200 MCG TAB PO SCH (08:01)
[2018-06-17] MEDS: SEVELAMER HCL 800 MG TAB PO SCH ×2 (08:02→14:17)
[2018-06-17] MEDS: NEPHROVITE FOLIC ACID/VIT B&C 1 TAB PO SCH (08:02)
[2018-06-17] MEDS: VITAMIN B12 PO SCH (08:03)
[2018-06-17 08:16] VITALS: BP 128/62
[2018-06-17] MEDS: ZINC OXIDE TP SCH (09:10)
--- NOTE | 2018-06-17 13:34 | ASMTDCNOTE ---
Case Management Discharge Discharge Order Complete? Answers: Yes Patient to Obtain Answers: Other Notes: SNF Medications Transportation Arranged Answers: Family/Friends Faxed Final Orders Answers: Yes Agency/Facility Transfer Answers: Yes Report Printed & Faxed to Receiving Agency Family Notified Answers: Yes Discharge Comments Notes: Pt is discharging to [facility] in [facility]. Spoke with Rakesh at and sent d/c order and therapy notes with pt at his request. Also sent d/c order, meds, and facility transfer via [employer]. Pt's mother is transporting. Date Signed: 06/17/2018 01:34 PM Electronically Signed By:EVERTON Chaudhry
--- NOTE | 2018-06-17 13:35 | ASDISCHSUM ---
Discharge Information Plan Status:SNF Medically Cleared to Leave:06/17/2018 Discharge Date:06/17/2018 CM D/C Disposition:Assisted Facility ADT D/C Disposition:Assisted Facility Projected Discharge Date:06/17/2018 11:00 AM Transportation at D/C:Family Discharge Delay Reason: Follow-Up Date:06/17/2018 11:00 AM Discharge Slot: Final Diagnosis: Placement Information Referral Type:*Penitentiary/SNF Referral ID:[id number] Provider Name:[facility] Address 1:[address] Address 2: City:[place] Selection Factors: State:[place] Patient Contact Information Contact Name:CONSTANZASARAH Relationship:Mother Address:[address] City:[place] Phone: State/Zip Code:[place] [address] Email: Financial Information Financial Class:Medicare Primary Plan Desc:MEDICARE INPATIENT Primary Plan Number:[id number] Secondary Plan Desc:[place] Secondary Plan Number:[id number] Assessment Information LACE LACE Comorbidities - select Answers: Congestive heart failure all that apply Moderate or severe liver or renal disease Opioid dependence / Chronic pain Other Notes: Hx of Guillain-barre; HTN; Hx of DVT # of Emergency department Answers: 5-8 visits in the last 6 months Social determinants Answers: Mental health diagnosis (anxiety, depression, pers onality disorders, etc.) Score: 18 Date Signed: 06/13/2018 08:54 PM Electronically Signed By:Amanda Shoemaker [facility] CM Progress Note CM Note CM Note Notes: 06/14/2018 Case Management Note Met with pt and mother Anuja [phone] to discuss discharge needs. Pt was admitted for a ventral hernia repair. Pt has a history of ESRD, HIV, chronic UTIs, chronic wounds, and chronic anemia requiring blood transfusions. Pt is well known to case management. Pt is part of the [facility]AGINE program. Left voicemail with case manager specialist Teri Carlson [phone] ext [phone]. Mother requests application for Medicaid HCBS supports in the home. Mother also had questions about respite care coordination for stay at [facility] during a planned vacation. Waiting to hear from Teri prior to application for [facility] HCBS. Referred to [place] for long distance operator medicaid assessment. Mother provides all supports for pt, though pt lives independently in her own apartment. Pt is not homebound and does not qualify for home health at this time. Pt has used [facility] in the past. Pt has near daily MD appointments between Dialysis MWF [facility] and wound care clinic follow. Pt and mother declined Palliative support stating "we have enough MD's to see on a regular basis." Faxed referral to [facility]. Notified MD of need for PT and OT [place]. Case Management d/c poc: anticipating [facility] SNF pending acceptance. Case Management to follow. Date Signed: 06/14/2018 04:48 PM Electronically Signed By:Brittany Haynes RN [facility] CM Progress Note CM Note CM Note Notes: Pt has been accepted to [facility] in [place]. Pt may be able to discharge on Sat/Sun, she also needs a chair time at the [facility] on Tuesday, if needed call Sarina [phone] to schedule. AUDREY spoke with Rakesh at [facility], please let him know when pt will be discharging. Pt's mother Anuja is very invovled and can transfer pt to SNF. DC Plan: [facility]/ [facility] Date Signed: 06/16/2018 03:48 PM Electronically Signed By:Qian Wilks RN Case Management Discharge Plan Note Case Management Discharge Discharge Order Complete? Answers: Yes Patient to Obtain Answers: Other Notes: SNF Medications Transportation Arranged Answers: Family/Friends Faxed Final Orders Answers: Yes Agency/Facility Transfer Answers: Yes Report Printed & Faxed to Receiving Agency Family Notified Answers: Yes Discharge Comments Notes: Pt is discharging to [facility] in [facility]. Spoke with Rakesh at and sent d/c order and therapy notes with pt at his request. Also sent d/c order, meds, and facility transfer via [employer]. Pt's mother is transporting. Date Signed: 06/17/2018 01:34 PM Electronically Signed By:EVERTON Chaudhry Intervention Information
== END 2018-06-17 14:39 | DRG 353 ==
LOC: F3E 11:21 → OBSVTOIN 06-14 16:08
PROVIDERS: ADMIT Surgery; ATTEND Surgery
PROC: 30233N1 Transfusion of Nonautologous Red Blood Cells into Peripheral Vein, Percutaneous Approach (ICD-10-PCS; 2018-06-13)
PROC: 0WUF4JZ Supplement Abdominal Wall with Synthetic Substitute, Percutaneous Endoscopic Approach (ICD-10-PCS; principal; 2018-06-13 13:30)
PROC: 8E0W4CZ Robotic Assisted Procedure of Trunk Region, Percutaneous Endoscopic Approach (ICD-10-PCS; principal; 2018-06-13 13:30)
PROC: 5A1D70Z Performance of Urinary Filtration, Intermittent, Less than 6 Hours Per Day (ICD-10-PCS; 2018-06-14)
DX: K43.9 Ventral hernia without obstruction or gangrene (principal); L89.154 Pressure ulcer of sacral region, stage 4; I12.0 Hypertensive chronic kidney disease with stage 5 chronic kidney disease or end stage renal disease; N18.6 End stage renal disease; D62 Acute posthemorrhagic anemia; B20 Human immunodeficiency virus [HIV] disease; G61.0 Guillain-Barre syndrome; N39.0 Urinary tract infection, site not specified; Z99.2 Dependence on renal dialysis; D63.1 Anemia in chronic kidney disease; N31.9 Neuromuscular dysfunction of bladder, unspecified; E03.9 Hypothyroidism, unspecified; E78.5 Hyperlipidemia, unspecified
CPT/HCPCS: 97116-GP; 97162-GP; 97166-GO; 97530-GP; 97535-GO; C1781; G8978-GP-CK; G8979-GP-CJ; G8980-GP-CJ; G8987-GO-CK; G8988-GO-CJ; J0878; J1170; J1642; J2250; J2704; J3010; J3370; P9016; P9040; P9041

== ENCOUNTER 2018-07-18 16:47 | Outpatient (CLI) | payer OTHER ==
[2018-07-18] MEDS ORDERED: ACETAMINOPHEN 325 MG TAB ONE (17:06)
[2018-07-18] MEDS ORDERED: diphenhydrAMINE 25 MG CAP PO ONE (18:15)
[2018-07-18] MEDS ORDERED: ACETAMINOPHEN 325 MG TAB PO ONE (18:15)
== END 2018-07-18 22:33 | disposition home or self-care (01) ==
LOC: FOBOP 16:47
PROVIDERS: ATTEND Internal Medicine Hematology & Oncology
PROC: 30243N1 Transfusion of Nonautologous Red Blood Cells into Central Vein, Percutaneous Approach (ICD-10-PCS; principal; 2018-07-18)
DX: N18.6 End stage renal disease (principal); D63.1 Anemia in chronic kidney disease
CPT/HCPCS: 36430; J1642; P9016; P9040

== ENCOUNTER → 2018-08-08 | Outpatient (CLI) | payer OTHER | LOC: FOBOP 14:11 | PROVIDERS: ATTEND Internal Medicine Hematology & Oncology | PROC: 30253N1 (ICD-10-PCS; principal; 2018-08-08) | DX: N18.6 End stage renal disease (principal); D63.1 Anemia in chronic kidney disease | CPT/HCPCS: 36430; J1642; P9016; P9040 ==

== ENCOUNTER 2018-08-11 13:29 | Observation (INO) | payer OTHER, MEDICAID ==
--- NOTE | 2018-08-11 13:41 | EDPHY ---
H & P Time Seen by Provider: 08/11/18 13:37 HPI/ROS: Chief complaint. Chest pain HPI. 53-year-old female presents emergency department with chest pain. She normally has Tuesday dialysis. She went to dialysis and she told the dialysis workers that she was having chest pain and was sent to the emergency department without receiving dialysis. She had abdominal pain last night the however the abdominal pain has resolved and now she has left anterior chest discomfort that she describes as"hurts". No radiation. Symptoms are worse with deep breathing but not with movement or exertion. No fever. Positive cough. With the abdominal pain she had no vomiting or diarrhea. She is normally on 24/7 oxygen at 2 liters/minute. No unusual leg pain or swelling. No history of heart problems although apparently known aortic calcifications. 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 End-stage renal disease with dialysis. Hyperparathyroidism, HIV positive, sacral decubiti I for the this currently being treated, hydronephrosis, hypertension, cholecystectomy, left forearm fistula, left nephrectomy MRI and left nephrostomy tube, ventral hernia repair Social History: Single, nonsmoker, no alcohol Smoking Status: Never smoked Physical Exam: General Appearance: Alert well-developed female mild distress vital signs stable. Oxygen saturation 90% on room air Eyes: Pupils equal and round no pallor or injection. ENT, Mouth: Mucous membranes are moist. Respiratory: There are no retractions, lungs are clear to auscultation. Cardiovascular: Regular rate and rhythm with 2/6 systolic decrescendo murmur Gastrointestinal: Abdomen is soft and nontender, no masses, bowel sounds normal. Neurological: Awake and alert, sensory and motor exams grossly normal. Skin: Warm and dry, no rashes. Musculoskeletal: Neck is supple nontender. tenderness to palpation over the upper sternum. Extremities symmetrical, full range of motion. Psychiatric: Patient is oriented X 3, there is no agitation. Constitutional: Initial Vital Signs Temperature (C) 37.0 C 08/11/18 13:34 Heart Rate 84 08/11/18 13:34 Respiratory Rate 18 08/11/18 13:34 Blood Pressure 119/64 08/11/18 13:34 O2 Sat (%) 90 L 08/11/18 13:34 O2 Delivery Mode Nasal Cannula O2 (L/minute) 2 Allergies/Adverse Reactions: cephalexin Allergy (Verified 08/11/18 13:33) Rash doxycycline Allergy (Verified 08/11/18 13:33) ulcers in espohagus ertapenem sodium [From Invanz] Allergy (Verified 08/11/18 13:33) Rash, neck and throat swelling hydroxyzine Allergy (Verified 08/11/18 13:33) respiratory failure hydroxyzine HCl [From Atarax] Allergy (Verified 08/11/18 13:33) Dyspnea influenza virus vaccine, specific Allergy (Verified 08/11/18 13:33) hx guillian-barre, states cannot have vancomycin [Vancomycin] Allergy (Verified 08/11/18 13:33) Red Man's syndrome with IV; PO is okay ertapenem sodium Allergy (Uncoded 08/11/18 13:33) Rash, neck and throat swelling Home Medications: Medication Instructions Recorded Abacavir Sulfate [Ziagen] 600 mg PO DAILY@02/23/13 Darunavir Ethanolate [PREZISTA] 800 mg PO DAILY@02/23/13 Escitalopram Oxalate [Lexapro] 20 mg PO DAILY@07/29/15 Ritonavir [Norvir] 100 mg PO DAILY@07/29/15 Sevelamer Carbonate [Renvela] 800 mg PO TIDMEAL 07/30/15 Dolutegravir Sodium [Tivicay] 50 mg PO DAILY@04/28/16 Chlorzoxazone 500 mg PO TID PRN 08/17/17 Levothyroxine [Synthroid 200 mcg 200 mcg PO DAILY@01/14/18 (*)] amLODIPine BESYLATE [Amlodipine 7.5 mg PO HS 01/14/18 Besylate] hydrALAZINE [Apresoline] 25 mg PO DAILY PRN 01/14/18 Sevelamer Carbonate [Renvela] 800 mg PO DAILY PRN 01/17/18 Benzonatate [Tessalon Pearles] 100 mg PO HS 02/18/18 Acetaminophen [Tylenol 325mg (*)] 650 mg PO Q4HRS PRN 06/09/18 Folic Acid/Vit B Com W/C 1 tab PO DAILY@06/09/18 [Nephro-Roberto Rx] guaiFENesin [Mucinex 600 MG (*)] 600 mg PO HS 06/09/18 Ibuprofen [Motrin (*)] 400 mg PO Q8H PRN 06/13/18 SUMAtriptan [Imitrex 50 MG (*)] 50 mg PO DAILY PRN 06/13/18 Triamcinolone 0.1% [Triamcinolone 1 alexander TP DAILY PRN 06/13/18 0.1% Cream (*)] Vitamin B12 1000 Mcg/Ml Drops 1 drop PO DAILY 06/13/18 Zinc Oxide Powder 1 alexander TP DAILY 06/13/18 Saccharomyces Boulardii [FLORASTOR] 250 mg PO DAILY@07 06/14/18 Lidocaine/Prilocaine [Emla Cream] 1 alexander TP PRN PRN cream 06/16/18 Silver Gel 1 alexander TP DAILY 08/11/18 oxyCODONE IR [Oxycodone Ir (*)] 5 mg PO Q4H PRN 08/11/18 Medical Decision Making - Diagnostics EKG Interpretation: EKG interpreted by me shows normal sinus rhythm the normal interval. There is left axis deviation. QRS is normal though there is poor R-wave progression suggestive of anterior infarct. No significant ST elevation or depression. No arrhythmia. The rate is 84 Imaging Results: Imaging Impressions Chest X-Ray 08/11/18 14:11 Impression: 1. Increasing left basilar infiltrate compared to 03/30/2018, with residual right basilar diskoid subsegmental atelectasis versus parenchymal fibrosis. 2. Persistent cardiac silhouette enlargement. CT angio chest shows no evidence of pulmonary embolus. However the patient appears to have left lower lobe pneumonia. Reviewed by me and discussed with Radiology Procedures: Patient's port is accessed for blood ED Course/Re-evaluation: I consulted discussed the case with the Dr. Ho for Nephrology. He is fine with giving the patient IV contrast and will arrange for the patient to be dialyzed. A discussed this plan with the patient. She expresses understanding and agreement IV Levaquin for urinary tract infection and pneumonia I consulted and discussed case with Dr. Weir, hospitalist, who agrees to the admission Differential Diagnosis: I considered acute coronary syndrome, pneumonia, pneumothorax, pulmonary embolus. Patient has significant CHF. She has not been dialyzed today - Data Points Laboratory Results: Laboratory Results 08/11/18 14:45 08/11/18 14:45 08/11/18 08/11/18 08/11/18 14:52 14:45 14:45 WBC RBC Hgb Hct MCV MCH MCHC RDW Plt Count MPV Neut % (Auto) Lymph % (Auto) [place] % (Auto) Eos % (Auto) Baso % (Auto) Nucleat RBC Rel Count Absolute Neuts (auto) Absolute Lymphs (auto) Absolute Monos (auto) Absolute Eos (auto) Absolute Basos (auto) Absolute Nucleated RBC Immature Gran % Immature Gran # PT 13.1 SEC SEC (12.0-15.0) INR 0.97 (0.83-1.16) APTT 29.6 SEC SEC (23.0-38.0) D-Dimer 1.30 ug/mLFEU H ug/mLFEU (0.00-0.50) Sodium 136 mEq/L mEq/L (135-145) Potassium 5.5 mEq/L H mEq/L (3.5-5.2) Chloride 99 mEq/L mEq/L (97-110) Carbon Dioxide 26 mEq/l mEq/l (22-31) Anion Gap 11 mEq/L mEq/L (6-14) BUN 52 mg/dL H mg/dL (7-23) Creatinine 5.7 mg/dL H mg/dL (0.6-1.0) Estimated GFR 8 Glucose 92 mg/dL mg/dL (70-100) Calcium 8.8 mg/dL mg/dL (8.5-10.4) POC Troponin I 0.01 ng/mL ng/mL (0.00-0.08) NT-Pro-B Natriuret Pep 77634 pg/mL H pg/mL (0-125) Urine Color Urine Appearance Urine pH Ur Specific [place] Urine Protein Urine Ketones Urine Blood Urine Nitrate Urine Bilirubin Urine Urobilinogen Ur Leukocyte Esterase Urine RBC Urine WBC Ur Epithelial Cells Urine Bacteria Urine Mucus Urine Glucose 08/11/18 08/11/18 14:45 14:10 WBC 3.86 10^3/uL 10^3/uL (3.80-9.50) RBC 2.41 10^6/uL L 10^6/uL (4.18-5.33) Hgb 7.8 g/dL L g/dL (12.6-16.3) Hct 23.6 % L % (38.0-47.0) MCV 97.9 fL fL (81.5-99.8) MCH 32.4 pg pg (27.9-34.1) MCHC 33.1 g/dL g/dL (32.4-36.7) RDW 17.2 % H % (11.5-15.2) Plt Count 64 10^3/uL L 10^3/uL (150-400) MPV 9.6 fL fL (8.7-11.7) Neut % (Auto) 43.7 % % (39.3-74.2) Lymph % (Auto) 42.5 % % (15.0-45.0) [place] % (Auto) 9.6 % % (4.5-13.0) Eos % (Auto) 3.4 % % (0.6-7.6) Baso % (Auto) 0.5 % % (0.3-1.7) Nucleat RBC Rel Count 0.0 % % (0.0-0.2) Absolute Neuts (auto) 1.69 10^3/uL L 10^3/uL (1.70-6.50) Absolute Lymphs (auto) 1.64 10^3/uL 10^3/uL (1.00-3.00) Absolute Monos (auto) 0.37 10^3/uL 10^3/uL (0.30-0.80) Absolute Eos (auto) 0.13 10^3/uL 10^3/uL (0.03-0.40) Absolute Basos (auto) 0.02 10^3/uL 10^3/uL (0.02-0.10) Absolute Nucleated RBC 0.00 10^3/uL 10^3/uL (0-0.01) Immature Gran % 0.3 % % (0.0-1.1) Immature Gran # 0.01 10^3/uL 10^3/uL (0.00-0.10) PT INR APTT D-Dimer Sodium Potassium Chloride Carbon Dioxide Anion Gap BUN Creatinine Estimated GFR Glucose Calcium POC Troponin I NT-Pro-B Natriuret Pep Urine Color YELLOW Urine Appearance MODERATELY TURBID Urine pH 9.0 H (5.0-7.5) Ur Specific [place] 1.010 (1.002-1.030) Urine Protein 2+ H (NEGATIVE) Urine Ketones NEGATIVE (NEGATIVE) Urine Blood 1+ H (NEGATIVE) Urine Nitrate NEGATIVE (NEGATIVE) Urine Bilirubin NEGATIVE (NEGATIVE) Urine Urobilinogen NEGATIVE EU EU (0.2-1.0) Ur Leukocyte Esterase 3+ H (NEGATIVE) Urine RBC 25-50 /hpf H /hpf (0-3) Urine WBC 50-182 /hpf H /hpf (0-3) Ur Epithelial Cells 2+ /lpf H /lpf (NONE-1+) Urine Bacteria 1+ /hpf H /hpf (NONE SEEN) Urine Mucus TRACE /lpf /lpf (NONE-1+) Urine Glucose NEGATIVE (NEGATIVE) Medications Given: Levofloxacin/Dextrose (Levaquin 750 Mg (Premix)) 150 mls @ 100 mls/hr IV EDNOW ONE PRN Reason: Protocol Stop: 08/11/18 17:13 Last Admin: 08/11/18 16:54 Dose: 150 mls Discontinued Medications Al Hydroxide/Mg Hydroxide (Maalox Susp) 30 ml PO ONCE ONE Stop: 08/11/18 15:28 Last Admin: 08/11/18 16:01 Dose: 30 ml Lidocaine (Lidocaine 2% Viscous) 15 ml PO ONCE ONE Stop: 08/11/18 15:28 Last Admin: 08/11/18 16:01 Dose: 15 ml Point of Care Test Results: Chemistry 08/11/18 14:52 POC Troponin I 0.01 ng/mL ng/mL (0.00-0.08) Departure - Departure Disposition: [facility] Inpatient Acute Clinical Impression: Chest pain Qualifiers: Chest pain type: unspecified Qualified Code(s): R07.9 - Chest pain, unspecified Pneumonia Qualifiers: Pneumonia type: due to unspecified organism Laterality: left Lung location: lower lobe of lung Qualified Code(s): J18.1 - Lobar pneumonia, unspecified organism UTI (urinary tract infection) Qualifiers: Urinary tract infection type: acute cystitis Hematuria presence: with hematuria Qualified Code(s): N30.01 - Acute cystitis with hematuria Condition: Fair
[2018-08-11] MEDS ORDERED: LET GEL TOPICAL 1 EA SYR TP ONE (14:08)
[2018-08-11 15:00] LABS: PLATELET COUNT 64 10^3/uL (150-400)
[2018-08-11 15:09] LABS: INR 0.97 (0.83-1.16); PROTIME(PATIENT) 13.1 SEC (12.0-15.0)
[2018-08-11] MEDS ORDERED: LIDOCAINE 2% VISCOUS 15 ML UDCUP PO ONE (15:27)
[2018-08-11] MEDS ORDERED: MAG HYDROX/AL HYDROX/SIMETH 30 ML UDCUP PO ONE (15:27)
[2018-08-11] MEDS ORDERED: IOPAMIDOL (ISOVUE 370) 100 ML BTL IV ONE (16:00)
--- NOTE | 2018-08-11 18:03 | PDGENHP ---
History and Physical - Chief Complaint Abdominal pain, chest pain - History of Present Illness This is a 53 y/o female with history of multiple medical problems including HIV +, ESRD on dialysis MWF and guillain-barre syndrome with neurogenic bladder presents with left-side anterior chest pain. This is my first encounter with the pt. Mother, who also is the pt's caregiver , is at bedside and majority of the time during the evaluation the mother would speak for the pt. The pt is A&Ox3 and responds appropriately to questions however with most questions directed towards her, she would look at her mother for guidance. It is not abnormal for the pt to cough at nighttime - they are unsure why she does but it was thought by their PCP it was because of guillain- barre syndrome. She has been coughing non-productively more frequently these last few days. Her chest pain is constant and is aggravated by deep breathing. Denies headache, SOB, nausea, vomiting, fevers, chills. Pain does not radiate. The pt was unable to rate the severity of the pain and instead, preferred to show her pain using her face to which she grimaced. First troponin is negative. EKG is SR, no ST elevation or depression. CXR/ Chest + Thorax CTA show no evidence of pulmonary embolism but does show increasing left basilar infltrate compared to previous recent imaging. It appears she has left lower pneumonia. UA indicates UTI, culture pending. She was unable to complete her dialysis today because of the onset of chest pains. Nephrology has been consulted and will either dialyze her tonight or tomorrow morning. She is being admitted for further diagnostic work-up, management of her PNA and UTI, and monitoring. Past Medical/Surgical History 1. HIV positive, on anti-retroviral therapy. Followed by [facility] 2. Guillain-Winside syndrome with neurogenic bladder (occurred in 1981) 3. Hypothyroidism 4. Depression 5. Nephrolithiasis with recurrent urinary tract infections 6. Sacral decubitus ulcers. [facility]. 7. Anemia of chronic disease 8. End-stage renal disease, on hemodialysis Tuesday, Tuesday, and Tuesday 9. Hypertension 10. Hyperlipidemia 11. Seizure disorder 12. Small-bowel obstructions 13. C-Difficile colitis 14. Cholecystectomy 15. Left hip surgery 16. Suprapubic catheter 17. Hysterectomy Social 1. Single, lives independently in an apartment. Mother is caregiver who is with the pt at least 4 hours per day. 2. Denies tobacco or illicit drug use. Denies alcohol. Vital Signs 126/72 85 HR 16 Respirations 37.0c 97% 2L NC (baseline) History Information - Allergies/Home Medication List Allergies/Adverse Reactions: cephalexin Allergy (Verified 08/11/18 13:33) Rash doxycycline Allergy (Verified 08/11/18 13:33) ulcers in espohagus ertapenem sodium [From Invanz] Allergy (Verified 08/11/18 13:33) Rash, neck and throat swelling hydroxyzine Allergy (Verified 08/11/18 13:33) respiratory failure hydroxyzine HCl [From Atarax] Allergy (Verified 08/11/18 13:33) Dyspnea influenza virus vaccine, specific Allergy (Verified 08/11/18 13:33) hx guillian-barre, states cannot have vancomycin [Vancomycin] Allergy (Verified 08/11/18 13:33) Red Man's syndrome with IV; PO is okay ertapenem sodium Allergy (Uncoded 08/11/18 13:33) Rash, neck and throat swelling Home Medications: Abacavir Sulfate [Ziagen] 600 mg PO DAILY@02/23/13 [Last Taken 08/11/18 12:00 ] Darunavir Ethanolate [PREZISTA] 800 mg PO DAILY@02/23/13 [Last Taken 12:00] Escitalopram Oxalate [Lexapro] 20 mg PO DAILY@07/29/15 [Last Taken 08/11/18 07:00] Ritonavir [Norvir] 100 mg PO DAILY@07/29/15 [Last Taken 08/11/18 12:00] Sevelamer Carbonate [Renvela] 800 mg PO TIDMEAL 07/30/15 [Last Taken 08/11/18 12 :00] Dolutegravir Sodium [Tivicay] 50 mg PO DAILY@04/28/16 [Last Taken 08/11/18 12 :00] Chlorzoxazone 500 mg PO TID PRN 08/17/17 [Last Taken 08/10/18 21:00] Levothyroxine [Synthroid 200 mcg (*)] 200 mcg PO DAILY@01/14/18 [Last Taken 08/11/18 07:00] amLODIPine BESYLATE [Amlodipine Besylate] 7.5 mg PO HS 01/14/18 [Last Taken 21:00] hydrALAZINE [Apresoline] 25 mg PO DAILY PRN 01/14/18 [Last Taken 08/08/18] Sevelamer Carbonate [Renvela] 800 mg PO DAILY PRN 01/17/18 [Last Taken 06/12/18] Benzonatate [Tessalon Pearles] 100 mg PO HS 02/18/18 [Last Taken 08/10/18 21:00] Acetaminophen [Tylenol 325mg (*)] 650 mg PO Q4HRS PRN 06/09/18 [Last Taken 08/08] Folic Acid/Vit B Com W/C [Nephro-Roberto Rx] 1 tab PO DAILY@12 06/09/18 [Last Taken 08/11/18 12:00] guaiFENesin [Mucinex 600 MG (*)] 600 mg PO HS 06/09/18 [Last Taken 08/10/18 18: 00] Ibuprofen [Motrin (*)] 400 mg PO Q8H PRN 06/13/18 [Last Taken Unknown] SUMAtriptan [Imitrex 50 MG (*)] 50 mg PO DAILY PRN 06/13/18 [Last Taken Unknown] Triamcinolone 0.1% [Triamcinolone 0.1% Cream (*)] 1 alexander TP DAILY PRN 06/13/18 [ Last Taken Unknown] Vitamin B12 1000 Mcg/Ml Drops 1 drop PO DAILY 06/13/18 [Last Taken 08/11/18 12: 00] Zinc Oxide Powder 1 alexander TP DAILY 06/13/18 [Last Taken 08/11/18 08:00] Saccharomyces Boulardii [FLORASTOR] 250 mg PO DAILY@07 06/14/18 [Last Taken 07:00] Silver Gel 1 alexander TP DAILY 08/11/18 [Last Taken 08/11/18 07:00] oxyCODONE IR [Oxycodone Ir (*)] 5 mg PO Q4H PRN 08/11/18 [Last Taken 08/07/18] I have personally reviewed and updated: family history, medical history, social history, surgical history Past Medical History: See HPI List - Past Medical History Additional medical history: HIV on anti-retroviral therapy. Guillain-Winside syndrome with neurogenic bladder. Hypothyroidism. Depression. Nephrolithiasis with frequent urinary tract infections. Deep tissue injury on the sacrum, [facility]. Anemia of chronic kidney disease with recent blood transfusion. End-stage renal disease on Tuesday hemodialysis. Hypertension and hyperlipidemia. Seizure disorder, most recently provoked by erythropoietin. Small-bowel obstruction. C difficile colitis - Surgical History Additional surgical history: left-sided nephrectomy 2017. Cholecystectomy. Left hip surgery. Suprapubic catheter. Hysterectomy. Tubal ligation. Bilateral foot surgery. Left knee surgery. Left upper extremity AV fistula. A right chest port placement by Dr. Tineo 01/28 - Family History Additional family history: no coronary artery disease. HTN. Breast CA. Pulmonary embolism. Malignant ovary neoplasm - Social History Smoking Status: Never smoked Alcohol Use: None Drug Use: None Additional social history: lives independently in an apartment in [place], mother is primary rn provider relations Review of Systems Review of Systems: ROS: 10pt was reviewed & negative except for what was stated in HPI & below Constitutional: Reports: malaise, recent illness EENMT: Reports: no symptoms Cardiac: Reports: chest pain Respiratory: Reports: cough Gastrointestinal: Reports: abdominal pain (Improved with maalox + Lidocaine) Genitourinary: Reports: no symptoms Muscolosketal: Reports: no symptoms Skin: Reports: no symptoms Neurological: Reports: no symptoms Hematologic/Lymphatic: Reports: no symptoms Immunologic/Allergy: Reports: other (See allergy list) Physical Exam Physical Exam: Lab data and imaging reviewed CXR, EKG, Chest/Thorax CTA: see HPI list Temp Pulse Resp BP Pulse Ox 37.0 C 85 16 126/72 H 97 08/11/18 13:34 08/11/18 16:00 08/11/18 16:00 08/11/18 16:00 08/11/18 16:00 O2 (L/minute) 2 Constitutional: no apparent distress, appears nourished, not in pain Eyes: PERRL, anicteric sclera, EOMI Ears, Nose, Mouth, Throat: moist mucous membranes, hearing normal, ears appear normal, no oral mucosal ulcers Cardiovascular: regular rate and rhythym, systolic murmur Peripheral Pulses: 2+: dorsalis-pedis (R) (Radial 2+), dorsalis-pedis (L) ( Radial 2+) Respiratory: reduced air movement (Bilateral lung jernigan diminished) Gastrointestinal: normoactive bowel sounds, tenderness Genitourinary: no bladder fullness, no bladder tenderness Skin: pressure ulcer (Did not visualize but was reported her sacral pressure ulcer (reported stage III) has healed), other (Overall appearance looks jauniced ) Musculoskeletal: full muscle strength, no muscle tenderness, normal joint ROM, no joint effusions Neurologic: AAOx3, sensation intact bilaterally, CN II-XII Intact Psychiatric: interacting appropriately, not anxious, not encephalopathic, thought process linear Lymph, Heme, Immunologic: no cervical LAD, no supraclavicular LAD Lab Data & Imaging Review 08/11/18 14:45 08/11/18 14:45 WBC 3.86 10^3/uL (3.80-9.50) 08/11/18 14:45 RBC 2.41 10^6/uL (4.18-5.33) L 08/11/18 14:45 Hgb 7.8 g/dL (12.6-16.3) L 08/11/18 14:45 Hct 23.6 % (38.0-47.0) L 08/11/18 14:45 MCV 97.9 fL (81.5-99.8) 08/11/18 14:45 MCH 32.4 pg (27.9-34.1) 08/11/18 14:45 MCHC 33.1 g/dL (32.4-36.7) 08/11/18 14:45 RDW 17.2 % (11.5-15.2) H 08/11/18 14:45 Plt Count 64 10^3/uL (150-400) L 08/11/18 14:45 MPV 9.6 fL (8.7-11.7) 08/11/18 14:45 Neut % (Auto) 43.7 % (39.3-74.2) 08/11/18 14:45 Lymph % (Auto) 42.5 % (15.0-45.0) 08/11/18 14:45 [place] % (Auto) 9.6 % (4.5-13.0) 08/11/18 14:45 Eos % (Auto) 3.4 % (0.6-7.6) 08/11/18 14:45 Baso % (Auto) 0.5 % (0.3-1.7) 08/11/18 14:45 Nucleat RBC Rel Count 0.0 % (0.0-0.2) 08/11/18 14:45 Absolute Neuts (auto) 1.69 10^3/uL (1.70-6.50) L 08/11/18 14:45 Absolute Lymphs (auto) 1.64 10^3/uL (1.00-3.00) 08/11/18 14:45 Absolute Monos (auto) 0.37 10^3/uL (0.30-0.80) 08/11/18 14:45 Absolute Eos (auto) 0.13 10^3/uL (0.03-0.40) 08/11/18 14:45 Absolute Basos (auto) 0.02 10^3/uL (0.02-0.10) 08/11/18 14:45 Absolute Nucleated RBC 0.00 10^3/uL (0-0.01) 08/11/18 14:45 Immature Gran % 0.3 % (0.0-1.1) 08/11/18 14:45 Immature Gran # 0.01 10^3/uL (0.00-0.10) 08/11/18 14:45 PT 13.1 SEC (12.0-15.0) 08/11/18 14:45 INR 0.97 (0.83-1.16) 08/11/18 14:45 APTT 29.6 SEC (23.0-38.0) 08/11/18 14:45 D-Dimer 1.30 ug/mLFEU (0.00-0.50) H 08/11/18 14:45 Sodium 136 mEq/L (135-145) 08/11/18 14:45 Potassium 5.5 mEq/L (3.5-5.2) H 08/11/18 14:45 Chloride 99 mEq/L (97-110) 08/11/18 14:45 Carbon Dioxide 26 mEq/l (22-31) 08/11/18 14:45 Anion Gap 11 mEq/L (6-14) 08/11/18 14:45 BUN 52 mg/dL (7-23) H 08/11/18 14:45 Creatinine 5.7 mg/dL (0.6-1.0) H 08/11/18 14:45 Estimated GFR 8 08/11/18 14:45 Glucose 92 mg/dL (70-100) 08/11/18 14:45 Calcium 8.8 mg/dL (8.5-10.4) 08/11/18 14:45 POC Troponin I 0.01 ng/mL (0.00-0.08) 08/11/18 14:52 NT-Pro-B Natriuret Pep 48567 pg/mL (0-125) H 08/11/18 14:45 Urine Color YELLOW 08/11/18 14:10 Urine Appearance MODERATELY TURBID 08/11/18 14:10 Urine pH 9.0 (5.0-7.5) H 08/11/18 14:10 Ur Specific [place] 1.010 (1.002-1.030) 08/11/18 14:10 Urine Protein 2+ (NEGATIVE) H 08/11/18 14:10 Urine Ketones NEGATIVE (NEGATIVE) 08/11/18 14:10 Urine Blood 1+ (NEGATIVE) H 08/11/18 14:10 Urine Nitrate NEGATIVE (NEGATIVE) 08/11/18 14:10 Urine Bilirubin NEGATIVE (NEGATIVE) 08/11/18 14:10 Urine Urobilinogen NEGATIVE EU (0.2-1.0) 08/11/18 14:10 Ur Leukocyte Esterase 3+ (NEGATIVE) H 08/11/18 14:10 Urine RBC 25-50 /hpf (0-3) H 08/11/18 14:10 Urine WBC 50-182 /hpf (0-3) H 08/11/18 14:10 Ur Epithelial Cells 2+ /lpf (NONE-1+) H 08/11/18 14:10 Urine Bacteria 1+ /hpf (NONE SEEN) H 08/11/18 14:10 Urine Mucus TRACE /lpf (NONE-1+) 08/11/18 14:10 Urine Glucose NEGATIVE (NEGATIVE) 08/11/18 14:10 Assessment & Plan Plan: 1. Acute Chest pain -First troponin and second troponin is negative. I suspect this is in relation to her pneumonia. Chest pain protocol initiated and will cycle through trops and EKGs. Cont tele monitoring. Heart score 3 however I do not believe her chest pain is cardiac. We will continue to monitor her trops and tele but the pain is most likely from her pneumonia. 2. Community-Aquired Pneumonia: we will treat with Levofloxacin 500 mg Q48H ( dialysis dosing) 3. Urinary tract infection: urine culture pending but for now, treating with Levofloxacin 500 mg Q48H (dialysis dosing) 4. ESRD: spoke with Dr. Ho who said she will either be dialyzed tonight or tomorrow morning. She does present with significant CHF (BNP [id number]) and seen on CXR. Once dialyzed, BNP should improve. Will recheck BNP tomorrow evening after dialysis. May continue most home medications with consideration to timing of dialysis. Diet: regular (refuses renal diet) VTE ppx: SCDs Code: Full Dispo: Admit to inpatient
--- NOTE | 2018-08-11 19:54 | SOAPPROG ---
SOAP Progress Note Assessment/Plan: Assessment: Velma is very well known to me. She is dialyzing on a MWF schedule at [facility] under my care. Her dialysis has been going fairly well. She does have issues with hypotension and neck pain at times during dialysis. She has had PRES in the past relating to ARCHANA. Due to this, we have been conservative with her Mircera (ARCHANA) dosing. She gets occasional transfusions. She is followed by Dr. Gaona, who wishes to perform a BMBx in the future. More recent issues have been relating to sacral wounds. Her most recent ones are finally closing. I have reviewed Dr. Camacho's HP, and the radiology studies. She is being treated for a pneumonia. We may need to review additional pulmonary treatments. She did not receive dialysis at the unit today. We will perform this tonight. Plan: 08/11/18 19:50 Subjective: Seen on dialysis. Doing ok. Objective: Vital Signs Temp Pulse Resp BP Pulse Ox 37.0 C 83 20 118/77 99 08/11/18 13:34 08/11/18 19:06 08/11/18 19:06 08/11/18 19:06 08/11/18 19:06 08/10/18 08/11/18 08/12/18 05:59 05:59 05:59 Intake Total 150 Balance 150 PT 13.1 SEC (12.0-15.0) 08/11/18 14:45 INR 0.97 (0.83-1.16) 08/11/18 14:45 Physical Exam - Physical Exam General Appearance: no apparent distress Respiratory: other (rales bilateral bases, L > R) Cardiac/Chest: regular rate, rhythm, systolic murmur Extremities: pedal edema Neuro/Psych: oriented x 3 ICD10 Worksheet Patient Problems: Problems Problem Status Onset Chest pain Acute Pneumonia Acute UTI (urinary tract infection) Acute Abdominal pain Acute Anemia Acute Anemia of chronic renal failure, stage 4 (severe) Acute Contusion of jaw Acute DVT (deep venous thrombosis) Acute Decubitus ulcer of sacral area Acute End stage renal disease Acute Fever Acute Generalized weakness Acute Hyperkalemia Acute Hyperkalemia Acute Hypotension Acute Hypoxemia Acute Hypoxemia Acute Hypoxia Acute MRSA (methicillin resistant Staphylococcus aureus) Acute 04/04/17 Nephrostomy complication Acute Pubic ramus fracture Acute Retroperitoneal fluid collection Acute UTI (urinary tract infection) Acute UTI (urinary tract infection) Acute
[2018-08-11] MEDS ORDERED: CHLORZOXAZONE 500 MG PO PRN (20:19)
[2018-08-11] MEDS ORDERED: LIDOCAINE/PRILOCAINE 1 EACH CRTUBE TP PRN (20:19)
[2018-08-11] MEDS ORDERED: hydrALAZINE 25 MG TAB PO PRN (20:19)
[2018-08-11] MEDS ORDERED: SUMAtriptan 50 MG TAB PO PRN (20:19)
[2018-08-11] MEDS ORDERED: SEVELAMER HCL 800 MG TAB PO PRN (20:19)
[2018-08-11] MEDS ORDERED: TRIAMCINOLONE 0.1% 15 GM CRTUBE TP PRN (20:19)
[2018-08-11] MEDS ORDERED: IBUPROFEN 200 MG TAB PO PRN (20:19)
[2018-08-11] MEDS ORDERED: guaiFENesin 600 MG TAB.ER PO SCH (21:00)
[2018-08-11] MEDS ORDERED: amLODIPine BESYLATE 5 MG TAB PO SCH (21:00)
[2018-08-11] MEDS ORDERED: BENZONATATE 100 MG CAP PO SCH (21:00)
--- NOTE | 2018-08-11 22:21 | GHP ---
DATE OF ADMISSION: 08/11/2018 CHIEF COMPLAINT: Midline chest pain. HISTORY OF PRESENT ILLNESS: Ms Castillo is a 53-year-old female with past medical history of endstag e renal disease, on hemodialysis, who presented to dialysis today complaining of chest pain. At that time, she was directed directly to the emergency room and she was not dialyzed. She had evidence of an elevated D-dimer, and there was clinical concern for the possibility of pulmonary embolism. Cons ultation took place with Nephrology, and it was recommended to go ahead and proceed with CT imaging o f the chest, and that arrangements for dialysis after would be arranged for. She had a CT scan of he r chest which did not show any evidence of a pulmonary embolism but did show evidence of bibasilar co nsolidation. She did complain of having a cough over the prior days without subjective fevers. Her troponin was negative and no concerning findings on ECG. For past medical history, past surgical history, medications, allergies, social history, family histo ry, and review of systems, please refer to the admission H and P also dictated by Lilly Camacho. PHYSICAL EXAM: VITAL SIGNS: Temperature 37.0, blood pressure 119/64, heart rate 84, respirations 18, saturating 90% on 2 L. GENERAL: Patient appears comfortable. She is sitting upright in bed, no ac patric distress. Awake, alert, conversant. HEENT: Extraocular movements intact. Pupils equal. No sc leral icterus. NECK: Supple. No enlargement appreciated of the thyroid. CHEST: Slight bibasilar crackles. No significant wheezing. Respiratory effort normal. HEART: Regular. No murmurs. ABDOM EN: Soft, nontender, nondistended. EXTREMITIES: No significant pitting edema or calf pain with pal pation. NEUROLOGIC: Cranial nerves 2-12 grossly intact with 5/5 strength in extremities. LABS: White blood cell count is 3, hemoglobin 7.8, platelets 64. Sodium 136, potassium 5.5, chlorid e 99, bicarb 26, BUN 52, glucose of 92. D-dimer 1.3. Troponin 0.01. BNP 32,400. Urinalysis showed 3+ leukocyte esterase. ASSESSMENT AND PLAN: 1. Pneumonia. This may be the source of her chest discomfort and she has had associated cough over the prior days. Treatment for community-acquired pneumonia has been initiated with Levaquin. 2. Urinary tract infection--possible but no definite urinary symptoms. She makes about a cup of uri ne a day, she states. I would anticipate Levaquin to cover but await final culture and sensitivities . 3. Chest pain. As above, most likely related to infiltrates noted on CT of the chest. 4. Disposition. Admit under observation status. If stability overnight, likely could be discharged after hemodialysis. /[id number]/MODL
[2018-08-12] MEDS ORDERED: ESCITALOPRAM OXALATE 10 MG TAB PO SCH (07:00)
[2018-08-12] MEDS ORDERED: Saccharomyces Boulardii [Florastor] 250 MG PO SCH (07:00)
[2018-08-12] MEDS ORDERED: LEVOTHYROXINE 200 MCG TAB PO SCH (07:00)
[2018-08-12] MEDS: SEVELAMER HCL 800 MG TAB PO SCH ×2 (08:21→13:32)
[2018-08-12] MEDS ORDERED: VITAMIN B12 PO SCH (09:00)
[2018-08-12] MEDS ORDERED: ZINC OXIDE TP SCH (09:00)
--- NOTE | 2018-08-12 11:35 | SOAPPROG ---
SOAP Progress Note Assessment/Plan: Assessment: 1. CAP Looks better. I've discussed with Dr. Garg. I have written levaquin and po Vanco (hx C Diff, she has tolerated oral Vanco fine in the past). 2. ESRD Next HD Tuesday 3. Anemia No transfusion indicated at present. Plan: 08/11/18 19:50 08/12/18 11:35 Subjective: Doing ok Objective: Vital Signs Temp Pulse Resp BP Pulse Ox 36.9 C 93 18 123/69 H 94 08/12/18 07:41 08/12/18 07:41 08/12/18 07:41 08/12/18 07:41 08/12/18 07:41 Laboratory Results 08/12/18 05:30 08/12/18 05:30 08/11/18 08/12/18 08/13/18 05:59 05:59 05:59 Intake Total 250 Balance 250 PT 13.1 SEC (12.0-15.0) 08/11/18 14:45 INR 0.97 (0.83-1.16) 08/11/18 14:45 Physical Exam - Physical Exam General Appearance: no apparent distress Respiratory: other (rales B lower lobes) Cardiac/Chest: regular rate, rhythm, systolic murmur Extremities: pedal edema Neuro/Psych: oriented x 3 ICD10 Worksheet Patient Problems: Problems Problem Status Onset Chest pain Acute Pneumonia Acute UTI (urinary tract infection) Acute Abdominal pain Acute Anemia Acute Anemia of chronic renal failure, stage 4 (severe) Acute Contusion of jaw Acute DVT (deep venous thrombosis) Acute Decubitus ulcer of sacral area Acute End stage renal disease Acute Fever Acute Generalized weakness Acute Hyperkalemia Acute Hyperkalemia Acute Hypotension Acute Hypoxemia Acute Hypoxemia Acute Hypoxia Acute MRSA (methicillin resistant Staphylococcus aureus) Acute 04/04/17 Nephrostomy complication Acute Pubic ramus fracture Acute Retroperitoneal fluid collection Acute UTI (urinary tract infection) Acute UTI (urinary tract infection) Acute
[2018-08-12] MEDS ORDERED: VANCOMYCIN 125 MG/2.5 ML UDL PO SCH (11:45)
[2018-08-12] MEDS ORDERED: ABACAVIR SULFATE 600 MG PO SCH (12:00)
[2018-08-12] MEDS ORDERED: Dolutegravir Sodium [Tivicay] 50 MG PO SCH (12:00)
[2018-08-12] MEDS ORDERED: NEPHROVITE FOLIC ACID/VIT B&C 1 TAB PO SCH (12:00)
[2018-08-12] MEDS ORDERED: Darunavir Ethanolate [Prezista] 800 MG PO SCH (12:00)
[2018-08-12] MEDS ORDERED: Ritonavir [Norvir] 100 MG PO SCH (12:00)
[2018-08-12 12:13] VITALS: BP 118/60
[2018-08-12] MEDS ORDERED: oxyCODONE IR 5 MG TAB PO PRN (12:39)
--- NOTE | 2018-08-12 13:07 | PDIAF ---
- Diagnosis Diagnosis: pneumonia Code Status: Full Code - Medication Management Discharge Medications: electronically signed and located in the Home Medication List. - Orders Services needed: Home Care, Registered Nurse, Certified Sixth Grade Teacher, Master Track Helper, Physical Therapy, Occupational Therapy Home Care Face to Face: I certify that this patient was under my care and that I had the required [id number] encounter meeting the encounter requirements on the discharge day. My findings support the fact that the patient is homebound as defined in Home Care Face to Face Continued: CMS Chapter 7 Medicare Benefits Manual 30.1.1 , The condition of the patient is such that there exists a normal inability to leave home and consequently, leaving home would require a considerable and taxing effort. Isolation Type: Contact Isolation Diet Recommendation: no restrictions on diet Wound Care Instructions: continue previous wound care - Follow Up Care Current Providers and Referrals: Ct Antony MD [Primary Care Provider] - As per Instructions
--- NOTE | 2018-08-12 13:28 | ASMTLACE ---
LACE Length of stay for Answers: Less than 1 day current admission Acuity / Level of Answers: No Care: Did the patient have an inpatient admission? Comorbidities - select Answers: Moderate or severe liver all that apply or renal disease Other Notes: anemia, HIV+ # of Emergency department Answers: 3-4 visits in the last 6 months Social determinants Answers: Mental health diagnosis (anxiety, depression, pers onality disorders, etc.) Score: 11 Date Signed: 08/12/2018 01:27 PM Electronically Signed By:Brittany Haynes RN
--- NOTE | 2018-08-12 15:10 | ASMTDCNOTE ---
Case Management Discharge Discharge Order Complete? Answers: Yes Patient to Obtain Answers: via Family Medications Transportation Arranged Answers: Family/Friends Faxed Final Orders Answers: Yes Notes: [facility] Agency/Facility Transfer Answers: Yes Notes: [facility] Report Printed & Faxed to Receiving Agency Family Notified Answers: Yes Notes: by phone Discharge Comments Notes: 08/12/2018 Case Management Note Challenge to find home care with adequate staffing over the holidays. Informed Anuja, pt mother. [facility] accepted pt and will call Anuja to arrange first visit. Anuja is leaving [facility] on a planned vacation from 08/17-09/02. Anuja has hired [facility] to provide transport and assistance on dialysis days for pt. [facility] M[facility] [place] [facility]. Provided info on [facility] respite program. [facility] charge is $250/day through 08/23 and then $330/day until Sep 02. Provides full [facility] for pt. Pt declined and wants to go home. Case Management d/c poc: [facility] utilization management um nurse PT JENNI LOWERY OT Date Signed: 08/12/2018 03:10 PM Electronically Signed By:Brittany Haynes RN
--- NOTE | 2018-08-12 15:11 | ASDISCHSUM ---
Discharge Information Plan Status:Home with Home Health Medically Cleared to Leave:08/11/2018 Discharge Date:08/12/2018 02:30 PM CM D/C Disposition:Home Health Service ADT D/C Disposition:Home Health Service Projected Discharge Date:08/12/2018 11:00 AM Transportation at D/C:Family Discharge Delay Reason: Follow-Up Date:08/12/2018 11:00 AM Discharge Slot: Final Diagnosis: Placement Information Referral Type:*Home Health Care Services Referral ID:[id number] Provider Name:[facility] Address 1:[address] Phone Number: Address 2: Fax Number: City:[place] Selection Factors: State:[place] Patient Contact Information Contact Name:TERA Relationship:Mother Address:[address] City:[place] [facility] Phone: State/Zip Code:[place] [address] Email: Financial Information Financial Class:Medicare Primary Plan Desc:MEDICARE INPATIENT Primary Plan Number:[id number] Secondary Plan Desc:MED[place] Secondary Plan Number:[id number] Assessment Information LACE LACE Length of stay for Answers: Less than 1 day current admission Acuity / Level of Answers: No Care: Did the patient have an inpatient admission? Comorbidities - select Answers: Moderate or severe liver all that apply or renal disease Other Notes: anemia, HIV+ # of Emergency department Answers: 3-4 visits in the last 6 months Social determinants Answers: Mental health diagnosis (anxiety, depression, pers onality disorders, etc.) Score: 11 Date Signed: 08/12/2018 01:27 PM Electronically Signed By:Brittany Haynes RN Case Management Discharge Plan Note Case Management Discharge Discharge Order Complete? Answers: Yes Patient to Obtain Answers: via Family Medications Transportation Arranged Answers: Family/Friends Faxed Final Orders Answers: Yes Notes: [facility] Agency/Facility Transfer Answers: Yes Notes: [facility] Report Printed & Faxed to Receiving Agency Family Notified Answers: Yes Notes: by phone Discharge Comments Notes: 08/12/2018 Case Management Note Challenge to find home care with adequate staffing over the holidays. Informed Anuja, pt mother. [facility] accepted pt and will call Anuja to arrange first visit. Anuja is leaving [facility] on a planned vacation from 08/17-09/02. [facility] has hired [facility] to provide transport and assistance on dialysis days for pt. D[facility] MWF [facility] [place] [address] Provided info on [facility] respite program. [facility] charge is $250/day through 08/23 and then $330/day until Sep 02. Provides full [facility] care for pt. Pt declined and wants to go home. Case Management d/c poc: [facility] crusher dry ground mica PT JENNI TELEVISION CAMERA OPERATOR OT Date Signed: 08/12/2018 03:10 PM Electronically Signed By:Brittany Haynes RN Intervention Information Intervention Type:*Incorrect Registration Date of Service:08/12/2018 06:26 AM Patient Type:Inpatient Staff Member:ARIEL Cardozo, Liv Hours: Discipline: Severity: Comment:
--- NOTE | 2018-08-12 21:14 | GDS ---
DISCHARGE DIAGNOSES: 1. Pneumonia. 2. End-stage renal disease. 3. Human immunodeficiency virus positive. 4. 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 5. Sacral decubitus ulcers. 6. History of Clostridium difficile. HISTORY: The patient is a 53-year-old female with a history of Guillain-Warsaw syndrome and neurogeni c bladder and a suprapubic catheter. She is also HIV positive and end-stage renal disease on dialysi s. She presented with chest pain. CT angiogram of the chest was negative for PE. She was diagnosed with pneumonia. She was started on Levaquin, and she has improved. Given her history of C diff, denilson johnson is also going to be treated with oral vancomycin while she is on these antibiotics. DISCHARGE MEDICATIONS: Please see computerized record for full detailed list. New medications: 1. Levaquin 750 mg p.o. daily every other day for 3 more tablets, which will give her greater than 7 days of therapy. 2. Vancomycin 125 mg p.o. b.i.d. to 1 day beyond Levaquin treatment. Patient was seen and examined by me on the day of discharge. /[id number]/MODL
[2018-08-13] MEDS ORDERED: levOFLOXACIN 500 MG/DEXTROSE 100 ML IV SCH (17:00)
--- NOTE | 2018-08-14 10:52 | CPEKG ---
Test Reason : OPEN Blood Pressure : / mmHG Vent. Rate : 084 BPM Atrial Rate : 084 BPM P-R Int : 159 ms QRS Dur : 078 ms QT Int : 377 ms P-R-T Axes : 033 -07 041 degrees QTc Int : 446 ms Sinus rhythm Atrial premature complex Consider anterior infarct Confirmed by Dallas Garner ([id number]) on 08/14/2018 10:52:28 AM Referred By: Confirmed By:Dallas Garner
== END 2018-08-12 14:30 | disposition home health service (06) ==
LOC: SUPCPDRO 13:29 → INTOOBSV 15:42 → F2N 22:56 → F2W 08-12 08:09
PROVIDERS: ADMIT Internal Medicine; ATTEND Internal Medicine
DX: J18.9 Pneumonia, unspecified organism (principal); N18.6 End stage renal disease; B20 Human immunodeficiency virus [HIV] disease; G61.0 Guillain-Barre syndrome
CPT/HCPCS: 71045; 71275; 93005; 96365; 96366; 99285; G0378; J1642; J1956; Q9967; 84484-ER

== ENCOUNTER 2018-08-28 10:32 | Emergency (ER) | payer OTHER ==
[2018-08-28] MEDS ORDERED: OXYCODONE/APAP 5/325 TAB PO ONE (11:17)
[2018-08-28] MEDS ORDERED: ONDANSETRON DISINTEGRATING 4 MG TAB PO ONE (11:17)
--- NOTE | 2018-08-28 11:20 | EDPHY ---
H & P Stated Complaint: Rolled out of bed lst night, no LOC/hit head, L foot pain. Source: Patient, Family, Old records Exam Limitations: No limitations - Personal History Current Tetanus/Diphtheria Vaccine: Yes Tetanus Vaccine Date: 2010 - Medical/Surgical History Hx Asthma: No Hx Chronic Respiratory Disease: No Hx Diabetes: No Hx Cardiac Disease: No Hx Renal Disease: Yes Hx Cirrhosis: No Hx Alcoholism: No Hx HIV/AIDS: Yes Hx Splenectomy or Spleen Trauma: No Other PMH: pmh- neurogenic bladder, Guillian [place], anemia, ESRD w/ dialysis, hyperparathyroidism, HIV+, sacral decub 08/05 until 06/06., 02/16/18 sacral decub - current treatment. hydronephrosis, htn. psh- tonsillectomy, cholecystectomy , LFA fistula, left hip replacement, uterine ablation, L nephrectomy 04/14/17 at [facility], L nephrostomy tube, ventral hernia repair; current 2017 - Social History Smoking Status: Never smoked Time Seen by Provider: 08/28/18 11:14 HPI/ROS: HPI: This is a 53-year-old female who presents with Chief Complaint: Rolled out of bed lst night, no LOC/hit head, L foot pain. Location: Left top of foot Quality: Pain and swelling Duration: Since last night Signs and Symptoms: No bleeding, no radiation, no numbness, no weakness, no tingling, no incontinence, no decreased range of motion, no fever Timing: Acute Severity: [id number] Context: Patient reports that she accidentally rolled out of bed last night and twisted her left ankle and foot. She reports that she always has swelling in her feet but notes some pain at the top of her left foot. She has a history of left foot surgery that is remote in nature. After further questioning her mother who is a primary felting machine operator is out of town until Tuesday and she has been out of her pain medications for the last 3-4 days. She has out walker to aid ambulation. Denies LOC/head injury/neck pain/dizziness/nausea/vomiting/ amnesia. She is scheduled for dialysis this afternoon. Denies shortness of breath, chest pain. Modifying Factors: She has not taking any Tylenol or pain medications Comment: ROS: A comprehensive 10 system review of systems is otherwise negative aside from elements mentioned in the history of present illness. MEDICAL/SURGICAL/SOCIAL HISTORY: pmh- neurogenic bladder, Guillian [place], anemia, ESRD w/ dialysis, hyperparathyroidism, HIV+, sacral decub 08/05 until 06/06., 02/16/18 sacral decub - current treatment. hydronephrosis, htn psh- tonsillectomy, cholecystectomy, LFA fistula, left hip replacement, uterine ablation, L nephrectomy 04/14/17 at [facility], L nephrostomy tube, ventral hernia repair; current 05/2018 Social history: Never smoked. Disabled. CONSTITUTIONAL: Chronically ill-appearing elderly white female, awake and alert , no obvious distress HEENT: Atraumatic and normocephalic. NECK: supple, no midline tenderness, flexion 45 degrees, extension 45 degrees, right and left lateral flexion 45 degrees. No meningismus. Cardiovascular: Normal S1/S2, regular rate, regular rhythm, without murmur rub or gallop. PULMONARY/CHEST: Symmetrical and nontender. no crepitus. Clear to auscultation bilaterally. Good air movement. No accessory muscle usage. ABDOMEN: Soft, nondistended, nontender, no ecchymosis. PELVIC: no pain with rocking; bilateral hips flexion 125 degrees, extension 30 degrees, with no pain internal rotation and no pain external rotation. BACK: No midline tenderness, no paraspinous spasm, deep tendon reflexes 2/2, no pain with straight leg raise, No foot drop. Achilles reflexes are equal bilaterally. Able to walk on heels and toes without difficulty. EXTREMITIES: 2/2 pulses, strength 5/5, left Ankle: Plantar flexion to 50, dorsiflexion to 20. Foot inversion to 35 degree. No tenderness/swelling Anterior talofibular ligament. No tenderness/swelling Calcaneofibular ligament , no tenderness/swelling posterior talofibular ligament, no tenderness/swelling posterior inferior tibiofibular ligament. Mild tenderness over the midfoot of the left side with mild 1+ pitting edema. Achilles tendon intact. DIP/PIP/MCP flexion/extension intact with good light touch sensation. no deformities, no clubbing, no cyanosis or edema. NEUROLOGICAL: no focal neuro deficits. GCS 15. Light touch sensation intact. SKIN: Warm and dry, no erythema. no rash. Good capillary refill. (Aleksey,Terra) Constitutional: Initial Vital Signs Temperature (C) 36.8 C 08/28/18 10:37 Heart Rate 97 08/28/18 10:37 Respiratory Rate 18 08/28/18 10:37 Blood Pressure 120/89 H 08/28/18 10:37 O2 Sat (%) 93 08/28/18 10:37 O2 Delivery Mode Nasal Cannula O2 (L/minute) 2 Allergies/Adverse Reactions: cephalexin Allergy (Verified 08/28/18 10:36) Rash doxycycline Allergy (Verified 08/28/18 10:36) ulcers in espohagus ertapenem sodium [From Invanz] Allergy (Verified 08/28/18 10:36) Rash, neck and throat swelling hydroxyzine Allergy (Verified 08/28/18 10:36) respiratory failure hydroxyzine HCl [From Atarax] Allergy (Verified 08/28/18 10:36) Dyspnea influenza virus vaccine, specific Allergy (Verified 08/28/18 10:36) hx guillian-barre, states cannot have vancomycin [Vancomycin] Allergy (Verified 08/28/18 10:36) Red Man's syndrome with IV; PO is okay Epogen IV Allergy (Uncoded 09/01/18 16:00) Other-Enter Comments ertapenem sodium Allergy (Uncoded 08/11/18 13:33) Rash, neck and throat swelling Fresinius Dialyzer Allergy (Uncoded 09/01/18 16:01) Rash Home Medications: Medication Instructions Recorded RX: Abacavir Sulfate [Ziagen] 600 mg PO DAILY@02/23/13 RX: Darunavir Ethanolate [PREZISTA] 800 mg PO DAILY@02/23/13 RX: Escitalopram Oxalate [Lexapro] 20 mg PO DAILY 07/29/15 RX: Ritonavir [Norvir] 100 mg PO DAILY@07/29/15 RX: Sevelamer Carbonate [Renvela] 800 mg PO TIDMEAL 07/30/15 RX: Dolutegravir Sodium [Tivicay] 50 mg PO DAILY@04/28/16 RX: Chlorzoxazone 500 mg PO TID PRN 08/17/17 RX: Levothyroxine [Synthroid 200 200 mcg PO DAILY06 01/14/18 mcg (*)] RX: amLODIPine BESYLATE 7.5 mg PO HS 01/14/18 [Amlodipine Besylate] RX: hydrALAZINE [Apresoline] 25 mg PO DAILY PRN 01/14/18 RX: Sevelamer Carbonate [Renvela] 800 mg PO DAILY PRN 01/17/18 RX: Benzonatate [Tessalon Pearles] 100 mg PO HS 02/18/18 RX: Acetaminophen [Tylenol 325mg 650 mg PO Q4HRS PRN 06/09/18 (*)] RX: Folic Acid/Vit B Com W/C 1 tab PO DAILY@12 06/09/18 [Nephro-Roberto Rx] RX: guaiFENesin [Mucinex 600 MG 600 mg PO HS 06/09/18 (*)] RX: Ibuprofen [Motrin (*)] 400 mg PO Q8H PRN 06/13/18 RX: SUMAtriptan [Imitrex 50 MG (*)] 50 mg PO DAILY PRN 06/13/18 RX: Triamcinolone 0.1% 1 alexander TP DAILY PRN 06/13/18 [Triamcinolone 0.1% Cream (*)] Vitamin B12 1000 Mcg/Ml Drops 1 drop PO DAILY 06/13/18 Zinc Oxide Powder 1 alexander TP DAILY 06/13/18 RX: Saccharomyces Boulardii 250 mg PO DAILY 06/14/18 [FLORASTOR] RX: Lidocaine/Prilocaine [Emla 1 alexander TP PRN PRN cream 06/16/18 Cream] RX: oxyCODONE IR [Oxycodone Ir (*)] 5 mg PO Q4H PRN 08/11/18 Silver Gel 1 alexander TP DAILY 08/11/18 Vancomycin [Vancomycin (*)] 125 mg PO BID 08/29/18 levOFLOXACIN [levAQUIN (*)] 750 mg PO Q2D 08/29/18 Medical Decision Making Procedures: Procedure: Splint placement. A left short-leg 3 way was applied by the Emergency Room geoscience technician. After application of the splint I returned and re-examined the patient. The splint was adequately immobilizing the joint and distal to the splint the patient's circulation and sensation was intact. (Tonia Ryder) ED Course/Re-evaluation: X-ray my read shows hardware to be in place but no acute fracture. Given Percocet and Zofran per request Patient placed in 3 way short-leg Ortho Glass splint with orthopedic/podiatry follow-up Not a good candidate for crutches but does have a walker and wheelchair at home. Patient is a fall risk. No signs of neurovascular compromise/tenting of skin/compartment syndrome/ extremities and joints examined above and below area of concern and are neurovascularly intact. This patient was seen under the supervision of my secondary supervising physician. I evaluated care for this patient independently. (Tonia Ryder) Differential Diagnosis: Ankle injury differential diagnosis includes but is not limited to tibia fracture, fibula fracture, metatarsal fracture, LisFranc fracture, achilles tendon rupture, sprain. (Tonia Ryder) Other Provider: The patient was evaluated and managed by the Physician Water Trainer. My co- signature indicates that I have reviewed this chart and I agree with the findings and plan of care as documented. I am the secondary supervising physician. (Lilly Foster) - Data Points Medications Given: Discontinued Medications Ondansetron HCl (Zofran Odt) 4 mg PO EDNOW ONE Stop: 08/28/18 11:18 Last Admin: 08/28/18 11:30 Dose: 4 mg Oxycodone/Acetaminophen (Percocet 5/325) 1 tab PO EDNOW ONE Stop: 08/28/18 11:18 Last Admin: 08/28/18 11:30 Dose: 1 tab Departure - Departure Disposition: Home, Routine, Self-Care Clinical Impression: Status post left foot surgery, Closed fracture of left distal tibia, Fracture of second metatarsal bone of left foot Condition: Good Instructions: Ankle Fracture (ED), Toe Fracture (ED), Foot Sprain (ED) Additional Instructions: Keep the splint dry and in place until seen by Podiatry/Orthopedics. Please remain nonweightbearing until seen by Orthopedics. Take Tylenol 650 mg every 4 hours as needed for pain. Use Percocet every 6 hours as needed for severe/break through pain. Do not use Tylenol and Percocet concomitantly. Apply ice for 30 minutes at a time; 2-3 times per day for the next 1-2 days. Follow up with Podiatry/orthopedics in 5-7 days if symptoms persist at which time they will evaluate and recommend with you if conservative management versus surgery is indicated. Please go to dialysis this afternoon as scheduled. Referrals: Ct Antony MD [Primary Care Provider] - As per Instructions Olivia Campbell DPM [Doctor of Podiatric Medicine] - As per Instructions Ventura Winter MD [Medical Doctor] - As per Instructions
[2018-08-28 12:35] VITALS: BP 125/74
== END 2018-08-28 12:36 | disposition home or self-care (01) ==
PROC: 2W3RX1Z Immobilization of Left Lower Leg using Splint (ICD-10-PCS; principal; 2018-08-28)
DX: S82.302A Unspecified fracture of lower end of left tibia, initial encounter for closed fracture (principal); W06.XXXA Fall from bed, initial encounter; Y92.003 Bedroom of unspecified non-institutional (private) residence as the place of occurrence of the external cause; Z98.890 Other specified postprocedural states

== ENCOUNTER 2018-08-29 11:09 | Inpatient (IN) | payer OTHER, MEDICAID | END 2018-09-12 13:37 | disposition short-term general hospital (02) | LOC: F1N 09-07 16:05 → F2N 13:40 ==